=== PATIENT | female | born 1975 | race Caucasian/White ===

== ENCOUNTER 2017-10-22 17:21 | Emergency (ER) | payer OTHER, SELFPAY ==
--- OUTSIDE RECORDS SUMMARY | 2017-10-22 17:23 | XMS REPORT | Clinical Summary ---
:1975 Author Organization [facility] Address [address] [place] [address] Care Team Providers Name Role Phone Cliff Womack Primary Care Provider Allergies Not on File Current Medications Prescription Sig. Disp. Refills Start Date End Date Status medroxyPROGESTERone 08/24/2017 Active (DEPO-PROVERA) 150 mg/mL injection mercaptopurine (PURINETHOL) 09/14/2017 Active 50 mg chemo tablet PENTASA 500 mg CR capsule 08/21/2017 Active metFORMIN (GLUCOPHAGE) 500 08/23/2017 Active mg tablet pantoprazole (PROTONIX) 40 07/12/2017 Active MG EC tablet adalimumab (HUMIRA) 40 Inject 40 mg Active mg/0.8 mL injection under the skin once. ergocalciferol (VITAMIN D2) Take 50,000 Active 50,000 unit capsule Units by mouth once a week. cyanocobalamin 1,000 mcg/mL Inject 1,000 mcg Active injection into the shoulder, thigh, or buttocks once. fexofenadine (CHAPARRO) 60 MG Take 60 mg by Active tablet mouth daily. cinnamon bark 500 mg capsule Take 500 mg by Active mouth daily. coenzyme Q10 (CO Q-10) 200 Take 200 mg by Active mg capsule mouth daily. melatonin 3 mg tablet Take by mouth. Active lidocaine (LIDODERM) 5 % Place 1 patch on Active the skin daily. Remove & Discard patch within 12 hours or as directed by albuterol (PROAIR Inhale 2 puffs Active HFA,PROVENTIL HFA,VENTOLIN every 6 (six) HFA) 90 mcg/actuation hours as needed inhaler for wheezing. promethazine (PHENERGAN) 25 Take 25 mg by Active MG tablet mouth every 6 (six) hours as needed for nausea or vomiting. ondansetron (ZOFRAN) 4 MG Take 4 mg by Active tablet mouth every 8 (eight) hours as needed for nausea or vomiting. Active Problems Problem Noted Date LBBB (left bundle branch block) 09/28/2017 Encounters Date Type Specialty Care Team Description 09/28/2017 Office Visit Cardiology Romaine Chavez MD LBBB (left bundle branch block) (Primary Dx) after 10/21/2016 Social History Tobacco Use Types Packs/Day Years Used Date Current Every Day Smoker Cigarettes 0.25 Smokeless Tobacco: Never Used Alcohol Use Drinks/Week oz/Week Comments No Sex Assigned at Date Recorded Not on file Last Filed Vital Signs Not on file Plan of Treatment Date Type Specialty Care Team Description 09/13/2018 Office Visit Cardiology Romaine Chavez MD [address] [address] Health Maintenance Due Date Last Done Comments PAP SMEAR 1994 INFLUENZA VACCINE 02/02/2018 Results Not on fileafter 10/21/2016 Insurance Payer Benefit Plan / Group Subscriber ID Type Phone Address MEDICARE MEDICARE PART A AND B xxxxxxxxxx Medicare [place], [place] Home: Michael TUCKER [phone] [place] [phone]
[2017-10-22] MEDS ORDERED: NA CHLORIDE 0.9% 1,000 ML ONE ×2 (18:29→20:05)
[2017-10-22] MEDS ORDERED: PROMETHAZINE 25 MG/ML VIAL ONE (18:29)
[2017-10-22 18:53] LABS: Absolute Lymphocytes (CBC) 0.7 K/uL (0.7-4.9); Absolute Neutrophil 13.3 K/uL (1.8-8.0); Basophils % 0.4 % (0-1.3); Hematocrit 42.4 % (36.0-45.0); Lymphocytes % 4.4 % (15.3-44.8); MCH 35.9 pg (27.0-35.0); MCV 103.1 fL (80-100); MPV 8.4 fL (7.6-11.3); Monocytes % 6.4 % (3.3-12.3); RBC Red Blood Cell Count 4.12 M/uL (3.86-4.86)
[2017-10-22 19:04] LABS: Bicarbonate 19 mEq/L (21-31); Glucose Level 156 mg/dL (65-120); Lipase 17 U/L (22-51); Potassium 3.8 mEq/L (3.6-5.0); Sodium Level 135 mEq/L (135-145)
[2017-10-22 19:10] LABS: ALT/SGPT 49 IU/L (10-60); AST/SGOT 34 IU/L (10-42); Albumin 3.2 g/dL (3.2-5.5); Alkaline Phosphatase 71 IU/L (42-121); BUN Blood Urea Nitrogen 12 mg/dL (6-20); Bilirubin Direct 0.3 mg/dL (0-0.2); Protein, Total 7.5 g/dL (6.0-8.3)
[2017-10-22] MEDS ORDERED: ACETAMINOPHEN 500 MG TAB ONE (19:17)
[2017-10-22 19:24] LABS: Platelet Estimate INCR; Urine White Blood Cell Casts OK
[2017-10-22 19:25] LABS: Blood Morphology Comment NOT SEEN (NOT SEEN)
[2017-10-22 20:39] LABS: Urine Blood 2+ (NEG); Urine Glucose NEGATIVE (NEG); Urine Protein 3+ (NEG); Urine Specific Gravity >1.030 (1.005-1.030)
--- NOTE | 2017-10-22 20:42 | ER ---
Nurse's Notes [facility] Name: Kathe Del Rio Age: 42 yrs Sex: Female : 1975 Arrival Date: 10/22/2017 Time: 17:26 Bed 2 Private MD: Diagnosis: Infectious mononucleosis;Nausea and vomiting Presentation: 10/22 18:02 Presenting complaint: Patient states: N/V/D and fever x 4 days. TMAX 103.4. Transition hb of care: patient was not received from another setting of care. Onset of symptoms was October 19, 2017. Care prior to arrival: Medication(s) given: Motrin at 1330 today. 18:02 Method Of Arrival: Ambulatory hb 18:02 Acuity: KARISSA 2 hb 18:35 Initial Sepsis Screen: Does the patient meet any 2 criteria? HR > 90 bpm. No. Patient's tw2 initial sepsis screen is negative. Does the patient have a suspected source of infection? No. Patient's initial sepsis screen is negative. 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 - Social history:: Smoking status: Patient uses tobacco products, smokes one-half pack cigarettes per day. Screenin:38 Abuse screen: Denies threats or abuse. Nutritional screening: No deficits noted. tw2 Tuberculosis screening: No symptoms or risk factors identified. Fall Risk None identified. Assessment: 18:35 General: Appears in no apparent distress. Behavior is calm, cooperative, appropriate tw2 for age. Pain: Denies pain. Neuro: Level of Consciousness is awake, alert, obeys commands, Oriented to person, place, time, situation. Cardiovascular: Denies chest pain, shortness of breath, Heart tones S1 S2 Capillary refill < 3 seconds Patient's skin is warm and dry. Respiratory: Airway is patent Respiratory effort is even, unlabored, Respiratory pattern is regular, symmetrical, Breath sounds are clear bilaterally. GI: Abdomen is round obese, Bowel sounds present X 4 quads. Reports diarrhea, nausea, vomiting, X4days. : No signs and/or symptoms were reported regarding the genitourinary system. EENT: No signs and/or symptoms were reported regarding the EENT system. Derm: Skin is intact, is healthy with good turgor, Skin is dry, Skin temperature is warm. Musculoskeletal: Range of motion: intact in all extremities. 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 General: tl2 Appears in no apparent distress. uncomfortable, Behavior is calm, cooperative, appropriate for age. Pain: Denies pain. Neuro: Level of Consciousness is awake, alert, obeys commands, Oriented to person, place, time, situation. Cardiovascular: Denies chest pain. Respiratory: Airway is patent Respiratory effort is even, unlabored, Respiratory pattern is regular, symmetrical. GI: Abdomen is round Reports diarrhea, nausea, vomiting. : No signs and/or symptoms were reported regarding the genitourinary system. Derm: Skin temperature is warm. 21:05 Reassessment: Patient and/or family updated on plan of care and expected duration. Pain tl1 level reassessed. Patient is alert, oriented x 3, equal unlabored respirations, skin warm/dry/pink. Patient denies pain at this time. Patient states feeling better. Patient states symptoms have improved. Vital Signs: 18:04 BP 134 / 80; Pulse 146; Resp 20; Temp 97(TE); Pulse Ox 100% on R/A; Weight 83.01 kg; hb Height 5 ft. 7 in. (170.18 cm); Pain 3/10; 18:30 BP 153 / 71; Pulse 134; Resp 18; Pulse Ox 95% on R/A; tw2 19:12 BP 134 / 63; Pulse 118; Resp 30; Temp 100.3(O); Pulse Ox 93% on R/A; tl2 20:22 BP 130 / 62; Pulse 104; Resp 24; Pulse Ox 92% on R/A; tl2 21:05 BP 125 / 66; Pulse 102; Resp 17; Temp 99.5(O); Pulse Ox 95% on R/A; Pain 0/10; tl1 18:04 Body Mass Index 28.66 (83.01 kg, 170.18 cm) hb ED Course: 17:26 Patient arrived in ED. sb2 18:04 Triage completed. hb 18:06 Arm band placed on left wrist. hb 18:08 Justice Jimenez NP is PHCP. pm1 18:08 Anjum Narvaez MD is Attending Physician. pm1 18:15 Bed in low position. Pulse ox on. NIBP on. tw2 18:26 Chantel Griffin RN is Primary Nurse. tw2 18:30 domestic violence advocate on. tw2 18:35 Missed attempt(s): 20 gauge in right antecubital area. per joseph Nguyen. tw2 18:38 No provider procedures requiring assistance completed. tw2 18:45 Initial lab(s) drawn, by me, sent to lab. Flu and/or RSV swab sent to lab. Inserted jb1 saline lock: 22 gauge in left antecubital area, using aseptic technique. Blood collected. 19:00 Report given to RICH Arreola. tw2 21:07 IV discontinued, intact, bleeding controlled, No redness/swelling at site. Pressure tl1 dressing applied. Administered Medications: 18:40 Drug: Phenergan 12.5 mg Route: IVP; Site: left antecubital; tw2 21:10 Follow up: Response: No adverse reaction; Nausea is decreased tl1 18:44 Drug: NS 0.9% 1000 ml Route: IV; Rate: 1000 ml; Site: left antecubital; tw2 21:10 Follow up: IV Status: Completed infusion tl1 19:19 Drug: Tylenol 1000 mg Route: PO; tl1 21:08 Follow up: Response: No adverse reaction; Temperature is decreased tl1 20:09 Drug: NS 0.9% 1000 ml Route: IV; Rate: 1000 ml; Site: left forearm; tl2 21:08 Follow up: IV Status: Completed infusion tl1 Outcome: 20:42 Discharge ordered by . pm1 21:09 Discharged to home ambulatory. tl1 21:09 Condition: good 21:09 Discharge instructions given to patient, Instructed on discharge instructions, follow up and referral plans. medication usage, Demonstrated understanding of instructions, follow-up care, medications, Prescriptions given X 1. 21:20 Patient left the ED. tl1 Signatures: Herbert Duke jb1 Carol Bingham, RN RN tl1 Justice Jimenez, WALLPAPER SCRAPER WALLPAPER SCRAPER pm1 Kathe Monge RN RN Chantel Griffin RN RN tw2 Elba Werner RN RN tl2 Maritza Trinidad sb2 Corrections: (The following items were deleted from the chart) 19:16 19:12 BP 134 / 63; Pulse 118bpm; Resp 30bpm; Pulse Ox 93% RA; tl2 tl2
--- NOTE | 2017-10-22 20:42 | EDPHYS ---
Physician Documentation [facility] Name: Kathe Del Rio Age: 42 yrs Sex: Female : 1975 Arrival Date: 10/22/2017 Time: 17:26 Bed 2 Private MD: ED Physician Anjum Narvaez HPI: 10/22 19:00 This 42 yrs old Female presents to ER via Ambulatory with complaints of pm1 Fever, Vomiting. 19:00 The patient reports fever, that was measured at 101 degrees Fahrenheit. Onset: The pm1 symptoms/episode began/occurred 3 day(s) ago. Modifying factors: there are no obvious modifying factors. Associated signs and symptoms: Pertinent positives: cough, nausea, vomiting, Pertinent negatives: abdominal pain, chest pain, diarrhea, earache, headache, skin rash, shortness of breath, sore throat. Severity of symptoms: in the emergency department the symptoms are unchanged. The patient has not experienced similar symptoms in the past. The patient has been recently seen at an urgent care, patient seen at urgent care two days ago for the same symptoms and told that she has a cold. No labs or X-rays performed. patient discharged home without mediations . 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 - Social history:: Smoking status: Patient uses tobacco products, smokes one-half pack cigarettes per day. ROS: 19:00 Eyes: Negative for injury, pain, redness, and discharge, ENT: Negative for injury, pm1 pain, and discharge, Neck: Negative for injury, pain, and swelling, Cardiovascular: Negative for chest pain, palpitations, and edema, Respiratory: Negative for shortness of breath, cough, wheezing, and pleuritic chest pain. 19:00 Back: Negative for injury and pain, : Negative for injury, bleeding, discharge, and swelling, MS/Extremity: Negative for injury and deformity, Skin: Negative for injury, rash, and discoloration, Neuro: Negative for headache, weakness, numbness, tingling, and seizure. 19:00 Constitutional: Positive for body aches, chills, fever, Negative for poor PO intake. 19:00 Abdomen/GI: Positive for nausea and vomiting, Negative for abdominal pain, diarrhea. Exam: 19:00 Constitutional: This is a well developed, well nourished patient who is awake, alert, pm1 and in no acute distress. Head/Face: Normocephalic, atraumatic. Eyes: Pupils equal round and reactive to light, extra-ocular motions intact. Lids and lashes normal. Conjunctiva and sclera are non-icteric and not injected. Cornea within normal limits. Periorbital areas with no swelling, redness, or edema. ENT: Nares patent. No nasal discharge, no septal abnormalities noted. Tympanic membranes are normal and external auditory canals are clear. Oropharynx with no redness, swelling, or masses, exudates, or evidence of obstruction, uvula midline. Mucous membranes moist. Neck: Trachea midline, no thyromegaly or masses palpated, and no cervical lymphadenopathy. Supple, full range of motion without nuchal rigidity, or vertebral point tenderness. No Meningismus. Chest/axilla: Normal chest wall appearance and motion. Nontender with no deformity. No lesions are appreciated. Cardiovascular: Regular rate and rhythm with a normal S1 and S2. No gallops, murmurs, or rubs. Normal PMI, no JVD. No pulse deficits. Respiratory: Lungs have equal breath sounds bilaterally, clear to auscultation and percussion. No rales, rhonchi or wheezes noted. No increased work of breathing, no retractions or nasal flaring. 19:00 Back: No spinal tenderness. No costovertebral tenderness. Full range of motion. Skin: Warm, dry with normal turgor. Normal color with no rashes, no lesions, and no evidence of cellulitis. MS/ Extremity: Pulses equal, no cyanosis. Neurovascular intact. Full, normal range of motion. Neuro: Awake and alert, GCS 15, oriented to person, place, time, and situation. Cranial nerves II-XII grossly intact. Motor strength 5/5 in all extremities. Sensory grossly intact. Cerebellar exam normal. Normal gait. 19:00 Abdomen/GI: Inspection: abdomen appears normal, Bowel sounds: normal, Palpation: abdomen is soft and non-tender. Vital Signs: 18:04 BP 134 / 80; Pulse 146; Resp 20; Temp 97(TE); Pulse Ox 100% on R/A; Weight 83.01 kg; hb Height 5 ft. 7 in. (170.18 cm); Pain 3/10; 18:30 BP 153 / 71; Pulse 134; Resp 18; Pulse Ox 95% on R/A; tw2 19:12 BP 134 / 63; Pulse 118; Resp 30; Temp 100.3(O); Pulse Ox 93% on R/A; tl2 20:22 BP 130 / 62; Pulse 104; Resp 24; Pulse Ox 92% on R/A; tl2 21:05 BP 125 / 66; Pulse 102; Resp 17; Temp 99.5(O); Pulse Ox 95% on R/A; Pain 0/10; tl1 18:04 Body Mass Index 28.66 (83.01 kg, 170.18 cm) hb MDM: 18:17 Patient medically screened. pm1 20:41 Data reviewed: vital signs. Counseling: I had a detailed discussion with the patient pm1 and/or guardian regarding: the historical points, exam findings, and any diagnostic results supporting the discharge/admit diagnosis, lab results, the need for outpatient follow up, to return to the emergency department if symptoms worsen or persist or if there are any questions or concerns that arise at home. 10/22 18:20 Order name: Lipase; Complete Time: 19: pm1 10/22 18:20 Order name: Hepatic Function; Complete Time: : pm1 10/22 18:20 Order name: Basic Metabolic Panel; Complete Time: 19:22 pm1 10/22 18:20 Order name: CBC with Diff; Complete Time: 19:44 pm1 10/22 18:20 Order name: Flu; Complete Time: 19: pm1 10/22 18:20 Order name: [place] Screen Profile; Complete Time: 19:22 pm1 10/22 18:20 Order name: Urine Test (obtain specimen); Complete Time: 19:32 pm1 10/22 18:58 Order name: CBC Smear Scan; Complete Time: 19:44 EDMS 10/22 19:34 Order name: Urine Dipstick--Ancillary (enter results); Complete Time: 20:40 em1 10/22 19:34 Order name: Urine --Ancillary (enter results); Complete Time: 20:40 em1 10/22 18:20 Order name: IV Saline Lock; Complete Time: 18:45 pm1 10/22 18:20 Order name: Labs collected and sent; Complete Time: 18:45 pm1 10/22 18:20 Order name: Urine Dipstick-Ancillary (obtain specimen); Complete Time: 19:32 pm1 Administered Medications: 18:40 Drug: Phenergan 12.5 mg Route: IVP; Site: left antecubital; tw2 21:10 Follow up: Response: No adverse reaction; Nausea is decreased tl1 18:44 Drug: NS 0.9% 1000 ml Route: IV; Rate: 1000 ml; Site: left antecubital; tw2 21:10 Follow up: IV Status: Completed infusion tl1 19:19 Drug: Tylenol 1000 mg Route: PO; tl1 21:08 Follow up: Response: No adverse reaction; Temperature is decreased tl1 20:09 Drug: NS 0.9% 1000 ml Route: IV; Rate: 1000 ml; Site: left forearm; tl2 21:08 Follow up: IV Status: Completed infusion tl1 Disposition: 10/22/17 20:42 Discharged to Home. Impression: Infectious mononucleosis, Nausea and vomiting. - Condition is Stable. - Discharge Instructions: Infectious Mononucleosis, Nausea and Vomiting. - Prescriptions for promethazine 25 mg Oral Tablet - take 1 tablet by ORAL route every 6 hours As needed; 20 tablet. - Medication Reconciliation Form, Thank You Letter form. - Follow up: Emergency Department; When: As needed; Reason: Worsening of condition. Follow up: Private Physician; When: 2 - 3 days; Reason: Recheck today's complaints, Continuance of care, Re-evaluation by your physician. - Problem is new. - Symptoms have improved. Addendum: 11/06/2017 19:56 Co-signature as Attending Physician, Anjum Narvaez MD I agree with the assessment and k dr plan of care. Signatures: Dispatcher [employer] EDMS Anjum Narvaez MD MD [facility] Carol Bingham, RN RN tl1 Justice Jimenez, TENNIS DIRECTOR TENNIS DIRECTOR pm1 Kathe Monge, RN RN Chantel Griffin, RN RN tw2 Elba Werner RN RN tl2 Corrections: (The following items were deleted from the chart) 10/22 20:43 20:42 10/22/2017 20:42 Discharged to Home. Impression: Infectious mononucleosis. pm1 Condition is Stable. Forms are Medication Reconciliation Form, Thank You Letter, Antibiotic Education, Prescription Opioid Use. Follow up: Emergency Department; When: As needed; Reason: Worsening of condition. Follow up: Private Physician; When: 2 - 3 days; Reason: Recheck today's complaints, Continuance of care, Re-evaluation by your physician. Problem is new. Symptoms have improved. pm1 21:20 20:43 10/22/2017 20:42 Discharged to Home. Impression: Infectious mononucleosis; Nausea tl1 and vomiting. Condition is Stable. Discharge Instructions: Infectious Mononucleosis, Nausea and Vomiting. Prescriptions for promethazine 25 mg Oral Tablet - take 1 tablet by ORAL route every 6 hours As needed; 20 tablet. and Forms are Medication Reconciliation Form, Thank You Letter. Follow up: Emergency Department; When: As needed; Reason: Worsening of condition. Follow up: Private Physician; When: 2 - 3 days; Reason: Recheck today's complaints, Continuance of care, Re-evaluation by your physician. Problem is new. Symptoms have improved. pm1
[2017-10-22 21:29] VITALS: BP 125/66; TEMP 99.5; O2SAT 95
== END 2017-10-22 21:20 | disposition home or self-care (01) ==
LOC: ER 17:21
DX: B27.90 Infectious mononucleosis, unspecified without complication (principal); R11.2 Nausea with vomiting, unspecified; F17.210 Nicotine dependence, cigarettes, uncomplicated; Z88.6 Allergy status to analgesic agent; Z88.8 Allergy status to other drugs, medicaments and biological substances; Z88.2 Allergy status to sulfonamides; Z88.3 Allergy status to other anti-infective agents
CPT/HCPCS: 36415; 80048; 80076; 81003; 81025; 83690; 85025; 86308; 87804; 96361; 96374; 99284; J2550; J7030

== ENCOUNTER 2017-10-25 18:17 | Inpatient (IN) | payer OTHER, SELFPAY ==
--- OUTSIDE RECORDS SUMMARY | 2017-10-25 18:19 | XMS REPORT | Clinical Summary ---
:1975 Author Organization [facility] Address [address] [place] [address] Care Team Providers Name Role Phone Cliff [...] (left bundle branch block) (Primary Dx) after 10/24/2016 Social History Tobacco Use Types Packs/Day Years Used Date Current Every Day Smoker Cigarettes 0.25 Smokeless Tobacco: Never Used Alcohol Use Drinks/Week oz/Week Comments No Sex Assigned at Date Recorded Not on file Last Filed Vital Signs Not on file Plan of Treatment Date Type Specialty Care Team Description 09/13/2018 Office Visit Cardiology Romaine Chavez MD [address] [address] Health Maintenance Due Date Last Done Comments PAP SMEAR 1994 INFLUENZA VACCINE 02/02/2018 Results Not on fileafter 10/24/2016 Insurance Payer Benefit Plan / Group Subscriber ID Type Phone Address MEDICARE MEDICARE PART A AND B xxxxxxxxxx Medicare [place], [place] Home: Michael [place] [phone] [place] [phone]
[2017-10-25] MEDS ORDERED: NA CHLORIDE 0.9% 1,000 ML ONE ×2 (19:16→19:54)
[2017-10-25 19:19] LABS: Protime INR 1.31
[2017-10-25 19:33] LABS: Absolute Lymphocytes (CBC) 0.6 K/uL (0.7-4.9); Absolute Monocytes 0.4 K/uL (0.1-1.3); Absolute Neutrophil 11.8 K/uL (1.8-8.0); Basophils % 0.3 % (0-1.3); Eosinophils % 0.2 % (0-4.4); Hematocrit 43.2 % (36.0-45.0); Lymphocytes % 4.9 % (15.3-44.8); MCH 35.1 pg (27.0-35.0); MCV 103.4 fL (80-100); MPV 9.2 fL (7.6-11.3); Monocytes % 3.1 % (3.3-12.3); RBC Red Blood Cell Count 4.18 M/uL (3.86-4.86)
[2017-10-25 19:40] LABS: Arterial Blood Carboxyhemoglob 0.9 % (0-1.5); Blood Gas Oxyhemoglobin 95.1 % (94-97); Blood O2 Saturation 96.4 % (92-98.5)
[2017-10-25 19:41] LABS: ALT/SGPT 92 IU/L (10-60); AST/SGOT 158 IU/L (10-42); Albumin 2.7 g/dL (3.2-5.5); Alkaline Phosphatase 98 IU/L (42-121); BUN Blood Urea Nitrogen 11 mg/dL (6-20); Bicarbonate 23 mEq/L (21-31); Bilirubin Direct 0.5 mg/dL (0-0.2); Bilirubin Total 1.6 mg/dL (0.3-1.2); Glucose Level 202 mg/dL (65-120); Lipase 50 U/L (22-51); Potassium 3.2 mEq/L (3.6-5.0); Protein, Total 6.8 g/dL (6.0-8.3); Sodium Level 131 mEq/L (135-145)
[2017-10-25] MEDS ORDERED: ALBUTEROL 2.5 MG/3 ML NEB SOL ONE (19:53)
[2017-10-25] MEDS ORDERED: IPRATROPIUM BROM 0.5MG/2.5ML ONE (19:53)
[2017-10-25] MEDS ORDERED: Levofloxacin 750mg IV 750 MG/150 ML BAG IV ONE (19:54)
[2017-10-25] MEDS ORDERED: CEFTRIAXONE/SWI 1gm 1 GM/10 ML SYR ONE (19:54)
[2017-10-25] MEDS ORDERED: ONDANSETRON 4 MG/2 ML VIAL ONE (20:03)
--- NOTE | 2017-10-25 20:11 | ER ---
Nurse's Notes [facility] Name: Kathe Del Rio Age: 42 yrs Sex: Female : 1975 Arrival Date: 10/25/2017 Time: 18:19 Bed 6 Private MD: Cliff Womack H Diagnosis: Severe sepsis without septic shock Presentation: 10/25 18:33 Presenting complaint: Patient states: Pt. c/o SOB and low pulse ox \T\ home... Heart rate rk2 in triage elevated. Pt. dx with mono on Wednesday here in ED. Transition of care: patient was not received from another setting of care. Onset of symptoms was October 25, 2017. Initial Sepsis Screen: Does the patient meet any 2 criteria? Yes Does the patient have a suspected source of infection? Yes:. Care prior to arrival: None. 18:33 Method Of Arrival: Wheelchair rk2 18:33 Acuity: KARISSA 2 rk2 Triage Assessment: 18:54 General: Appears distressed. Respiratory: Onset: The symptoms/episode began/occurred tw2 today, the patient has moderate shortness of breath. 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 - bb Historical: - Allergies: 18:36 Allopurinol; rk2 18:36 Codeine; rk2 18:36 Demerol; rk2 18:36 Cymbalta; rk2 18:36 Effexor; rk2 18:36 Lyrica; rk2 18:36 milnacipran; rk2 18:36 Macrolide Antibiotics; rk2 18:36 Oxycodone; rk2 18:36 Morphine; rk2 18:36 Zithromax; rk2 18:36 Sulfa (Sulfonamide Antibiotics); rk2 - Home Meds: 19:02 propranolol 40 mg Oral tab 1 tab 2 times per day [Active]; Pentasa 500 mg Oral cpER 2 tw2 caps 4 times per day [Active]; mercaptopurine 50 mg oral tab once daily [Active]; Stool Softener oral oral [Active]; Zofran (as hydrochloride) 4 mg oral tab [Active]; iflora-nasal sinus support supplement [Active]; metformin 500 mg Oral tr24 1 tab once daily [Active]; - PMHx: 19:02 automimmune thyroiditis; Crohn's; LBB; Heart Murmur; psoriasis; tw2 - PSHx: 19:02 Appendectomy; Cholecystectomy; rectal mass removed; left ankle surgery; breast tw2 reduction; Lumpectomy; - Immunization history:: Flu vaccine is up to date. - Social history:: Smoking status: Patient uses tobacco products, smokes one-half pack cigarettes per day. Screenin:54 Abuse screen: Denies threats or abuse. Nutritional screening: No deficits noted. tw2 Tuberculosis screening: No symptoms or risk factors identified. Fall Risk None identified. Assessment: 18:44 General: Appears uncomfortable, Behavior is anxious. Pain: Denies pain. Neuro: Level of tw2 Consciousness is awake, alert, obeys commands, Oriented to person, place, time, situation. Cardiovascular: Heart tones S1 S2 Capillary refill < 3 seconds Patient's skin is warm and dry. Rhythm is sinus tachycardia. Respiratory: Reports shortness of breath Airway is patent Respiratory effort is even, unlabored, Respiratory pattern is tachypnea Breath sounds are clear bilaterally. GI: No signs and/or symptoms were reported involving the gastrointestinal system. Abdomen is flat, Bowel sounds present X 4 quads. : No signs and/or symptoms were reported regarding the genitourinary system. EENT: No signs and/or symptoms were reported regarding the EENT system. Derm: Skin is intact, is healthy with good turgor, Skin is diaphoretic. Musculoskeletal: Range of motion: intact in all extremities. 19:15 General: Appears in no apparent distress. uncomfortable, Behavior is calm, cooperative. bb Neuro: Level of Consciousness is awake, alert, obeys commands, Oriented to person, place, time, situation. Cardiovascular: Heart tones S1 S2 present Capillary refill < 3 seconds Patient's skin is warm and dry. Pulses are all present. Edema is absent. Rhythm is sinus tachycardia. Respiratory: Respiratory effort is unlabored, Respiratory pattern is tachypnea Breath sounds with rhonchi in left posterior lower lobe. GI: No signs and/or symptoms were reported involving the gastrointestinal system. Derm: Skin is pink, warm \T\ dry. Musculoskeletal: Circulation, motion, and sensation intact. 20:15 Reassessment: No changes from previously documented assessment. Patient is alert, bb oriented x 3, equal unlabored respirations, skin warm/dry/pink. Bipap in place, IV site intact, patent, with fluids infusing, mother at bedside. 21:00 Reassessment: Dr Choi notified pt temp of 102.6 new orders received pt medicated see bb SEP. 21:50 Reassessment: pt to CT scan via stretcher on non-rebreather, monitored, pt accompanied bb by this RN and body shop technician. 22:10 Reassessment: pt returned from CT scan, placed on Bipap, IV site intact, pt states she bb is hungry now which she has not been for the last several days. Family at bedside awaiting transfer to ICU bed 7. Vital Signs: 18:36 BP 119 / 66; Pulse 141; Resp 24; Temp 96.8; Pulse Ox 87% on R/A; rk2 18:39 Weight 83.01 kg (R); tw2 18:47 Pulse Ox 93% on 4 lpm NC; tw2 18:55 Pulse Ox 95% on 50% BiPAP; tw2 19:43 BP 149 / 108; Pulse 142; Resp 25 S; Pulse Ox 99% on BiPAP; bb 20:30 BP 121 / 104; Pulse 128; Resp 32 S; Pulse Ox 100% on BiPAP; bb 21:51 BP 139 / 84; Pulse 121; Resp 26; Pulse Ox 98% on BiPAP; mt 22:27 BP 134 / 70; Pulse 123; Resp 28 S; Temp 99.6(O); Pulse Ox 91% on R/A; bb 18:47 will continue to monitor, provider notified, requested Carolin to page respiratory for tw2 BIpap 18:55 12/6, Rate 14, FIO2 60% tw2 22:27 pt placed on Bipap O2 sats 100% bb ED Course: 18:19 Patient arrived in ED. mr 18:19 Cliff Womack DO is Private Physician. mr 18:35 Triage completed. rk2 18:39 Chantel Griffin, RICH is Primary Nurse. tw2 18:40 Clyde Choi MD is Attending Physician. gs 18:46 Arm band placed on. tw2 18:46 Bed in low position. Call light in reach. Adult w/ patient. cafeteria cashier on. Pulse tw2 ox on. NIBP on. 19:01 Initial lab(s) drawn, by me, sent to lab. EKG done, by ED staff, reviewed by Clyde Choi MD. Inserted saline lock: 22 gauge in left antecubital area, using aseptic technique. Blood collected. 19:10 Report given to RICH William with NS 1L needed to be given. tw2 19:16 X-ray completed. Portable x-ray completed in exam room. Patient tolerated procedure ml well. 19:17 Chest Single View XRAY In Process Unspecified. EDMS 20:10 Nabeel Burton MD is Hospitalizing Provider. 21:55 Repeat lab(s) drawn. by me, sent to lab. Inserted saline lock: 20 gauge in right bb antecubital area, using aseptic technique. Blood collected. 22:28 No provider procedures requiring assistance completed. Patient admitted, IV remains in bb place. Administered Medications: 19:15 Drug: NS 0.9% 1000 ml Route: IV; Rate: 1 bolus; Site: left antecubital; bb 20:30 Follow up: IV Status: Completed infusion; IV Intake: 1000ml 19:51 CANCELLED (Other Intervention Used): Rocephin - (cefTRIAXone) 1 grams IVPB once over 30 bb mins; (mix in 50 mL NS) 19:51 Drug: NS 0.9% 1000 ml Route: IV; Rate: 1 bolus; Site: left antecubital; bb 22:00 Follow up: IV Status: Completed infusion; IV Intake: 1000ml bb 19:55 Drug: Rocephin 1 grams Route: IV; Rate: calculated rate; Site: left antecubital; bb 20:00 Follow up: IV Status: Completed infusion; IV Intake: 10ml 19:55 Drug: Albuterol 2.5 mg Route: Inhalation; bb 22:31 Follow up: Response: No adverse reaction bb 19:55 Drug: AtroVENT Aerosol 0.5 mg Route: Inhalation; bb 22:31 Follow up: Response: No adverse reaction bb 20:00 Drug: LevaQUIN 750 mg Volume: 150 ml; Route: IVPB; Infused Over: 90 mins; Site: left bb antecubital; 22:33 Follow up: IV Status: Completed infusion; IV Intake: 150ml bb 20:00 Drug: Zofran 4 mg Route: IVP; Site: left antecubital; bb 22:30 Follow up: Response: No adverse reaction 20:40 Drug: NS 0.9% 500 ml Route: IV; Rate: bolus; Site: left antecubital; bb 22:00 Follow up: IV Status: Completed infusion; IV Intake: 500ml bb 21:12 Drug: Tylenol 1000 mg Route: PO; bb 22:30 Follow up: Response: Temperature is decreased bb Intake: 20:00 IV: 10ml; Total: 10ml. bb 20:30 IV: 1000ml; Total: 1010ml. bb 22:00 IV: 500ml; Total: 1510ml. bb 22:00 IV: 1000ml; Total: 2510ml. bb 22:33 IV: 150ml; Total: 2660ml. bb Outcome: 20:11 Decision to Hospitalize by Provider. 22:28 Admitted to ICU accompanied by nurse, family with patient, via stretcher, room ICU 7, bb with oxygen, on monitor, with chart, Other bedside report given to receiving RN 22:28 Condition: unchanged 23:12 Patient left the ED. bb Signatures: Dispatcher [employer] EDMS Herbert Duke jbGladys Bess Brenda, RN RN bb Leona Sexton Tara, RN RN tw2 Mai Garay mt, Gregory, MD MD gs Kidder, Rhonda, RICH RN rk2 Corrections: (The following items were deleted from the chart) 19:03 18:55 Pulse Ox 02 50% BiPAP; 06/09, Rate 14, FIO2 60%; tw2 tw2
--- NOTE | 2017-10-25 20:12 | EDPHYS ---
Physician Documentation [facility] Name: Kathe Del Rio Age: 42 yrs Sex: Female : 1975 Arrival Date: 10/25/2017 Time: 18:19 Bed 6 Private MD: Cliff Womack H ED Physician Clyde Choi HPI: 10/25 21:23 This 42 yrs old Female presents to ER via Wheelchair with complaints of gs Breathing Difficulty. 21:23 The patient has shortness of breath at rest. Onset: The symptoms/episode began/occurred gs 2 day(s) ago, and became worse and became persistent. Duration: The symptoms are continuous. The patient's shortness of breath has no apparent modifying factors. Associated signs and symptoms: Pertinent positives: productive cough, fever, vomiting. Severity of symptoms: At their worst the symptoms were incapacitating in the emergency department the symptoms are unchanged. The patient has not experienced similar symptoms in the past. The patient has not recently seen a physician. 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 - bb Historical: - Allergies: 18:36 Allopurinol; rk2 18:36 Codeine; rk2 18:36 Demerol; rk2 18:36 Cymbalta; rk2 18:36 Effexor; rk2 18:36 Lyrica; rk2 18:36 milnacipran; rk2 18:36 Macrolide Antibiotics; rk2 18:36 Oxycodone; rk2 18:36 Morphine; rk2 18:36 Zithromax; rk2 18:36 Sulfa (Sulfonamide Antibiotics); rk2 - Home Meds: 19:02 propranolol 40 mg Oral tab 1 tab 2 times per day [Active]; Pentasa 500 mg Oral cpER 2 tw2 caps 4 times per day [Active]; mercaptopurine 50 mg oral tab once daily [Active]; Stool Softener oral oral [Active]; Zofran (as hydrochloride) 4 mg oral tab [Active]; iflora-nasal sinus support supplement [Active]; metformin 500 mg Oral tr24 1 tab once daily [Active]; - PMHx: 19:02 automimmune thyroiditis; Crohn's; LBB; Heart Murmur; psoriasis; tw2 - PSHx: 19:02 Appendectomy; Cholecystectomy; rectal mass removed; left ankle surgery; breast tw2 reduction; Lumpectomy; - Immunization history:: Flu vaccine is up to date. - Social history:: Smoking status: Patient uses tobacco products, smokes one-half pack cigarettes per day. ROS: 21:23 All other systems are negative. gs Exam: 21:23 Head/Face: Normocephalic, atraumatic. Eyes: Pupils equal round and reactive to light, gs extra-ocular motions intact. Lids and lashes normal. Conjunctiva and sclera are non-icteric and not injected. Cornea within normal limits. Periorbital areas with no swelling, redness, or edema. ENT: Nares patent. No nasal discharge, no septal abnormalities noted. Tympanic membranes are normal and external auditory canals are clear. Oropharynx with no redness, swelling, or masses, exudates, or evidence of obstruction, uvula midline. Mucous membranes moist. Neck: Trachea midline, no thyromegaly or masses palpated, and no cervical lymphadenopathy. Supple, full range of motion without nuchal rigidity, or vertebral point tenderness. No Meningismus. Chest/axilla: Normal chest wall appearance and motion. Nontender with no deformity. No lesions are appreciated. Abdomen/GI: Soft, non-tender, with normal bowel sounds. No distension or tympany. No guarding or rebound. No evidence of tenderness throughout. Back: No spinal tenderness. No costovertebral tenderness. Full range of motion. Skin: Warm, dry with normal turgor. Normal color with no rashes, no lesions, and no evidence of cellulitis. MS/ Extremity: Pulses equal, no cyanosis. Neurovascular intact. Full, normal range of motion. Neuro: Awake and alert, GCS 15, oriented to person, place, time, and situation. Cranial nerves II-XII grossly intact. Motor strength 5/5 in all extremities. Sensory grossly intact. Cerebellar exam normal. Normal gait. 21:23 Constitutional: The patient appears alert, awake, in obvious distress, severely distressed. 21:23 Cardiovascular: Rate: tachycardic, Rhythm: regular, Pulses: no pulse deficits are appreciated, Edema: is not appreciated. 21:23 ECG was reviewed by the Attending Physician. 21:23 Respiratory: severe repiratory distress is noted, Respirations: labored breathing, tachypnea, Breath sounds: decreased breath sounds, that are moderate, are heard in the left posterior lower lobe. Vital Signs: 18:36 BP 119 / 66; Pulse 141; Resp 24; Temp 96.8; Pulse Ox 87% on R/A; rk2 18:39 Weight 83.01 kg (R); tw2 18:47 Pulse Ox 93% on 4 lpm NC; tw2 18:55 Pulse Ox 95% on 50% BiPAP; tw2 19:43 BP 149 / 108; Pulse 142; Resp 25 S; Pulse Ox 99% on BiPAP; bb 20:30 BP 121 / 104; Pulse 128; Resp 32 S; Pulse Ox 100% on BiPAP; bb 21:51 BP 139 / 84; Pulse 121; Resp 26; Pulse Ox 98% on BiPAP; mt 22:27 BP 134 / 70; Pulse 123; Resp 28 S; Temp 99.6(O); Pulse Ox 91% on R/A; bb 18:47 will continue to monitor, provider notified, requested Carolin to page respiratory for tw2 BIpap 18:55 12/6, Rate 14, FIO2 60% tw2 22:27 pt placed on Bipap O2 sats 100% bb MDM: 18:49 Patient medically screened. gs 21:23 Differential diagnosis: CHF exacerbation, Chronic Obstructive Pulmonary Disease gs pneumonia, Sepsis. Data reviewed: vital signs, nurses notes, and as a result, I will admit patient. 10/26 10:09 Response to treatment: the patient's symptoms have markedly improved after treatment, gs and as a result, I will admit patient. 10/25 18:51 Order name: Basic Metabolic Panel; Complete Time: 19:47 10/25 18:51 Order name: Blood Culture Adult (2) 10/25 18:51 Order name: CBC with Diff; Complete Time: 21:02 10/25 18:51 Order name: Lactate; Complete Time: 20:10 10/25 18:51 Order name: LFT's; Complete Time: 19:47 10/25 18:51 Order name: Lipase; Complete Time: 19:47 10/25 18:51 Order name: Procalcitonin; Complete Time: 20:10 10/25 18:51 Order name: Protime (+inr); Complete Time: 19:32 10/25 18:51 Order name: Troponin (emerg Dept Use Only); Complete Time: 19:47 10/25 18:51 Order name: ABG; Complete Time: 19:47 10/25 20:43 Order name: CBC Smear Scan; Complete Time: 21:02 EDFL 10/25 21:50 Order name: Urine Dipstick--Ancillary (enter results) 2 10/25 21:50 Order name: Urine --Ancillary (enter results) [facility] 10/25 22:13 Order name: Urine --Ancillary; Complete Time: 10:11 EDFL 10/25 18:48 Order name: BIPAP 10/25 18:51 Order name: Chest Single View XRAY; Complete Time: 21:02 10/25 18:51 Order name: Accucheck; Complete Time: 19:12 10/25 22:13 Order name: Urine Dipstick-Ancillary; Complete Time: 10:11 EDMS 10/25 22:17 Order name: Lactate Sepsis 2 HR Follow-up; Complete Time: 10:11 EDFL 10/25 22:42 Order name: Troponin (emerg Dept Use Only) hi 10/25 18:51 Order name: Cardiac monitoring; Complete Time: 19:02 10/25 18:51 Order name: EKG - Nurse/Tech; Complete Time: 19:02 10/25 18:51 Order name: IV Saline Lock - Large Bore; Complete Time: 19:02 10/25 18:51 Order name: Labs collected and sent; Complete Time: 19:02 10/25 18:51 Order name: O2 Per Protocol; Complete Time: 19:02 10/25 18:51 Order name: O2 Sat Monitoring; Complete Time: 19:02 gs EC/23 21:23 Rate is 135 beats/min. Rhythm is regular with Left bundle branch block. [place] interval is gs normal. QRS interval is prolonged. No Q waves. T waves are Normal. No ST changes noted. Clinical impression: Abnormal EKG without significant change and Sinus tachycardia. Interpreted by me. Administered Medications: 19:15 Drug: NS 0.9% 1000 ml Route: IV; Rate: 1 bolus; Site: left antecubital; bb 20:30 Follow up: IV Status: Completed infusion; IV Intake: 1000ml bb 19:51 CANCELLED (Other Intervention Used): Rocephin - (cefTRIAXone) 1 grams IVPB once over 30 bb mins; (mix in 50 mL NS) 19:51 Drug: NS 0.9% 1000 ml Route: IV; Rate: 1 bolus; Site: left antecubital; bb 22:00 Follow up: IV Status: Completed infusion; IV Intake: 1000ml bb 19:55 Drug: Rocephin 1 grams Route: IV; Rate: calculated rate; Site: left antecubital; bb 20:00 Follow up: IV Status: Completed infusion; IV Intake: 10ml bb 19:55 Drug: Albuterol 2.5 mg Route: Inhalation; bb 22:31 Follow up: Response: No adverse reaction bb 19:55 Drug: AtroVENT Aerosol 0.5 mg Route: Inhalation; bb 22:31 Follow up: Response: No adverse reaction bb 20:00 Drug: LevaQUIN 750 mg Volume: 150 ml; Route: IVPB; Infused Over: 90 mins; Site: left bb antecubital; 22:33 Follow up: IV Status: Completed infusion; IV Intake: 150ml bb 20:00 Drug: Zofran 4 mg Route: IVP; Site: left antecubital; bb 22:30 Follow up: Response: No adverse reaction bb 20:40 Drug: NS 0.9% 500 ml Route: IV; Rate: bolus; Site: left antecubital; bb 22:00 Follow up: IV Status: Completed infusion; IV Intake: 500ml bb 21:12 Drug: Tylenol 1000 mg Route: PO; bb 22:30 Follow up: Response: Temperature is decreased bb Disposition: 10/25/17 20:11 Hospitalization ordered by Nabeel Burton for Inpatient Admission. Preliminary diagnosis is Severe sepsis without septic shock. - Bed requested for Intensive Care Unit. - Status is Inpatient Admission. bb - Condition is Stable. - Problem is new. - Symptoms have improved. UTI on Admission? No Critical care time excluding procedures: 21:23 Critical care time: Bedside Care: 10 minutes, Consultation: 10 minutes, Family gs Intervention: 10 minutes. Total time: 30 minutes Signatures: Dispatcher [employer] Marilee Yi RN RN kl Ballard, Brenda, RN RN bb Wise, Tara, RN RN tw2 Clyde Choi MD MD gs Kidder, Rhonda, RN RN rk2 Corrections: (The following items were deleted from the chart) 19:51 19:34 Rocephin - (cefTRIAXone) 1 grams IVPB once over 30 mins; (mix in 50 mL NS) bb ordered. 10/26 10:10 10/25 21:23 Critical Care: [facility]
--- NOTE | 2017-10-25 20:19 | RAD REPORT ---
EXAM DESCRIPTION: RAD - Chest Single View - 10/25/2017 7:19 pm CLINICAL HISTORY: Shortness of breath, hypotension COMPARISON: None. TECHNIQUE: AP portable chest image was obtained 1908 hours . FINDINGS: Moderately large area of consolidation is seen in the lateral lower left lung field. Left heart border and costophrenic angle are obscured. No cardiomegaly or vascular engorgement. No large p leural effusion. No measurable pleural effusion and no pneumothorax. No gross bony abnormality seen. No acute aortic findings suspected. IMPRESSION: Moderately large left lung base pneumonia.
[2017-10-25 20:43] LABS: Blood Morphology Comment NOT SEEN (NOT SEEN); Platelet Estimate ADEQ; Urine White Blood Cell Casts OK
[2017-10-25] MEDS ORDERED: ACETAMINOPHEN 500 MG TAB ONE (21:07)
[2017-10-25] MEDS ORDERED: NA CHLORIDE 0.9% 500 ML ONE (21:09)
[2017-10-25] MEDS ORDERED: ACETAMINOPHEN 500 MG TAB PO PRN (21:30)
[2017-10-25] MEDS ORDERED: ONDANSETRON 4 MG/2 ML VIAL IV PRN (21:30)
[2017-10-25] MEDS ORDERED: HYDROCORTISONE SUC 100 MG INJ IV ONE (21:33)
[2017-10-25] MEDS: NA CHLORIDE 0.9% 1,000 ML IV SCH (22:00)
[2017-10-25 22:12] LABS: Urine Blood 3+ (NEG); Urine Glucose NEGATIVE (NEG); Urine Protein 2+ (NEG); Urine Specific Gravity 1.015 (1.005-1.030)
[2017-10-25 23:39] VITALS: BMI 28.7
[2017-10-26] MEDS: NA CHLORIDE 0.9% 1,000 ML IV SCH (00:38)
[2017-10-26] MEDS: ALBUTEROL 2.5 MG/3 ML NEB SOL NEB SCH ×2 (01:34→07:50)
[2017-10-26] MEDS: IPRATROPIUM BROM 0.5MG/2.5ML NEB SCH ×4 (01:34→19:37)
[2017-10-26 05:01] LABS: Absolute Lymphocytes (CBC) 0.3 K/uL (0.7-4.9); Absolute Monocytes 0.3 K/uL (0.1-1.3); Absolute Neutrophil 8.9 K/uL (1.8-8.0); Basophils % 0.1 % (0-1.3); Eosinophils % 0.1 % (0-4.4); Hematocrit 35.1 % (36.0-45.0); Lymphocytes % 3.7 % (15.3-44.8); MCH 34.9 pg (27.0-35.0); MCV 104.1 fL (80-100); MPV 8.7 fL (7.6-11.3); Monocytes % 2.8 % (3.3-12.3); RBC Red Blood Cell Count 3.37 M/uL (3.86-4.86)
--- NOTE | 2017-10-26 05:17 | P.HP ---
Certification for Inpatient Patient admitted to: Inpatient With expected LOS: >2 Midnights Patient will require the following post-hospital care: None Practitioner: I am a practitioner with admitting privileges, knowledge of patient current condition, hospital course, and medical plan of care. Services: Services provided to patient in accordance with Admission requirements found in Title 42 Section 412.3 of the Code of Federal Regulations Patient History Date of Service: 10/25/17 Reason for admission: Multi focal pneumonia History of Present Illness: Patient is a 42-year-old female who is well known to me as I have known her from being a part of the community for a long time. Her mother was a long-time nurse at [employer] [facility]. The patient is actually had multiple autoimmune diseases. These include psoriasis, psoriatic arthritis, autoimmune thyroiditis, and Crohn's disease. Patient has been taking immunosuppressants for quite a while. She came into the hospital a few days prior and was initially diagnosed at urgent care with an upper respiratory infection. A few days later she was told she had infectious mononucleosis. Yesterday she had been doing very poorly any used her CPAP to help per respiratory status. This was not improving so patient's mother brought her into the hospital for further evaluation. In the emergency room patient's workup revealed of multi focal pneumonia. Patient has been tachypneic and in respiratory distress since arrival to the ER. Patient was placed on a BiPAP for ventilatory support. Patient has been given nebs, steroids, and antibiotics. Will monitor patient closely throughout her hospital stay. Allergies acetaminophen [From Percocet] Allergy (Intermediate, Verified 09/19/11 10:15) Itching/Hives/Rash azithromycin [From Zithromax] Allergy (Intermediate, Verified 09/19/11 10:15) Hives codeine [Codeine] Allergy (Intermediate, Verified 09/19/11 10:15) Hives/Rash Macrolide Antibiotics Allergy (Intermediate, Verified 09/19/11 10:15) Hives/Rash meperidine HCl [From Demerol] Allergy (Intermediate, Verified 09/19/11 10:15) Hives/Rash morphine Allergy (Intermediate, Verified 09/19/11 10:14) Hives/Rash oxycodone HCl [From Percocet] Allergy (Intermediate, Verified 09/19/11 10:15) Itching/Hives/Rash pregabalin [From Lyrica] Allergy (Intermediate, Verified 09/19/11 10:15) Hives/Rash Sulfa (Sulfonamide Antibiotics) [Sulfa(Sulfonamide Antibiotics)] Allergy ( Intermediate, Verified 09/19/11 10:15) Nausea/Vomiting allopurinol Allergy (Unverified 11/19/14 21:02) Unknown duloxetine [From Cymbalta] Allergy (Unverified 08/21/16 12:14) Unknown duloxetine HCl [From Cymbalta] Allergy (Unverified 11/19/14 21:02) Unknown meperidine [From Demerol] Allergy (Unverified 08/21/16 12:14) Unknown milnacipran HCl [From Savella] Allergy (Unverified 11/19/14 21:04) Unknown oxycodone Allergy (Unverified 08/21/16 12:14) Unknown venlafaxine HCl [From Effexor] Allergy (Unverified 11/19/14 21:02) Unknown TYLENOL 3 Allergy (Intermediate, Uncoded 09/19/11 10:15) Shortness of breath morphine Allergy (Mild, Uncoded 11/19/14 21:02) Unknown codeine Allergy (Uncoded 11/19/14 21:02) Unknown macrolids Allergy (Uncoded 11/19/14 21:02) Unknown Home Medications: Ergocalciferol (Vitamin D2) [Vitamin D2] 1 cap PO EVERY 7TH DAY 10/25/17 Mercaptopurine 2 tab PO BEDTIME 10/25/17 Mesalamine [Pentasa*] 1 cap PO BEDTIME 10/25/17 Metformin HCl [Glucophage*] 0.5 tab PO BID 10/25/17 Metformin HCl [Glucophage*] 1 tab PO DAILY AT SUPPER 10/25/17 Pantoprazole [Protonix Tab*] 1 tab PO BEDTIME 10/25/17 Promethazine HCl 1 tab PO Q6HP PRN 10/25/17 - Past Medical/Surgical History Has patient received pneumonia vaccine in the past: No Diabetic: Yes -: NIDDM -: crohns -: autoimmune thyroiditist -: (L) BB -: psoriasis -: psoriatic arthritis -: heart murmur -: fibromyalgia -: cholecystectomy -: appendectomy -: breast reduction - Family History Mother Medical History: Hypertension Father Medical History: Heart disease, Hypertension, Stroke - Social History Smoking Status: Current every day smoker Alcohol use: No CD- Drugs: No Caffeine use: No Place of Residence: Home Review of Systems 10-point ROS is otherwise unremarkable Physical Examination - Vital Signs Temperature: 99.6 F Blood Pressure: 130/69 Pulse: 89 Respirations: 19 Pulse Ox (%): 95 - Physical Exam General: Alert, In no apparent distress, Oriented x3 HEENT: Atraumatic, PERRLA, Mucous membr. moist/pink, EOMI, Sclerae nonicteric Neck: Supple, 2+ carotid pulse no bruit, No LAD, Without JVD or thyroid abnormality Respiratory: Diminished, Rhonchi/gurgles Cardiovascular: Regular rate/rhythm, Normal S1 S2, No murmurs Gastrointestinal: Normal bowel sounds, Soft and benign, Non-distended, No tenderness Musculoskeletal: No clubbing, No swelling, No tenderness Integumentary: No rashes Neurological: Normal speech, Normal strength at 5/5 x4 extr, Normal tone, Sensation intact, Cranial nerves 3-12 intact, Normal affect Lymphatics: No axilla or inguinal lymphadenopathy - Studies Laboratory Data (last 24 hrs) 10/25/17 19:00: PT 15.5 H, INR 1.31 10/25/17 19:00: WBC 12.9 H, Hgb 14.6, Hct 43.2, Plt Count 547 H 10/25/17 19:00: Sodium 131 L, Potassium 3.2 L, BUN 11, Creatinine 0.55, Glucose 202 H, Total Bilirubin 1.6 H, AST 158 H D, ALT 92 H, Alkaline Phosphatase 98, Lipase 50 Assessment & Plan - Problems (Diagnosis) (1) Multifocal pneumonia Current Visit: Yes Status: Acute (2) Autoimmune thyroiditis Current Visit: Yes Status: Acute (3) Crohn disease Current Visit: Yes Status: Acute (4) Psoriasis Current Visit: Yes Status: Acute (5) Psoriatic arthritis Current Visit: Yes Status: Acute (6) Infectious mononucleosis Current Visit: Yes Status: Acute - Plan Plan: 1. Continue with IV antibiotics 2. Awaiting sputum and blood culture 3. Repeat chest x-ray 4. Will proceed with CT scan of the chest 5. Pulmonary consultation 6. Continue with nebs as needed 7. O2 per protocol 8. Continue with gentle hydration 9. Repeat labs including CBC and renal function in a.m. 10. GI and DVT prophylaxis Discharge Plan: Home Plan to discharge in: 48 Hours - Advance Directives Does patient have a Living Will: No Does patient have a Durable POA for Healthcare: No - Code Status/Comfort Care Code Status Assessed: Yes Code Status: Full Code Critical Care: Yes Time Spent Managing PTS Care (In Minutes): 50
[2017-10-26 06:10] LABS: ALT/SGPT 76 IU/L (10-60); AST/SGOT 131 IU/L (10-42); Albumin 2.3 g/dL (3.2-5.5); Alkaline Phosphatase 78 IU/L (42-121); BUN Blood Urea Nitrogen 8 mg/dL (6-20); Bicarbonate 24 mEq/L (21-31); Bilirubin Total 1.1 mg/dL (0.3-1.2); Glucose Level 208 mg/dL (65-120); HDL Cholesterol 10 mg/dL (29-89); LDL Cholesterol, Calculated 42 (<130); Magnesium 1.6 mg/dL (1.8-2.5); Phosphorus 2.9 mg/dL (2.5-4.3); Potassium 3.4 mEq/L (3.6-5.0); Protein, Total 5.3 g/dL (6.0-8.3); Sodium Level 136 mEq/L (135-145)
[2017-10-26] MEDS ORDERED: MAGNESIUM SULFATE 1 gm IVPB 1 GM/100 ML BAG IV ONE (06:23)
--- NOTE | 2017-10-26 06:43 | RAD REPORT ---
EXAM DESCRIPTION: CT - Chest Angio - 10/26/2017 4:35 am CLINICAL HISTORY: Respiratory distress, shortness of breath. A preliminary written report was provided at the time of the study, and the report was reviewed prio r to final dictation. COMPARISON: Chest films same date TECHNIQUE: Dynamically enhanced axial 3 mm thick images of the chest were obtained during administra tion of 150 mL Isovue 370 IV contrast. Coronal and oblique reconstruction images were generated and r eviewed. Exam utilizes a protocol for optimal evaluation of pulmonary arterial tree. All CT scans are performed using dose optimization technique as appropriate and may include automated exposure control or mA/KV adjustment according to patient size. FINDINGS: Pulmonary arteries are normal. No emboli or other suspicious finding. No pericardial thick ening or effusion. Left ventricle is mildly prominent without myocardial hypertrophy. Large area of consolidation is present involving majority of the left upper lobe. There is a mixed at electasis and infiltrate pattern of the left lower lobe. Left upper lobe air bronchograms are identif iable. In the right upper lobe (image 36/79) there is a 16 millimeter more irregular opacification. T his is most likely the same etiology but can be monitored. A minimal 7 mm nodular focus is present in the lateral gutter on the right (image 59/79). Trace amount of atelectasis seen in the posterior rig ht gutter. No pleural thickening or pleural effusion. No pneumothorax. A few small reactive type lymph nodes are present at the hilum. Hilum assessment on the left is diffi cult as the consolidation extends to the hilum. No endobronchial lesion. No chest wall mass or abnorm al axillary lymphadenopathy. Dense right breast calcifications are present not regarded as significant. IMPRESSION: Large area of consolidation involving most of the left upper lobe with a predominantly a telectasis pattern in the left lower lobe. Large left upper lobe pneumonia is the most likely etiology. No cavitation or other complicating fact or. Small irregular nodular opacities in the right lung field are probably part of the same pneumonia pro cess and can be monitored on follow-up imaging. Concurrent neoplastic lesion would be uncommon but po ssible. No abnormal pleural fluid collection or suspicious lymphadenopathy.
[2017-10-26] MEDS ORDERED: KCL 20 MEQ/100 mL IVPB 20 MEQ/100 ML BAG IV SCH (07:00)
[2017-10-26] MEDS: HYDROCORTISONE SUC 100 MG INJ IV SCH ×2 (08:15→20:14)
[2017-10-26] MEDS: ENOXAPARIN 40 MG/0.4 ML SQ SCH (08:16)
[2017-10-26] MEDS: Levofloxacin 750mg IV 750 MG/150 ML BAG IV SCH (08:16)
[2017-10-26] MEDS ORDERED: ALBUTEROL 2.5 MG/3 ML NEB SOL NEB PRN (08:24)
--- NOTE | 2017-10-26 08:25 | P.CNS ---
Date of Consult: 10/26/17 Chief Complaint: Pneumonia History of Present Illness: Patient is 42 years of age her problems started last Wednesday when after lenses developed the fever became very fatigued went to urgent care was diagnosed with a cold and was sent home continued to get worse increasing cough ended up in the ER was diagnosed with Mon I was sent home again she became worse started having more fever more hypoxic ended up here in the hospital with a diagnosis of left lower lobe pneumonia and active smoker multiple other medical problems he is doing better not on any vasopressors Allergies acetaminophen [From Percocet] Allergy (Intermediate, Verified 09/19/11 10:15) Itching/Hives/Rash azithromycin [From Zithromax] Allergy (Intermediate, Verified 09/19/11 10:15) Hives codeine [Codeine] Allergy (Intermediate, Verified 09/19/11 10:15) Hives/Rash Macrolide Antibiotics Allergy (Intermediate, Verified 09/19/11 10:15) Hives/Rash meperidine HCl [From Demerol] Allergy (Intermediate, Verified 09/19/11 10:15) Hives/Rash morphine Allergy (Intermediate, Verified 09/19/11 10:14) Hives/Rash oxycodone HCl [From Percocet] Allergy (Intermediate, Verified 09/19/11 10:15) Itching/Hives/Rash pregabalin [From Lyrica] Allergy (Intermediate, Verified 09/19/11 10:15) Hives/Rash Sulfa (Sulfonamide Antibiotics) [Sulfa(Sulfonamide Antibiotics)] Allergy ( Intermediate, Verified 09/19/11 10:15) Nausea/Vomiting allopurinol Allergy (Unverified 11/19/14 21:02) Unknown duloxetine [From Cymbalta] Allergy (Unverified 08/21/16 12:14) Unknown duloxetine HCl [From Cymbalta] Allergy (Unverified 11/19/14 21:02) Unknown meperidine [From Demerol] Allergy (Unverified 08/21/16 12:14) Unknown milnacipran HCl [From Savella] Allergy (Unverified 11/19/14 21:04) Unknown oxycodone Allergy (Unverified 08/21/16 12:14) Unknown venlafaxine HCl [From Effexor] Allergy (Unverified 11/19/14 21:02) Unknown TYLENOL 3 Allergy (Intermediate, Uncoded 09/19/11 10:15) Shortness of breath morphine Allergy (Mild, Uncoded 11/19/14 21:02) Unknown codeine Allergy (Uncoded 11/19/14 21:02) Unknown macrolids Allergy (Uncoded 11/19/14 21:02) Unknown Home Medications: Ergocalciferol (Vitamin D2) [Vitamin D2] 1 cap PO EVERY 7TH DAY 10/25/17 Mercaptopurine 2 tab PO BEDTIME 10/25/17 Mesalamine [Pentasa*] 1 cap PO BEDTIME 10/25/17 Metformin HCl [Glucophage*] 0.5 tab PO BID 10/25/17 Metformin HCl [Glucophage*] 1 tab PO DAILY AT SUPPER 10/25/17 Pantoprazole [Protonix Tab*] 1 tab PO BEDTIME 10/25/17 Promethazine HCl 1 tab PO Q6HP PRN 10/25/17 - Past Medical/Surgical History Diabetic: Yes -: NIDDM -: crohns -: autoimmune thyroiditist -: (L) BB -: psoriasis -: psoriatic arthritis -: heart murmur -: fibromyalgia -: cholecystectomy -: appendectomy -: breast reduction - Family History Mother Medical History: Hypertension Father Medical History: Heart disease, Hypertension, Stroke - Social History Smoking Status: Current every day smoker Alcohol use: No CD- Drugs: No Caffeine use: No Place of Residence: Home Review of Systems 10-point ROS is otherwise unremarkable General: Fever, Weakness Respiratory: Cough, Shortness of Breath Physical Examination Temp Pulse Resp BP Pulse Ox 99.6 F 85 21 H 130/73 97 10/26/17 05:56 10/26/17 06:00 10/26/17 06:00 10/26/17 06:00 10/26/17 06:00 General: Alert, Oriented x3, Moderate distress HEENT: Atraumatic Neck: Supple Respiratory: Crackles/rales (Crackles of the left base diminished air entry) Cardiovascular: No edema, Regular rate/rhythm, Normal S1 S2 Gastrointestinal: Normal bowel sounds, Soft and benign Laboratory Data (last 24 hrs) 10/25/17 19:00: PT 15.5 H, INR 1.31 10/25/17 19:00: WBC 12.9 H, Hgb 14.6, Hct 43.2, Plt Count 547 H 10/25/17 19:00: Sodium 131 L, Potassium 3.2 L, BUN 11, Creatinine 0.55, Glucose 202 H, Total Bilirubin 1.6 H, AST 158 H D, ALT 92 H, Alkaline Phosphatase 98, Lipase 50 - Problems (1) Pneumonia Current Visit: Yes Status: Acute Plan: Patient is 42 years of age admitted with fever cough shortness of breath diagnosis of left lower lobe pneumonia is very impressive consolidation patient' s vital signs are stable she is not on any vasopressors oxygenation satisfactory labs reviewed white count was mildly elevated pro calcitonin level elevated CT scan chest x-ray reviewed patient can be transferred to the floor continue with IV levofloxacin for 1 more day and discharge home tomorrow on levofloxacin Dc IV fluids Qualifiers: Pneumonia type: due to unspecified organism
[2017-10-26] MEDS ORDERED: POTASSIUM CL SA 10 MEQ TAB PO ONE ×2 (09:42→19:00)
[2017-10-26] MEDS: guaiFENesin 100 MG/5 ML UCUP PO PRN ×3 (10:15→23:53)
[2017-10-26] MEDS ORDERED: D50W 25 GM/50 ML SYRINGE IV PRN (10:25)
[2017-10-26] MEDS ORDERED: GLUCAGON 1 MG/VIAL IM PRN (10:25)
--- NOTE | 2017-10-26 11:26 | EKG ---
Test Date: 2017-10-25 Test Time: 18:45:04 [employer] Photographer: TURNER MEASUREMENT RESULTS: Intervals: Rate: 138 WY: 144 QRSD: 134 QT: 320 QTc: 484 Douglass: P: -6 WY: 144 QRS: -5 T: 123 INTERPRETIVE STATEMENTS: Sinus tachycardia Left bundle branch block Abnormal ECG Compared to ECG 08/21/2016 08:40:02 Sinus rhythm no longer present Electronically Signed On 10-26-17 11:24:01 CDT by Bulmaro Cohen
[2017-10-26] MEDS: INSULIN -REGULAR HUMAN 50 UNIT/0.5 ML ML SQ SCH ×3 (11:30→20:15)
--- NOTE | 2017-10-26 17:48 | P.PN ---
Subjective Date of Service: 10/26/17 Chief Complaint: Pneumonia the patient feels better today, no SOB, still febrile. Physical Examination - Vital Signs Temperature: 100.3 F Blood Pressure: 128/64 Pulse: 98 Respirations: 28 Pulse Ox (%): 92 - Physical Exam General: Alert, In no apparent distress Neck: Supple, JVD not distended Respiratory: Clear to auscultation bilaterally, Crackles/rales (right base crackles) Cardiovascular: Regular rate/rhythm, Normal S1 S2 Gastrointestinal: Normal bowel sounds, No tenderness Musculoskeletal: No tenderness Integumentary: No rashes Neurological: Normal speech, Normal tone, Normal affect - Studies Laboratory Data (last 24 hrs) 10/25/17 19:00: PT 15.5 H, INR 1.31 10/25/17 19:00: WBC 12.9 H, Hgb 14.6, Hct 43.2, Plt Count 547 H 10/25/17 19:00: Sodium 131 L, Potassium 3.2 L, BUN 11, Creatinine 0.55, Glucose 202 H, Total Bilirubin 1.6 H, AST 158 H D, ALT 92 H, Alkaline Phosphatase 98, Lipase 50 Assessment And Plan - Current Problems (Diagnosis) (1) Crohn disease Onset Date: 10/26/17 Current Visit: Yes Status: Acute Qualifiers: Gastrointestinal tract location: unspecified location Digestive disease complication type: unspecified complication Qualified Code(s): K50.919 - Crohn 's disease, unspecified, with unspecified complications (2) Infectious mononucleosis Onset Date: 10/26/17 Current Visit: Yes Status: Acute Qualifiers: Infectious mononucleosis etiology: unspecified organism Infectious mononucleosis complication: without complication Qualified Code(s): B27.90 - Infectious mononucleosis, unspecified without complication (3) Multifocal pneumonia Onset Date: 10/26/17 Current Visit: Yes Status: Acute (4) Acute respiratory failure Current Visit: Yes Status: Acute Qualifiers: Respiratory failure complication: hypoxia Qualified Code(s): J96.01 - Acute respiratory failure with hypoxia - Plan #1 acute respiratory failure: due to multifocal pneumonia, she require BiPAP initially, currently she is doing well with NC at 4 L. #2 multifocal pneumonia: blood cultures and sputum cultures in process. Continue empiric treatment with IV Levaquin. #3 DM II: will check HgbA1c, continue SSI.
[2017-10-26] MEDS: PANTOPRAZOLE 40MG TABLET PO SCH (20:14)
[2017-10-27] MEDS: IPRATROPIUM BROM 0.5MG/2.5ML NEB SCH ×4 (02:17→20:01)
[2017-10-27 06:12] LABS: Absolute Monocytes 0.4 K/uL (0.1-1.3); Absolute Neutrophil 6.2 K/uL (1.8-8.0); Basophils % 0.2 % (0-1.3); Eosinophils % 0.1 % (0-4.4); Hematocrit 33.5 % (36.0-45.0); Lymphocytes % 13.5 % (15.3-44.8); MCH 35.3 pg (27.0-35.0); MCV 104.3 fL (80-100); MPV 8.9 fL (7.6-11.3); Monocytes % 5.5 % (3.3-12.3); RBC Red Blood Cell Count 3.21 M/uL (3.86-4.86)
[2017-10-27] MEDS: INSULIN -REGULAR HUMAN 50 UNIT/0.5 ML ML SQ SCH ×4 (07:30→21:00)
[2017-10-27 07:56] LABS: BUN Blood Urea Nitrogen 14 mg/dL (6-20); Bicarbonate 26 mEq/L (21-31); Glucose Level 192 mg/dL (65-120); Magnesium 1.9 mg/dL (1.8-2.5); Potassium 4.2 mEq/L (3.6-5.0); Sodium Level 138 mEq/L (135-145)
[2017-10-27] MEDS: HYDROCORTISONE SUC 100 MG INJ IV SCH ×2 (08:39→21:41)
[2017-10-27] MEDS: ENOXAPARIN 40 MG/0.4 ML SQ SCH (08:39)
[2017-10-27] MEDS: Levofloxacin 750mg IV 750 MG/150 ML BAG IV SCH (08:39)
[2017-10-27] MEDS: guaiFENesin 100 MG/5 ML UCUP PO PRN ×3 (08:40→21:42)
[2017-10-27 14:06] LABS: A1c Component 0.63 mg/dL; Hemoglobin A1c 7.3 % (4-6.0)
--- NOTE | 2017-10-27 17:48 | P.PN ---
Subjective Date of Service: 10/27/17 Chief Complaint: Pneumonia Subjective: Improving Still significant cough, no fever today. Physical Examination - Vital Signs Temperature: 97 F Blood Pressure: 122/64 Pulse: 90 Respirations: 18 Pulse Ox (%): 91 - Physical Exam General: Alert, In no apparent distress Respiratory: Diminished, Crackles/rales (bibasilar crackles), Expiratory wheezes Cardiovascular: Regular rate/rhythm, Normal S1 S2 Gastrointestinal: Normal bowel sounds, No tenderness Musculoskeletal: No tenderness Integumentary: No rashes Neurological: Normal speech, Normal tone, Normal affect Assessment And Plan - Current Problems (Diagnosis) (1) Crohn disease Onset Date: 10/26/17 Current Visit: Yes Status: Acute Qualifiers: Gastrointestinal tract location: unspecified location Digestive disease complication type: unspecified complication Qualified Code(s): K50.919 - Crohn 's disease, unspecified, with unspecified complications (2) Infectious mononucleosis Onset Date: 10/26/17 Current Visit: Yes Status: Acute Qualifiers: Infectious mononucleosis etiology: unspecified organism Infectious mononucleosis complication: without complication Qualified Code(s): B27.90 - Infectious mononucleosis, unspecified without complication (3) Multifocal pneumonia Onset Date: 10/26/17 Current Visit: Yes Status: Acute (4) Acute respiratory failure Current Visit: Yes Status: Acute Qualifiers: Respiratory failure complication: hypoxia Qualified Code(s): J96.01 - Acute respiratory failure with hypoxia - Plan #1 acute respiratory failure: due to multifocal pneumonia, she require BiPAP initially, continue O2 support, currently NC at 4-5 L. F/U Dr San #2 multifocal pneumonia: blood cultures and sputum cultures in process. Continue treatment with IV Levaquin. #3 DM II: HgbA1c 7.3%, continue SSI.
[2017-10-27] MEDS: PANTOPRAZOLE 40MG TABLET PO SCH (21:40)
[2017-10-28] MEDS: IPRATROPIUM BROM 0.5MG/2.5ML NEB SCH ×4 (01:28→20:02)
[2017-10-28 06:24] LABS: Absolute Lymphocytes (CBC) 0.9 K/uL (0.7-4.9); Absolute Monocytes 0.4 K/uL (0.1-1.3); Absolute Neutrophil 5.2 K/uL (1.8-8.0); Basophils % 0.1 % (0-1.3); Eosinophils % 0.1 % (0-4.4); Hematocrit 34.1 % (36.0-45.0); Lymphocytes % 14.2 % (15.3-44.8); MCH 34.9 pg (27.0-35.0); MCV 103.3 fL (80-100); Monocytes % 5.7 % (3.3-12.3)
[2017-10-28] MEDS: INSULIN -REGULAR HUMAN 50 UNIT/0.5 ML ML SQ SCH ×4 (07:30→21:18)
[2017-10-28 08:06] LABS: BUN Blood Urea Nitrogen 11 mg/dL (6-20); Bicarbonate 25 mEq/L (21-31); Glucose Level 226 mg/dL (65-120); Potassium 3.9 mEq/L (3.6-5.0); Sodium Level 138 mEq/L (135-145)
[2017-10-28] MEDS: guaiFENesin 100 MG/5 ML UCUP PO PRN ×3 (08:25→21:18)
[2017-10-28] MEDS: HYDROCORTISONE SUC 100 MG INJ IV SCH (08:26)
[2017-10-28] MEDS: ENOXAPARIN 40 MG/0.4 ML SQ SCH (08:26)
[2017-10-28] MEDS: Levofloxacin 750mg IV 750 MG/150 ML BAG IV SCH (08:26)
[2017-10-28] MEDS ORDERED: POTASSIUM CL SA 10 MEQ TAB PO ONE (10:11)
--- NOTE | 2017-10-28 13:15 | P.PN ---
Subjective Date of Service: 10/28/17 Chief Complaint: Pneumonia the patient feels better today, cough is improving, no fever today. Physical Examination - Vital Signs Temperature: 97.3 F Blood Pressure: 124/67 Pulse: 98 Respirations: 18 Pulse Ox (%): 90 - Physical Exam General: Alert, In no apparent distress HEENT: Atraumatic, PERRLA, EOMI Neck: Supple, JVD not distended Respiratory: Clear to auscultation bilaterally, Diminished Cardiovascular: Regular rate/rhythm, Normal S1 S2 Gastrointestinal: Normal bowel sounds, No tenderness Musculoskeletal: No tenderness Integumentary: No rashes Neurological: Normal speech, Normal tone, Normal affect Assessment And Plan - Current Problems (Diagnosis) (1) Crohn disease Onset Date: 10/26/17 Current Visit: Yes Status: Acute Qualifiers: Gastrointestinal tract location: unspecified location Digestive disease complication type: unspecified complication Qualified Code(s): K50.919 - Crohn 's disease, unspecified, with unspecified complications (2) Infectious mononucleosis Onset Date: 10/26/17 Current Visit: Yes Status: Acute Qualifiers: Infectious mononucleosis etiology: unspecified organism Infectious mononucleosis complication: without complication Qualified Code(s): B27.90 - Infectious mononucleosis, unspecified without complication (3) Multifocal pneumonia Onset Date: 10/26/17 Current Visit: Yes Status: Acute (4) Acute respiratory failure Current Visit: Yes Status: Acute Qualifiers: Respiratory failure complication: hypoxia Qualified Code(s): J96.01 - Acute respiratory failure with hypoxia - Plan #1 acute respiratory failure: due to multifocal pneumonia, she require BiPAP initially. Improving, her oxygenation is getting better, currently on 2 L NC. F/ U Dr San #2 multifocal pneumonia: blood cultures and sputum cultures negative but still in process. Continue treatment with IV Levaquin. Will change steroids to PO, start Prednisone 40 mg daily. #3 DM II: HgbA1c 7.3%, continue SSI.
[2017-10-28] MEDS ORDERED: GLUCERNA SHAKE 237 ML CAN PO PRN (14:34)
--- NOTE | 2017-10-28 14:58 | RAD REPORT ---
EXAM DESCRIPTION: Ju Leos And Kina (2 Views)10/28/2017 2:51 pm CLINICAL HISTORY: Cough COMPARISON: October 24 FINDINGS: Mild to moderate improvement in the left lung consolidation has occurred. No other change is noted IMPRESSION: Mild to moderate left pneumonia. This should be followed until it is clear to help excl ude a post obstructive process
[2017-10-28 15:31] LABS: BUN Blood Urea Nitrogen 11 mg/dL (6-20); Bicarbonate 25 mEq/L (21-31); Glucose Level 229 mg/dL (65-120); Potassium 4.1 mEq/L (3.6-5.0); Sodium Level 137 mEq/L (135-145)
[2017-10-28] MEDS: PANTOPRAZOLE 40MG TABLET PO SCH (21:18)
[2017-10-29] MEDS: IPRATROPIUM BROM 0.5MG/2.5ML NEB SCH ×3 (01:17→14:40)
[2017-10-29 06:17] LABS: Absolute Lymphocytes (CBC) 1.8 K/uL (0.7-4.9); Absolute Monocytes 0.6 K/uL (0.1-1.3); Absolute Neutrophil 4.6 K/uL (1.8-8.0); Basophils % 0.1 % (0-1.3); Eosinophils % 0.4 % (0-4.4); Hematocrit 33.5 % (36.0-45.0); Lymphocytes % 25.7 % (15.3-44.8); MCH 35.9 pg (27.0-35.0); MCV 102.3 fL (80-100); MPV 8.6 fL (7.6-11.3); Monocytes % 8.2 % (3.3-12.3); RBC Red Blood Cell Count 3.28 M/uL (3.86-4.86)
[2017-10-29] MEDS: INSULIN -REGULAR HUMAN 50 UNIT/0.5 ML ML SQ SCH ×3 (07:30→16:45)
[2017-10-29] MEDS ORDERED: METFORMIN HCL 500 MG TAB PO SCH ×3 (08:00→17:00)
[2017-10-29] MEDS: guaiFENesin 100 MG/5 ML UCUP PO PRN ×2 (08:37→15:39)
[2017-10-29] MEDS: ENOXAPARIN 40 MG/0.4 ML SQ SCH (08:40)
[2017-10-29] MEDS ORDERED: levoFLOXacin 500 MG TAB PO SCH (09:00)
[2017-10-29] MEDS ORDERED: DRISDOL (VITAMIN D=ERGOCALCIFEROL) 50000 UNIT CAP PO SCH ×2 (09:00→21:00)
[2017-10-29] MEDS ORDERED: DULERA 100/5 (MOMETASONE/FORMOTEROL) INHALER IH SCH (09:00)
[2017-10-29] MEDS ORDERED: predniSONE 20 MG TAB PO SCH (09:00)
--- NOTE | 2017-10-29 09:13 | RAD REPORT ---
EXAM DESCRIPTION: Ju Single View10/29/2017 8:09 am CLINICAL HISTORY: Chest pain COMPARISON: October 28, 2017 FINDINGS: The left lung consolidation has mildly worsened. No other change is noted. The heart is no rmal size IMPRESSION: Mild worsening in a left lung pneumonia
--- NOTE | 2017-10-29 10:31 | P.PN ---
Subjective Date of Service: 10/29/17 Chief Complaint: Pneumonia Subjective: Improving (Patient started complaining of left-sided chest discomfort otherwise feeling better) Review of Systems General: Weakness Respiratory: Cough, Shortness of Breath Cardiovascular: Chest Pain Physical Examination - Vital Signs Temperature: 98.0 F Blood Pressure: 123/75 Pulse: 111 Respirations: 18 Pulse Ox (%): 89 - Physical Exam General: Alert, Oriented x2 HEENT: Atraumatic Neck: Supple Respiratory: Crackles/rales (Crackles on the left side) Cardiovascular: No edema, Regular rate/rhythm Assessment & Plan - Problems (Diagnosis) (1) Pneumonia Onset Date: 10/26/17 Current Visit: Yes Status: Acute Plan: Patient is 42 years of age admitted with a pneumonia she still has a left-sided infiltrate possible pleural effusion of ordered bilateral decubitus chest x-ray she is also hypoxic qualifies for home O2 white car normal cultures negative a she is clinically improving she can be discharged home on levofloxacin for 10 days and take [id number] non steroidal 's for her pain patient is an active smoker poly need a long-acting bronchodilator at home either Symbicort or Advair in to follow up with me in 2 weeks Qualifiers: Pneumonia type: due to unspecified organism Laterality: right
[2017-10-29 10:48] VITALS: O2SAT 90
--- NOTE | 2017-10-29 13:49 | P.DS ---
Admission Date: 10/25/17 Discharge Date: 10/29/17 Primary Care Provider: Dr. Womack Disposition: ROUTINE DISCHARGE Discharge Condition: FAIR Reason for Admission: Pneumonia Consultations: Pulmonology-Dr. San Procedures: CT scan: IMPRESSION: Large area of consolidation involving most of the left upper lobe with a predominantly atelectasis pattern in the left lower lobe. Large left upper lobe pneumonia is the most likely etiology. No cavitation or other complicating factor. Small irregular nodular opacities in the right lung field are probably part of the same pneumonia process and can be monitored on follow-up imaging. Concurrent neoplastic lesion would be uncommon but possible. 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: without detention use Diabetes mellitus complication status: with other specified complication Qualified Code(s): E11.69 - Type 2 diabetes mellitus with other specified complication (3) Crohn disease Onset Date: 10/26/17 Current Visit: Yes Status: Chronic Qualifiers: Gastrointestinal tract location: unspecified location Digestive disease complication type: unspecified complication Qualified Code(s): K50.919 - Crohn 's disease, unspecified, with unspecified complications (4) Hypoxemia Onset Date: 10/26/17 Current Visit: Yes Status: Acute (5) Pneumonia Onset Date: 10/26/17 Current Visit: Yes Status: Acute Qualifiers: Pneumonia type: due to unspecified organism Laterality: left (6) NEAL (obstructive sleep apnea) Current Visit: Yes Status: Chronic (7) Acute respiratory failure Current Visit: Yes Status: Acute Qualifiers: Respiratory failure complication: hypoxia Qualified Code(s): J96.01 - Acute respiratory failure with hypoxia (8) Autoimmune thyroiditis Onset Date: 10/26/17 Current Visit: Yes Status: Chronic (9) Infectious mononucleosis Onset Date: 10/26/17 Current Visit: Yes Status: Chronic Qualifiers: Infectious mononucleosis etiology: unspecified organism Infectious mononucleosis complication: without complication Qualified Code(s): B27.90 - Infectious mononucleosis, unspecified without complication (10) Psoriasis Onset Date: 10/26/17 Current Visit: Yes Status: Chronic (11) Psoriatic arthritis Onset Date: 10/26/17 Current Visit: Yes Status: Chronic (12) History of tobacco use Current Visit: Yes Status: Chronic Brief History of Present Illness: 42-year-old female presented emergency room with increasing shortness of breath. Patient was recently seen at urgent care and found to have mononucleosis. Patient also had a cough. The patient was sent home. Her condition did not improve. Patient required BiPAP in the emergency room. The patient was admitted and found to have left-sided pneumonia. Patient had been taking immunosuppressive medication for autoimmune diseases. Hospital Course: Patient presented with shortness of breath and hypoxia. Patient required BiPAP in the emergency room. Patient found to have left-sided pneumonia with underlying COPD. Patient was given IV antibiotic therapy, steroids and breathing treatments. Patient was evaluated by pulmonology. Her condition improved but she still required oxygen at discharge. Patient did work with physical therapy using her oxygen. Social work helped to get oxygen at discharge. Patient did not need any home health therapy as her mother is a nurse. At discharge she will continue with home oxygen to maintain sats above 90%. She is requiring 2 liters/minute at this time. Patient will continue with Levaquin 500 mg 1 pill daily for 10 days. Patient will also be started on COPD medication including Dulera 2 puffs twice daily and Albuterol 2 puffs 3 times a day as needed for shortness of breath. Recommendation is to recheck chest x-ray in 2-4 weeks to monitor resolution. Recommendation is for the patient to follow up with pulmonology in 1-2 weeks to follow up this hospitalization and continue her care. Education on COPD, pneumonia will be provided. Patient will require pulmonary function tests in the near future to further assess. Patient with history of tobacco abuse. Recommendation for tobacco cessation. Patient has GERD. Patient continue with Protonix 40 mg 1 pill once daily. Patient with history of Crohn's colitis. She will continue with her medication. Recommendation is for the patient to follow up with GI as an outpatient to further monitor. Patient has diabetes mellitus. A1c 7.3. At discharge patient will continue with metformin. Recommendation is to maintain blood sugars less 140 fasting and less than 2 after meals. Further adjustment can be done by her PCP. Patient has obstructive sleep apnea. Patient will continue with CPAP at night. Vital Signs/Physical Exam: Temp Pulse Resp BP Pulse Ox 97.6 F 105 H 18 133/63 90 L 10/29/17 12:00 10/29/17 12:00 10/29/17 12:00 10/29/17 12:00 10/29/17 12:00 General: Alert, In no apparent distress, Oriented x3, Cooperative HEENT: Atraumatic Neck: Supple Respiratory: Crackles/rales (Minimal crackles to the left base), Expiratory wheezes (Less wheezing noted to the left side. Good aeration bilateral) Cardiovascular: Normal pulses, Regular rate/rhythm Gastrointestinal: Normal bowel sounds, Soft and benign, Non-distended, No tenderness, No masses, No rebound, No guarding Musculoskeletal: No erythema, No tenderness, No warmth Integumentary: No tenderness/swelling, No erythema, No warmth, No cyanosis Neurological: Normal speech, Normal strength at 5/5 x4 extr, Normal tone, Normal affect Laboratory Data at Discharge: WBC 7.0 K/uL (4.3-10.9) 10/29/17 05:18 Hgb 11.8 g/dL (12.0-15.0) L 10/29/17 05:18 Hct 33.5 % (36.0-45.0) L 10/29/17 05:18 Plt Count 446 K/uL (152-406) H 10/29/17 05:18 PT 15.5 SECONDS (9.5-12.5) H 10/25/17 19:00 INR 1.31 10/25/17 19:00 Sodium 137 mEq/L (135-145) 10/28/17 14:35 Potassium 4.1 mEq/L (3.6-5.0) 10/28/17 14:35 BUN 11 mg/dL (6-20) 10/28/17 14:35 Creatinine 0.43 mg/dL (0.44-1.00) L 10/28/17 14:35 Glucose 229 mg/dL (65-120) H 10/28/17 14:35 Phosphorus 2.9 mg/dL (2.5-4.3) 10/26/17 04:40 Magnesium 1.9 mg/dL (1.8-2.5) 10/27/17 05:46 Total Bilirubin 1.1 mg/dL (0.3-1.2) 10/26/17 04:40 AST 131 IU/L (10-42) H 10/26/17 04:40 ALT 76 IU/L (10-60) H 10/26/17 04:40 Alkaline Phosphatase 78 IU/L (42-121) 10/26/17 04:40 B-Natriuretic Peptide 70 pg/ml (<=100) 10/26/17 04:40 Triglycerides 80 mg/dL (35-160) 10/26/17 04:40 Cholesterol 68 mg/dL (<200) 10/26/17 04:40 HDL Cholesterol 10 mg/dL (29-89) L 10/26/17 04:40 Cholesterol/HDL Ratio 6.80 10/26/17 04:40 Lipase 50 U/L (22-51) 10/25/17 19:00 Home Medications: Ergocalciferol (Vitamin D2) [Vitamin D2] 1 cap PO EVERY 7TH DAY 10/25/17 Mercaptopurine 2 tab PO BEDTIME 10/25/17 Mesalamine [Pentasa*] 1 cap PO BEDTIME 10/25/17 Metformin HCl [Glucophage*] 0.5 tab PO BID 10/25/17 Metformin HCl [Glucophage*] 1 tab PO DAILY AT SUPPER 10/25/17 Pantoprazole [Protonix Tab*] 1 tab PO BEDTIME 10/25/17 Promethazine HCl 1 tab PO Q6HP PRN 10/25/17 Albuterol Sulfate [Proair Hfa] 8.5 gm IH TID PRN #1 hfa.aer.ad 10/29/17 Guaifenesin [Robitussin 100MG/5ML*] 5 ml PO SEECOM PRN #1 bottle 10/29/17 Levofloxacin [Levaquin*] 500 mg PO DAILY #10 tab 10/29/17 Mometasone/Formoterol [Dulera 100 Mcg/5 Mcg Inhaler] 2 puff IH BID #1 inhaler Prednisone [Prednisone*] 40 mg PO SEECOM #15 tab 10/29/17 New Medications: Albuterol Sulfate [Proair Hfa] 8.5 gm IH TID PRN #1 hfa.aer.ad PRN Reason: Shortness Of Breath Guaifenesin [Robitussin 100MG/5ML*] 5 ml PO SEECOM PRN #1 bottle PRN Reason: Cough Levofloxacin [Levaquin*] 500 mg PO DAILY #10 tab Mometasone/Formoterol [Dulera 100 Mcg/5 Mcg Inhaler] 2 puff IH BID #1 inhaler Prednisone [Prednisone*] 40 mg PO SEECOM #15 tab Patient Discharge Instructions: 1. She will need a follow up with her PCP within 1 week to follow up this hospitalization. 2. Patient presented with shortness of breath and hypoxia. Patient found to have left-sided pneumonia with underlying COPD. At discharge she will continue with home oxygen to maintain sats above 90%. She is requiring 2 liters/minute at this time. Patient will continue with Levaquin 500 mg 1 pill daily for 10 days. Patient will also be started on COPD medication including Dulera 2 puffs twice daily and Albuterol 2 puffs 3 times a day as needed for shortness of breath. Recommendation is to recheck chest x-ray in 2-4 weeks to monitor resolution. Recommendation is for the patient to follow up with pulmonology in 1-2 weeks to follow up this hospitalization and continue her care. Education on COPD, pneumonia will be provided. Patient will require pulmonary function tests in the near future to further assess. 3. Patient with history of tobacco abuse. Recommendation for tobacco cessation. 4. Patient has GERD. Patient continue with Protonix 40 mg 1 pill once daily. 5. Patient with history of Crohn's colitis. She will continue with her medication. Recommendation is for the patient to follow up with GI as an outpatient to further monitor. 6. Patient has diabetes mellitus. She will continue with metformin. Hemoglobin A1c 7.3. Recommendation is to maintain blood sugars less 140 fasting and less than 200 after meals. Further adjustment can be done by her PCP. 7. Patient has obstructive sleep apnea. Patient will continue with CPAP at night. 8. Patient with autoimmune diseases including psoriasis, psoriatic arthritis and Crohn's disease. Patient will continue with her medication and follow up with Rheumatology further address and monitor. Diet: AHA Activity: Ad kieran Followup: Gaurav San MD [ACTIVE - CAN ADMIT] - (call to schedule appointment) Time spent managing pt's care (in minutes): 55
--- NOTE | 2017-10-29 15:20 | RAD REPORT ---
EXAM DESCRIPTION: RAD - Chest Lateral Decubitus - 10/29/2017 2:38 pm CLINICAL HISTORY: Possible pleural effusion COMPARISON: Portable chest October 29, CT chest October 25 TECHNIQUE: Right and left lateral decubitus films were obtained. FINDINGS: Large area of consolidation and a large area of atelectasis are present in the left lung f ield as detailed on the CT study. There are no layering pleural effusions identifiable. IMPRESSION: No layering pleural effusions. Atelectasis and consolidation in the left lung field with no overall pleural fluid component suspecte d.
[2017-10-29 17:03] VITALS: BP 125/72; TEMP 97.5
[2017-10-29] MEDS ORDERED: MESALAMINE 500 MG CAPSULE.ER PO SCH (21:00)
== END 2017-10-29 18:07 | disposition home or self-care (01) | DRG 193 ==
LOC: ER 18:17 → ERHOLD 20:44 → 3RD-ICU 21:42 → 4TH 10-26 10:26
PROVIDERS: ADMIT Hospitalist; ATTEND Family Medicine
PROC: 5A09457 Assistance with Respiratory Ventilation, 24-96 Consecutive Hours, Continuous Positive Airway Pressure (ICD-10-PCS; principal; 2017-10-26)
DX: J18.9 Pneumonia, unspecified organism (principal); J96.01 Acute respiratory failure with hypoxia; J44.1 Chronic obstructive pulmonary disease with (acute) exacerbation; J90 Pleural effusion, not elsewhere classified; K50.90 Crohn's disease, unspecified, without complications; E11.9 Type 2 diabetes mellitus without complications; L40.50 Arthropathic psoriasis, unspecified; L40.9 Psoriasis, unspecified; E06.3 Autoimmune thyroiditis; B27.90 Infectious mononucleosis, unspecified without complication; G47.33 Obstructive sleep apnea (adult) (pediatric); K21.9 Gastro-esophageal reflux disease without esophagitis; F17.210 Nicotine dependence, cigarettes, uncomplicated
CPT/HCPCS: 36415; 71035; 71045; 71046; 71275; 80048; 80053; 80061; 80076; 81003; 81025; 82805; 82962; 83036; 83605; 83690; 83735; 83880; 84100; 84132; 84145; 84484; 85025; 85610; 86308; 87040; 87804; 93005; 94640; 94660; 96361; 96365; 96366; 96374; 96375; 97163; 99284; 99285; J0696; J1650; J1720; J2405; J2550; J3475; J7030; J7512; J7606; Q9967

== ENCOUNTER 2018-07-19 19:22 | Inpatient (IN) | payer OTHER ==
--- OUTSIDE RECORDS SUMMARY | 2018-07-19 19:24 | XMS REPORT ---
:1975 Author Organization [facility] Address [address] [place] [address] Dr. Astudillo [address] [place] [id number] Care Team Providers Name Role Phone Unavailable Unavailable Unavailable Problems This patient has no known problems. Allergies, Adverse Reactions, Alerts This patient has no known allergies or adverse reactions. Medications This patient has no known medications.
--- OUTSIDE RECORDS SUMMARY | 2018-07-19 19:24 | XMS REPORT | Clinical Summary ---
:1975 Author Organization [facility] Address [address] [place] [address] Care Team Providers Name Role Phone Cliff Womack Primary Care Provider Allergies Active Allergy Reactions Severity Noted Date Comments Acetaminophen 03/16/2018 Vomiting/fever Allopurinol 03/16/2018 Fever/vomiting Amitriptyline 03/16/2018 Drowsiness Certolizumab Pegol 03/16/2018 Staph infection Codeine 03/16/2018 Vomiting/shortness of breath Duloxetine 03/16/2018 Vomiting and fever Meperidine 03/16/2018 Seizures Venlafaxine 03/16/2018 Headaches Pregabalin 03/16/2018 Drowsiness Macrolide Antibiotics 03/16/2018 Morphine 03/16/2018 Oxycodone-Acetaminophen 03/16/2018 Vomiting/fever Milnacipran 03/16/2018 sweating Sulfur GI Intolerance 03/16/2018 Vomiting Azithromycin 03/16/2018 Medications Medication Sig Dispensed Refills Start Date End Date Status medroxyPROGESTERone 0 08/24/2017 Active (DEPO-PROVERA) 150 mg/mL injection mercaptopurine 0 09/14/2017 Active (PURINETHOL) 50 mg chemo tablet PENTASA 500 mg CR capsule 0 08/21/2017 Active metFORMIN (GLUCOPHAGE) 500 0 08/23/2017 Active mg tablet pantoprazole (PROTONIX) 40 0 07/12/2017 Active MG EC tablet adalimumab (HUMIRA) 40 Inject 40 mg 0 Active mg/0.8 mL injection under the skin once. ergocalciferol (VITAMIN Take 50,000 0 Active D2) 50,000 unit capsule Units by mouth once a week. cyanocobalamin 1,000 Inject 1,000 0 Active mcg/mL injection mcg into the shoulder, thigh, or buttocks once. fexofenadine (CHAPARRO) 60 Take 60 mg by 0 Active MG tablet mouth daily. cinnamon bark 500 mg Take 500 mg by 0 Active capsule mouth daily. coenzyme Q10 (CO Q-10) 200 Take 200 mg by 0 Active mg capsule mouth daily. melatonin 3 mg tablet Take by mouth. 0 Active lidocaine (LIDODERM) 5 % Place 1 patch 0 Active on the skin daily. Remove & Discard patch within 12 hours or as directed by albuterol (PROAIR Inhale 2 puffs 0 Active HFA,PROVENTIL HFA,VENTOLIN every 6 (six) HFA) 90 mcg/actuation hours as inhaler needed for wheezing. promethazine (PHENERGAN) Take 25 mg by 0 Active 25 MG tablet mouth every 6 (six) hours as needed for nausea or vomiting. ondansetron (ZOFRAN) 4 MG Take 4 mg by 0 Active tablet mouth every 8 (eight) hours as needed for nausea or vomiting. Active Problems Problem Noted Date Disc degeneration, lumbar 03/16/2018 Other secondary kyphosis, cervical region 03/16/2018 Adolescent idiopathic scoliosis of lumbar region 03/16/2018 Degenerative cervical disc 03/16/2018 LBBB (left bundle branch block) 09/28/2017 Encounters Date Type Specialty Care Team Description 03/16/2018 Office Visit Orthopedic Surgery Mikael Akers, Disc degeneration, lumbar (Primary Dx); Other secondary kyphosis, cervical region; Adolescent idiopathic scoliosis of lumbar region; Degenerative cervical disc 09/28/2017 Office Visit Cardiology Romaine Chavez MD LBBB (left bundle branch block) (Primary Dx) after 07/18/2017 Family History Relation Name Status Comments Father Alive Mother Alive Social History Tobacco Use Types Packs/Day Years Used Date Current Every Day Smoker Cigarettes 0.25 Smokeless Tobacco: Never Used Alcohol Use Drinks/Week oz/Week Comments No Sex Assigned at Date Recorded Not on file Job Start Date Occupation Industry Not on file Not on file Not on file Travel History Travel Start Travel End No recent travel history available. Last Filed Vital Signs Vital Sign Reading Time Taken Blood Pressure - - Pulse - - Temperature - - Respiratory Rate - - Oxygen Saturation - - Inhaled Oxygen Concentration - - Weight 79.4 kg (175 lb) 03/16/2018 11:38 AM CDT Height 170.2 cm (5' 7") 03/16/2018 11:38 AM CDT Body Mass Index 27.41 03/16/2018 11:38 AM CDT Plan of Treatment Date Type Specialty Care Team Description 09/13/2018 Office Visit Cardiology Romaine Chavez MD [address] [address] Health Maintenance Due Date Last Done Comments CERVICAL CANCER SCREENING 1994 INFLUENZA VACCINE 02/02/2018 Procedures Procedure Name Priority Date/Time Associated Diagnosis Comments XR CERVICAL SPINE Routine 03/16/2018 10:36 AM Neck pain Results for this COMPLETE W FLEX EXT CDT procedure are in the results section. XR LUMBAR SPINE Routine 03/16/2018 10:36 AM Chronic bilateral Results for this COMPLETE W BENDING CDT low back pain, with procedure are in sciatica presence the results unspecified section. after 07/18/2017 Results XR Cervical Spine Complete w flex/ext (03/16/2018 10:36 AM CDT) Narrative Performed At 7 views of the cervical spine are reviewed.These demonstrate slight [facility] asymmetry on the coronal view with the head being slightly to the patient's right.Mild facet osteoarthritis present.Lateral view demonstrates a loss of normal cervical lordosis with cervical kyphosis from C3-C6.Odontoid view is unremarkable.Flexion-extension views do not demonstrate evidence of instability.Oblique views demonstrate satisfactory neuroforaminal volume with minimal if any uncovertebral osteophyte.There is no evidence of acute fracture or subluxation Performing Organization Address City/[facility] Phone Number [facility] [address] [place] [address] XR Lumbar Spine Complete W Flex and Ext (03/16/2018 10:36 AM CDT) Narrative Performed At 7 views of the lumbar spine are reviewed.These demonstrate the patient [facility] RADIANT stands with a level pelvis.She has mild lateral curvature of the lumbar spine with some rotation.Coronal balance is satisfactory.Lateral view demonstrates satisfactory sagittal balance.There is mild disc space degeneration at L2-3 and L3-4 most notably.Both levels have small anterior osteophytes.There is no instability on flexion-extension views. Oblique views demonstrate mild facet joint osteoarthritis bilaterally. There is no evidence of fracture or subluxation. Performing Organization Address City[facility] Phone Number [facility] [address] [place] [address] after 07/18/2017 Insurance Payer Benefit Plan / Group Subscriber ID Type Phone Address MEDICARE MEDICARE PART A AND B xxxxxxxxxx Medicare [place], [place] Advance Directives Patient has advance care planning documents on file. For more information, please contact:[id number] [place] [address]
--- OUTSIDE RECORDS SUMMARY | 2018-07-19 19:24 | XMS REPORT ---
:1975 Author Organization [employer] Care Team Providers Name Role Phone Rubén Woody Provider Role Unavailable Allergies, Adverse Reactions, Alerts Substance Reaction Event Type Cimzia staph infection in nose Drug Allergy Zithromax C diff in bowels Drug Allergy Tylenol vomit,fever Drug Allergy Percocet vomit,fever Drug Allergy Lyrica sleepy Drug Allergy Effexor PETERSON with shooting eye pain ful Drug Allergy Demerol seizure Drug Allergy amitriptyline sleepy ,groggy Drug Allergy Cymbalta vomit ,fever Drug Allergy Savella swelling Drug Allergy Allopurinol vomit,constipation,weight loss Drug Allergy MACROLIDE not sure Non Drug Allergy MORPHINE not sure bec of seizure Drug Allergy Problems Problem Type Condition Code Onset Dates Condition Status Problem Cold J00 Active Problem 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 [address]-66 Active not defined Melatonin [facility] 10142-25522 Active not defined Vitamin B12 [facility] 18314-41248 Active not defined Ashtyn ND 0 Active not defined Pentasa [facility] [address]-62 Active not defined Mercaptopurine [facility] [address]-79 Active not defined Pantoprazole Sodium [facility] [address]-24 Active not defined Promethazine HCl [facility] [address]-65 Active not defined ProAir HFA [facility] [address]-56 Active not defined Flonase [facility] [id number] Active not defined Vitamin D2 [facility] [id number] Active not defined CoQ10 [facility] [address]92-51526 Active not defined Cinnamon [facility] 06[address]-26511 Active not defined Metformin HCl [facility] [address]-71 Active not defined MedroxyPROGESTERone NDC [address]-68 Active not Acetate defined Ondansetron [facility] 0 Active not defined Hydrocodone-Acetaminop [facility] [address]-31 Active not hen defined Results No Known Results Summary Purpose [employer] Submission
[2018-07-19] MEDS ORDERED: Levofloxacin500mg IV 500 MG/100 ML BAG IV ONE (20:21)
[2018-07-19] MEDS ORDERED: IBUPROFEN 400 MG TAB ONE (20:21)
[2018-07-19] MEDS ORDERED: CEFTRIAXONE/SWI 1gm 1 GM/10 ML SYR ONE (20:21)
[2018-07-19] MEDS ORDERED: NA CHLORIDE 0.9% 1,000 ML ONE (20:22)
[2018-07-19] MEDS ORDERED: IBUPROFEN 200 MG TAB PO ONE (20:22)
[2018-07-19 20:58] LABS: Absolute Lymphocytes (CBC) 0.5 K/uL (0.7-4.9); Absolute Monocytes 0.6 K/uL (0.1-1.3); Absolute Neutrophil 8.2 K/uL (1.8-8.0); Basophils % 0.3 % (0-1.3); Eosinophils % 0.2 % (0-4.4); Hematocrit 39.9 % (36.0-45.0); MPV 8.4 fL (7.6-11.3); Monocytes % 6.8 % (3.3-12.3); RBC Red Blood Cell Count 3.88 M/uL (3.86-4.86)
[2018-07-19 21:11] LABS: ALT/SGPT 34 U/L (12-78); AST/SGOT 22 U/L (15-37); Albumin 3.1 g/dL (3.4-5.0); Alkaline Phosphatase 86 U/L (45-117); BUN Blood Urea Nitrogen 8 mg/dL (7-18); Bicarbonate 22 mmol/L (21-32); Bilirubin Direct 0.4 mg/dL (0-0.2); Bilirubin Total 1.5 mg/dL (0.2-1.0); Creatine Phosphokinase 268 U/L (26-192); Glucose Level 119 mg/dL (74-106); Lipase 82 U/L (73-393); Potassium 3.5 mmol/L (3.5-5.1); Protein, Total 6.9 g/dL (6.4-8.2); Sodium Level 140 mmol/L (136-145); Troponin (Emerg Dept Use Only) 0.02 ng/mL (0.0-0.045)
--- NOTE | 2018-07-19 21:16 | EDPHYS ---
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: 07/19 19:34 LMP N/A - Depo-provera aj Historical: - Allergies: 19:34 Allopurinol; aj 19:34 Codeine; aj 19:34 Cymbalta; aj 19:34 Demerol; aj 19:34 Effexor; aj 19:34 Lyrica; aj 19:34 Macrolide Antibiotics; aj 19:34 milnacipran; aj 19:34 Morphine; aj 19:34 Oxycodone; aj 19:34 Sulfa (Sulfonamide Antibiotics); aj 19:34 Zithromax; aj 19:34 Percocet; aj 19:34 Savella; aj 19:34 Amitriptyline; aj 19:34 Cimzia; aj - Home Meds: 19:34 metformin 500 mg Oral tr24 1 tab once daily [Active]; metformin 500 mg Oral tr24 1 tab aj once daily [Active]; mercaptopurine 50 mg Oral tab once daily [Active]; Pentasa 500 mg Oral cpER 2 caps 4 times per day [Active]; Zofran (as hydrochloride) 4 mg Oral tab [Active]; ezetimibe oral oral [Active]; Promethazine Oral [Active]; hydrocodone-acetaminophen 7.5-325 mg Oral tab 1 tab every 4 hours [Active]; iflora-nasal sinus support supplement [Active]; Stool Softener Oral [Active]; - PMHx: 19:34 automimmune thyroiditis; Crohn's; Heart Murmur; LBB; psoriasis; aj - PSHx: 19:34 Appendectomy; Cholecystectomy; rectal mass removed; left ankle surgery; breast aj reduction; Lumpectomy; - Immunization history:: Adult Immunizations up to date, Pneumococcal vaccine is up to date. - Social history:: Smoking status: Patient uses tobacco products, smokes one-half pack cigarettes per day. - Ebola Screening: : Patient negative for fever greater than or equal to 101.5 degrees Fahrenheit, and additional compatible Ebola Virus Disease symptoms Patient denies exposure to infectious person Patient denies travel to an Ebola-affected area in the 21 days before illness onset No symptoms or risks identified at this time. Exam: 21:56 ECG was reviewed by the Attending Physician. Vital Signs: 19:34 BP 148 / 67; Pulse 105; Resp 22; Temp 102.1(O); Pulse Ox 93% on R/A; Weight 83.91 kg; aj Height 5 ft. 7 in. (170.18 cm); 20:18 BP 147 / 81; Pulse 116; Resp 20; Pulse Ox 93% on R/A; aa1 20:58 BP 147 / 81; Pulse 110; Resp 20; Pulse Ox 92% on 2 lpm NC; mw2 21:23 BP 137 / 76; Pulse 103; Resp 18; Temp 101.0(O); Pulse Ox 96% on 2 lpm NC; Pain 0/10; aa1 22:26 BP 135 / 82; Pulse 104; Resp 18; Pulse Ox 95% ; ea 23:34 BP 119 / 62; Pulse 96; Resp 20; Temp 98.9(O); Pulse Ox 94% on 2 lpm NC; Pain 0/10; aa1 19:34 Body Mass Index 28.97 (83.91 kg, 170.18 cm) aj MDM: 20:22 Patient medically screened. 07/19 19:55 Order name: Basic Metabolic Panel 07/19 19:55 Order name: Blood Culture Adult (2) 07/19 19:55 Order name: CBC with Diff 07/19 19:55 Order name: CPK 07/19 19:55 Order name: Lactate 07/19 19:55 Order name: LFT's 07/19 19:55 Order name: Lipase 07/19 19:55 Order name: Procalcitonin 07/19 19:55 Order name: Protime (+inr) 07/19 19:55 Order name: Ptt, Activated 07/19 19:55 Order name: Troponin (emerg Dept Use Only) 07/19 19:55 Order name: Urine Microscopic Only 07/19 20:23 Order name: Flu 07/19 21:11 Order name: Basic Metabolic Panel [facility] 07/19 21:11 Order name: Liver (Hepatic) Function [facility] 07/19 21:12 Order name: Creatine Phosphokinase [facility] 07/19 21:12 Order name: Troponin (Emerg Dept Use Only) [facility] 07/19 21:12 Order name: Lipase [facility] 07/19 21:16 Order name: Lactate [facility] 07/19 21:17 Order name: CBC with Automated Diff [facility] 07/19 21:22 Order name: Procalcitonin [facility] 07/19 21:30 Order name: Protime (+INR) [facility] 07/19 21:30 Order name: PTT, Activated Partial Thromb [facility] 07/19 22:02 Order name: Influenza Screen (A [facility] 07/19 22:11 Order name: Urine Dipstick--Ancillary (enter results) 07/19 22:11 Order name: Urine --Ancillary (enter results) 07/19 22:18 Order name: Urine --Ancillary [facility] 07/19 22:18 Order name: Urine Dipstick-Ancillary [facility] 07/19 22:26 Order name: Urine Microscopic Only [facility] 07/19 22:35 Order name: Manual Differential [facility] 07/19 19:55 Order name: Urine Test (obtain specimen); Complete Time: 22:38 07/19 19:55 Order name: Accucheck; Complete Time: 21:25 07/19 19:55 Order name: Cardiac monitoring; Complete Time: 20:03 07/19 19:55 Order name: EKG - Nurse/Tech; Complete Time: 20:03 07/19 19:55 Order name: IV Saline Lock - Large Bore; Complete Time: 21:25 07/19 19:55 Order name: Labs collected and sent; Complete Time: 21:25 07/19 19:55 Order name: O2 Per Protocol; Complete Time: 20:03 07/19 19:55 Order name: O2 Sat Monitoring; Complete Time: 20:03 07/19 19:55 Order name: Urine Dipstick-Ancillary (obtain specimen); Complete Time: 22:45 gs EC:56 Rate is 112 beats/min. Rhythm is regular. AR interval is normal. QRS interval is gs prolonged. T waves are Normal. No ST changes noted. Administered Medications: 20:22 Drug: Ibuprofen 600 mg Route: PO; ea 22:26 Follow up: Response: No adverse reaction; Marked relief of symptoms ea 20:35 Drug: NS 0.9% 1000 ml Route: IV; Rate: 1 bolus; Site: left antecubital; aa1 22:30 Follow up: Response: No adverse reaction; IV Status: Completed infusion; IV Intake: ea 1000ml 20:35 Drug: Rocephin - (cefTRIAXone) 1 grams Route: IVPB; Infused Over: 30 mins; Site: left aa1 antecubital; 21:00 Follow up: Response: No adverse reaction; IV Status: Completed infusion ea 20:35 Drug: LevaQUIN 500 mg Volume: 100 ml; Route: IVPB; Infused Over: 60 mins; Site: left aa1 antecubital; 22:30 Follow up: Response: No adverse reaction; IV Status: Completed infusion ea Disposition: 07/19/18 21:15 Hospitalization ordered by Nabeel Burton for Inpatient Admission. Preliminary diagnosis are Gram-negative sepsis, unspecified, Lobar pneumonia, unspecified organism. - Bed requested for Telemetry/MedSurg (Inpatient). - Status is Inpatient Admission. ea - Condition is Stable. - Problem is new. - Symptoms have improved. UTI on Admission? No Addendum: 07/31/2018 02:13 Addendum: cc-fever cough pneumonia hpi- pneumonia found on xray with fever sob weakness g s onset 3 days ago worse no relieving factors, similar episode in past ros-all reviewed and negative nn,vs pmh reviewed and agree sochx-lives at home [id number] severe distress head-normal no mass ent-no obstruction,throat normal neck-supple no masses cv-stach + murmur p-hypoxemia tachypnea basilar crackles gi-soft nontender ms-normal circulation no deformity neuro - cn,motor,sensory normal skin-warm no rash MDM-pna,sepsis,cad,bronchitis reviewed all studies and discussed admission EKG-stachy, ns st changes , nl intervals CC 30 minutes. Signatures: Dispatcher [employer] EDSadaf June RN RN aa1 Katie Hdez RN RN aj Garcia, Cindy, RN RN cg Maria Guadalupe Alonso RN RN ea Starr, Gregory, MD MD gs Corrections: (The following items were deleted from the chart) 07/19 23:33 21:15 Hospitalization Ordered by Nabeel Burton MD for Inpatient Admission. Preliminary cg diagnosis is Gram-negative sepsis, unspecified; Lobar pneumonia, unspecified organism. Bed requested for Telemetry/MedSurg (Inpatient). Status is Inpatient Admission. Condition is Stable. Problem is new. Symptoms have improved. UTI on Admission? No. gs 23:35 23:33 07/19/2018 21:15 Hospitalization Ordered by Nabeel Burton MD for Inpatient cg Admission. Preliminary diagnosis is Gram-negative sepsis, unspecified; Lobar pneumonia, unspecified organism. Bed requested for Telemetry/MedSurg (Inpatient). Status is Inpatient Admission. Condition is Stable. Problem is new. Symptoms have improved. UTI on Admission? No. cg 07/20 00:22 07/19 23:35 07/19/2018 21:15 Hospitalization Ordered by Nabeel Burton MD for Inpatient ea Admission. Preliminary diagnosis is Gram-negative sepsis, unspecified; Lobar pneumonia, unspecified organism. Bed requested for Telemetry/MedSurg (Inpatient). Status is Inpatient Admission. Condition is Stable. Problem is new. Symptoms have improved. UTI on Admission? No. cg
--- NOTE | 2018-07-19 21:16 | ER ---
Nurse's Notes [facility] Name: Kathe Del Rio Age: 43 yrs Sex: Female : 1975 Arrival Date: 07/19/2018 Time: 19:24 Bed 8 Private MD: Cliff Womack H Diagnosis: Gram-negative sepsis, unspecified;Lobar pneumonia, unspecified organism Presentation: 07/19 19:28 Presenting complaint: Patient states: Reports seeing chest xray report on the patient aj portal and seeing that she had pneumonia. Patient reports fever at home. No antipyretics taken since this AM. Transition of care: patient was not received from another setting of care. Onset of symptoms was July 16, 2018. Risk Assessment: Do you want to hurt yourself or someone else? Patient reports no desire to harm self or others. Initial Sepsis Screen: Does the patient meet any 2 criteria? Temp <36.0*C (96.8*F)) or > 38.3*C (100.9*F). HR > 90 bpm. Does the patient have a suspected source of infection? No. Patient's initial sepsis screen is negative. Care prior to arrival: None. 19:28 Method Of Arrival: Ambulatory aj 19:28 Acuity: KARISSA 3 aj Triage Assessment: 19:34 General: Appears in no apparent distress. comfortable, Behavior is calm, cooperative, aj appropriate for age. Pain: Denies pain. Neuro: Level of Consciousness is awake, alert, obeys commands, Oriented to person, place, time, situation, Appropriate for age. Respiratory: Reports shortness of breath cough that is Airway is patent Respiratory effort is even, unlabored, Respiratory pattern is symmetrical, tachypnea the patient has mild shortness of breath. Derm: Skin is intact, is healthy with good turgor, Skin is normal, Skin temperature is hot. 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 LMP N/A - Depo-provera aj Historical: - Allergies: 19:34 Allopurinol; aj 19:34 Codeine; aj 19:34 Cymbalta; aj 19:34 Demerol; aj 19:34 Effexor; aj 19:34 Lyrica; aj 19:34 Macrolide Antibiotics; aj 19:34 milnacipran; aj 19:34 Morphine; aj 19:34 Oxycodone; aj 19:34 Sulfa (Sulfonamide Antibiotics); aj 19:34 Zithromax; aj 19:34 Percocet; aj 19:34 Savella; aj 19:34 Amitriptyline; aj 19:34 Cimzia; aj - Home Meds: 19:34 metformin 500 mg Oral tr24 1 tab once daily [Active]; metformin 500 mg Oral tr24 1 tab aj once daily [Active]; mercaptopurine 50 mg Oral tab once daily [Active]; Pentasa 500 mg Oral cpER 2 caps 4 times per day [Active]; Zofran (as hydrochloride) 4 mg Oral tab [Active]; ezetimibe oral oral [Active]; Promethazine Oral [Active]; hydrocodone-acetaminophen 7.5-325 mg Oral tab 1 tab every 4 hours [Active]; iflora-nasal sinus support supplement [Active]; Stool Softener Oral [Active]; - PMHx: 19:34 automimmune thyroiditis; Crohn's; Heart Murmur; LBB; psoriasis; aj - PSHx: 19:34 Appendectomy; Cholecystectomy; rectal mass removed; left ankle surgery; breast aj reduction; Lumpectomy; - Immunization history:: Adult Immunizations up to date, Pneumococcal vaccine is up to date. - Social history:: Smoking status: Patient uses tobacco products, smokes one-half pack cigarettes per day. - Ebola Screening: : Patient negative for fever greater than or equal to 101.5 degrees Fahrenheit, and additional compatible Ebola Virus Disease symptoms Patient denies exposure to infectious person Patient denies travel to an Ebola-affected area in the 21 days before illness onset No symptoms or risks identified at this time. Screenin:25 Abuse screen: Denies threats or abuse. Nutritional screening: No deficits noted. ea Tuberculosis screening: No symptoms or risk factors identified. Fall Risk None identified. Assessment: 20:23 General: Appears uncomfortable, Behavior is appropriate for age. Pain: Denies pain. ea Neuro: Level of Consciousness is awake, alert, obeys commands, Oriented to person, place, time, situation. Cardiovascular: Heart tones S1 S2 present Patient's skin is warm and dry. Respiratory: Airway is patent Respiratory effort is even, unlabored, Respiratory pattern is regular, Breath sounds are coarse bilaterally. Respiratory: Parent/caregiver reports the patient having cough that is productive. Derm: Skin is pink, warm \T\ dry. Musculoskeletal: Circulation, motion, and sensation intact. 20:24 Reassessment: Patient and/or family updated on plan of care and expected duration. Pain ea level reassessed. Pt sats at 93%, placed on O2 at 2 L per NC. 21:23 Reassessment: Patient appears in no apparent distress at this time. Patient and/or aa1 family updated on plan of care and expected duration. Pain level reassessed. Patient is alert, oriented x 3, equal unlabored respirations, skin warm/dry/pink. Awaiting completion of test results. 22:24 Reassessment: Patient and/or family updated on plan of care and expected duration. Pain ea level reassessed. Patient is alert, oriented x 3, equal unlabored respirations, skin warm/dry/pink. 23:17 Reassessment: Patient and/or family updated on plan of care and expected duration. Pain ea level reassessed. Patient is alert, oriented x 3, equal unlabored respirations, skin warm/dry/pink. Awaiting on room assignment. 23:49 Reassessment: Patient appears in no apparent distress at this time. Patient and/or aa1 family updated on plan of care and expected duration. Pain level reassessed. Patient is alert, oriented x 3, equal unlabored respirations, skin warm/dry/pink. Report given to Xuan Nowak LVN. 07/20 00:00 Reassessment: Patient and/or family updated on plan of care and expected duration. Pain ea level reassessed. Patient is alert, oriented x 3, equal unlabored respirations, skin warm/dry/pink. Pt admitted to fourth floor, transferred via wheelchair per Nurse Xuan, pt tolerating well. Vital Signs: 07/19 19:34 BP 148 / 67; Pulse 105; Resp 22; Temp 102.1(O); Pulse Ox 93% on R/A; Weight 83.91 kg; aj Height 5 ft. 7 in. (170.18 cm); 20:18 BP 147 / 81; Pulse 116; Resp 20; Pulse Ox 93% on R/A; aa1 20:58 BP 147 / 81; Pulse 110; Resp 20; Pulse Ox 92% on 2 lpm NC; mw2 21:23 BP 137 / 76; Pulse 103; Resp 18; Temp 101.0(O); Pulse Ox 96% on 2 lpm NC; Pain 0/10; aa1 22:26 BP 135 / 82; Pulse 104; Resp 18; Pulse Ox 95% ; ea 23:34 BP 119 / 62; Pulse 96; Resp 20; Temp 98.9(O); Pulse Ox 94% on 2 lpm NC; Pain 0/10; aa1 19:34 Body Mass Index 28.97 (83.91 kg, 170.18 cm) ED Course: 19:24 Patient arrived in ED. am2 19:24 Cliff Womack DO is Private Physician. am2 19:30 Triage completed. aj 19:34 Arm band placed on left wrist. Patient placed in an exam room. aj 19:40 Clyde Choi MD is Attending Physician. gs 20:06 Maria Guadalupe Alonso RN is Primary Nurse. ea 20:20 Initial lab(s) drawn, by me, sent to lab. First set of blood cultures drawn by me. aa1 Inserted saline lock: 20 gauge in left antecubital area, using aseptic technique. Blood collected. 20:25 Patient has correct armband on for positive identification. Bed in low position. Call ea light in reach. Side rails up X2. 20:25 EKG done, by ED staff, reviewed by Clyde Choi MD. aa1 20:34 Flu and/or RSV swab sent to lab. aa1 20:35 Second set of blood cultures drawn by me. aa1 21:13 Nabeel Burton MD is Hospitalizing Provider. gs 22:25 No provider procedures requiring assistance completed. Patient admitted, IV remains in ea place. Administered Medications: 20:22 Drug: Ibuprofen 600 mg Route: PO; ea 22:26 Follow up: Response: No adverse reaction; Marked relief of symptoms ea 20:35 Drug: NS 0.9% 1000 ml Route: IV; Rate: 1 bolus; Site: left antecubital; aa1 22:30 Follow up: Response: No adverse reaction; IV Status: Completed infusion; IV Intake: ea 1000ml 20:35 Drug: Rocephin - (cefTRIAXone) 1 grams Route: IVPB; Infused Over: 30 mins; Site: left aa1 antecubital; 21:00 Follow up: Response: No adverse reaction; IV Status: Completed infusion ea 20:35 Drug: LevaQUIN 500 mg Volume: 100 ml; Route: IVPB; Infused Over: 60 mins; Site: left aa1 antecubital; 22:30 Follow up: Response: No adverse reaction; IV Status: Completed infusion ea Intake: 22:30 IV: 1000ml; Total: 1000ml. ea Outcome: 21:15 Decision to Hospitalize by Provider. 22:25 Instructed on the need for admit, Demonstrated understanding of instructions. ea 07/20 00:00 Admitted to Med/surg accompanied by nurse, via wheelchair, with chart, Report called to ea Nurse Xuan Condition: stable 00:22 Patient left the ED. ea Signatures: Sadaf Greco RN RN aa1 Katie Hdez RN RN aj Moreno, Amanda am2 Antunez, Elena, RN RN ea Starr, Gregory, MD MD Wendy Worley mw2
[2018-07-19 21:26] LABS: Protime INR 1.28
[2018-07-19] MEDS ORDERED: IPRATROPIUM BROM 0.5MG/2.5ML NEB PRN (22:02)
[2018-07-19] MEDS ORDERED: ONDANSETRON 4 MG/2 ML VIAL IV PRN (22:02)
[2018-07-19] MEDS ORDERED: ACETAMINOPHEN 500 MG TAB PO PRN (22:02)
[2018-07-19] MEDS ORDERED: ALBUTEROL 2.5 MG/3 ML NEB SOL NEB PRN (22:02)
[2018-07-19] MEDS ORDERED: MAGNESIUM HYDROXIDE 8% 30 ML PO PRN (22:02)
[2018-07-19] MEDS ORDERED: ALBUTEROL INHALER 60 PUFF/8 GM IH PRN (22:04)
[2018-07-19] MEDS ORDERED: PROMETHAZINE 25 MG TABLET PO PRN (22:04)
[2018-07-19 22:17] LABS: Urine Blood 2+ (NEG); Urine Glucose NEGATIVE (NEG); Urine Protein 3+ (NEG); Urine Specific Gravity 1.025 (1.005-1.030); Urine pH 5.5 (5.0-7.0)
[2018-07-19 22:25] LABS: Urine Bacteria <20 /HPF (<20); Urine Culture Reflex Order NOT NEEDED; Urine RBC <5 /HPF (NONE SEEN)
[2018-07-19 22:34] LABS: Blood Morphology Comment NOT SEEN (NOT SEEN); Platelet Estimate ADEQ
[2018-07-19] MEDS: Levofloxacin500mg IV 500 MG/100 ML BAG IV SCH (23:00)
[2018-07-20 00:39] VITALS: BMI 28.6
[2018-07-20] MEDS: METHYLPREDNISOLONE 125 MG INJ IV SCH ×2 (01:14→05:40)
[2018-07-20] MEDS: NA CHLORIDE 0.9% 1,000 ML IV SCH ×3 (01:14→22:41)
--- NOTE | 2018-07-20 05:37 | P.HP ---
Certification for Inpatient Patient admitted to: Inpatient With expected LOS: >2 Midnights Patient will require the following post-hospital care: None Practitioner: I am a practitioner with admitting privileges, knowledge of patient current condition, hospital course, and medical plan of care. Services: Services provided to patient in accordance with Admission requirements found in Title 42 Section 412.3 of the Code of Federal Regulations Patient History Date of Service: 07/19/18 Reason for admission: Left lower lobe pneumonia History of Present Illness: Patient is a 43-year-old female with a history of Crohn's disease and she is on multiple immunosuppressants. She also has a history of diabetes. She states her diabetes is welcomed shakes her medicate was admitted I am going to she was feeling better but she started feeling ill a few days ago and had a chest x-ray performed at her primary care provider's office. The chest x-ray revealed a left lower lobe pneumonia. Symptom when I get worse like before. She stated that on her last admission she was septic. When she was admitted to the hospital on October, she had a CT scan which revealed that she complete consolidation of the chest. If this pneumonia is persisting, she may benefit from a pulmonary consultation and a bronchoscopy. At this time, because of her multiple risk factors and her history of immunosuppression she will benefit from inpatient admission to the hospital with IV antibiotic therapy. Allergies acetaminophen [From Percocet] Allergy (Intermediate, Verified 10/26/17 16:18) Itching/Hives/Rash azithromycin [From Zithromax] Allergy (Intermediate, Verified 10/26/17 16:18) Hives codeine [Codeine] Allergy (Intermediate, Verified 10/26/17 16:18) Hives/Rash Macrolide Antibiotics Allergy (Intermediate, Verified 10/26/17 16:18) Hives/Rash meperidine HCl [From Demerol] Allergy (Intermediate, Verified 10/26/17 16:18) Hives/Rash morphine Allergy (Intermediate, Verified 10/26/17 16:18) Hives/Rash oxycodone HCl [From Percocet] Allergy (Intermediate, Verified 10/26/17 16:18) Itching/Hives/Rash pregabalin [From Lyrica] Allergy (Intermediate, Verified 10/26/17 16:18) Hives/Rash Sulfa (Sulfonamide Antibiotics) [Sulfa(Sulfonamide Antibiotics)] Allergy ( Intermediate, Verified 10/26/17 16:18) Nausea/Vomiting certolizumab pegol [From Cimzia] Allergy (Mild, Verified 07/19/18 23:38) infections allopurinol Allergy (Verified 10/26/17 16:18) Unknown duloxetine [From Cymbalta] Allergy (Verified 10/26/17 16:18) Unknown duloxetine HCl [From Cymbalta] Allergy (Verified 10/26/17 16:18) Unknown milnacipran HCl [From Savella] Allergy (Verified 10/26/17 16:18) Unknown venlafaxine HCl [From Effexor] Allergy (Verified 10/26/17 16:18) Unknown amitriptyline Adverse Reaction (Mild, Verified 07/19/18 23:37) Sleepy TYLENOL 3 Allergy (Intermediate, Uncoded 09/19/11 10:15) Shortness of breath Home Medications: Ergocalciferol (Vitamin D2) [Vitamin D2] 1 cap PO EVERY 7TH DAY 10/25/17 Mercaptopurine 2 tab PO BEDTIME 10/25/17 Mesalamine [Pentasa*] 1 cap PO BEDTIME 10/25/17 Metformin HCl [Glucophage*] 1 tab PO DAILY 10/25/17 Pantoprazole [Protonix Tab*] 1 tab PO BEDTIME 10/25/17 Promethazine HCl 1 tab PO Q6HP PRN 10/25/17 Albuterol Sulfate [Proair Hfa] 8.5 gm IH TID PRN #1 hfa.aer.ad 10/29/17 Mometasone/Formoterol [Dulera 100 Mcg/5 Mcg Inhaler] 2 puff IH BID #1 inhaler Ezetimibe 10 mg PO BEDTIME 07/19/18 Fexofenadine HCl [Ashtyn Allergy] 180 mg PO BEDTIME 07/19/18 Sitagliptin Phosphate [Januvia] 100 mg PO DAILY 07/19/18 Cinnamon Bark [Cinnamon] 500 mg PO BEDTIME 07/20/18 Cyanocobalamin [Vitamin B-12*] 1 ml IM EVERY 7TH DAY 07/20/18 Fluticasone Propionate 1 melina DIONISIO DAILY 07/20/18 Hydrocodone Bit/Acetaminophen [Hydrocodon-Acetaminoph 7.5-500] 1 tab PO Q6HP PRN 07/20/18 Lidocaine 5% Patch [Lidoderm 5% Patch*] 1 patch TOP DIRECTED PRN 07/20/18 Medroxyprogesterone Acetate [Depo-Provera] 1 dose IM DIRECTED 07/20/18 Ondansetron [Zofran] 4 mg PO Q6H PRN 07/20/18 Sinu Pro 6 - Probiotic 1 tab PO BEDTIME 07/20/18 - Past Medical/Surgical History Has patient received pneumonia vaccine in the past: Yes Diabetic: Yes -: NIDDM -: crohns -: autoimmune thyroiditist -: (L) BB -: psoriasis -: psoriatic arthritis -: heart murmur -: fibromyalgia -: TMJ -: Sleep Apnea -: cholecystectomy -: appendectomy -: breast reduction -: left ankle -: endometriosis - Family History Mother Medical History: Hypertension Father Medical History: Heart disease, Hypertension, Stroke - Social History Smoking Status: Current every day smoker Alcohol use: No CD- Drugs: No Caffeine use: Yes Place of Residence: Home Review of Systems 10-point ROS is otherwise unremarkable Physical Examination - Vital Signs Temperature: 97.5 F Blood Pressure: 125/58 Pulse: 96 Respirations: 18 Pulse Ox (%): 91 - Physical Exam General: Alert, In no apparent distress, Oriented x3 HEENT: Atraumatic, PERRLA, Mucous membr. moist/pink, EOMI, Sclerae nonicteric Neck: Supple, 2+ carotid pulse no bruit, No LAD, Without JVD or thyroid abnormality Respiratory: Diminished, Expiratory wheezes, Rhonchi/gurgles Cardiovascular: Regular rate/rhythm, Normal S1 S2, No murmurs Gastrointestinal: Normal bowel sounds, Soft and benign, Non-distended, No tenderness Musculoskeletal: No clubbing, No swelling, No tenderness Integumentary: No rashes Neurological: Normal gait, Normal speech, Normal strength at 5/5 x4 extr, Normal tone, Sensation intact, Cranial nerves 3-12 intact, Normal affect Lymphatics: No axilla or inguinal lymphadenopathy - Studies Laboratory Data (last 24 hrs) 07/19/18 20:20: PT 15.2 H, INR 1.28, APTT 48.7 H 07/19/18 20:20: WBC 9.3, Hgb 13.5, Hct 39.9, Plt Count 423 H 07/19/18 20:20: Sodium 140, Potassium 3.5, BUN 8, Creatinine 0.48 L, Glucose 119 H, Total Bilirubin 1.5 H, AST 22, ALT 34, Alkaline Phosphatase 86, Lipase 82 Microbiology Data (last 24 hrs): 07/19/18 20:34 Nasopharnyx Influenza Type A Antigen Screen - Final 07/19/18 20:34 Nasopharnyx Influenza Type B Antigen Screen - Final Assessment & Plan - Problems (Diagnosis) (1) Left lower lobe pneumonia Current Visit: Yes Status: Acute (2) Autoimmune thyroiditis Onset Date: 10/26/17 Current Visit: No Status: Chronic (3) Crohn disease Onset Date: 10/26/17 Current Visit: No Status: Chronic Qualifiers: Gastrointestinal tract location: unspecified location Digestive disease complication type: unspecified complication Qualified Code(s): K50.919 - Crohn 's disease, unspecified, with unspecified complications (4) Diabetes mellitus Current Visit: No Status: Chronic Qualifiers: Diabetes mellitus type: type 2 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 Continue with IV antibiotics 2. Awaiting sputum and blood culture 3. Repeat chest x-ray 4. Will proceed with CT scan of the chest 5. Pulmonary consultation if CT scan shows any worrisome findings 6. Continue with nebs as needed 7. O2 per protocol 8. Continue with gentle hydration 9. Repeat labs including CBC and renal function in a.m. 10. GI and DVT prophylaxis - Advance Directives Does patient have a Living Will: No Does patient have a Durable POA for Healthcare: No - Code Status/Comfort Care Code Status Assessed: Yes Code Status: Full Code Critical Care: No Time Spent Managing PTS Care (In Minutes): 50
[2018-07-20] MEDS: PANTOPRAZOLE 40MG TABLET PO SCH ×2 (05:40→09:00)
[2018-07-20 06:14] LABS: Absolute Lymphocytes (CBC) 0.2 K/uL (0.7-4.9); Absolute Monocytes 0.2 K/uL (0.1-1.3); Absolute Neutrophil 6.6 K/uL (1.8-8.0); Basophils % 0.1 % (0-1.3); Hematocrit 37.2 % (36.0-45.0); Lymphocytes % 3.2 % (15.3-44.8); MPV 8.2 fL (7.6-11.3); Monocytes % 2.7 % (3.3-12.3); RBC Red Blood Cell Count 3.61 M/uL (3.86-4.86)
[2018-07-20 07:01] LABS: ALT/SGPT 31 U/L (12-78); AST/SGOT 22 U/L (15-37); Albumin 2.8 g/dL (3.4-5.0); Alkaline Phosphatase 75 U/L (45-117); BUN Blood Urea Nitrogen 8 mg/dL (7-18); Bicarbonate 21 mmol/L (21-32); Bilirubin Total 0.9 mg/dL (0.2-1.0); Folic Acid, (Folate) 14.6 ng/mL (3.1-17.5); Glucose Level 218 mg/dL (74-106); HDL Cholesterol 42 mg/dL (40-60); LDL Cholesterol, Calculated 59 (<130); Magnesium 2.1 mg/dL (1.8-2.4); Phosphorus 3.7 mg/dL (2.5-4.9); Potassium 4.1 mmol/L (3.5-5.1); Protein, Total 6.3 g/dL (6.4-8.2); Sodium Level 141 mmol/L (136-145)
[2018-07-20] MEDS: ENOXAPARIN 40 MG/0.4 ML SQ SCH (09:32)
[2018-07-20] MEDS ORDERED: GLUCAGON 1 MG/VIAL IM PRN (09:46)
[2018-07-20] MEDS ORDERED: D50W 25 GM/50 ML SYRINGE IV PRN (09:46)
--- NOTE | 2018-07-20 10:23 | EKG ---
Test Date: 2018-07-19 Test Time: 20:29:32 Quality Assurance Manager: BLAKE MEASUREMENT RESULTS: Intervals: Rate: 112 UT: 136 QRSD: 140 QT: 400 QTc: 546 Clarissa: P: 48 UT: 136 QRS: -4 T: 83 INTERPRETIVE STATEMENTS: Sinus tachycardia Left bundle branch block Abnormal ECG Compared to ECG 10/25/2017 18:45:04 No significant changes Electronically Signed On 07-20-18 10:21:55 [employer] by Edmund Reina
--- NOTE | 2018-07-20 10:34 | RAD REPORT ---
EXAM DESCRIPTION: CT - Thorax W/ Con - 07/20/2018 8:32 am CLINICAL HISTORY: Chest pain COMPARISON: October 2017 TECHNIQUE: Computed axial tomography of the chest was obtained. 100 cc Isovue 300 was administered i ntravenously. All CT scans are performed using dose optimization technique as appropriate and may include automated exposure control or mA/KV adjustment according to patient size. FINDINGS: A 22 millimeter left infrahilar opacity is suspected. 8.8 centimeter left lower lobe conso lidation is present. Mild right upper lobe opacity is seen. Mild mediastinal and left hilar lymphadenopathy is present. A pleural effusion is not present. A pericardial effusion is not seen. IMPRESSION: 22 millimeter left infrahilar opacity suspicious for a mass. There likely is postobstruc tive pneumonia. Proctoscopy is recommended Mild mediastinal and left hilar lymphadenopathy
[2018-07-20] MEDS: INSULIN -REGULAR HUMAN 50 UNIT/0.5 ML ML SQ SCH ×3 (12:57→20:45)
[2018-07-20] MEDS: MESALAMINE 500 MG CAPSULE.ER PO SCH (20:45)
[2018-07-20] MEDS ORDERED: BENZONATATE 100 MG CAP PO PRN (20:57)
[2018-07-20] MEDS: Levofloxacin500mg IV 500 MG/100 ML BAG IV SCH (22:35)
--- NOTE | 2018-07-21 07:07 | RAD REPORT ---
EXAM DESCRIPTION: RAD - Chest Single View - 07/21/2018 6:33 am CLINICAL HISTORY: Pneumonia COMPARISON: CT chest July 20, chest film July 18 TECHNIQUE: AP portable chest image was obtained 0631 hours . FINDINGS: Lung volumes are low accentuating lung markings. A minimal component of interstitial edema from minimal volume overload not excluded. Left base opacification has not improved since the CT yariel dy. No evidence for progression. Heart size is normal. No pneumothorax or enlarging pleural fluid col lection. Patient probably has a small left pleural effusion. No acute bony abnormality seen. No acute aortic findings suspected. IMPRESSION: Left lung base pneumonia findings are not substantially different from CT imaging. Shallow inspiration accentuates lung markings and could mask a minimal interstitial edema.
[2018-07-21] MEDS: INSULIN -REGULAR HUMAN 50 UNIT/0.5 ML ML SQ SCH ×4 (07:30→20:58)
[2018-07-21] MEDS: ENOXAPARIN 40 MG/0.4 ML SQ SCH (08:51)
[2018-07-21] MEDS: PANTOPRAZOLE 40MG TABLET PO SCH (08:51)
--- NOTE | 2018-07-21 11:27 | P.PN ---
Subjective Date of Service: 07/20/18 Chief Complaint: Left lower lobe pneumonia Subjective: No C/O voiced, Improving Patient seen and examined at bedside. No family at bedside. Chart reviewed and case discussed with nursing staff. Review of Systems 10-point ROS is otherwise unremarkable Physical Examination - Vital Signs Temperature: 97.1 F Blood Pressure: 121/71 Pulse: 104 Respirations: 18 Pulse Ox (%): 94 - Physical Exam General: Alert, In no apparent distress, Oriented x3 HEENT: Atraumatic, PERRLA, EOMI Neck: Supple, JVD not distended Respiratory: Clear to auscultation bilaterally, Normal air movement Cardiovascular: Regular rate/rhythm, Normal S1 S2 Gastrointestinal: Normal bowel sounds, No tenderness Musculoskeletal: No tenderness Integumentary: No rashes Neurological: Normal speech, Normal tone, Normal affect Lymphatics: No axilla or inguinal lymphadenopathy Assessment And Plan - Current Problems (Diagnosis) (1) Left lower lobe pneumonia Onset Date: 07/20/18 Current Visit: Yes Status: Acute Qualifiers: Pneumonia type: due to unspecified organism Qualified Code(s): J18.1 - Lobar pneumonia, unspecified organism (2) Mass of left lung Current Visit: Yes Status: Acute (3) Current tobacco use Current Visit: Yes Status: Chronic (4) Autoimmune thyroiditis Onset Date: 10/26/17 Current Visit: No Status: Chronic (5) Crohn disease Onset Date: 10/26/17 Current Visit: No Status: Chronic Qualifiers: Gastrointestinal tract location: small intestine Digestive disease complication type: unspecified complication Qualified Code(s): K50.019 - Crohn 's disease of small intestine with unspecified complications (6) NEAL (obstructive sleep apnea) Current Visit: No Status: Chronic (7) Psoriatic arthritis Onset Date: 10/26/17 Current Visit: No Status: Chronic (8) Left bundle branch block Current Visit: Yes Status: Chronic - Plan This is a 43-year-old female with: Left lower lobe pneumonia (Acute 07/20/18) J18.1 Continue IV Levaquin, day #1. Oxygen as needed Left lung mass Noted on chest CT Concerning for mass versus infectious etiology Risk factors include a 1/2 [id number] smoker for the past 30 years Patient also has a lot of autoimmune disorder Pulmonology consulted. Current tobacco use (Chronic) Z72.0 Half pack per day smoker for the past 30 years. Counseled extensively on smoking cessation COPD (chronic obstructive pulmonary disease) (Chronic) J44.9 Continue oxygen as needed. Breathing treatments p.r.n. Diabetes mellitus (Chronic 07/20/18) E11.9 Accu-Cheks and sliding scale insulin next I will continue to monitor and adjust NEAL (obstructive sleep apnea) (Chronic) G47.33 Uses CPAP at home. Patient has CPAP machine here in the hospital, will continue to use at bedtime Autoimmune thyroiditis (Chronic 10/26/17) E06.3 Continue home medications Crohn disease (Chronic 10/26/17) K50.90 Continue home Mesalamine Psoriatic arthritis (Chronic 10/26/17) L40.50 Continue home medications DVT prophylaxis: Lovenox GI prophylaxis: Protonix, home medication Diet: Heart healthy/diabetic Disposition: Pending symptomatic improvement and pulmonology consultation.
--- NOTE | 2018-07-21 11:49 | P.PN ---
Subjective Date of Service: 07/21/18 Chief Complaint: Left lower lobe pneumonia Subjective: No C/O voiced, Improving Patient seen and examined at bedside. No family at bedside. Chart reviewed and case discussed with nursing staff. Review of Systems 10-point ROS is otherwise unremarkable Physical Examination - Vital Signs Temperature: 97.1 F Blood Pressure: 121/71 Pulse: 104 Respirations: 18 Pulse Ox (%): 94 - Physical Exam General: Alert, In no apparent distress, Oriented x3 HEENT: Atraumatic, PERRLA, EOMI Neck: Supple, JVD not distended Respiratory: Clear to auscultation bilaterally, Normal air movement Cardiovascular: Regular rate/rhythm, Normal S1 S2 Gastrointestinal: Normal bowel sounds, No tenderness Musculoskeletal: No tenderness Integumentary: No rashes Neurological: Normal speech, Normal tone, Normal affect Assessment And Plan - Current Problems (Diagnosis) (1) Left lower lobe pneumonia Onset Date: 07/20/18 Current Visit: Yes Status: Acute Qualifiers: Pneumonia type: due to unspecified organism Qualified Code(s): J18.1 - Lobar pneumonia, unspecified organism (2) Mass of left lung Current Visit: Yes Status: Acute (3) Current tobacco use Current Visit: Yes Status: Chronic (4) Autoimmune thyroiditis Onset Date: 10/26/17 Current Visit: No Status: Chronic (5) Crohn disease Onset Date: 10/26/17 Current Visit: No Status: Chronic Qualifiers: Gastrointestinal tract location: small intestine Digestive disease complication type: unspecified complication Qualified Code(s): K50.019 - Crohn 's disease of small intestine with unspecified complications (6) NEAL (obstructive sleep apnea) Current Visit: No Status: Chronic (7) Psoriatic arthritis Onset Date: 10/26/17 Current Visit: No Status: Chronic (8) Left bundle branch block Current Visit: Yes Status: Chronic - Plan This is a 43-year-old female with: Left lower lobe pneumonia (Acute 07/20/18) J18.1 Continue IV Levaquin, day #2. Oxygen as needed Left lung mass Noted on chest CT Concerning for mass versus infectious etiology Risk factors include a 1/2 [id number] smoker for the past 30 years Patient also has a lot of autoimmune disorder Pulmonology consulted. Current tobacco use (Chronic) Z72.0 Half pack per day smoker for the past 30 years. Counseled extensively on smoking cessation COPD (chronic obstructive pulmonary disease) (Chronic) J44.9 Continue oxygen as needed. Breathing treatments p.r.n. Diabetes mellitus (Chronic 07/20/18) E11.9 Accu-Cheks and sliding scale insulin next I will continue to monitor and adjust NEAL (obstructive sleep apnea) (Chronic) G47.33 Uses CPAP at home. Patient has CPAP machine here in the hospital, will continue to use at bedtime Autoimmune thyroiditis (Chronic 10/26/17) E06.3 Continue home medications Crohn disease (Chronic 10/26/17) K50.90 Continue home Mesalamine Psoriatic arthritis (Chronic 10/26/17) L40.50 Continue home medications DVT prophylaxis: Lovenox GI prophylaxis: Protonix, home medication Diet: Heart healthy/diabetic Disposition: Pending symptomatic improvement and pulmonology consultation. Time Spent Managing PTS Care (In Minutes): 35
--- NOTE | 2018-07-21 14:24 | P.CNS ---
Date of Consult: 07/21/18 Chief Complaint: Left lower lobe pneumonia History of Present Illness: Patient is 43 years of age evaluated my me for a possible pneumonia according the patient she was doing well she noticed a slight cough that improve with antacids the started on July 01 and any she started having more coughing spells after her bur day on July 15 coughing up some yellow sputum she has wheezing short of breath patient is a heavy smoker admitted to the hospital she has progressive changes in the left lower lobe that were present last year than the repeat chest x-ray showed a complete clearing patient usually does not use any bronchodilators at home and is feeling better chest x-ray possible infiltrate/atelectasis Allergies acetaminophen [From Percocet] Allergy (Intermediate, Verified 10/26/17 16:18) Itching/Hives/Rash azithromycin [From Zithromax] Allergy (Intermediate, Verified 10/26/17 16:18) Hives codeine [Codeine] Allergy (Intermediate, Verified 10/26/17 16:18) Hives/Rash Macrolide Antibiotics Allergy (Intermediate, Verified 10/26/17 16:18) Hives/Rash meperidine HCl [From Demerol] Allergy (Intermediate, Verified 10/26/17 16:18) Hives/Rash morphine Allergy (Intermediate, Verified 10/26/17 16:18) Hives/Rash oxycodone HCl [From Percocet] Allergy (Intermediate, Verified 10/26/17 16:18) Itching/Hives/Rash pregabalin [From Lyrica] Allergy (Intermediate, Verified 10/26/17 16:18) Hives/Rash Sulfa (Sulfonamide Antibiotics) [Sulfa(Sulfonamide Antibiotics)] Allergy ( Intermediate, Verified 10/26/17 16:18) Nausea/Vomiting certolizumab pegol [From Cimzia] Allergy (Mild, Verified 07/19/18 23:38) infections allopurinol Allergy (Verified 10/26/17 16:18) Unknown duloxetine [From Cymbalta] Allergy (Verified 10/26/17 16:18) Unknown duloxetine HCl [From Cymbalta] Allergy (Verified 10/26/17 16:18) Unknown milnacipran HCl [From Savella] Allergy (Verified 10/26/17 16:18) Unknown venlafaxine HCl [From Effexor] Allergy (Verified 10/26/17 16:18) Unknown amitriptyline Adverse Reaction (Mild, Verified 07/19/18 23:37) Sleepy TYLENOL 3 Allergy (Intermediate, Uncoded 09/19/11 10:15) Shortness of breath Home Medications: Ergocalciferol (Vitamin D2) [Vitamin D2] 1 cap PO EVERY 7TH DAY 10/25/17 Mercaptopurine 2 tab PO BEDTIME 10/25/17 Mesalamine [Pentasa*] 1 cap PO BEDTIME 10/25/17 Metformin HCl [Glucophage*] 1 tab PO DAILY 10/25/17 Pantoprazole [Protonix Tab*] 1 tab PO BEDTIME 10/25/17 Promethazine HCl 1 tab PO Q6HP PRN 10/25/17 Albuterol Sulfate [Proair Hfa] 8.5 gm IH TID PRN #1 hfa.aer.ad 10/29/17 Mometasone/Formoterol [Dulera 100 Mcg/5 Mcg Inhaler] 2 puff IH BID #1 inhaler Ezetimibe 10 mg PO BEDTIME 07/19/18 Fexofenadine HCl [Ashtyn Allergy] 180 mg PO BEDTIME 07/19/18 Sitagliptin Phosphate [Januvia] 100 mg PO DAILY 07/19/18 Cinnamon Bark [Cinnamon] 500 mg PO BEDTIME 07/20/18 Cyanocobalamin [Vitamin B-12*] 1 ml IM EVERY 7TH DAY 07/20/18 Fluticasone Propionate 1 melina DIONISIO DAILY 07/20/18 Hydrocodone Bit/Acetaminophen [Hydrocodon-Acetaminoph 7.5-500] 1 tab PO Q6HP PRN 07/20/18 Lidocaine 5% Patch [Lidoderm 5% Patch*] 1 patch TOP DIRECTED PRN 07/20/18 Medroxyprogesterone Acetate [Depo-Provera] 1 dose IM DIRECTED 07/20/18 Ondansetron [Zofran] 4 mg PO Q6H PRN 07/20/18 Sinu Pro 6 - Probiotic 1 tab PO BEDTIME 07/20/18 - Past Medical/Surgical History Diabetic: Yes -: NIDDM -: crohns -: autoimmune thyroiditist -: (L) BB -: psoriasis -: psoriatic arthritis -: heart murmur -: fibromyalgia -: TMJ -: Sleep Apnea -: cholecystectomy -: appendectomy -: breast reduction -: left ankle -: endometriosis - Family History Mother Medical History: Hypertension Father Medical History: Heart disease, Hypertension, Stroke - Social History Smoking Status: Current every day smoker Alcohol use: No CD- Drugs: No Caffeine use: Yes Place of Residence: Home Review of Systems General: Weakness Respiratory: Cough, Shortness of Breath Physical Examination Temp Pulse Resp BP Pulse Ox 97.1 F 104 H 18 121/71 94 07/21/18 11:49 07/21/18 11:49 07/21/18 11:49 07/21/18 11:49 07/21/18 11:49 General: Alert, In no apparent distress, Oriented x3 HEENT: Atraumatic Neck: Supple Respiratory: Expiratory wheezes Cardiovascular: No edema, Regular rate/rhythm, Normal S1 S2 - Problems (1) COPD exacerbation Current Visit: Yes Status: Acute Plan: Patient is 43 years of age admitted with a progressive cough heavy smoker abnormal chest x-ray chest x-rays worse than since admission for the likely she has has some atelectasis in the left lower lobe white count is normal pro calcitonin level is also low negative could have an underlying infection All labs reviewed patient has similar infiltrate a year ago that had cleared on subsequent x-ray Patient can be discharged home on prednisone levofloxacin continue to use the dual air and Ventolin follow up with me in 2 weeks with preclinical chest x-ray if the infiltrate or atelectasis persists she will require a bronchoscopy console not to smoke slight macrocytosis
[2018-07-21] MEDS: METHYLPREDNISOLONE 40 MG INJ IV SCH ×2 (14:42→17:00)
[2018-07-21] MEDS: MESALAMINE 500 MG CAPSULE.ER PO SCH (20:58)
[2018-07-21] MEDS ORDERED: CINNAMON BARK 500 MG PO SCH (21:00)
[2018-07-21] MEDS ORDERED: FEXOFENADINE 180 MG TAB PO SCH (21:00)
[2018-07-21] MEDS ORDERED: EZETIMIBE 10 MG TAB PO SCH (21:00)
[2018-07-21] MEDS ORDERED: MERCAPTOPURINE PO SCH (21:00)
[2018-07-22] MEDS: METHYLPREDNISOLONE 40 MG INJ IV SCH ×2 (00:24→09:07)
[2018-07-22] MEDS ORDERED: ACETAMINOPHEN 325 MG TABLET PO PRN (03:11)
[2018-07-22] MEDS ORDERED: DRISDOL (VITAMIN D=ERGOCALCIFEROL) 50000 UNIT CAP PO SCH (09:00)
[2018-07-22] MEDS ORDERED: CYANOCOBALAMIN 1000MCG/ML INJ IM SCH (09:00)
[2018-07-22] MEDS ORDERED: FLUTICASONE PROPIONATE NAS SCH (09:00)
[2018-07-22] MEDS: INSULIN -REGULAR HUMAN 50 UNIT/0.5 ML ML SQ SCH (09:04)
[2018-07-22] MEDS: ENOXAPARIN 40 MG/0.4 ML SQ SCH (09:06)
[2018-07-22] MEDS: PANTOPRAZOLE 40MG TABLET PO SCH (09:07)
[2018-07-22 10:09] VITALS: BP 122/58; TEMP 99
[2018-07-22 13:07] VITALS: O2SAT 93
--- NOTE | 2018-07-24 17:00 | P.DS ---
Admission Date: 07/20/18 Discharge Date: 07/22/18 Disposition: ROUTINE DISCHARGE Discharge Condition: GOOD Reason for Admission: Left lower lobe pneumonia Consultations: Pulmonology, Dr. San - Problems (1) Left lower lobe pneumonia Onset Date: 07/20/18 Status: Acute Qualifiers: Pneumonia type: due to unspecified organism Qualified Code(s): J18.1 - Lobar pneumonia, unspecified organism (2) Mass of left lung Status: Acute (3) Current tobacco use Status: Chronic (4) Autoimmune thyroiditis Onset Date: 10/26/17 Status: Chronic (5) Crohn disease Onset Date: 10/26/17 Status: Chronic Qualifiers: Gastrointestinal tract location: small intestine Digestive disease complication type: unspecified complication Qualified Code(s): K50.019 - Crohn 's disease of small intestine with unspecified complications (6) NEAL (obstructive sleep apnea) Status: Chronic (7) Psoriatic arthritis Onset Date: 10/26/17 Status: Chronic (8) Left bundle branch block Status: Chronic Brief History of Present Illness: Patient is a 43-year-old female with a history of Crohn's disease and she is on multiple immunosuppressants. She also has a history of diabetes. She states her diabetes is welcomed shakes her medicate was admitted I am going to she was feeling better but she started feeling ill a few days ago and had a chest x-ray performed at her primary care provider's office. The chest x-ray revealed a left lower lobe pneumonia. Symptom when I get worse like before. She stated that on her last admission she was septic. When she was admitted to the hospital on October, she had a CT scan which revealed that she complete consolidation of the chest. If this pneumonia is persisting, she may benefit from a pulmonary consultation and a bronchoscopy. At this time, because of her multiple risk factors and her history of immunosuppression she will benefit from inpatient admission to the hospital with IV antibiotic therapy. Hospital Course: Left lower lobe pneumonia (Acute 07/20/18) J18.1 Recieved IV Levaquin, day #2. Converted to PO on discharge Oxygen as needed Left lung mass Noted on chest CT Concerning for mass versus infectious etiology. Per law secretary, does not think it is a mass but maybe a mucus plug. Risk factors include a 1/2 wocx-wfr-fyb smoker for the past 30 years Patient also has a lot of autoimmune disorder Pulmonology consulted. She will continue to have follow up as nan outpatient. Current tobacco use (Chronic) Z72.0 Half pack per day smoker for the past 30 years. Counseled extensively on smoking cessation COPD (chronic obstructive pulmonary disease) (Chronic) J44.9 Continue oxygen as needed. Breathing treatments p.r.n. Remained stable Diabetes mellitus (Chronic 07/20/18) E11.9 Accu-Cheks and sliding scale insulin next I will continue to monitor and adjust Remained stable, no medication changes. NEAL (obstructive sleep apnea) (Chronic) G47.33 Uses CPAP at home. Patient has CPAP machine here in the hospital, will continue to use at bedtime Stable, no changes made. Autoimmune thyroiditis (Chronic 10/26/17) E06.3 Continue home medications, stable,. no medication changes. Crohn disease (Chronic 10/26/17) K50.90 Continue home Mesalamine , stable Psoriatic arthritis (Chronic 10/26/17) L40.50 Continue home medications Stable. At the time of discharge, pt HDS, AAOx3, symptoms resolved. Vital Signs/Physical Exam: Temp Pulse Resp BP Pulse Ox 99.0 F 81 16 122/58 L 93 07/22/18 08:00 07/22/18 08:00 07/22/18 08:00 07/22/18 08:00 07/22/18 08:00 General: Alert, In no apparent distress HEENT: Atraumatic, PERRLA, EOMI Neck: Supple, JVD not distended Respiratory: Clear to auscultation bilaterally, Normal air movement Cardiovascular: Regular rate/rhythm, Normal S1 S2 Gastrointestinal: Normal bowel sounds, No tenderness Musculoskeletal: No tenderness Integumentary: No rashes Neurological: Normal speech, Normal tone, Normal affect Lymphatics: No axilla or inguinal lymphadenopathy Laboratory Data at Discharge: WBC 7.0 K/uL (4.3-10.9) D 07/20/18 05:53 Hgb 12.9 g/dL (12.0-15.0) 07/20/18 05:53 Hct 37.2 % (36.0-45.0) 07/20/18 05:53 Plt Count 354 K/uL (152-406) 07/20/18 05:53 PT 15.2 SECONDS (9.5-12.5) H 07/19/18 20:20 INR 1.28 07/19/18 20:20 APTT 48.7 SECONDS (24.3-36.9) H 07/19/18 20:20 Sodium 141 mmol/L (136-145) 07/20/18 05:53 Potassium 4.1 mmol/L (3.5-5.1) 07/20/18 05:53 BUN 8 mg/dL (7-18) 07/20/18 05:53 Creatinine 0.42 mg/dL (0.55-1.3) L 07/20/18 05:53 Glucose 218 mg/dL (74-106) H 07/20/18 05:53 Phosphorus 3.7 mg/dL (2.5-4.9) 07/20/18 05:53 Magnesium 2.1 mg/dL (1.8-2.4) 07/20/18 05:53 Total Bilirubin 0.9 mg/dL (0.2-1.0) 07/20/18 05:53 AST 22 U/L (15-37) 07/20/18 05:53 ALT 31 U/L (12-78) 07/20/18 05:53 Alkaline Phosphatase 75 U/L (45-117) 07/20/18 05:53 Triglycerides 113 mg/dL (<150) 07/20/18 05:53 Cholesterol 124 mg/dL (<200) 07/20/18 05:53 HDL Cholesterol 42 mg/dL (40-60) 07/20/18 05:53 Cholesterol/HDL Ratio 2.95 07/20/18 05:53 Lipase 82 U/L (73-393) 07/19/18 20:20 Home Medications: Ergocalciferol (Vitamin D2) [Vitamin D2] 1 cap PO EVERY 7TH DAY 10/25/17 Mercaptopurine 2 tab PO BEDTIME 10/25/17 Mesalamine [Pentasa*] 1 cap PO BEDTIME 10/25/17 Metformin HCl [Glucophage*] 1 tab PO DAILY 10/25/17 Pantoprazole [Protonix Tab*] 1 tab PO BEDTIME 10/25/17 Promethazine HCl 1 tab PO Q6HP PRN 10/25/17 Ezetimibe 10 mg PO BEDTIME 07/19/18 Fexofenadine HCl [Ashtyn Allergy] 180 mg PO BEDTIME 07/19/18 Sitagliptin Phosphate [Januvia*] 100 mg PO DAILY 07/19/18 Cinnamon Bark [Cinnamon] 500 mg PO BEDTIME 07/20/18 Cyanocobalamin [Vitamin B-12*] 1 ml IM EVERY 7TH DAY 07/20/18 Fluticasone Propionate 1 melina DIONISIO DAILY 07/20/18 Hydrocodone Bit/Acetaminophen [Hydrocodon-Acetaminoph 7.5-500] 1 tab PO Q6HP PRN 07/20/18 Lidocaine 5% Patch [Lidoderm 5% Patch*] 1 patch TOP DIRECTED PRN 07/20/18 Medroxyprogesterone Acetate [Depo-Provera] 1 dose IM DIRECTED 07/20/18 Ondansetron [Zofran (Odt)*] 4 mg PO Q6H PRN 07/20/18 Sinu Pro 6 - Probiotic 1 tab PO BEDTIME 07/20/18 Albuterol Sulfate [Proair Hfa] 8.5 gm IH TID #1 hfa.aer.ad 07/22/18 Levofloxacin [Levaquin] 500 mg PO DAILY #7 tablet 07/22/18 Mometasone/Formoterol [Dulera 100 Mcg/5 Mcg Inhaler] 2 puff IH BID #1 inhaler predniSONE [Prednisone] 20 mg PO BID #14 tablet 07/22/18 New Medications: Albuterol Sulfate [Proair Hfa] 8.5 gm IH TID #1 hfa.aer.ad Levofloxacin [Levaquin] 500 mg PO DAILY #7 tablet Mometasone/Formoterol [Dulera 100 Mcg/5 Mcg Inhaler] 2 puff IH BID #1 inhaler predniSONE [Prednisone] 20 mg PO BID #14 tablet Patient Discharge Instructions: Please follow up with the primary care physician in 1 week. Prescription has been provided to you for a repeat chest x -ray in 2-3 weeks, prior to appointment with Dr. San. Please have chest x- ray results sent to Dr. San's office. New medications: Levaquin, prednisone. Please return to the ER for worsening symptoms Diet: ADA Activity: Ad kieran Followup: Gaurav San MD [ACTIVE - CAN ADMIT] - 08/22/18 (Please call the clinic to make an appointment in 3-4 weeks) Shanta VACA,Cliff Saavedra DO [Primary Care Provider] - Time spent managing pt's care (in minutes): 55
== END 2018-07-22 12:18 | disposition home or self-care (01) | DRG 190 ==
LOC: ER 19:22 → ERHOLD 23:17 → 2ND 23:51 → OBSVTOIN 07-20 19:03
PROVIDERS: ADMIT Hospitalist; ATTEND Hospitalist
DX: J44.0 Chronic obstructive pulmonary disease with (acute) lower respiratory infection (principal); J18.9 Pneumonia, unspecified organism; K50.90 Crohn's disease, unspecified, without complications; J44.1 Chronic obstructive pulmonary disease with (acute) exacerbation; R91.8 Other nonspecific abnormal finding of lung field; F17.210 Nicotine dependence, cigarettes, uncomplicated; E11.9 Type 2 diabetes mellitus without complications; G47.33 Obstructive sleep apnea (adult) (pediatric); E06.3 Autoimmune thyroiditis; L40.50 Arthropathic psoriasis, unspecified; I44.7 Left bundle-branch block, unspecified; Z88.2 Allergy status to sulfonamides
CPT/HCPCS: 36415; 71045; 71046; 71260; 80048; 80053; 80061; 80076; 81003; 81015; 81025; 82550; 82607; 82746; 82962; 83605; 83690; 83735; 84100; 84145; 84484; 85025; 85610; 85730; 87040; 87804; 93005; 94640; 94760; 96365; 96366; 96368; 99285; G0378; J0696; J1650; J2920; J2930; J3420; J7030; Q9967

== ENCOUNTER 2018-10-21 19:52 | Emergency (ER) | payer OTHER ==
--- OUTSIDE RECORDS SUMMARY | 2018-10-21 19:54 | XMS REPORT | Clinical Summary ---
:1975 Author Organization [facility] Address [address] [place] [address] Care Team Providers Name Role Phone Cliff [...] scoliosis of lumbar region; Degenerative cervical disc after 10/20/2017 Family History Relation Name Status Comments Father [...] 03/16/2018 11:38 AM CDT Plan of Treatment Health Maintenance Due Date Last Done Comments CERVICAL CANCER SCREENING 1994 INFLUENZA VACCINE 02/02/2019 05/14/2018 Procedures Procedure Name Priority Date/Time Associated Diagnosis Comments XR CERVICAL SPINE Routine 03/16/2018 10:36 AM Neck pain Results for this COMPLETE W FLEX EXT CDT procedure are in the results section. XR LUMBAR SPINE Routine 03/16/2018 10:36 AM Chronic bilateral Results for this COMPLETE W BENDING CDT low back pain, with procedure are in sciatica presence the results unspecified section. after 10/20/2017 Results XR Cervical Spine Complete w flex/ext [...] acute fracture or subluxation Performing Organization Address [facility] [place] JOEY [address] [place] [address] XR Lumbar Spine Complete W Flex and [...] of fracture or subluxation. Performing Organization Address [facility] Phone Number ALYSON COOK [address] [place] [address] after 10/20/2017 Insurance Payer Benefit Plan / Group Subscriber ID Type Phone Address MEDICARE MEDICARE PART A AND B xxxxxxxxxx Medicare [place], [place] Advance Directives Patient has advance care planning documents on file. For more information, please contact:Joaquín Kaufman[address] [place] [address]
--- OUTSIDE RECORDS SUMMARY | 2018-10-21 19:54 | XMS REPORT ---
[...] Start End Status Dosage System Date Date Metformin HCl [facility] [address]-45 Active not defined Mercaptopurine [facility] [address]-19 Active not defined ProAir HFA [facility] [address]-43 Active not defined Promethazine HCl [facility] [address]-98 Active not defined Cinnamon [facility] 44[address]602 Active not defined Vitamin D2 [facility] 36343848599 Active not defined MedroxyPROGESTERone [facility] [address]-83 Active not Acetate defined Ashtyn ND 0 Active not defined Ondansetron ND 0 Active not defined Januvia [facility] 67490760336 25 MG Orally Active as directed Humira [facility] [address]-54 40 MG/0.8ML Active 0.8 ml Subcutaneous Vitamin B12 [facility] 78[address]-76647 Active not defined Lidoderm [facility] [address]-00 Active not defined Pantoprazole Sodium [facility] [address]-27 Active not defined Pentasa [facility] [address]-85 Active not defined CoQ10 [facility] 95106-34377 Active not defined Zetia [facility] 44193270440 10 MG Orally Active 1 tablet Once a day Flonase [facility] 62075171878 Active not defined Hydrocodone-Acetamino [facility] [address]-78 Active not phen defined Melatonin [facility] 6[address]17-57[address] Active not defined Results No Known Results Summary Purpose eClinicalWorks Submission
--- OUTSIDE RECORDS SUMMARY | 2018-10-21 19:54 | XMS REPORT ---
[...] End Status Dosage System Date Date Lidoderm [facility] [address]-16 Active not defined Melatonin [facility] [address]756 Active not defined Vitamin B12 [facility] 6[address]74-[address]647 Active not defined Ashtyn ND 0 Active not defined Pentasa [facility] [address]-83 Active not defined Mercaptopurine [facility] [address]-59 Active not defined Pantoprazole Sodium [facility] [address]-18 Active not defined Promethazine HCl [facility] [address]-46 Active not defined ProAir HFA [facility] [address]-78 Active not defined Flonase [facility] [id number] Active not defined Vitamin D2 [facility] 17774024852 Active not defined CoQ10 [facility] 62283-13312 Active not defined Cinnamon [facility] 09[address]-47590 Active not defined Metformin HCl [facility] [address]-44 Active not defined MedroxyPROGESTERone NDC [address]-73 Active not Acetate defined Ondansetron [facility] 0 Active not defined Hydrocodone-Acetaminop [facility] [address]-46 Active not hen defined Results No Known Results Summary Purpose eClinicalWorks Submission
--- OUTSIDE RECORDS SUMMARY | 2018-10-21 19:54 | XMS REPORT ---
:1975 [facility] Address [address] [place] [address] Dr. Astudillo [address] [place] [id number] Care Team Providers Name Role Phone Unavailable Unavailable Unavailable Problems This patient has no known problems. Allergies, Adverse Reactions, Alerts This patient has no known allergies or adverse reactions. Medications This patient has no known medications.
[2018-10-21] MEDS ORDERED: LEVALBUTEROL 1.25 MG/3 ML NEB ONE (20:34)
--- NOTE | 2018-10-21 21:00 | RAD REPORT ---
EXAM DESCRIPTION: RAD - Chest Pa And Lat (2 Views) - 10/21/2018 8:51 pm CLINICAL HISTORY: Cough, fever COMPARISON: August 08, 2018 TECHNIQUE: PA and lateral views of the chest were obtained. FINDINGS: The lungs are clear of a focal consolidation or mass. No vascular engorgement. Interstiti al markings are prominent but not substantially different when adjusting for the more shallow inspira tory effort. Heart size is normal and central vasculature is within normal limits. No pleural effusi on or pneumothorax seen. No acute bony finding noted. No aortic abnormality. IMPRESSION: No focal mass or consolidation. Interstitial markings are accentuated by shallow inspiration potentially masking early interstitial e ramon or infiltrate.
[2018-10-21 21:03] LABS: Absolute Lymphocytes (CBC) 1.2 K/uL (0.7-4.9); Absolute Monocytes 0.6 K/uL (0.1-1.3); Absolute Neutrophil 6.9 K/uL (1.8-8.0); Basophils % 0.3 % (0-1.3); Eosinophils % 0.7 % (0-4.4); Hematocrit 41.2 % (36.0-45.0); Lymphocytes % 13.9 % (15.3-44.8); MPV 8.3 fL (7.6-11.3); Monocytes % 6.5 % (3.3-12.3); RBC Red Blood Cell Count 4.02 M/uL (3.86-4.86)
[2018-10-21] MEDS ORDERED: NA CHLORIDE 0.9% 0 ML ONE (21:11)
[2018-10-21 21:24] LABS: ALT/SGPT 53 U/L (12-78); AST/SGOT 33 U/L (15-37); Albumin 3.4 g/dL (3.4-5.0); Alkaline Phosphatase 97 U/L (45-117); BUN Blood Urea Nitrogen 8 mg/dL (7-18); Bicarbonate 21 mmol/L (21-32); Bilirubin Total 0.7 mg/dL (0.2-1.0); Glucose Level 181 mg/dL (74-106); Potassium 3.8 mmol/L (3.5-5.1); Sodium Level 144 mmol/L (136-145)
[2018-10-21] MEDS ORDERED: NA CHLORIDE 0.9% 2,000 ML ONE (22:03)
[2018-10-21] MEDS ORDERED: CEFTRIAXONE/SWI 1gm 1 GM/10 ML SYR ONE (22:12)
[2018-10-21] MEDS ORDERED: predniSONE 20 MG TAB ONE (22:25)
[2018-10-21] MEDS ORDERED: BENZONATATE 100 MG CAP PO ONE (23:36)
[2018-10-22] MEDS ORDERED: LEVALBUTEROL 1.25 MG/3 ML NEB ONE (00:15)
--- NOTE | 2018-10-22 00:44 | EDPHYS ---
Physician Documentation [facility] Name: Kathe Del Rio Age: 43 yrs Sex: Female : 1975 Arrival Date: 10/21/2018 Time: 19:55 Bed 25 Private MD: Cliff Womack H ED Physician Darrell Hickman HPI: 10/21 20:13 This 43 yrs old Female presents to ER via Ambulatory with complaints of jmm Congestion. 20:13 The patient or guardian reports cough. Onset: The symptoms/episode began/occurred jmm gradually, 3 day(s) ago. Modifying factors: The symptoms are alleviated by nothing, the symptoms are aggravated by nothing. This is a 43 year old female with a history of DM that presents to the ED with complaints of sinus congestion beginning 1 week ago after mowing her lawn. Patient developed a cough 3 days ago and noticed her oxygen level at home was in the low 90's earlier today. patient has a history of two episodes of pneumonia in the past year. . 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 N/A - Irregular menses jd3 Historical: - Allergies: 10/21 20:13 Amitriptyline; jd3 20:13 Cimzia; jd3 20:13 Codeine; jd3 20:13 Cymbalta; jd3 20:13 Demerol; jd3 20:13 Effexor; jd3 20:13 Allopurinol; jd3 20:13 Lyrica; jd3 20:13 Macrolide Antibiotics; jd3 20:13 milnacipran; jd3 20:13 Morphine; jd3 20:13 Oxycodone; jd3 20:13 Percocet; jd3 20:13 Savella; jd3 20:13 Sulfa (Sulfonamide Antibiotics); jd3 20:13 Zithromax; jd3 - Home Meds: 20:13 ezetimibe Oral [Active]; hydrocodone-acetaminophen 7.5-325 mg Oral tab 1 tab every 4 jd3 hours [Active]; iflora-nasal sinus support supplement [Active]; mercaptopurine 50 mg Oral tab once daily [Active]; metformin 500 mg Oral tab 1 tab once daily [Active]; metformin 500 mg Oral tab 1 tab once daily [Active]; Pentasa 500 mg Oral cpER 2 caps 4 times per day [Active]; Promethazine Oral [Active]; Stool Softener Oral [Active]; Zofran (as hydrochloride) 4 mg Oral tab [Active]; Januvia oral oral [Active]; - PMHx: 20:13 psoriasis; automimmune thyroiditis; LBB; Heart Murmur; Crohn's; jd3 - PSHx: 20:13 rectal mass removed; Appendectomy; Cholecystectomy; Lumpectomy; breast reduction; left jd3 ankle surgery; - Immunization history:: Adult Immunizations up to date. - Social history:: Smoking status: Patient uses tobacco products, smokes one pack cigarettes per day. - Ebola Screening: : Patient negative for fever greater than or equal to 101.5 degrees Fahrenheit, and additional compatible Ebola Virus Disease symptoms Patient denies exposure to infectious person Patient denies travel to an Ebola-affected area in the 21 days before illness onset Patient negative for fever greater than or equal to 101.5 degrees Fahrenheit, and additional compatible Ebola Virus Disease symptoms. ROS: 20:13 Constitutional: Positive for fever. jmm 20:13 ENT: Positive for sinus pain. 20:13 Respiratory: Positive for cough. 20:13 All other systems are negative. Exam: 20:13 Constitutional: This is a well developed, well nourished patient who is awake, alert, jmm and in no acute distress. Head/Face: atraumatic. Eyes: EOMI, no conjunctival erythema appreciated ENT: Moist Mucus Membranes Neck: Trachea midline, Supple Chest/axilla: Normal chest wall appearance and motion. Cardiovascular: Regular rate and rhythm. No edema appreciated 20:13 Abdomen/GI: Non distended, soft Back: Normal ROM Skin: General appearance color normal MS/ Extremity: Moves all extremities, no obvious deformities appreciated, no edema noted to the lower extremities Neuro: Awake and alert, normal gait Psych: Behavior is normal, Mood is normal, Patient is cooperative and pleasant 20:13 Respiratory: the patient does not display signs of respiratory distress, Respirations: normal, Breath sounds: decreased breath sounds, that are mild, are heard in the left posterior lower lobe. 10/22 00:40 Respiratory: the patient does not display signs of respiratory distress, Respirations: pm1 normal, Breath sounds: are clear throughout, no bronchial sounds, no decreased breath sounds, no rales, rhonchi, no stridor, no wheezing. Vital Signs: 10/21 20:14 BP 158 / 98; Pulse 116; Resp 19 S; Temp 99.5(O); Pulse Ox 94% on R/A; Weight 88.45 kg jd3 (R); Height 5 ft. 7 in. (170.18 cm) (R); Pain 0/10; 21:32 BP 150 / 87; Pulse 96; Resp 19; Temp 98.7(O); Pulse Ox 98% on 3 lpm NC; mg2 23:15 BP 129 / 80; Pulse 99; Resp 19 S; Pulse Ox 94% on R/A; jd3 10/22 00:26 BP 138 / 80; Pulse 100; Resp 18 S; Pulse Ox 96% on R/A; jd3 10/21 20:14 Body Mass Index 30.54 (88.45 kg, 170.18 cm) jd3 MDM: 10/21 20:13 Patient medically screened. [facility] 20:56 Data reviewed: vital signs, nurses notes. Transition of care: After a detail discussion cata of the patient's case, care is transferred to Justice Jimenez NP. 10/22 00:42 Counseling: I had a detailed discussion with the patient and/or guardian regarding: the pm1 historical points, exam findings, and any diagnostic results supporting the discharge/admit diagnosis, lab results, radiology results, the need for outpatient follow up, to return to the emergency department if symptoms worsen or persist or if there are any questions or concerns that arise at home. 00:42 ED course: No focal consolidations present in x-ray. Patient's symptoms started after pm1 mowing the lawn yesterday. Likely asthma. However, patient with history of autoimmune disorders, therefore I will discharge the patient with antibiotics, steroids, and albuterol. 10/21 20:17 Order name: CBC with Diff; Complete Time: 21:30 [facility] 10/21 20:17 Order name: CMP; Complete Time: 21:30 [facility] 10/21 20: Order name: Lactate; Complete Time: 21:30 [facility] 10/21 20:17 Order name: Blood Culture Adult (2) [facility] 10/21 20:17 Order name: Flu; Complete Time: 21:30 [facility] 10/21 20:19 Order name: Chest Pa And Lat (2 Views) XRAY; Complete Time: 21:10 jmm 10/22 00:13 Order name: Lactate Sepsis 2 HR Follow-up; Complete Time: 00:20 EDMS 10/21 20:17 Order name: Saline Lock; Complete Time: 20:49 jmm Administered Medications: 10/21 20:28 Drug: Xopenex (3) 1.25 mg Route: Inhalation; rv 21:10 Follow up: Response: Marked relief of symptoms rv 21:00 Drug: NS 0.9% 1000 ml Route: IV; Rate: 1 bolus; Site: left antecubital; rv 10/22 00:07 Follow up: Response: No adverse reaction; IV Status: Completed infusion; IV Intake: jd3 1000ml 10/21 22:00 Drug: NS 0.9% 1000 ml Route: IV; Rate: 1 bolus; Site: left antecubital; jd3 10/22 00:58 Follow up: Response: No adverse reaction; IV Status: Completed infusion; IV Intake: jd3 1000ml 10/21 22:09 Drug: Rocephin 1 grams Route: IV; Rate: calculated rate; Site: left antecubital; jd3 22:16 Follow up: Response: No adverse reaction; IV Status: Completed infusion; IV Intake: [id number] 22:15 Drug: predniSONE 60 mg Route: PO; jd3 10/22 00:07 Follow up: Response: No adverse reaction jd3 10/21 23:27 Drug: Tessalon Perle 200 mg Route: PO; jd3 10/22 00:08 Follow up: Response: No adverse reaction jd3 00:06 Drug: Xopenex 1.25 mg Route: Inhalation; jd3 00:59 Follow up: Response: No adverse reaction jd3 00:58 Drug: LevaQUIN 500 mg Route: PO; jd3 00:58 Follow up: Response: Medication administered at discharge. jd3 Disposition: 15:09 Co-signature as Attending Physician, Darrell Hickman MD Available for consultation at ps1 all times . Disposition: 10/22/18 00:43 Discharged to Home. Impression: Bronchitis, not specified as acute or chronic. - Condition is Stable. - Discharge Instructions: Acute Bronchitis, Adult, How to Use an Inhaler. - Prescriptions for Levaquin 500 mg Oral Tablet - take 1 tablet by ORAL route once daily for 7 days; 7 tablet. Tessalon Perles 100 mg Oral Capsule - take 1 capsule by ORAL route every 8 hours As needed; 15 capsule. Medrol (Gopal) 4 mg Oral Tablets, Dose Pack - take 1 tablet by ORAL route as directed - follow package instructions; 1 packet. Albuterol Sulfate 90 mcg/actuation - inhale 1-2 puff by INHALATION route every 4-6 hours; 1 Inhaler. - Medication Reconciliation Form, Thank You Letter, Antibiotic Education, Prescription Opioid Use form. - Follow up: Emergency Department; When: As needed; Reason: Worsening of condition. Follow up: Cliff Womack DO; When: 2 - 3 days; Reason: Recheck today's complaints, Continuance of care, Re-evaluation by your physician. - Problem is new. - Symptoms have improved. Signatures: Dispatcher [employer] [facility] Sean Stone PA PA jmm Justice Jimenez, YANI FILAMENT TESTER pm1 Maikel May RN RN jd3 Darrell Hickman MD MD ps1 Iker Powell RN RN rv Corrections: (The following items were deleted from the chart) 10/21 23:53 23:37 LACTATE+C.LAB.BRZ ordered. [facility] 10/22 01:00 00:43 10/22/2018 00:43 Discharged to Home. Impression: Bronchitis, not specified as jd3 acute or chronic. Condition is Stable. Forms are Medication Reconciliation Form, Thank You Letter, Antibiotic Education, Prescription Opioid Use. Follow up: Emergency Department; When: As needed; Reason: Worsening of condition. Follow up: Cliff Womack; When: 2 - 3 days; Reason: Recheck today's complaints, Continuance of care, Re-evaluation by your physician. Problem is new. Symptoms have improved. pm1
--- NOTE | 2018-10-22 00:44 | ER ---
Nurse's Notes [facility] Name: Kathe Del Rio Age: 43 yrs Sex: Female : 1975 Arrival Date: 10/21/2018 Time: 19:55 Bed 25 Private MD: Cliff Womack H Diagnosis: Bronchitis, not specified as acute or chronic Presentation: 10/21 20:05 Presenting complaint: Patient states: "I recently got over having pneumonia and today I jd3 am having worsening cough and a low grade fever. It might be allergies, but with the low grade fever and the shortness of breath I needed to get it checked out.". Transition of care: patient was not received from another setting of care. Onset of symptoms was October 21, 2018. Risk Assessment: Do you want to hurt yourself or someone else? Patient reports no desire to harm self or others. Initial Sepsis Screen: Does the patient meet any 2 criteria? HR > 90 bpm. No. Patient's initial sepsis screen is negative. Does the patient have a suspected source of infection? No. Patient's initial sepsis screen is negative. Care prior to arrival: None. 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 N/A - Irregular menses jd3 Historical: - Allergies: 10/21 20:13 Amitriptyline; jd3 20:13 Cimzia; jd3 20:13 Codeine; jd3 20:13 Cymbalta; jd3 20:13 Demerol; jd3 20:13 Effexor; jd3 20:13 Allopurinol; jd3 20:13 Lyrica; jd3 20:13 Macrolide Antibiotics; jd3 20:13 milnacipran; jd3 20:13 Morphine; jd3 20:13 Oxycodone; jd3 20:13 Percocet; jd3 20:13 Savella; jd3 20:13 Sulfa (Sulfonamide Antibiotics); jd3 20:13 Zithromax; jd3 - Home Meds: 20:13 ezetimibe Oral [Active]; hydrocodone-acetaminophen 7.5-325 mg Oral tab 1 tab every 4 jd3 hours [Active]; iflora-nasal sinus support supplement [Active]; mercaptopurine 50 mg Oral tab once daily [Active]; metformin 500 mg Oral tab 1 tab once daily [Active]; metformin 500 mg Oral tab 1 tab once daily [Active]; Pentasa 500 mg Oral cpER 2 caps 4 times per day [Active]; Promethazine Oral [Active]; Stool Softener Oral [Active]; Zofran (as hydrochloride) 4 mg Oral tab [Active]; Januvia oral oral [Active]; - PMHx: 20:13 psoriasis; automimmune thyroiditis; LBB; Heart Murmur; Crohn's; jd3 - PSHx: 20:13 rectal mass removed; Appendectomy; Cholecystectomy; Lumpectomy; breast reduction; left jd3 ankle surgery; - Immunization history:: Adult Immunizations up to date. - Social history:: Smoking status: Patient uses tobacco products, smokes one pack cigarettes per day. - Ebola Screening: : Patient negative for fever greater than or equal to 101.5 degrees Fahrenheit, and additional compatible Ebola Virus Disease symptoms Patient denies exposure to infectious person Patient denies travel to an Ebola-affected area in the 21 days before illness onset Patient negative for fever greater than or equal to 101.5 degrees Fahrenheit, and additional compatible Ebola Virus Disease symptoms. Screenin:08 Abuse screen: Denies threats or abuse. Denies injuries from another. Nutritional rv screening: No deficits noted. Tuberculosis screening: No symptoms or risk factors identified. Fall Risk None identified. Assessment: 20:07 General: Appears in no apparent distress. comfortable, Behavior is calm, cooperative. rv Pain: Denies pain. Neuro: No deficits noted. Level of Consciousness is awake, alert, obeys commands, Oriented to person, place, time, situation. Cardiovascular: Capillary refill < 3 seconds. Respiratory: Reports cough that is persistent Airway is patent Breath sounds are clear bilaterally. GI: No signs and/or symptoms were reported involving the gastrointestinal system. : No signs and/or symptoms were reported regarding the genitourinary system. EENT: No signs and/or symptoms were reported regarding the EENT system. Derm: Skin is intact. Musculoskeletal: No signs and/or symptoms reported regarding the musculoskeletal system. 21:15 Reassessment: Patient appears in no apparent distress at this time. Patient and/or jd3 family updated on plan of care and expected duration. Pain level reassessed. Patient is alert, oriented x 3, equal unlabored respirations, skin warm/dry/pink. 22:17 Reassessment: Patient appears in no apparent distress at this time. Patient and/or jd3 family updated on plan of care and expected duration. Pain level reassessed. Patient is alert, oriented x 3, equal unlabored respirations, skin warm/dry/pink. 23:17 Reassessment: Patient appears in no apparent distress at this time. Patient and/or jd3 family updated on plan of care and expected duration. Pain level reassessed. Patient is alert, oriented x 3, equal unlabored respirations, skin warm/dry/pink. 10/22 00:25 Reassessment: Patient appears in no apparent distress at this time. Patient and/or jd3 family updated on plan of care and expected duration. Pain level reassessed. Patient is alert, oriented x 3, equal unlabored respirations, skin warm/dry/pink. Patient states feeling better. 01:00 Reassessment: Patient appears in no apparent distress at this time. Patient and/or jd3 family updated on plan of care and expected duration. Pain level reassessed. Patient is alert, oriented x 3, equal unlabored respirations, skin warm/dry/pink. Patient states feeling better. Vital Signs: 10/21 20:14 BP 158 / 98; Pulse 116; Resp 19 S; Temp 99.5(O); Pulse Ox 94% on R/A; Weight 88.45 kg [facility] (R); Height 5 ft. 7 in. (170.18 cm) (R); Pain 0/10; 21:32 BP 150 / 87; Pulse 96; Resp 19; Temp 98.7(O); Pulse Ox 98% on 3 lpm NC; mg2 23:15 BP 129 / 80; Pulse 99; Resp 19 S; Pulse Ox 94% on R/A; jd3 10/22 00:26 BP 138 / 80; Pulse 100; Resp 18 S; Pulse Ox 96% on R/A; jd3 10/21 20:14 Body Mass Index 30.54 (88.45 kg, 170.18 cm) [facility] ED Course: 10/21 19:55 Patient arrived in ED. es 19:55 Cliff Womack DO is Private Physician. es 20:04 Sean Stone PA is PHCP. m 20:04 Darrell Hickman MD is Attending Physician. m 20:07 Iker Powell, RICH is Primary Nurse. rv 20:07 Triage completed. jd3 20:09 Arm band placed on right wrist. rv 20:09 Patient has correct armband on for positive identification. Bed in low position. Call rv light in reach. Side rails up X 1. Pulse ox on. NIBP on. 20:43 Initial lab(s) drawn, by me, sent to lab. First set of blood cultures drawn Flu and/or lt1 RSV swab sent to lab. 20:51 Chest Pa And Lat (2 Views) XRAY In Process Unspecified. EDMS 20:51 Flu Sent. lt1 20:51 Inserted saline lock: 22 gauge in left antecubital area, using aseptic technique. lt1 20:57 PHCP role handed off by Sean Stone PA pm1 20:57 Justice Jimenez NP is PHCP. pm1 23:09 Notified Nurse Practitioner and/or Physician Sales Recruitment Specialist of a critical lab result(s), bb lactate of 2.4. Justice Jimenez LEASING SPECIALIST notified. 10/22 00:42 Cliff Womack DO is Referral Physician. pm1 00:53 No provider procedures requiring assistance completed. IV discontinued, intact, jd3 bleeding controlled, No redness/swelling at site. Pressure dressing applied. Administered Medications: 10/21 20:28 Drug: Xopenex (3) 1.25 mg Route: Inhalation; rv 21:10 Follow up: Response: Marked relief of symptoms rv 21:00 Drug: NS 0.9% 1000 ml Route: IV; Rate: 1 bolus; Site: left antecubital; rv 10/22 00:07 Follow up: Response: No adverse reaction; IV Status: Completed infusion; IV Intake: jd3 1000ml 10/21 22:00 Drug: NS 0.9% 1000 ml Route: IV; Rate: 1 bolus; Site: left antecubital; jd3 10/22 00:58 Follow up: Response: No adverse reaction; IV Status: Completed infusion; IV Intake: jd3 1000ml 10/21 22:09 Drug: Rocephin 1 grams Route: IV; Rate: calculated rate; Site: left antecubital; jd3 22:16 Follow up: Response: No adverse reaction; IV Status: Completed infusion; IV Intake: [id number] 22:15 Drug: predniSONE 60 mg Route: PO; jd3 10/22 00:07 Follow up: Response: No adverse reaction jd3 10/21 23:27 Drug: Tessalon Perle 200 mg Route: PO; jd3 10/22 00:08 Follow up: Response: No adverse reaction jd3 00:06 Drug: Xopenex 1.25 mg Route: Inhalation; jd3 00:59 Follow up: Response: No adverse reaction jd3 00:58 Drug: LevaQUIN 500 mg Route: PO; jd3 00:58 Follow up: Response: Medication administered at discharge. jd3 Intake: 10/21 22:16 IV: 10ml; Total: 10ml. jd3 10/22 00:07 IV: 1000ml; Total: 1010ml. jd3 00:58 IV: 1000ml; Total: 2010ml. jd3 Outcome: 00:43 Discharge ordered by MD. pm1 00:59 Discharged to home ambulatory, with family. jd3 00:59 Condition: stable 00:59 Discharge instructions given to patient, family, Instructed on discharge instructions, follow up and referral plans. medication usage, Demonstrated understanding of instructions, follow-up care, medications, Prescriptions given X 4. 01:00 Patient left the ED. jd3 Signatures: Dispatcher [employer] EDMS Sean Stone PA PA jmm Salyer, Edna es Ballard, Brenda, RN RN bb Justice Jimenez NP LEASING SPECIALIST pm1 Maikel May RN RN jRonal Estrada RN RN mg2 Vicente, Ronaldo, RN RN Oma Carson [facility]
[2018-10-22] MEDS ORDERED: levoFLOXacin 500 MG TAB ONE (01:08)
[2018-10-22 01:16] VITALS: TEMP 98.7
[2018-10-22 01:19] VITALS: BP 138/80; O2SAT 96
== END 2018-10-22 01:00 | disposition home or self-care (01) ==
LOC: ER 19:52
DX: J40 Bronchitis, not specified as acute or chronic (principal); E11.9 Type 2 diabetes mellitus without complications; K50.90 Crohn's disease, unspecified, without complications; E06.3 Autoimmune thyroiditis; Z79.84 Long term (current) use of oral hypoglycemic drugs; Z88.6 Allergy status to analgesic agent; Z88.5 Allergy status to narcotic agent; Z88.2 Allergy status to sulfonamides; Z88.8 Allergy status to other drugs, medicaments and biological substances; F17.210 Nicotine dependence, cigarettes, uncomplicated
CPT/HCPCS: 96361; 87040 ×2; 85025; 36415; 83605 ×2; 80053; 87804 ×2; 71046; 96374; 99284; J0696; J7030; J7512

== ENCOUNTER 2019-02-02 08:40 | Day surgery (SDC) | payer OTHER, SELFPAY ==
--- OUTSIDE RECORDS SUMMARY | 2019-02-02 08:44 | XMS REPORT | Clinical Summary ---
:1975 Author Organization [facility] Address [address] [place] [address] Care Team Providers Name Role Phone Cliff [...] of lumbar region; Degenerative cervical disc after 02/01/2018 Family History Relation Name Status Comments Father [...] Treatment Date Type Specialty Care Team Description 02/28/2019 Office Visit Cardiology Romaine Chavez MD [address] [facility] [address] [place] [id number] Health Maintenance Due Date Last Done Comments INFLUENZA VACCINE 02/02/2019 05/14/2018 Procedures Procedure Name [...] sciatica presence the results unspecified section. after 02/01/2018 Results XR Cervical Spine Complete w flex/ext (03/16/2018 10:36 AM CDT) Specimen Narrative Performed At 7 views of the [...] acute fracture or subluxation Performing Organization Address [facility] Phone Number [facility] [address] [place] [address] XR Lumbar Spine Complete W Flex and Ext (03/16/2018 10:36 AM CDT) Specimen Narrative Performed At 7 views of the [...] of fracture or subluxation. Performing Organization Address [facility] Phone Number [facility] [address] [place] [address] after 02/01/2018 Insurance Payer Benefit Plan / Subscriber ID Effective Dates Phone Address Type Group MEDICARE MEDICARE PART A xxxxxxxxxxx 2008-Present [place], [place] Medicare AND B Advance Directives Patient has advance care planning documents on file. For more information, please contact:Joaquín Kaufman[address] [place] [address]
--- OUTSIDE RECORDS SUMMARY | 2019-02-02 08:45 | XMS REPORT ---
[...] Status Dosage System Date Date Metformin HCl [facility] [address]-50 Active not defined Mercaptopurine [facility] [address]-41 Active not defined ProAir HFA [facility] [address]-03 Active not defined Promethazine HCl [facility] [address]-03 Active not defined Cinnamon [facility] 17330-46746 Active not defined Vitamin D2 [facility] 86363281776 Active not defined MedroxyPROGESTERone [facility] [address]-38 Active not Acetate defined Ashtyn ND 0 Active not defined Ondansetron ND 0 Active not defined Januvia [facility] 01358754040 25 MG Orally Active as directed Humira [facility] [address]-60 40 MG/0.8ML Active 0.8 ml Subcutaneous Vitamin B12 [facility] 02815-90697 Active not defined Lidoderm [facility] [address]-37 Active not defined Pantoprazole Sodium [facility] [address]-31 Active not defined Pentasa [facility] [address]-56 Active not defined CoQ10 [facility] 74025-99064 Active not defined Zetia [facility] 12133616804 10 MG Orally Active 1 tablet Once a day Flonase [facility] 96870129895 Active not defined Hydrocodone-Acetamino [facility] [address]-46 Active not phen defined Melatonin [facility] 47508-57456 Active not defined Results No Known Results Summary Purpose eClinicalWorks Submission
--- OUTSIDE RECORDS SUMMARY | 2019-02-02 08:45 | XMS REPORT ---
[...] End Status Dosage System Date Date Lidoderm [facility] [address]-00 Active not defined Melatonin [facility] 12065-65914 Active not defined Vitamin B12 [facility] 55915-42936 Active not defined Ashtyn ND 0 Active not defined Pentasa [facility] [address]-52 Active not defined Mercaptopurine [facility] [address]-79 Active not defined Pantoprazole Sodium [facility] [address]-17 Active not defined Promethazine HCl [facility] [address]-52 Active not defined ProAir HFA [facility] [address]-71 Active not defined Flonase [facility] 34674727582 Active not defined Vitamin D2 [facility] 39287149118 Active not defined CoQ10 [facility] 79513-53799 Active not defined Cinnamon [facility] 98182-04882 Active not defined Metformin HCl [facility] [address]-43 Active not defined MedroxyPROGESTERone NDC [address]-93 Active not Acetate defined Ondansetron [facility] 0 Active not defined Hydrocodone-Acetaminop [facility] [address]-94 Active not hen defined Results No Known Results Summary Purpose eClinicalWorks Submission
--- OUTSIDE RECORDS SUMMARY | 2019-02-02 08:45 | XMS REPORT ---
:1975 [facility] Address [address] [place] [address] Dr. Astudillo [address] [place] [address] Care Team Providers Name Role Phone Unavailable Unavailable Unavailable Problems This patient has no known problems. Allergies, Adverse Reactions, Alerts This patient has no known allergies or adverse reactions. Medications This patient has no known medications.
[2019-02-02] MEDS ORDERED: NA CHLORIDE 0.9% 1,000 ML ONE ×2 (08:56→10:18)
[2019-02-02] MEDS ORDERED: SCOPOLAMINE HYDROBROMIDE PATCH TD ONE (09:40)
[2019-02-02] MEDS ORDERED: PROPOFOL 200 MG/20 ML VIAL IV ONE ×2 (10:05→10:57)
[2019-02-02] MEDS ORDERED: MIDAZOLAM HCL 2 MG/2 ML INJ ONE (10:05)
[2019-02-02] MEDS ORDERED: FENTANYL CITR 100 MCG/2 ML ONE (10:07)
[2019-02-02] MEDS ORDERED: LIDOCAINE 2% MPF 5 ML VIAL ONE (10:08)
[2019-02-02] MEDS ORDERED: ONDANSETRON 4 MG/2 ML VIAL ONE (10:10)
[2019-02-02] MEDS: LIDOCAINE 1% W/EPI 1:100,000 MDV 20 ML VIAL ONE ×2 (10:33→10:46)
[2019-02-02] MEDS ORDERED: PROMETHAZINE 25 MG/ML VIAL ONE (10:40)
[2019-02-02] MEDS ORDERED: METOCLOPRAMIDE 10 MG/2mL INJ ONE (10:40)
[2019-02-02] MEDS ORDERED: KETOROLAC 30 MG/ML INJ ONE (10:53)
[2019-02-02] MEDS ORDERED: dexAMETHasone 4 MG/ML VIAL ONE (11:20)
[2019-02-02 11:59] VITALS: BP 141/77; TEMP 97.4; O2SAT 95
--- NOTE | 2019-02-02 20:42 | OP ---
Date of Procedure: 02/02/2019 Surgeon: Christina Manzano MD Preoperative Diagnoses: Cervical stenosis, history of severe dysmenorrhea, endometriosis, and compli cations from longstanding Depo. Postoperative Diagnoses: Cervical stenosis, history of severe dysmenorrhea, endometriosis, complicat ions from longstanding Depo, narrow uterine cavity, possible intrauterine adhesions. Procedures Performed: Exam under anesthesia, diagnostic hysteroscopy, Mirena IUD placement and remov al due to improper deployment of the IUD. Anesthesia: MAC plus paracervical block. Specimens: None. Complications: None. Drains: None. Patient's Condition: Stable. Indications: Patient is a 43-year-old with longstanding history of severe dysmenorrhea, diagnosed wi . Patient was on Norplant for years. Then, she had question of ovarian cyst. Norpl ant was removed and she was started on Depo. She has been on Depo for at least the last 10 years. S he has been my patient for about 7 years and she has been on the Depo. Due to her other autoimmune p roblems, she has high risk for other osteoporosis-related complications and now at age 43 with this l ongstanding Depo, other concerns are her bone health. So, we tried to see if her pelvic pain control and her bleeding control could be obtained with the help of an IUD. Office attempt was made, but th e patient was unable to tolerate a pelvic exam and ordered for me to place a speculum and visualize t he cervix. She also is a 0. Cervix was narrow. So, it was deemed that she would be more co mfortable in the hospital. Under hysteroscopic guidance, I would place an IUD. She was consented for this and brought to the OR. Description Of Procedure: After informed consent was reverified, she was taken back to OR, placed in the supine fashion on the operating table. MAC was given and she was placed in a dorsal lithotomy p osition. Pelvic exam performed. Uterus small, anteflexed, no adnexal masses. Introitus and hymenal opening small. Speculum was placed to expose the cervix. The medium speculum would not open up, so a Nikos was u sed. The cervix was injected at the 12 o'clock position on the cervix and the 4 and 8 o'clock positi ons of the cervicovaginal junction with 1.5% lidocaine mixed with 1:100,000 epinephrine, 7 cc each wa s given on each side. Prep x3 with Betadine was done. Anterior lip was grasped with a single-tooth tenaculum. Then, direc t hysteroscopy was performed through the cervical canal into the uterine cavity. The cavity appeared to be severely atrophic, the lining unremarkable. Tubal ostia were not visualized. There were flim sy intrauterine adhesions on both sides and going towards the cornual end. So, attempt was made to t dillon these down with the tip of the scope and then the scope was removed after sounding the uterus to 5.5 cm, maybe 6 because of the air and trying to get to the level of the external os with my measurin g instrument and pulling it out and visualizing. So once this was removed, the Mirena was loaded up, inserted into the cavity, pushed to 6 cm, and the IUD was deployed. The scope was reintroduced. I was able to visualize the IUD in the cavity; however, the wings did not open up and they did not appe ar to help the IUD stay positioned well in the cavity. On attempting to allow the wings to lay out, the fundus of the uterus was gently scraped with the tip of the scope, but I could see how the myomet rium was visible and I was worried about a uterine perforation. Her tissue was very thin and so with out the wings deployed properly and my inability to help them open up by taking down these adhesions and the potential of a uterine perforation, I did not deem that this would be an appropriate candidat e for an IUD, potentially worry about pain and expulsion. So, the scope was removed. IUD was removed. The cavity was reassessed. No evidence of any gross pe rforation. The cavity was well visualized. All the instruments were removed. Instrument, needle, a nd sponge counts were done and were correct at the end of the case. Patient tolerated the procedure well. The IUD was discarded in the trash and the ID card for the IUD and the lot number were noted i n the OR chart, and then they will be taking back to the office chart as well. She will be a good ca ndidate for either observation without any suppression or Nexplanon etonogestrel implant in the arm f or suppression of her ovulation and hopefully this will help with her pain and her potential for blee ding. All this was informed and discussed with her mother and her sister carefully by showing the pictures and explaining the situation with them and they understand, and this will be explained to the patient as well. No antibiotics to be taken. She was given 30 mg of Toradol in the OR. She can restart al l her home medications and use ibuprofen as needed. UBALDO Voice ID: [id number] Report ID: [id number]
== END 2019-02-02 12:40 | disposition home or self-care (01) ==
LOC: OR 08:40
PROVIDERS: ATTEND Obstetrics & Gynecology
PROC: 0UH97HZ Insertion of Contraceptive Device into Uterus, Via Natural or Artificial Opening (ICD-10-PCS; 2019-02-02)
PROC: 0UJD8ZZ Inspection of Uterus and Cervix, Via Natural or Artificial Opening Endoscopic (ICD-10-PCS; principal; 2019-02-02 10:30)
DX: N94.6 Dysmenorrhea, unspecified (principal); N88.2 Stricture and stenosis of cervix uteri; N80.9 Endometriosis, unspecified; E03.9 Hypothyroidism, unspecified; E11.9 Type 2 diabetes mellitus without complications; I49.9 Cardiac arrhythmia, unspecified; G47.30 Sleep apnea, unspecified; M79.7 Fibromyalgia; K50.90 Crohn's disease, unspecified, without complications; M06.9 Rheumatoid arthritis, unspecified; M41.9 Scoliosis, unspecified; Z85.828 Personal history of other malignant neoplasm of skin; Z79.818 Long term (current) use of other agents affecting estrogen receptors and estrogen levels; Z88.6 Allergy status to analgesic agent; Z88.3 Allergy status to other anti-infective agents
CPT/HCPCS: 58555; 58300; 81025; 82962 ×2; J2704 ×2; J2765; J2550; J2250; J3010; J7030 ×2; J2405

== ENCOUNTER 2019-07-02 20:16 | Emergency (ER) | payer OTHER, SELFPAY ==
--- OUTSIDE RECORDS SUMMARY | 2019-07-02 20:18 | XMS REPORT ---
[...] End Status Dosage System Date Date Lidoderm [facility] [address]-79 Active not defined Melatonin [facility] 46278-73947 Active not defined Vitamin B12 [facility] 20296-[address]216 Active not defined Ashtyn ND 0 Active not defined Pentasa [facility] [address]-24 Active not defined Mercaptopurine [facility] [address]-41 Active not defined Pantoprazole Sodium [facility] [address]-90 Active not defined Promethazine HCl [facility] [address]-91 Active not defined ProAir HFA [facility] [address]-35 Active not defined Flonase [facility] 65910756508 Active not defined Vitamin D2 [facility] 68884493738 Active not defined CoQ10 [facility] 59110-47011 Active not defined Cinnamon [facility] 44612-30469 Active not defined Metformin HCl [facility] [address]-62 Active not defined MedroxyPROGESTERone NDC [address]-97 Active not Acetate defined Ondansetron [facility] 0 Active not defined Hydrocodone-Acetaminop [facility] [address]-32 Active not hen defined Results No Known Results Summary Purpose eClinicalWorks Submission
--- OUTSIDE RECORDS SUMMARY | 2019-07-02 20:18 | XMS REPORT ---
:1975 [facility] Address [address] [place] [address] Dr. Astudillo [address] [place] [address] Care Team Providers Name Role Phone Unavailable Unavailable Unavailable Problems This patient has no known problems. Allergies, Adverse Reactions, Alerts This patient has no known allergies or adverse reactions. Medications This patient has no known medications.
--- OUTSIDE RECORDS SUMMARY | 2019-07-02 20:18 | XMS REPORT ---
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 Assessment Pain in joint of left wrist M25.532 Active Assessment Tenosynovitis, de Quervain M65.4 Active Medications Medication Code Code Instructions Start End Status Dosage System Date Date Humira [facility] [address]-71 40 MG/0.8ML Active 0.8 ml Subcutaneous Vitamin B12 [facility] 15256-51396 Active not defined Zantac [facility] [address]-77 Active not defined Singulair [facility] [address]-35 Active not defined Pantoprazole Sodium [facility] [address]-68 Active not defined Albuterol Sulfate [facility] [address]-08 Active not defined Melatonin [facility] 82976-21775 Active not defined Flonase [facility] 83233613828 Active not defined Cinnamon [facility] 26540-[address]286 Active not defined Zetia [facility] 78049641629 10 MG Orally Active 1 tablet Once a day CoQ10 [facility] 13146-41768 Active not defined MedroxyPROGESTERone [facility] [address]-04 Active not Acetate defined ProAir HFA [facility] [address]-09 Active not defined Lidoderm [facility] [address]-17 Active not defined Hydrocodone-Acetamino [facility] [address]-00 Active not phen defined Promethazine HCl [facility] [address]-12 Active not defined ZyrTEC NDC 0 Active not defined Januvia [facility] 78449902165 25 MG Orally Active as directed Metformin HCl [facility] [address]-36 Active not defined Vitamin D2 [facility] 66829887570 Active not defined Mercaptopurine [facility] [address]-61 Active not defined Ashtyn ND 0 Active not defined Pentasa [facility] [address]-87 Active not defined Ondansetron ND 0 Active not defined Results No Known Results Summary Purpose eClinicalWorks Submission
--- OUTSIDE RECORDS SUMMARY | 2019-07-02 20:18 | XMS REPORT ---
[...] Status Dosage System Date Date Metformin HCl [facility] [address]-15 Active not defined Mercaptopurine [facility] [address]-57 Active not defined ProAir HFA [facility] [address]-76 Active not defined Promethazine HCl [facility] [address]-32 Active not defined Cinnamon [facility] [address]66[address]-33708 Active not defined Vitamin D2 [facility] 52472036163 Active not defined MedroxyPROGESTERone [facility] [address]-91 Active not Acetate defined Ashtyn ND 0 Active not defined Ondansetron ND 0 Active not defined Januvia [facility] 57016062084 25 MG Orally Active as directed Humira [facility] [address]-13 40 MG/0.8ML Active 0.8 ml Subcutaneous Vitamin B12 [facility] 81677-55025 Active not defined Lidoderm [facility] [address]-91 Active not defined Pantoprazole Sodium [facility] [address]-49 Active not defined Pentasa [facility] [address]-25 Active not defined CoQ10 [facility] 39376-59111 Active not defined Zetia [facility] 68726395359 10 MG Orally Active 1 tablet Once a day Flonase [facility] 80728822122 Active not defined Hydrocodone-Acetamino [facility] [address]-99 Active not phen defined Melatonin [facility] [address]855 Active not defined Results No Known Results Summary Purpose eClinicalWorks Submission
[2019-07-02 22:03] LABS: Absolute Lymphocytes (CBC) 1.5 K/uL (0.7-4.9); Basophils % 0.5 % (0-1.3); Hematocrit 35.6 % (36.0-45.0); Lymphocytes % 17.3 % (15.3-44.8); MPV 8.7 fL (7.6-11.3); RBC Red Blood Cell Count 3.56 M/uL (3.86-4.86)
[2019-07-02 22:07] LABS: Protime INR 1.19
[2019-07-02 22:24] LABS: BUN Blood Urea Nitrogen 8 mg/dL (7-18); Bicarbonate 25 mmol/L (21-32); Glucose Level 135 mg/dL (74-106); Magnesium 2.1 mg/dL (1.8-2.4); NT PRO-BNP 1198 pg/mL (<125); Potassium 3.8 mmol/L (3.5-5.1); Sodium Level 145 mmol/L (136-145); Troponin (Emerg Dept Use Only) 0.03 ng/mL (0.0-0.045)
--- NOTE | 2019-07-02 22:55 | ER ---
Nurse's Notes [facility] Name: Kathe Del Rio Age: 43 yrs Sex: Female : 1975 Arrival Date: 07/02/2019 Time: 20:17 Bed 28 [facility] MD: Diagnosis: Acute bronchitis Presentation: 07/02 20:33 Presenting complaint: Patient states: she has been having SOB x 2 days has hx of viral bb cardiomyopathy and had pneumonia in July. Transition of care: patient was not received from another setting of care. Onset of symptoms was June 30, 2019. Risk Assessment: Do you want to hurt yourself or someone else? Patient reports no desire to harm self or others. Initial Sepsis Screen: Does the patient meet any 2 criteria? No. Patient's initial sepsis screen is negative. Does the patient have a suspected source of infection? No. Patient's initial sepsis screen is negative. Care prior to arrival: None. 20:33 Method Of Arrival: Ambulatory bb 20:33 Acuity: KARISSA 3 bb ECOLOGICAL ECONOMIST: 20:41 LMP N/A - Post-menopause bb Historical: - Allergies: 20:41 pravastatin; bb - Home Meds: 20:41 aspirin 81 mg Oral chew 1 tab once daily [Active]; ezetimibe Oral [Active]; bb mercaptopurine 50 mg Oral tab once daily [Active]; Pentasa 500 mg Oral cpER 2 caps 4 times per day [Active]; Sinu pro 6 daily [Active]; Zyrtec 10 mg Oral tab 1 tab once daily [Active]; Singulair 10 mg Oral tab 1 tab once daily [Active]; metformin 500 mg Oral tab 1 tab once daily [Active]; glipizide 10 mg Oral tab 1 tab once daily [Active]; vitamin D [Active]; Vitamin B-12 Oral [Active]; Famotidine Oral [Active]; - PMHx: 20:41 automimmune thyroiditis; Crohn's; Heart Murmur; LBB; psoriasis; Viral cardiomyopathy; bb - PSHx: 20:41 basal cell; rectal mass removed; Appendectomy; Cholecystectomy; Lumpectomy; breast bb reduction; left ankle surgery; - Immunization history:: Adult Immunizations up to date. - Social history:: Smoking status: Patient uses tobacco products, smokes one-half pack cigarettes per day. - Ebola Screening: : No symptoms or risks identified at this time. Screenin:06 Abuse screen: Denies threats or abuse. Nutritional screening: No deficits noted. sr5 Tuberculosis screening: No symptoms or risk factors identified. Fall Risk No fall in past 12 months (0 pts). Secondary diagnosis (15 points) IV access (20 points). Ambulatory Aid- None/Bed Rest/Nurse Assist (0 pts). Gait- Weak (10 pts.). Mental Status- Oriented to own ability (0 pts). Total Roberts Fall Scale indicates High Risk Score (45 or more points). Fall prevention measures have been instituted. Side Rails Up X 2 Family Present and informed to notify staff if the need to leave the bedside As available patient and family educated on Fall Prevention Program and Strategies. Assessment: 21:06 General: Appears in no apparent distress. comfortable, Behavior is calm, cooperative. sr5 Pain: Denies pain. Neuro: Level of Consciousness is awake, alert, obeys commands, Oriented to person, place, time, situation, Speech is normal. Cardiovascular: Heart tones S1 S2 Capillary refill < 3 seconds is brisk in bilateral toes Patient's skin is warm and dry. Pulses are palpable in right radial artery and left radial artery. Respiratory: Airway is patent Respiratory effort is even, unlabored. GI: No signs and/or symptoms were reported involving the gastrointestinal system. : No signs and/or symptoms were reported regarding the genitourinary system. EENT: No signs and/or symptoms were reported regarding the EENT system. Derm: No signs and/or symptoms reported regarding the dermatologic system. Musculoskeletal: No signs and/or symptoms reported regarding the musculoskeletal system. 23:24 Reassessment: Pt continues to be fully AA\T\Ox4, equal unlabored resp, nonproductive sr5 cough noted, skin warm/dry/nc, SR on monitor, EKG unchanged from previous visit EKG, IV site asypmt/SL. Nebs started, and awaiting discharge. 07/03 00:15 Reassessment: No changes from previously documented assessment. Patient and/or family sr5 updated on plan of care and expected duration. Pain level reassessed. Patient is alert, oriented x 3, equal unlabored respirations, skin warm/dry/pink. Patient states feeling better. Patient states symptoms have improved. Vital Signs: 07/02 20:41 BP 134 / 88; Pulse 117; Resp 16 S; Temp 99(O); Pulse Ox 95% on R/A; Weight 86.18 kg bb (R); Height 5 ft. 7 in. (170.18 cm) (R); Pain 0/10; 22:11 BP 131 / 83; Pulse 98; Resp 20; Pulse Ox 95% on R/A; sr5 23:24 BP 128 / 84; Pulse 94; Resp 18; Pulse Ox 99% ; sr5 07/03 00:11 BP 127 / 84; Pulse 96; Resp 20; Temp 99; Pulse Ox 97% on R/A; sr5 07/02 20:41 Body Mass Index 29.76 (86.18 kg, 170.18 cm) bb 07/02 23:24 neb in progress sr5 Vitals: 23:24 Cardiac Rhythm Assessment Sinus rhythm. sr5 ED Course: 20:17 Patient arrived in ED. ds1 20:34 Triage completed. bb 20:41 Arm band placed on Patient placed in an exam room, on a stretcher, on pulse oximetry. bb 20:54 Gatito Ivey, RN is Primary Nurse. sr5 21:04 Kristyn Fitzgerald FNP-C is PHCP. kb 21:04 Darshan Maldonado MD is Attending Physician. kb 21:06 Patient has correct armband on for positive identification. Allergy band placed. Fall sr5 risk band placed. Placed in gown. Bed in low position. Call light in reach. Side rails up X 1. alarm security or surveillance monitor on. Pulse ox on. NIBP on. Lights dimmed. Warm blanket given. Pillow given. 21:33 Chest Pa And Lat (2 Views) XRAY In Process Unspecified. EDMS 22:12 Initial lab(s) drawn, by me, Flu and/or RSV swab sent to lab. Inserted saline lock: 20 sr5 gauge in left antecubital area, using aseptic technique. Blood collected. 23:24 No provider procedures requiring assistance completed. sr5 07/03 00:15 IV discontinued, intact, bleeding controlled, No redness/swelling at site. Pressure sr5 dressing applied. Administered Medications: 07/02 23:23 Drug: SOLU-Medrol 125 mg Route: IVP; Site: left antecubital; sr5 23:24 Drug: AtroVENT Aerosol 0.5 mg Route: Inhalation; sr5 23:24 Drug: Albuterol 2.5 mg Route: Inhalation; sr5 Outcome: 22:54 Discharge ordered by MD. muñoz 07/03 00:15 Discharged to home ambulatory, via wheelchair, with family. sr5 Condition: good Discharge instructions given to patient, Instructed on discharge instructions, follow up and referral plans. medication usage, Demonstrated understanding of instructions, follow-up care, medications, Prescriptions given X 2. 00:16 Patient left the ED. sr5 Signatures: Dispatcher [employer] EDFL Kristyn Fitzgerald, FIRER MARINE-C FIRER MARINE-Kierra Russell ds1 Kimberlyn Ferreira, RN RN Gatito Nash RN RN sr5
--- NOTE | 2019-07-02 22:56 | EDPHYS ---
Physician Documentation [facility] Name: Kathe Del Rio Age: 43 yrs Sex: Female : 1975 Arrival Date: 07/02/2019 Time: 20:17 Bed 28 Private MD: VAIBHAV Physician Darshan Maldonado HPI: 07/02 21:15 This 43 yrs old Female presents to ER via Ambulatory with complaints of kb Shortness Of Breath. 21:15 The patient has shortness of breath at rest, with light activity. Onset: The kb symptoms/episode began/occurred 3 day(s) ago. Duration: The symptoms are continuous. The patient's shortness of breath is aggravated by exertion. Associated signs and symptoms: Pertinent positives: non-productive cough. Severity of symptoms: At their worst the symptoms were moderate in the emergency department the symptoms are unchanged. The patient has experienced similar episodes in the past, a few times, today's symptoms are similar, to previous pneumonia. The patient has not recently seen a physician. 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 LMP N/A - Post-menopause bb Historical: - Allergies: 20:41 pravastatin; bb - Home Meds: 20:41 aspirin 81 mg Oral chew 1 tab once daily [Active]; ezetimibe Oral [Active]; bb mercaptopurine 50 mg Oral tab once daily [Active]; Pentasa 500 mg Oral cpER 2 caps 4 times per day [Active]; Sinu pro 6 daily [Active]; Zyrtec 10 mg Oral tab 1 tab once daily [Active]; Singulair 10 mg Oral tab 1 tab once daily [Active]; metformin 500 mg Oral tab 1 tab once daily [Active]; glipizide 10 mg Oral tab 1 tab once daily [Active]; vitamin D [Active]; Vitamin B-12 Oral [Active]; Famotidine Oral [Active]; - PMHx: 20:41 automimmune thyroiditis; Crohn's; Heart Murmur; LBB; psoriasis; Viral cardiomyopathy; bb - PSHx: 20:41 basal cell; rectal mass removed; Appendectomy; Cholecystectomy; Lumpectomy; breast bb reduction; left ankle surgery; - Immunization history:: Adult Immunizations up to date. - Social history:: Smoking status: Patient uses tobacco products, smokes one-half pack cigarettes per day. - Ebola Screening: : No symptoms or risks identified at this time. ROS: 21:13 Constitutional: Negative for fever, chills, and weight loss, ENT: Negative for injury, kb pain, and discharge, Neck: Negative for injury, pain, and swelling, Cardiovascular: Negative for chest pain, palpitations, and edema, Abdomen/GI: Negative for abdominal pain, nausea, vomiting, diarrhea, and constipation, Back: Negative for injury and pain, MS/Extremity: Negative for injury and deformity, Skin: Negative for injury, rash, and discoloration, Neuro: Negative for headache, weakness, numbness, tingling, and seizure. 21:13 Respiratory: Positive for cough, with no reported sputum, dyspnea on exertion, shortness of breath. Exam: 21:12 Constitutional: This is a well developed, well nourished patient who is awake, alert, kb and in no acute distress. Head/Face: Normocephalic, atraumatic. ENT: Nares patent. No nasal discharge, no septal abnormalities noted. Tympanic membranes are normal and external auditory canals are clear. Oropharynx with no redness, swelling, or masses, exudates, or evidence of obstruction, uvula midline. Mucous membranes moist. Neck: Trachea midline, no thyromegaly or masses palpated, and no cervical lymphadenopathy. Supple, full range of motion without nuchal rigidity, or vertebral point tenderness. No Meningismus. Chest/axilla: Normal chest wall appearance and motion. Nontender with no deformity. No lesions are appreciated. Cardiovascular: Regular rate and rhythm with a normal S1 and S2. No gallops, murmurs, or rubs. Normal PMI, no JVD. No pulse deficits. Respiratory: Lungs have equal breath sounds bilaterally, clear to auscultation and percussion. No rales, rhonchi or wheezes noted. No increased work of breathing, no retractions or nasal flaring. Abdomen/GI: Soft, non-tender, with normal bowel sounds. No distension or tympany. No guarding or rebound. No evidence of tenderness throughout. Back: No spinal tenderness. No costovertebral tenderness. Full range of motion. Skin: Warm, dry with normal turgor. Normal color with no rashes, no lesions, and no evidence of cellulitis. MS/ Extremity: Pulses equal, no cyanosis. Neurovascular intact. Full, normal range of motion. Neuro: Awake and alert, GCS 15, oriented to person, place, time, and situation. Cranial nerves II-XII grossly intact. Motor strength 5/5 in all extremities. Sensory grossly intact. Cerebellar exam normal. Normal gait. Vital Signs: 20:41 BP 134 / 88; Pulse 117; Resp 16 S; Temp 99(O); Pulse Ox 95% on R/A; Weight 86.18 kg bb (R); Height 5 ft. 7 in. (170.18 cm) (R); Pain 0/10; 22:11 BP 131 / 83; Pulse 98; Resp 20; Pulse Ox 95% on R/A; sr5 23:24 BP 128 / 84; Pulse 94; Resp 18; Pulse Ox 99% ; sr5 07/03 00:11 BP 127 / 84; Pulse 96; Resp 20; Temp 99; Pulse Ox 97% on R/A; sr5 07/02 20:41 Body Mass Index 29.76 (86.18 kg, 170.18 cm) 07/02 23:24 neb in progress sr5 MDM: 21:04 Patient medically screened. kb 21:11 Data reviewed: vital signs, nurses notes. Data interpreted: Pulse oximetry: on room air kb is 95 %. Interpretation: normal. 22:53 Counseling: I had a detailed discussion with the patient and/or guardian regarding: the kb historical points, exam findings, and any diagnostic results supporting the discharge/admit diagnosis, lab results, radiology results, the need for outpatient follow up, a family practitioner, to return to the emergency department if symptoms worsen or persist or if there are any questions or concerns that arise at home. ED course: Pt has appt with Dr Mercado at 10:20 in the morning. . 07/02 21:08 Order name: Flu; Complete Time: 22:23 kb 07/02 21:13 Order name: Basic Metabolic Panel; Complete Time: 22:25 kb 07/02 21:13 Order name: CBC with Diff; Complete Time: 22:08 kb 07/02 21:13 Order name: Magnesium; Complete Time: 22:25 kb 07/02 21:13 Order name: NT PRO-BNP; Complete Time: 22:25 kb 07/02 21:13 Order name: PT-INR; Complete Time: 22:13 kb 07/02 21:08 Order name: Chest Pa And Lat (2 Views) XRAY; Complete Time: 16:22 kb 07/02 21:08 Order name: EKG; Complete Time: 21:09 kb 07/02 21:08 Order name: EKG - Nurse/Tech; Complete Time: 21:27 kb 07/02 21:13 Order name: Troponin (emerg Dept Use Only); Complete Time: 22:25 kb 07/02 21:13 Order name: Cardiac monitoring; Complete Time: 21:59 kb 07/02 21:13 Order name: IV Saline Lock; Complete Time: 21:59 kb 07/02 21:13 Order name: Labs collected and sent; Complete Time: 21:59 kb 07/02 21:13 Order name: O2 Per Protocol; Complete Time: 21:59 kb 07/02 21:13 Order name: O2 Sat Monitoring; Complete Time: 21:59 kb Administered Medications: 23:23 Drug: SOLU-Medrol 125 mg Route: IVP; Site: left antecubital; sr5 23:24 Drug: AtroVENT Aerosol 0.5 mg Route: Inhalation; sr5 23:24 Drug: Albuterol 2.5 mg Route: Inhalation; sr5 Disposition: 07/02/19 22:54 Discharged to Home. Impression: Acute bronchitis. - Condition is Stable. - Discharge Instructions: Acute Bronchitis, [id number]. - Prescriptions for Prednisone 20 mg Oral Tablet - take 1 tablet by ORAL route once daily for 5 days; 5 tablet. Albuterol Sulfate 90 mcg/actuation - inhale 1-2 puff by INHALATION route every 4-6 hours; 1 Inhaler. - Medication Reconciliation Form, Thank You Letter, Antibiotic Education, Prescription Opioid Use form. - Follow up: Emergency Department; When: As needed; Reason: Worsening of condition. Follow up: Private Physician; When: 2 - 3 days; Reason: Recheck today's complaints, Continuance of care, Re-evaluation by your physician. Addendum: 07/10/2019 07:21 Co-signature as Attending Physician, Darshan Maldonado MD I agree with the assessment and c sullivan plan of care. Signatures: Dispatcher [employer] Kristyn Freeman, ANTONY-C ANTONY-Darshan Villanueva MD MD cha Ballard, Brenda, RN RN Gatito Nash, RN RN sr5 Corrections: (The following items were deleted from the chart) 07/03 00:16 07/02 22:54 07/02/2019 22:54 Discharged to Home. Impression: Acute bronchitis. sr5 Condition is Stable. Forms are Medication Reconciliation Form, Thank You Letter, Antibiotic Education, Prescription Opioid Use. Follow up: Emergency Department; When: As needed; Reason: Worsening of condition. Follow up: Private Physician; When: 2 - 3 days; Reason: Recheck today's complaints, Continuance of care, Re-evaluation by your physician. kb
[2019-07-02] MEDS ORDERED: IPRATROPIUM BROM 0.5MG/2.5ML ONE (23:17)
[2019-07-02] MEDS ORDERED: METHYLPREDNISOLONE 125 MG INJ ONE (23:17)
[2019-07-02] MEDS ORDERED: ALBUTEROL 2.5 MG/3 ML NEB SOL ONE (23:17)
[2019-07-03 00:50] VITALS: TEMP 99
[2019-07-03 00:53] VITALS: BP 127/84; O2SAT 97
--- NOTE | 2019-07-03 09:01 | RAD REPORT ---
EXAM DESCRIPTION: RAD - Chest Pa And Lat (2 Views) - 07/02/2019 9:33 pm CLINICAL HISTORY: Cough;Dyspnea COMPARISON: October 21 TECHNIQUE: PA and lateral views of the chest were obtained. FINDINGS: The lungs are clear of a peripheral mass or consolidation. Calcification overlying the low er right chest has not changed. This is in the breast soft tissues. Interstitial pattern is prominent but not clearly different. Acute failure or volume overload not suspected. Heart size is upper nor mal and stable. No acute vascular engorgement. No pleural effusion or pneumothorax seen. No acute miladis [place] finding noted. No aortic abnormality. IMPRESSION: No acute cardiopulmonary process. No suspicious interval change.
--- NOTE | 2019-07-03 10:17 | EKG ---
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
== END 2019-07-03 00:16 | disposition home or self-care (01) ==
LOC: ER 20:16
DX: J20.9 Acute bronchitis, unspecified (principal); F17.210 Nicotine dependence, cigarettes, uncomplicated; R01.1 Cardiac murmur, unspecified; E06.3 Autoimmune thyroiditis
CPT/HCPCS: 93005; 85025; 80048; 36415; 83735; 85610; 84484; 83880; 87804 ×2; 71046; 96374; 99285; J2930

== ENCOUNTER 2022-07-12 10:06 | Emergency (ER) | payer OTHER ==
--- OUTSIDE RECORDS SUMMARY | 2022-07-12 10:13 | XMS REPORT | Continuity of Care Document ---
:1975 Author Organization [facility] t Address [address] [place] [address] Care Team Providers Name Role Phone Cliff Womack Primary Care Physician Yosvany Mercado Attending Clinician Unavailable Cliff Womack Attending Clinician Unavailable Luis CHING, Natalie Ahuja Attending Clinician Mark Schuster MD Attending Clinician [phone] Katie Cheung Attending Clinician [phone] Son Gonzalez MD Attending Clinician [phone] Chhaya Gomez MD Attending Clinician Ramona Wilcox LVN Attending Clinician Unavailable Stanislav Alexander CPhT Attending Clinician Unavailable Placido VILLANUEVA, Berna Attending Clinician Unavailable Sis Roldan Attending Clinician Marta Franz LVN Attending Clinician Unavailable RACHEL MAN Attending Clinician Unavailable Magdalene CHING, Chalino Xiong Attending Clinician [phone] Brandin CHING PhD, Arik Mcneill Attending Clinician Sonu LIANG, Doris Attending Clinician Unavailable Lora Burnett MA Attending Clinician Unavailable Brianna Hernandez MA Attending Clinician Unavailable Barrington Stanton RECRUITMENT SPECIALIST, Severo Shipman Attending Clinician [phone] Rashid CHING, Tyree Bynum Attending Clinician [phone] Belkis LOMELI, Rachel Attending Clinician Jessy VILLANUEVA, Hoa Attending Clinician Unavailable Dara Attending Clinician Unavailable Raheel Chavez DO Attending Clinician CARLIN CHAVEZ Attending Clinician Unavailable Claire Matute MD Attending Clinician MD CHALINO VELEZ V. Attending Clinician Unavailable Codi Sanders MD Attending Clinician ROGERIO CHAVEZ Attending Clinician Unavailable SHARLA BONILLA Attending Clinician Unavailable CLAIRE MATUTE Attending Clinician Unavailable MARK SCHUSTER Admitting Clinician Unavailable Dara Admitting Clinician Unavailable CHALINO VELEZ Admitting Clinician Unavailable MD CHALINO VELEZ V. Admitting Clinician Unavailable ROGERIO CHAVEZ Admitting Clinician Unavailable Payers Payer Name Policy Type Policy Number Effective Date Expiration Date [employer] MEDICARE-PART B 5 [id number] 2022 00:00:00 [place]: [id number] 2008 [facility]ITAS 00:00:00 SOLUTIONS MEDICARE NOVITAS MB [id number] 2008 [facility] 00:00:00 - [facility] MEDICARE NOVITAS MB [id number] 2008 [facility] 00:00:00 - [facility] MEDICARE NOVITAS MB [id number] 2008 [facility] 00:00:00 [facility] Problems Condition Condition Condition Status Onset Resolution Last Treating Co mments Source Name Details Category Date Date Treatment Clinician Date Leukocytos Leukocytos Disease Active 2021-07 M ethodi is is 00:00: Hospita 00 l Thrombocyt Thrombocyt Disease Active 2021-07 M ethodi osis osis 0-04 st 00:00: Hospita 00 l SVT SVT Disease Active Methodi (supravent (supravent 4-06 st ricular ricular 00:00: Hospita tachycardi tachycardi 00 l a) a) Sinus Sinus Disease Active Methodi tachycardi tachycardi 4-06 st a a 00:00: Hospita 00 l Insomnia Insomnia Disease Active Metho di 4-20 st 00:00: Hospita 00 l Cardiac Cardiac Disease Active Methodi resynchron resynchron 9-21 st ization ization 00:00: Hospita therapy therapy 00 l defibrilla defibrilla tor tor (DEBRANDER-D) in (DEBRANDER-D) in place place Chronic Chronic Disease Active 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 Added automatic ally from request for surgery [id number] Pre-proced Pre-proced Disease Active Overview : Methodi ure lab ure lab [address] exam exam 00:00: g of this Hospita 00 note l might be different from the original. Added automatic ally from request for surgery [id number] Non-compac Non-compac Disease Active M ethodi tion tion 3-27 st cardiomyop cardiomyop 00:00: Ho spita athy athy 00 l Coronary Coronary Disease Active Metho di artery artery 9-24 st disease disease 00:00: [facility] involving [facility] coronary coronary artery of artery of [facility] heart heart without without angina angina pectoris pectoris Abnormal Abnormal Disease Active Metho di stress stress 9-24 st test test 00:00: Hospita 00 l SOB SOB Disease Active Methodi (shortness (shortness 9-24 st of breath) of breath) 00:00: Ho spita 00 l Pre-operat Pre-operat Disease Active M ethodi juan juan 8-27 st clearance clearance 00:00: Hosp kellen 00 l Elevated Elevated Disease Active Metho di liver liver 4-15 st enzymes enzymes 00:00: Hospita 00 l Type 2 Type 2 Disease Active Methodi diabetes diabetes 4-15 st mellitus mellitus 00:00: Hospit a with with 00 l cardiac cardiac complicati complicati on on Blood Blood Disease Active 2017-07 [facility]i pressure pressure 2-11 st elevated elevated 00:00: Hospit a without without 00 l history of history of HTN HTN Disc Disc Disease Active Methodi degenerati degenerati 9-12 st on, lumbar on, lumbar 00:00: Ho spita 00 l Other Other Disease Active Methodi secondary secondary 9-12 st kyphosis, kyphosis, 00:00: Hosp kellen cervical cervical 00 l region region Adolescent Adolescent Disease Active M ethodi idiopathic idiopathic 9-12 st scoliosis scoliosis 00:00: Hosp kellen of lumbar of lumbar 00 l region region Degenerati Degenerati Disease Active M ethodi ve ve 9-12 st cervical cervical 00:00: Hospit a disc disc 00 l Family Family Disease Active Methodi history of history of 9-11 st coronary coronary 00:00: Hospit a artery artery 00 l bypass bypass graft graft Myocardial Myocardial Disease Active M ethodi infarct, infarct, 9-11 st old old 00:00: Hospita 00 l Pure Pure Disease Active Methodi hyperchole hyperchole 9-[address] sterolemia sterolemia 00:00: Ho spita 00 l LBBB (left LBBB (left Disease Active M ethodi bundle bundle 3-27 st branch branch 00:00: Hospita block) block) 00 l Diabetes Diabetes Disease Active 2016-07 Metho di 0-13 st 00:00: Hospita 00 l Sleep Sleep Disease Active Methodi apnea apnea 07 st 00:00: Hospita 00 l Esophagiti Esophagiti Disease Active M ethodi s s 01-02 st 00:00: Hospita 00 l Crohn Crohn Disease Active Methodi disease disease 01-02 st 00:00: Hospita 00 l Psoriatic Psoriatic Disease Active Met hodi arthritis arthritis 12-03 st 00:00: Hospita 00 l TMJ TMJ Disease Active Methodi (dislocati (dislocati 12-03 st on of on of 00:00: Hospita temporoman temporoman 00 l dibular dibular joint) joint) Alopecia Alopecia Disease Active Metho di 03-05 st 00:00: Hospita 00 l Psoriasis Psoriasis Disease Active Met hodi (a type of (a type of 03-05 skin skin 00:00: Hospita inflammati inflammati 00 l on) on) 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 01-02 athy athy 00:00: Hospita 00 l Fatigue Fatigue Disease Active 2002-07 Methodi 08-05 st 00:00: Hospita 00 l Thyroid Thyroid Disease Active 2000-07 Methodi disease disease 08-05 00:00: Hospita 00 l [id number] Pain in Problem Active Commo n joint of [facility] left wrist [facility] [id number] Tenosynovi Problem Active Com mon tis, de [facility] Quervain [facility] [id number] Cold Problem Active Common [facility] [id number] Chondromal Problem Active C ommon [id number] acia of [facility] right [facility]I patella [facility] [id number] Primary Problem Active Comm on osteoarthr [facility] itis of - [facility] right knee [facility] Allergies, Adverse Reactions, Alerts Allergy Allergy Status Severity Reaction(s) Onset Inactive Treating Comm ents Source Name Type Date Date Clinician Adhes. Propensi Active Rash 2021-07 Methodi Band-Tap ty to 1-18 st e-Benzal adverse 00:00: Hospita konium reaction 00 l s to drug Other Propensi Active Itching 2021-07 Band-aid Metho di ty to 0-[address] adverse 00:00: itching Hospita reaction 00 and l s burning, tears the skin Oxycodon Propensi Active GI Vomiting, Met hodi e ty to Intolerance 4-[address] adverse 00:00: Hospita reaction 00 l s to drug Sulfa Propensi Active GI Methodi (Sulfona ty to Intolerance 8-19 st mide adverse 00:00: Hospita Antibiot reaction 00 l ics) s to drug Pravasta Propensi Active Other (See 2018-07 Muscle Me thodi tin ty to Comments) 0-[address] adverse 00:00: Hospita reaction 00 l s to drug PRAVASTA DRUG Active Other-Cmnt Univ ers TIN INGREDI 08-04 ity of 00:00: [place] 00 [facility] INFLIXIM DRUG Active Other-Cmnt Univ ers AB INGREDI 08-04 ity of 00:00: 00 Medical Branch Pravasta Propensi Active Other - See "leg U nivers tin ty to comments 08-04 cramps ity of adverse 00:00: and loss [place] reaction 00 of Medical s appetite" Branch Inflixim Propensi Active Other - See "body U nivers ab ty to comments 08-04 pain" ity of adverse 00:00: [place] reaction 00 Medical s Branch Allopuri Propensi Active GI Vomiting, Met hodi nol ty to Intolerance 03-[address] adverse 00:00: Hospita reaction 00 l s to drug Amitript Propensi Active Other (See Drowsines Methodi yline ty to Comments) 03-[address] adverse 00:00: Hospita reaction 00 l s to drug Certoliz Propensi Active Other (See Staph Me thodi umab ty to Comments) 03-[address] Pegol adverse 00:00: Hospita reaction 00 l s to drug Codeine Propensi Active Shortness Of Shortnes s Methodi ty to Breath 03-[address] adverse 00:00: breath, Hospita reaction 00 vomiting, l s to fever drug Duloxeti Propensi Active GI Vomiting, Met hodi ne ty to Intolerance 03-[address] adverse 00:00: Hospita reaction 00 l s to drug Meperidi Propensi Active Seizure Seizure Meth jere ne ty to 03-16 st adverse 00:00: Hospita reaction 00 l s to drug Venlafax Propensi Active Headache Headache Me thodi ine ty to 03-16 st adverse 00:00: Hospita reaction 00 l s to drug Pregabal Propensi Active Other (See Drowsines Methodi in ty to Comments) 03-[address] adverse 00:00: Hospita reaction 00 l s to drug Macrolid Propensi Active Unknown Other Metho di e ty to Reaction 03-16 reaction( st Antibiot adverse 00:00: s): not Hospit a ics reaction 00 sure l s to drug Morphine Propensi Active Seizure Seizure Meth jere ty to 03-16 adverse 00:00: Hospita reaction 00 l s to drug Milnacip Propensi Active Other (See sweating Methodi ran ty to Comments) 03-16 adverse 00:00: Hospita reaction 00 l s to drug Sulfur Propensi Active GI Vomiting Method i ty to Intolerance 03-16 adverse 00:00: Hospita reaction 00 l s to drug Azithrom Propensi Active Other (See C. diff M ethodi ycin ty to Comments) 03-16 adverse 00:00: Hospita reaction 00 l s to drug MORPHINE DRUG Active Other-Cmnt Univ ers INGREDI 03-15 ity of 00:00: 00 Medical Branch OXYCODON DRUG Active N/V Univers E-ACETAM 03-15 ity of INOPHEN 00:00: [place] 00 [facility] MILNACIP DRUG Active Other-Cmnt Univ ers RAN INGREDI 03-15 ity of 00:00: [place] 00 [facility] SULFUR DRUG Active N/V Univers INGREDI 03-15 ity of 00:00: [place] 00 [facility] AZITHROM DRUG Active Diarrhea Univer s YCIN INGREDI 03-15 ity of 00:00: [place] 00 [facility] AMITRIPT DRUG Active Other-Cmnt Univ ers YLINE INGREDI 03-15 ity of 00:00: [place] 00 [facility] Amitript Propensi Active Other - See sleepy U nivers yline ty to comments 03-15 ity of adverse 00:00: [place] reaction 00 Medical s Branch Certoliz Propensi Active Other - See Staff U nivers umab ty to comments 03-15 infection ity o f Pegol adverse 00:00: s in nose [place] reaction 00 Medical s Branch Codeine Propensi Active Shortness of U nivers ty to Breath 03-15 ity of adverse 00:00: [place] reaction Medical s Branch Duloxeti Propensi Active Nausea Univer s ne ty to and/or 9-11 ity of adverse Vomiting 00:00: [place] reaction 00 Medical s Branch CERTOLIZ DRUG Active Other-Cmnt Univ ers UMAB INGREDI 03-15 ity of PEGOL 00:00: [place] 00 [facility] Meperidi Propensi [place] Other - [place] [address] seizure Univers ne Hcl ty to comments 03-15 ity of adverse 00:00: [place] reaction 00 Medical s Branch Venlafax Propensi Active Other - See [address] headache Univers ine Hcl ty to comments 03-15 ity of adverse 00:00: [place] reaction 00 Medical s Branch Pregabal Propensi Active Other - See 2018 fatigue Univers in ty to comments 03-15 ity of adverse 00:00: [place] reaction 00 Medical s Branch Macrolid Propensi Active Unknown - Uni vers e ty to See comments 03-15 ity of Antibiot adverse 00:00: [place] ics reaction 00 Medical s Branch Morphine Propensi Active Other - See 2018 seizures Univers ty to comments 03-15 ity of adverse 00:00: [place] reaction 00 Medical s Branch Oxycodon Propensi Active Nausea 20180 Univer s e-Acetam ty to and/or 03-15 ity of inophen adverse Vomiting 00:00: [place] reaction 00 Medical s Branch Milnacip Propensi Active Other - See [address] swelling Univers ran ty to comments 03-15 ity of adverse 00:00: [place] reaction 00 Medical s Branch Sulfur Propensi Active Nausea 0 Univers ty to and/or 03-15 ity of adverse Vomiting 00:00: [place] reaction 00 Medical s Branch CODEINE DRUG Active SOB Univers INGREDI 03-15 ity of 00:00: [place] 00 [facility]ithrom [facility] 03-15 ity of nce 00:00: [place] 00 [facility] DULOXETI DRUG Active N/V Univers NE INGREDI 03-15 ity of 00:00: [place] 00 [facility] MEPERIDI DRUG Active Other-Cmnt Univ ers NE HCL INGREDI 03-15 ity of 00:00: [place] 00 [facility] VENLAFAX DRUG Active Other-Cmnt Univ ers INE HCL INGREDI 03-15 ity of 00:00: [place] 00 [facility] PREGABAL DRUG Active Other-Cmnt Univ ers IN INGREDI 03-15 ity of 00:00: [place] 00 [facility] MACROLID Drug Active Unknown-Cmnt Un winter E Class 03-15 ity of ANTIBIOT 00:00: [place] [facility] 00 Medical Branch Macrolid Macrolid Active not sure Comm on e e [facility] 0 Drug Active vomit Common allergy [facility] 2375 Drug Active PETERSON with Common allergy shooting eye Spi rit pain [facility] milnacip milnacip Active swelling Comm on ran ran [facility] codeine codeine Active SOB,vomit Commo n [facility] morphine morphine Active not sure bec Common of seizure [facility] azithrom azithrom Active C diff in Com mon ycin ycin bowels [facility] acetamin acetamin Active vomit,fever C ommon ophen / ophen / Spirit oxycodon oxycodon - [facility] e e [facility] certoliz certoliz Active staph Common umab umab infection in Spir it pegol pegol nose [facility] meperidi meperidi Active seizure Commo n ne ne [facility] pregabal pregabal Active sleepy Common in in [facility] duloxeti duloxeti Active vomit ,fever Common ne ne [facility] pravasta pravasta Active Unknown Commo n tin tin [facility] acetamin acetamin Active vomit,fever C ommon ophen ophen [facility] allopuri allopuri Active vomit,consti Common nol nol pation,weigh Spir it t loss [facility] Family History Family Member Diagnosis Comments Start Date Stop Date Source Natural brother No Known Problems [facility] Natural father [employer] [facility] Maternal grandfather No Known Problems [facility] Maternal grandmother No Known Problems [facility] Natural mother No Known Problems [facility] Paternal grandfather No Known Problems [facility] Paternal grandmother No Known Problems [facility] Natural sister GERD [facility] Social History Social Habit Start Date Stop Date Quantity Comments Source History of Tobacco Current Smoker Co [facility] - Use [facility] Sex Assigned At [facility] - [facility] Alcohol intake 2022-06-15 2022-06-15 Current Druze 00:00:00 00:00:00 non-drinker of Hospital alcohol (finding) Cigarettes smoked 2022-04-07 2022-04-07 Methodi current (pack per 00:00:00 00:00:00 Hospita l day) - Reported Tobacco use and 2022-04-07 2022-04-07 Smokeless Druze exposure 00:00:00 00:00:00 tobacco non-user Hospital Tobacco Comment 2018-09-16 2018-09-16 smoked since 16 Univ ersity of 00:00:00 00:00:00 years of age [facility] Branch Smoking Status Start Date Stop Date Source Smokes tobacco daily 2022-04-07 00:00:00 [facility] Medications Ordered Filled Start Stop Current Ordering Indication Dosage Frequency Signature Comments Components Source Medication Medication Date Date Medication? Clinician (SIG) Name Name ustekinumab 2022- Yes INJECT ONE Methodi (STELARA) 07-08 03-[address] 90 mg/mL 00:00: 05:59 EVERY 8 Hospi ta injection 00 :00 WEEKS l ergocalcife 2021-07- No Metho di rol 2-12 12-12 st (VITAMIN 10:23: 00:00 Hospita D2) 50,000 02 :00 l unit capsule pantoprazol 2021-07- No 40mg QD Take 40 mg Methodi e 2-12 12-[address] (PROTONIX) 10:14: 00:00 daily. Hosp kellen 40 MG EC 01 :00 l tablet pantoprazol 2021-07 Yes [id number] 40mg Q.5D Take 1 Methodi e 2-12 tablet (40 st (PROTONIX) 00:00: mg total) Ho spita 40 MG EC 00 by mouth 2 l tablet (two) times a day before meals. ergocalcife 2021-07 Yes [id number] Q30D Take Meth jere rol 2-05 50,000 [address] (VITAMIN 10:03: Units by Hospi ta D2) 50,000 00 mouth l unit every 30 capsule (thirty) days. Fridays promethazin 2021-07 Yes 25mg Q6H Take 25 mg Methodi e 2-[address] (PHENERGAN) 10:03: every 6 Hos radha 25 MG 00 (six) l tablet hours as needed for nausea or vomiting. ondansetron 2021-07 Yes 4mg Q8H Take 4 mg M ethodi (ZOFRAN) 4 2-[address] MG tablet 10:03: every 8 Hospi ta 00 (eight) l hours as needed for nausea or vomiting. cetirizine 2021-07 Yes 10mg QD Take 10 mg M ethodi (ZyrTEC) 10 2-[address] MG tablet 10:03: nightly. Hosp kellen 00 l montelukast 2021-07 Yes 10mg QD Take 10 mg Methodi (SINGULAIR) 2-[address] 10 mg 10:03: nightly. Hospita tablet 00 l albuterol 2021-07 Yes 2.5mg Q6H Take 2.5 Met hodi (ACCUNEB) 2-[address] 2.5 mg /3 10:03: nebulizati Ho spita mL (0.083 00 on every 6 l %) (six) nebulizer hours as solution needed for wheezing. fluticasone 2021-07 Yes 50ug QD 1 spray by Methodi propionate 2-[address] (FLONASE) 10:03: route Hospita 50 00 daily. l mcg/actuati on nasal spray calcium 2021-07 Yes 1{tbl} QD Take 1 Method i carbonate-v 2-[address] itamin D3 10:03: mouth Hospita 250-125 00 daily. l mg-unit tablet atorvastati 2021-07 Yes 20mg QD Take 20 mg Methodi n (LIPITOR) 2-[address] 20 mg 10:03: daily. Hospita tablet 00 Default OP l ins BIOTIN ORAL 2021-07 Yes 5000ug QD Take 5,000 Methodi 2-[address] 10:03: mouth Hospita 00 daily. l UNABLE TO 2021-07 Yes Smarty Method i FIND 2-[address] 10:03: gummies Hospita 00 bid l NON 2021-07 Yes 280mg QD Take 280 Methodi FORMULARY 2-[address] 10:03: mouth Hospita 00 daily. l SinuPRO coenzyme 2021-07 Yes Methodi Q10 200 mg 1-27 st capsule 00:00: Hospita 00 l ustekinumab 2021-07- No INJECT ONE Methodi (STELARA) 018 01-[address] 90 mg/mL 00:00: 00:00 EVERY 8 Hospi ta injection 00 :00 WEEKS l fluconazole 2021- No ONE BY Met kim (DIFLUCAN) 02-25 08-[address] 150 MG 00:00: 04:59 AND REPEAT Hosp kellen tablet 00 :00 DOSE IN 72 l HOURS IF NEEDED. UNABLE TO No sinu pro1 Me thodi FIND 01-23- tablet at st 08:52: 00:00 bedtime Hospita 48 :00 l Depo-Medrol Depo-Medrol No 40mg Common (Methylpred (Methylpred 6-02 S pirit nisolone) nisolone) 00:00: - C HI 40mg 40mg 00 [facility] Bupivicaine Bupivicaine No 2.5mg Common Quitman Quitman 6-02 Spirit 00:00: - [facility] 00 [facility] Depo-Medrol Depo-Medrol No 40mg Common (Methylpred (Methylpred 6-02 S pirit nisolone) nisolone) 00:00: - C HI 40mg 40mg 00 [facility] Bupivicaine Bupivicaine No 2.5mg Common Quitman Quitman 6-02 Spirit 00:00: - [facility] 00 [facility] sacubitriL- 2022- No 1{tbl} Q.5D Take 1 M ethodi valsartan 10-28 04- tablet by st (ENTRESTO) 00:00: 04:59 mouth 2 Hos radha 24-26 mg 00 :00 (two) l tablet per times a tablet day. cyanocobala 2021- No 1000ug Inject M ethodi min 1,000 10-24-22 1,[address] mcg/mL 10:43: 00:00 into the Hospit a injection 08 :00 shoulder, l thigh, or buttocks as needed. fridays sacubitriL- 2021- No 1{tbl} Q.5D Take 1 M ethodi valsartan 09-30- tablet by st (ENTRESTO) 00:00: 00:00 mouth 2 Hos radha 24-26 mg 00 :00 (two) l tablet per times a tablet day. ustekinumab 2021- No INJECT ONE Methodi (STELARA) 09-23 10-[address] 90 mg/mL 00:00: 00:00 EVERY 8 Hospi ta injection 00 :00 WEEKS l metoprolol 2022- No [id number] 50mg QD Take 1 Methodi succinate 09-12 tablet (50 st XL 00:00: 05:59 mg total) Hospita (TOPROL-XL) 00 :00 by mouth l 50 mg 24 hr daily. tablet metoprolol No 25mg QD Take 1 Meth jere succinate 09-12 tablet (25 st XL 00:00: 05:59 mg total) Hospita (TOPROL-XL) 00 :00 by mouth l 25 mg 24 hr daily. tablet With 50 mg to equal 75 mg daily furosemide 2021- No 20mg QD Take 1 Meth jere (LASIX) 20 09-12 tablet (20 st mg tablet 00:00: 00:00 mg total) Ho spita 00 :00 by mouth l daily. sacubitriL- 2021- No [id number] 1{tbl} Q.5D Take 1 Methodi valsartan 09-[address] (Entresto) 00:00: 00:00 mouth 2 Hos radha 49-51 mg 00 :00 (two) l tablet per times a tablet day. biotin 2021- No Methodi 5,000 mcg 08-08 st tablet,disi 00:00: 00:00 Hospi ta ntegrating 00 :00 l sodium,pota 2021- No Take po as Methodi ssium,mag 08-07-[address] sulfates 00:00: 00:[address] Yves murillo (Suprep 00 :00 Office. l Bowel Prep Dispense Kit) one suprep 17.5-3.13-1 bowel prep .6 gram kit recon soln ustekinumab 2021- No INJECT ONE Methodi (Stelara) 07-[address] 90 mg/mL 00:00: 00:00 EVERY 8 Hospi ta injection 00 :00 WEEKS l sod 2021- No 2{bottl Take 2 Methodi picosulf-ma 07-23 e} Bottles by s t nara ox-citric 00:00: 00:00 mouth take Hospita ac 00 :00 as l (Clenpiq) directed 10 mg-3.5 (by dr. payan -12 office). gram/160 mL solution Hyalgan 20 Hyalgan 20 No 20mg C ommon mg mg - Spirit 00:00: - [facility] Hyalgan 20 Hyalgan 20 0 No 20mg C ommon mg mg 07-17 Spirit 00:00: - [facility] Hyalgan 20 Hyalgan 20 0 No 20mg C ommon mg mg 1-06 [facility] 00:00: - [facility] Hyalgan 20 Hyalgan 20 0 No 20mg C ommon mg mg 1-06 [facility] 00:00: - [facility] metoprolol 2021- No [id number] TAKE 1 AND Methodi succinate 07-07 1/2 st XL 00:00: 00:00 TABLETS BY Hospit a (TOPROL-XL) 00 :00 MOUTH l 50 mg 24 hr DAILY tablet sacubitriL- 2021- No 1{tbl} Q.5D Take 1 M ethodi valsartan 07-07 tablet by (ENTRESTO) 00:00: 00:00 mouth 2 Hos radha 24-26 mg 00 :00 (two) l tablet per times a tablet day. Hyalgan 20 Hyalgan 20 2020-07 No 20mg C ommon mg mg 2-20 Spirit 00:00: - [facility] Kenalog Kenalog 2020-07 No 40mg Common (Triamcinol (Triamcinol 2-20 S pirit one) one) 00:00: - [facility] Bupivicaine Bupivicaine 2020-07 No 2.5mg Common Quitman Quitman 2-20 Spirit 00:00: - [facility] Hyalgan 20 Hyalgan 20 2020-07 No 20mg C ommon mg mg 2-20 Spirit 00:00: - [facility] Kenalog Kenalog 2020-07 No 40mg Common (Triamcinol (Triamcinol 2-20 S pirit one) one) 00:00: - [facility] Bupivicaine Bupivicaine 2020-07 No 2.5mg Common Quitman Quitman 2-20 Spirit 00:00: - [facility] ustekinumab 2020-07- No INJECT ONE Methodi (Stelara) 07-[address] 90 mg/mL 00:00: 00:00 EVERY 8 Hospi ta injection 00 :00 WEEKS l Lidocaine Lidocaine No 10mg Com 02-20 Spirit 00:00: - [facility] Depo-Medrol Depo-Medrol No 40mg Common (Methylpred (Methylpred 8-19 S pirit nisolone) nisolone) 00:00: - C HI 40mg 40mg 00 [facility] Lidocaine Lidocaine No 10mg Com 02-20 Spirit 00:00: - [facility] Depo-Medrol Depo-Medrol No 40mg Common (Methylpred (Methylpred 8-19 S pirit nisolone) nisolone) 00:00: - C [facility] 40mg 40mg [facility] [facility] atorvastati 2021- No Metho di n (LIPITOR) 7-15 12-12 st 20 mg 00:00: 00:00 Hospita tablet 00 :00 l Hyalgan 20 Hyalgan 20 0 No 20mg C ommon mg mg 6-17 Spirit 00:00: - [facility] Hyalgan 20 Hyalgan 20 0 No 20mg C ommon mg mg 6-17 Spirit 00:00: - [facility] Hyalgan 20 Hyalgan 20 0 No 20mg C ommon mg mg 6-10 Spirit 00:00: - [facility] Hyalgan 20 Hyalgan 20 0 No 20mg C ommon mg mg 6 Spirit 00:00: - [facility] Hyalgan 20 Hyalgan 20 0 No 20mg C ommon mg mg 6 Spirit 00:00: - [facility] Bupivicaine Bupivicaine 0 No 2.5mg Common Quitman Quitman 6 Spirit 00:00: - [facility] Kenalog Kenalog 0 No 40mg Common (Triamcinol (Triamcinol 6-03 S pirit one) one) 00:00: - [facility] Hyalgan 20 Hyalgan 20 0 No 20mg C ommon mg mg 12-05 Spirit 00:00: - [facility] Bupivicaine Bupivicaine 0 No 2.5mg Common Quitman Quitman 12-05 Spirit 00:00: - [facility] Kenalog Kenalog No 40mg Common (Triamcinol (Triamcinol 6-03 S pirit one) one) 00:00: - [facility] ALBUTEROL 0 Yes [id number] USE 1 VIAL Univers 2.5 mg /3 5-24 IN ity of mL (0.083 00:00: NEBULIZER Tanner as %) 00 EVERY 4 Medical nebulizer HOURS Branch solution NEEDED FOR WHEEZING OR SHORTNESS OF BREATH ramelteon 0 2- No 8mg QD Take 1 Metho di (ROZEREM) 8 4-16 04-17 tablet (8 st mg tablet 00:00: 04:59 mg total) Ho spita 00 :00 by mouth l nightly. Dexcom G6 2019-07 Yes USE UTD Metho di Sensor 0-30 st device 00:00: Hospita 00 l Lidocaine Lidocaine 2019-07 No 10mg Com mon 0 Spirit 00:00: - [facility] Depo-Medrol Depo-Medrol 2019-07 No 40mg Common (Methylpred (Methylpred 0-26 S pirit nisolone) nisolone) 00:00: - C HI 40mg 40mg 00 [facility] Lidocaine Lidocaine 2019-07 No 10mg Com mon 0-26 Spirit 00:00: - [facility] Depo-Medrol Depo-Medrol 2020-1 No 40mg Common (Methylpred (Methylpred 0-26 S pirit nisolone) nisolone) 00:00: - C HI 40mg 40mg 00 [facility] Dexcom G6 2019-0 Yes USE UTD Metho di Transmitter 03-06 st device 00:00: Hospita 00 l Depo-Medrol Depo-Medrol 2019-0 No 40mg Common (Methylpred (Methylpred 3-10 S pirit nisolone) nisolone) 00:00: - C HI 40mg 40mg 00 [facility] Bupivicaine Bupivicaine 2020-0 No 1mL Common Quitman Quitman 3-10 Spirit 00:00: - [facility] Depo-Medrol Depo-Medrol 2019-0 No 40mg Common (Methylpred (Methylpred 3-10 S pirit nisolone) nisolone) 00:00: - C HI 40mg 40mg 00 [facility] Bupivicaine Bupivicaine 2019-0 No 1mL Common Quitman Quitman 3-10 Spirit 00:00: - [facility] semaglutide 2019-0 Yes .25mg Q30D Inject Met hodi (OZEMPIC) 1-[address] 0.25 mg or 00:00: directed Hos radha 0.5 mg(2 00 every 30 l mg/1.5 mL) (thirty) subcutaneou days. s pen glipiZIDE 2018- Yes [id number] 10mg Take 1 Un winter XL 10 mg 24 9-17 tablet by ity of hr tablet 00:00: mouth [place] 00 daily with Medical breakfast. Branch aspirin Yes 81mg QD Take 81 mg Meth jere (ECOTRIN) 9-[address] 81 MG 00:00: daily. Hospita enteric 00 l coated tablet LIDOCAINE LIDOCAINE 2018- No 1mL Com mon HCL 10MG/ML HCL 10MG/ML 8-05 S pirit 00:00: - [facility] Depo Medrol Depo Medrol No 1mL Common (40mg) (40mg) 805 Spirit 00:00: - [facility] LIDOCAINE LIDOCAINE 2019-0 No 1mL Com mon HCL 10MG/ML HCL 10MG/ML 805 S pirit 00:00: - [facility] Depo Medrol Depo Medrol 2019- No 1mL Common (40mg) (40mg) 02-06 Spirit 00:00: - [facility] ezetimibe 2019-0 Yes [id number] 10mg Take 1 U nivers 10 mg 6-04 tablet by ity of tablet 00:00: mouth [place] 00 daily. Medical Branch metFORMIN 2019-0 Yes 500mg Take 500 Uni vers 500 mg 5-23 mg by ity of tablet 10:14: mouth [place] 59 daily. Medical Branch Nebulizer & 2019-0 Yes [id number] Use as Univers Compressor 4-25 directed ity o f For Neb 00:00: [place] Krissy 00 Medical Branch MERCAPTOPUR 2019-0 Yes Univer s INE, BULK, 4-15 ity of MISC 09:07: [place] [id number] Medical Branch pantoprazol 2019-0 Yes Take by Uni vers e sodium 4-15 mouth. ity of (PROTONIX 09:07: [place] ORAL) Medical Branch mesalamine Yes 500mg Take 500 Un winter (PENTASA) 4-15 mg by ity of 500 mg CR 09:07: mouth 4 [place] capsule (four) Medical times Branch daily. fexofenadin 2018- Yes Take by Uni vers e HCl 4-15 mouth. ity of (CHAPARRO 09:07: [place] ORAL) Medical Branch ONDANSETRON 2018- Yes Take by Uni vers ORAL 4-15 mouth. ity of 09:07: [place] [address] Medical Branch hydrocodone 2018-0 Yes Take by Uni vers /acetaminop 4-15 mouth. ity of hen (NORCO 09:07: [place] ORAL) Medical Branch albuterol 2018-0 Yes Inhale. Unive rs sulfate 4-15 ity of (PROAIR HFA 09:07: [place] INHALE) Medical Branch flash 2018-0 Yes [id number] 1{each} 1 Each Uni vers glucose 4-15 daily. ity of scanning 00:00: [place] reader 00 Medical (FREESTYLE Branch LUIS 14 DAY READER) Misc flash 2019-0 Yes [id number] 1{each} 1 Each Uni vers glucose 4-15 every 14 ity of sensor 00:00: (fourteen) [place] (FREESTYLE 00 days. Medical LUIS 14 Branch DAY SENSOR) Kit albuterol Yes 1{puff} Take 90 Me thodi (PROAIR 1-[address] A) 90 00:00: mouth as Hospit a mcg/actuati 00 needed. l on inhaler sitaGLIPtin 2017-07 Yes [id number] 100mg Take 1 Univers (JANUVIA) 2-11 tablet by ity o f 100 mg 00:00: mouth [place] tablet 00 daily. Medical Branch medroxyPROG Yes Univer s ESTERone 2-20 ity of 150 mg/mL 00:00: [place] injection 00 [facility] Branch Vitamin B12 Vitamin B12 Yes Rubén not Common Woody defined [facility] Pentasa Pentasa Yes Rubén not Common Woody defined [facility] Mercaptopur Mercaptopur Yes Rubén not Common ine ine Woody defined [facility] Pantoprazol Pantoprazol Yes Rubén not Common e Sodium e Sodium Woody defined [facility] Promethazin Promethazin Yes Rubén not Common e HCl e HCl Woody defined [facility] ProAir HFA ProAir HFA Yes Rubén not Common Woody defined [facility] Flonase Flonase Yes Rubén not Common Woody defined [facility] Vitamin D2 Vitamin D2 Yes Rubén not Common Woody defined [facility] CoQ10 CoQ10 Yes Rubén not Common Woody defined [facility] Cinnamon Cinnamon Yes Rubén not Comm on Woody defined [facility] Metformin Metformin Yes Rubén not Co mmon HCl HCl Woody defined [facility] Ondansetron Ondansetron Yes Rubén not Common Woody defined [facility] Hydrocodone Hydrocodone Yes Rubén not Common -Acetaminop -Acetaminop Woody defined [facility] Januvia Januvia Yes Rubén as Common Woody directed [facility] Zetia Zetia Yes Rubén 1 tablet Common Woody [facility] Albuterol Albuterol Yes Rubén not Co mmon Sulfate Sulfate Woody defined [facility] Dexcom G6 Dexcom G6 Yes Rubén USE UTD Common Sensor Sensor Woody [facility] Folic Acid Folic Acid Yes Rubén 1 tablet Common Woody [facility] Losartan Losartan Yes Rubén 1 tablet [facility] Singulair Singulair Yes Rubén not Co mmon Woody defined [facility] Metoprolol Metoprolol Yes Rubén 1 capsule Common [facility]cc[facility] Jardiance Jardiance Yes Rubén 1 tablet Common Woody [facility] ZyrTEC ZyrTEC Yes Rubén not Common Woody defined [facility] Ozempic Ozempic Yes Rubén not Common Woody defined [facility] Dexcom G6 Dexcom G6 Yes Rubén USE UTD Common Transmitter Transmitter Woody S 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 [facility] Vitamin D Vitamin D No Vitamin D Flonase Flonase No Flonase Pantoprazol Pantoprazol No Pantoprazo e Sodium e Sodium le Sodium Ondansetron Ondansetron No Ondansetro n Montelukast Montelukast No Montelukas Sodium Sodium t Sodium CoQ10 CoQ10 No CoQ10 Citracal Citracal No Citracal Plus Plus Plus Metoprolol Metoprolol No 1{capsu QD Metoprolol Succinate Succinate le} Succinate 25 MG 25 MG 25 MG Cinnamon Cinnamon No Cinnamon Promethazin Promethazin No Promethazi e HCl e HCl ne HCl Vitamin D2 Vitamin D2 No Vitamin D2 Dexcom G6 Dexcom G6 No Dexcom G6 Sensor - Sensor - Sensor - Dexcom G6 Dexcom G6 No Dexcom G6 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 - 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 - 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 - Entresto Entresto No Entresto 24/26mg 24/26mg 24/26mg Folic Acid Folic Acid No 1{table QD Folic Acid 1 MG 1 MG t} 1 MG metFORMIN metFORMIN No metFORMIN HCl HCl HCl Januvia 25 Januvia 25 No Januvia 25 MG MG MG HYDROcodone HYDROcodone No HYDROcodon -Acetaminop -Acetaminop e-Acetamin hen hen ophen Jardiance Jardiance No 1{table QD Jardiance 25 MG 25 MG t} 25 MG Vitamin B12 Vitamin B12 No Vitamin B12 ProAir HFA ProAir HFA No ProAir HFA Aspirin Aspirin No Aspirin Mercaptopur Mercaptopur No Mercaptopu ine ine rine atorvastati atorvastati No atorvastat n n in Stelara Stelara No Stelara Promethegan Promethegan No Promethega n Ozempic Ozempic No Ozempic Zetia 10 MG Zetia 10 MG No 1{table QD Zetia 10 t} MG Pentasa Pentasa No Pentasa ZyrTEC ZyrTEC No ZyrTEC Zantac Zantac No Zantac Singulair Singulair No Singulair Losartan Losartan No 1{table QD Losartan Potassium Potassium t} Potassium 25 MG 25 MG 25 MG Dexcom G6 Dexcom G6 No Dexcom G6 Transmitter Transmitter Transmitte - - r - Albuterol Albuterol No Albuterol Sulfate Sulfate Sulfate ZyrTEC ZyrTEC No ZyrTEC Dexcom G6 Dexcom G6 No Dexcom G6 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 - 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 - 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 - Stelara Stelara No Stelara Zetia 10 MG Zetia 10 MG No 1{table QD Zetia 10 t} MG Dexcom G6 Dexcom G6 No Dexcom G6 Sensor - Sensor - Sensor - Entresto Entresto No Entresto 24/26mg 24/26mg 24/26mg Montelukast Montelukast No Montelukas Sodium Sodium t Sodium Aspirin Aspirin No Aspirin Ozempic Ozempic No Ozempic ProAir HFA ProAir HFA No ProAir HFA Flonase Flonase No Flonase Dexcom G6 Dexcom G6 No Dexcom G6 Transmitter Transmitter Transmitte - - r - atorvastati atorvastati No atorvastat n n in HYDROcodone HYDROcodone No HYDROcodon -Acetaminop -Acetaminop e-Acetamin hen hen ophen Ondansetron Ondansetron No Ondansetro n Vitamin D Vitamin D No Vitamin D Metoprolol Metoprolol No Metoprolol Succinate Succinate Succinate ER ER ER Citracal Citracal No Citracal Plus Plus Plus Albuterol Albuterol No Albuterol Sulfate Sulfate Sulfate Singulair Singulair No Singulair Promethazin Promethazin No Promethazi e HCl e HCl ne HCl Vitamin D2 Vitamin D2 No Vitamin D2 Pantoprazol Pantoprazol No Pantoprazo e Sodium e Sodium le Sodium ZyrTEC ZyrTEC No ZyrTEC Dexcom G6 Dexcom G6 No Dexcom G6 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 - 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 - 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 - Stelara Stelara No Stelara Zetia 10 MG Zetia 10 MG No 1{table QD Zetia 10 t} MG Dexcom G6 Dexcom G6 No Dexcom G6 Sensor - Sensor - Sensor - Entresto Entresto No Entresto 24/26mg 24/26mg 24/26mg Montelukast Montelukast No Montelukas Sodium Sodium t Sodium Aspirin Aspirin No Aspirin Ozempic Ozempic No Ozempic ProAir HFA ProAir HFA No ProAir HFA Flonase Flonase No Flonase Dexcom G6 Dexcom G6 No Dexcom G6 Transmitter Transmitter Transmitte - - r - atorvastati atorvastati No atorvastat n n in HYDROcodone HYDROcodone No HYDROcodon -Acetaminop -Acetaminop e-Acetamin hen hen ophen Ondansetron Ondansetron No Ondansetro n Vitamin D Vitamin D No Vitamin D Metoprolol Metoprolol No Metoprolol Succinate Succinate Succinate ER ER ER Citracal Citracal No Citracal Plus Plus Plus Albuterol Albuterol No Albuterol Sulfate Sulfate Sulfate Singulair Singulair No Singulair Promethazin Promethazin No Promethazi e HCl e HCl ne HCl Vitamin D2 Vitamin D2 No Vitamin D2 Pantoprazol Pantoprazol No Pantoprazo e Sodium e Sodium le Sodium Promethazin Promethazin No Promethazi e HCl e HCl ne HCl Ozempic Ozempic No Ozempic Dexcom G6 Dexcom G6 No Dexcom G6 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 - 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 - 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 - HYDROcodone HYDROcodone No HYDROcodon -Acetaminop -Acetaminop e-Acetamin hen hen ophen Entresto Entresto No Entresto 24/26mg 24/26mg 24/26mg Flonase Flonase No Flonase Pantoprazol Pantoprazol No Pantoprazo e Sodium e Sodium le Sodium Vitamin D2 Vitamin D2 No Vitamin D2 Metoprolol Metoprolol No Metoprolol Succinate Succinate Succinate ER ER ER Dexcom G6 Dexcom G6 No Dexcom G6 Sensor - Sensor - Sensor - Citracal Citracal No Citracal Plus Plus Plus Stelara Stelara No Stelara Singulair Singulair No Singulair Zetia 10 MG Zetia 10 MG No 1{table QD Zetia 10 t} MG Vitamin D Vitamin D No Vitamin D Montelukast Montelukast No Montelukas Sodium Sodium t Sodium ZyrTEC ZyrTEC No ZyrTEC Albuterol Albuterol No Albuterol Sulfate Sulfate Sulfate ProAir HFA ProAir HFA No ProAir HFA atorvastati atorvastati No atorvastat n n in Dexcom G6 Dexcom G6 No Dexcom G6 Transmitter Transmitter Transmitte - - r - Aspirin Aspirin No Aspirin Ondansetron Ondansetron No Ondansetro n Ondansetron Ondansetron No Ondansetro n Dexcom G6 Dexcom G6 No Dexcom G6 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 - 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 - 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 - Flonase Flonase No Flonase atorvastati atorvastati No atorvastat n n in ZyrTEC ZyrTEC No ZyrTEC Dexcom G6 Dexcom G6 No Dexcom G6 Sensor - Sensor - Sensor - Vitamin D Vitamin D No Vitamin D Pantoprazol Pantoprazol No Pantoprazo e Sodium e Sodium le Sodium Vitamin D2 Vitamin D2 No Vitamin D2 Albuterol Albuterol No Albuterol Sulfate Sulfate Sulfate Montelukast Montelukast No Montelukas Sodium Sodium t Sodium Zetia 10 MG Zetia 10 MG No 1{table QD Zetia 10 t} MG Entresto Entresto No Entresto 24/26mg 24/26mg 24/26mg Metoprolol Metoprolol No Metoprolol Succinate Succinate Succinate ER ER ER Promethazin Promethazin No Promethazi e HCl e HCl ne HCl Citracal Citracal No Citracal Plus Plus Plus Stelara Stelara No Stelara Aspirin Aspirin No Aspirin Dexcom G6 Dexcom G6 No Dexcom G6 Transmitter Transmitter Transmitte - - r - HYDROcodone HYDROcodone No HYDROcodon -Acetaminop -Acetaminop e-Acetamin hen hen ophen ProAir HFA ProAir HFA No ProAir HFA Singulair Singulair No Singulair Ozempic Ozempic No Ozempic Ondansetron Ondansetron No Ondansetro n Dexcom G6 Dexcom G6 No Dexcom G6 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 - 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 - 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 - Flonase Flonase No Flonase atorvastati atorvastati No atorvastat n n in ZyrTEC ZyrTEC No ZyrTEC Dexcom G6 Dexcom G6 No Dexcom G6 Sensor - Sensor - Sensor - Vitamin D Vitamin D No Vitamin D Pantoprazol Pantoprazol No Pantoprazo e Sodium e Sodium le Sodium Vitamin D2 Vitamin D2 No Vitamin D2 Albuterol Albuterol No Albuterol Sulfate Sulfate Sulfate Montelukast Montelukast No Montelukas Sodium Sodium t Sodium Zetia 10 MG Zetia 10 MG No 1{table QD Zetia 10 t} MG Entresto Entresto No Entresto 24/26mg 24/26mg 24/26mg Metoprolol Metoprolol No Metoprolol Succinate Succinate Succinate ER ER ER Promethazin Promethazin No Promethazi e HCl e HCl ne HCl Citracal Citracal No Citracal Plus Plus Plus Stelara Stelara No Stelara Aspirin Aspirin No Aspirin Dexcom G6 Dexcom G6 No Dexcom G6 Transmitter Transmitter Transmitte - - r - HYDROcodone HYDROcodone No HYDROcodon -Acetaminop -Acetaminop e-Acetamin hen hen ophen ProAir HFA ProAir HFA No ProAir HFA Singulair Singulair No Singulair Ozempic Ozempic No Ozempic Calcium Calcium No Calcium ZyrTEC ZyrTEC No ZyrTEC Vitamin D Vitamin D No Vitamin D atorvastati atorvastati No atorvastat n n in Citracal Citracal No Citracal Plus Plus Plus Albuterol Albuterol No Albuterol Sulfate Sulfate Sulfate Metoprolol Metoprolol No Metoprolol Succinate Succinate Succinate ER ER ER Singulair Singulair No Singulair Pantoprazol Pantoprazol No Pantoprazo e Sodium e Sodium le Sodium Zetia 10 MG Zetia 10 MG No 1{table QD Zetia 10 t} MG Stelara Stelara No Stelara Flonase Flonase No Flonase Montelukast Montelukast No Montelukas Sodium Sodium t Sodium Promethazin Promethazin No Promethazi e HCl e HCl ne HCl Aspirin Aspirin No Aspirin Nebulizer Nebulizer No Nebulizer Ondansetron Ondansetron No Ondansetro n ProAir HFA ProAir HFA No ProAir HFA Vitamin D2 Vitamin D2 No Vitamin D2 Stool Stool No Stool Softener Softener Softener Entresto Entresto No Entresto 24/26mg 24/26mg 24/26mg HYDROcodone HYDROcodone No HYDROcodon -Acetaminop -Acetaminop e-Acetamin hen hen ophen Dexcom G6 Dexcom G6 No Dexcom G6 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 - 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 - 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 - Ozempic Ozempic No Ozempic Dexcom G6 Dexcom G6 No Dexcom G6 Sensor - Sensor - Sensor - Dexcom G6 Dexcom G6 No Dexcom G6 Transmitter Transmitter Transmitte - - r - Calcium Calcium No Calcium ZyrTEC ZyrTEC No ZyrTEC Vitamin D Vitamin D No Vitamin D atorvastati atorvastati No atorvastat n n in Citracal Citracal No Citracal Plus Plus Plus Albuterol Albuterol No Albuterol Sulfate Sulfate Sulfate Metoprolol Metoprolol No Metoprolol Succinate Succinate Succinate ER ER ER Singulair Singulair No Singulair Pantoprazol Pantoprazol No Pantoprazo e Sodium e Sodium le Sodium Zetia 10 MG Zetia 10 MG No 1{table QD Zetia 10 t} MG Stelara Stelara No Stelara Flonase Flonase No Flonase Montelukast Montelukast No Montelukas Sodium Sodium t Sodium Promethazin Promethazin No Promethazi e HCl e HCl ne HCl Aspirin Aspirin No Aspirin Nebulizer Nebulizer No Nebulizer Ondansetron Ondansetron No Ondansetro n ProAir HFA ProAir HFA No ProAir HFA Vitamin D2 Vitamin D2 No Vitamin D2 Stool Stool No Stool Softener Softener Softener Entresto Entresto No Entresto 24/26mg 24/26mg 24/26mg HYDROcodone HYDROcodone No HYDROcodon -Acetaminop -Acetaminop e-Acetamin hen hen ophen Dexcom G6 Dexcom G6 No Dexcom G6 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 - 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 - 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 - Ozempic Ozempic No Ozempic Dexcom G6 Dexcom G6 No Dexcom G6 Sensor - Sensor - Sensor - Dexcom G6 Dexcom G6 No Dexcom G6 Transmitter Transmitter Transmitte - - r - Vitamin D Vitamin D No Vitamin D Flonase Flonase No Flonase Pantoprazol Pantoprazol No Pantoprazo e Sodium e Sodium le Sodium Ondansetron Ondansetron No Ondansetro n Montelukast Montelukast No Montelukas Sodium Sodium t Sodium CoQ10 CoQ10 No CoQ10 Citracal Citracal No Citracal Plus Plus Plus Metoprolol Metoprolol No 1{capsu QD Metoprolol Succinate Succinate le} Succinate 25 MG 25 MG 25 MG Cinnamon Cinnamon No Cinnamon Promethazin Promethazin No Promethazi e HCl e HCl ne HCl Vitamin D2 Vitamin D2 No Vitamin D2 Dexcom G6 Dexcom G6 No Dexcom G6 Sensor - Sensor - Sensor - Dexcom G6 Dexcom G6 No Dexcom G6 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 - 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 - 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 - Entresto Entresto No Entresto 24/26mg 24/26mg 24/26mg Folic Acid Folic Acid No 1{table QD Folic Acid 1 MG 1 MG t} 1 MG metFORMIN metFORMIN No metFORMIN HCl HCl HCl Januvia 25 Januvia 25 No Januvia 25 MG MG MG HYDROcodone HYDROcodone No HYDROcodon -Acetaminop -Acetaminop e-Acetamin hen hen ophen Jardiance Jardiance No 1{table QD Jardiance 25 MG 25 MG t} 25 MG Vitamin B12 Vitamin B12 No Vitamin B12 ProAir HFA ProAir HFA No ProAir HFA Aspirin Aspirin No Aspirin Mercaptopur Mercaptopur No Mercaptopu ine ine rine atorvastati atorvastati No atorvastat n n in Stelara Stelara No Stelara Promethegan Promethegan No Promethega n Ozempic Ozempic No Ozempic Zetia 10 MG Zetia 10 MG No 1{table QD Zetia 10 t} MG Pentasa Pentasa No Pentasa ZyrTEC ZyrTEC No ZyrTEC Zantac Zantac No Zantac Singulair Singulair No Singulair Losartan Losartan No 1{table QD Losartan Potassium Potassium t} Potassium 25 MG 25 MG 25 MG Dexcom G6 Dexcom G6 No Dexcom G6 Transmitter Transmitter Transmitte - - r - Albuterol Albuterol No Albuterol Sulfate Sulfate Sulfate Immunizations Ordered Immunization Filled Immunization Date Status Commen ts Source Name Name YUNIOR UMANZOR 2021-04-07 Completed [facility]00 [facility] Lidocaine Lidocaine 2021-02-20 [facility]00 [facility] Depo-Medrol Depo-Medrol 2021-02-20 Completed [facility] - (Methylprednisolone) (Methylprednisolone 09:50:00 [facility] 40mg ) 40mg [facility] Lidocaine Lidocaine 2021-02-20 [facility]pleted [facility] - 09:50:00 [facility] Depo-Medrol Depo-Medrol 2021-02-20 Completed [facility] - (Methylprednisolone) (Methylprednisolone 09:50:00 [facility] 40mg ) 40mg [facility] Lidocaine Lidocaine 2021-02-20 [facility]pleted [facility] - 09:50:00 [facility] Depo-Medrol Depo-Medrol 2021-02-20 Completed [facility] - (Methylprednisolone) (Methylprednisolone 09:50:00 [facility] 40mg ) 40mg [facility] Hyalgan 20 mg Hyalgan 20 mg 2020-12-19 Completed [facility] - 09:14:00 [facility] Hyalgan 20 mg Hyalgan 20 mg 2020-12-19 Completed [facility] - 09:14:00 [facility] Hyalgan 20 mg Hyalgan 20 mg 2020-12-19 Completed [facility] - 09:14:00 [facility] Hyalgan 20 mg Hyalgan 20 mg 2020-12-12 Completed [facility] - 13:23:00 [facility] Hyalgan 20 mg Hyalgan 20 mg 2020-12-12 Completed [facility] - 13:23:00 [facility] Hyalgan 20 mg Hyalgan 20 mg 2020-12-12 Completed [facility] - 13:23:00 [facility] Hyalgan 20 mg Hyalgan 20 mg 2020-12-05 Completed [facility] - 09:39:00 [facility] Hyalgan 20 mg Hyalgan 20 mg 2020-12-05 Completed [facility] - 09:39:00 [facility] Hyalgan 20 mg Hyalgan 20 mg 2020-12-05 Completed [facility] - 09:39:00 [facility] [place] 2020-12-05 Completed [facility] - (Triamcinolone) (Triamcinolone) 09:38:00 [facility] [place] 2020-12-05 Completed [facility] - (Triamcinolone) (Triamcinolone) 09:38:00 [facility] [place] 2020-12-05 Completed [facility] - (Triamcinolone) (Triamcinolone) 09:38:00 [facility] Bupivicaine [place] Bupivicaine [place] 2020-12-05 Completed [facility] - 09:36:00 [facility] Bupivicaine [place] Bupivicaine [place] 2020-12-05 Completed [facility] - 09:36:00 [facility] Bupivicaine [place] Bupivicaine [place] 2020-12-05 [facility] 2020-[facility] Com[facility] MRNA VACCINATION 00:00:00 [facility] MODERNA COVID-19 2020-08-28 Completed [facility] MRNA VACCINATION 00:00:00 [facility] Lidocaine Lidocaine 2020-04-29 Completed [facility] - 09:33:00 [facility] Lidocaine Lidocaine 2020-04-29 Completed [facility] - 09:33:00 [facility] Lidocaine Lidocaine 2020-04-29 Completed [facility] - 09:33:00 [facility] Depo-Medrol Depo-Medrol 2020-04-29 Completed [facility] - (Methylprednisolone) (Methylprednisolone 09:32:00 [facility] 40mg ) 40mg [facility] Depo-Medrol Depo-Medrol 2020-04-29 Completed [facility] - (Methylprednisolone) (Methylprednisolone 09:32:00 [facility] 40mg ) 40mg [facility] Depo-Medrol Depo-Medrol 2020-04-29 Completed [facility] - (Methylprednisolone) (Methylprednisolone 09:32:00 [facility] 40mg ) 40mg [facility] Hep A / Hep B 2020-04-26 Completed [facility] 00:00:00 [facility] Hep A / Hep B 2019-11-25 Completed [facility] 00:00:00 [facility] Hep B, Adult 2019-10-26 Completed [facility] 00:00:00 [facility] Hepatitis A 2019-10-26 Completed [facility] 00:00:00 [facility] Bupivicaine [place] Bupivicaine [place] 2019-09-12 Completed [facility] - 08:47:00 [facility] Bupivicaine [place] Bupivicaine [place] 2019-09-12 Completed [facility] - 08:47:00 [facility] Bupivicaine Quitman Bupivicaine Quitman 2019-09-12 [facility]pleted [facility] 08:47[facility]00 [facility] Depo-Medrol Depo-Medrol 2019-09-12 Completed [facility] - (Methylprednisolone) (Methylprednisolone 08:46:00 [facility] 40mg ) 40mg [facility] Depo-Medrol Depo-Medrol 2019-09-12 Completed [facility] - (Methylprednisolone) (Methylprednisolone 08:46:00 [facility] 40mg ) 40mg [facility] Depo-Medrol Depo-Medrol 2019-09-12 Completed [facility] (Methylprednisolone) (Methylprednisolone 08:46:00 [facility] 40mg ) 40mg [facility] FLUZONE QUAD 2019-04-12 Completed Druze 00:00:00 [facility] LIDOCAINE HCL LIDOCAINE HCL 2019-02-06 Completed [facility] - 10MG/ML 10MG/ML 09:18:00 [facility] LIDOCAINE HCL LIDOCAINE HCL 2019-02-06 Completed [facility] - 10MG/ML 10MG/ML 09:18:00 [facility] LIDOCAINE HCL LIDOCAINE HCL 2019-02-06 Completed [facility] - 10MG/ML 10MG/ML 09:18:00 [facility] Depo Medrol (40mg) Depo Medrol (40mg) 2019-02-06 Completed [facility] 09:17:00 [facility] Depo Medrol (40mg) Depo Medrol (40mg) 2019-02-06 Completed [facility] 09:17:00 [facility] Depo Medrol (40mg) Depo Medrol (40mg) 2019-02-06 Completed [facility] 09:17:00 [facility] Vital Signs Vital Name Observation Time Observation Value Comments Source height 2021-12-04 09:30:00 67 [in_i] [facility] weight 2021-12-04 09:30:00 217 [lb_av] [facility] temperature 2021-12-04 09:30:00 97.3 [degF] [facility] bmi 2021-12-04 09:30:00 33.98 kg/m2 [facility] blood pressure 2021-12-04 09:30:00 124 mm[Hg] [facility] systolic [facility] blood pressure 2021-12-04 09:30:00 72 mm[Hg] [facility] diastolic [facility] height 2021-07-17 09:00:00 67 [in_i] [facility] weight 2021-07-17 09:00:00 216 [lb_av] [facility] temperature 2021-07-17 09:00:00 97.1 [degF] [facility] bmi 2021-07-17 09:00:00 33.83 kg/m2 [facility] blood pressure 2021-07-17 09:00:00 124 mm[Hg] [facility] systolic [facility] blood pressure 2021-07-17 09:00:00 76 mm[Hg] [facility] diastolic [facility] height 2021-07-10 10:45:00 67 [in_i] [facility] weight 2021-07-10 10:45:00 216 [lb_av] [facility] bmi 2021-07-10 10:45:00 33.83 kg/m2 [facility] blood pressure 2021-07-10 10:45:00 126 mm[Hg] [facility] blood pressure 2021-07-10 10:45:00 82 mm[Hg] [facility] diastolic [facility] height 2021-06-23 10:15:00 67 [in_i] [facility] weight 2021-06-23 10:15:00 216 [lb_av] [facility] temperature 2021-06-23 10:15:00 98.0 [degF] [facility] bmi 2021-06-23 10:15:00 33.83 kg/m2 [facility] blood pressure 2021-06-23 10:15:00 122 mm[Hg] [facility] systolic [facility] blood pressure 2021-06-23 10:15:00 78 mm[Hg] [facility] diastolic [facility] height 2021-04-08 09:30:00 67 [in_i] [facility] weight 2021-04-08 09:30:00 211.8 [lb_av] [facility] bmi 2021-04-08 09:30:00 33.17 kg/m2 [facility] blood pressure 2021-04-08 09:30:00 124 mm[Hg] [facility] blood pressure 2021-04-08 09:30:00 82 mm[Hg] [facility] diastolic [facility] height 2021-02-20 09:15:00 67 [in_i] [facility] weight 2021-02-20 09:15:00 209.8 [lb_av] [facility] bmi 2021-02-20 09:15:00 32.86 kg/m2 [facility] blood pressure 2021-02-20 09:15:00 126 mm[Hg] [facility] systolic [facility] blood pressure 2021-02-20 09:15:00 75 mm[Hg] [facility] diastolic [facility] BMI 2022-06-08 16:03:00 33.02 kg/m2 [facility] Oxygen saturation in 2022-06-08 16:03:00 97 /min [facility] Arterial blood by Pulse oximetry Systolic blood 2022-06-08 16:03:00 120 mm[Hg] Method [facility] pressure Diastolic blood 2022-06-08 16:03:00 84 mm[Hg] [facility] pressure Heart rate 2022-06-08 16:03:00 79 /min [facility] Body temperature 2022-06-08 16:03:00 36.67 Sophie [facility] Body weight 2022-06-08 16:03:00 95.618 kg [facility] Body height 2022-05-22 19:50:00 170.2 cm [facility] Respiratory rate 2022-04-23 17:15:00 13 /min [facility] Procedures Procedure Date / Time Performing Source Performed Clinician MAMMO BREAST SCREEN TOMOSYNTHESIS 2022-07-08 Clotilde Smith Druze BILATERAL 00:00:00 [facility] BCM CHROMOSOME ANALYSIS PANEL [facility] CT BONE MARROW BX W ASP SAME SITE [facility] 16:57:11 [facility] SURGICAL PATHOLOGY REQUEST 2022-04-23 Son Gonzalez 16:50:00 [facility] FLOW CYTOMETRY EVALUATION 2022-04-23 [facility] 16:[facility]00 [facility] CBC WITH PLATELET AND DIFFERENTIAL 2022-04-23 [facility] COMPREHENSIVE METABOLIC PANEL 2022-04-21 Mark Schuster thodist 15:16:00 [facility] SEDIMENTATION RATE 2022-04-21 Mark Schuster Druze 15:16:00 [facility] C-REACTIVE PROTEIN 2022-04-21 MarielyMark pak Druze 15:16:00 [facility] VITAMIN D 25 HYDROXY LEVEL 2022-04-21 MarieylMarko dist 15:16:00 [facility] VITAMIN B12 AND FOLATE 2022-04-21 Mark Schuster Druze 15:16:00 [facility] TOTAL IRON BINDING CAPACITY 2022-04-21 MarielyMark pak Meth odist 15:16:00 [facility] FERRITIN LEVEL 2022-04-21 [facility] 15:16:00 [facility] QUANTIFERON-TB GOLD PLUS, 1 TUBE 2022-04-21 MarielyViolet guillermo Druze 15:16:00 [facility] BASIC METABOLIC PANEL 2022-01-[address] [facility] Druze 14:52:00 Hospital HEPATIC FUNCTION PANEL 2022-01-[address] [facility] Druze 14:52:00 Hospital INTERLEUKIN-2 (IL-2) 2022-01-[address] [facility] Druze 14:52:00 Hospital SEDIMENTATION RATE 2022-01-[address] [facility] Druze 14:52:00 Hospital CBC WITH PLATELET AND DIFFERENTIAL 2022-01-17 [facility] Druze 14:52:00 Hospital ADRIANA SCREEN W IFA W REFLEX TO TITER 2022-01-17 [facility] Druze 14:52:00 Hospital SCLERODERMA ANTIBODY 2022-01-[address] [facility] Druze 14:52:00 Hospital C-REACTIVE PROTEIN 2022-01-[address] [facility] Druze 14:52:00 Hospital ANGIOTENSIN CONVERTING ENZYME 2022-01-17 [facility] thodist 14:52:00 Hospital B NATRIURETIC PEPTIDE 2022-01-[address] [facility] Druze 14:52:00 Hospital ECG 12-LEAD 2022-01-16 [facility] Druze 18:51:22 Hospital ANTINUCLEAR ANTIBODIES (ADRIANA) WITH 2022-01-12 Christiano Redman REFLEX TO TITER, PATTERN, & 17:06:00 [facility] ital SYSTEMIC SCLEROSIS PANEL, IMMUNOFLUORESCENCE SCL-70 ANTIBODY 2022-01-12 Katie Redmanist 17:06:00 [facility] ANTINUCLEAR ANTIBODIES TITER AND 2022-01-12 Katie Redman PATTERN 17:06:00 [facility] CENTROMERE B ANTIBODY (NOT 2022-01-12 Katie Redman dist ORDERABLE) 17:06:00 [facility] REFLEX RNA POLYMERASE III 2022-01-12 Katie Redman ist 17:06:00 [facility] CV HOLTER MONITOR GREATER THAN 48 2021-11-12 Mandeep Velez HOUR 00:00:00 [facility] MRI ENTEROGRAPHY W WO 2021-11-03 Mark Schuster Druze 15:57:00 [facility] POC GLUCOSE 2021-11-03 Mark Schuster 14:38:00 [facility] XR CHEST 2 VW 2021-11-03 Mark Schuster 14:15:37 [facility] SURGICAL PATHOLOGY REQUEST 2021-10-15 Mark Schuster Metho dist 21:39:00 [facility] POC GLUCOSE 2021-10-15 Mark Schuster 20:38:00 [facility] COLONOSCOPY 2021-10-15 MarielyMark pak 19:39:00 [facility] ESOPHAGOGASTRODUODENOSCOPY (EGD) 2021-10-15 MarielyMark 19:39:00 [facility] POC GLUCOSE 2021-10-15 MarielyMark 18:48:00 [facility] ECG 12-LEAD 2021-10-08 Arik Ghotra 16:57:05 Hospital CV PACEMAKER DEFIB ILR 2021-10-08 Mandeep Velez INTERROGATION 00:00:00 [facility] ECG 12-LEAD 2021-09-12 Chhaya Gomez 20:33:28 Hospital Plan of Care Planned Activity Planned Date Details Comments Source Future Scheduled 2022-07-08 Pneumococcal Vaccine: [facility] Test 17:42:29 Pediatrics (0 to 5 Years) and At-Risk Patients (6 to 64 Years) (1 - PCV) [code = Pneumococcal Vaccine: Pediatrics (0 to 5 Years) and At-Risk Patients (6 to 64 Years) (1 - PCV)] Future Scheduled 2022-07-08 DIABETES: RETINAL EYE [facility] Test 17:42:29 EXAM [code = DIABETES: RETINAL EYE EXAM] Future Scheduled 2022-07-08 [facility] 17:42:29 [code = DIABETIC FOOT EXAM] Future Scheduled 2022-07-08 [facility]INE [facility] Test 17:42:29 [code = URINE MICROALBUMIN] Future Scheduled 2022-07-08 Hepatitis C screening [facility] Test 17:42:29 (procedure) [code = 392222710] Future Scheduled 2022-07-08 COLONOSCOPY SCREENING [facility] Test 17:42:29 [code = COLONOSCOPY SCREENING] Future Scheduled 2022-07-08 COVID-19 [facility] 17[facility]29 Moderna risk series) [code = COVID-19 VACCINE (3 - Moderna risk series)] Future Scheduled 2022-07-08 BREAST CANCER [facility] Test 17:42:29 SCREENING [code = BREAST CANCER SCREENING] Future Scheduled 2022-07-08 Screening for [facility] Test 17:42:29 malignant neoplasm of cervix (procedure) [code = 568970554] Encounters Start End Encounter Admission Attending Care Care Encounter Source Date/Time Date/Time Type Type Clinicians Facility Department ID 2021-12-04 Outpatient Jess, STLMLC STLC [id number] Common 10:14:00 Yosvany [facility] 2021-07-30 Outpatient Womack, STLMLC STLC [id number] Common 12:44:44 [facility] [address] [facility] 2021-07-30 Outpatient Womack, STLMLC STLC [id number] Common 11:54:00 [facility] [address] Spir it [facility] 2021-07-30 Outpatient Womack, STLMLC STLC [id number] Common 11:07:24 [facility] [address] Spir [facility] 2022-07-08 2022-07-08 Orders Peakes, 1.2.840.1 [id number] Methodi 00:00:00 00:00:00 Only Webber 40396.1.[address] Ahuja 3.430.2.7 Hospit a .3.837554 l .8 2022-07-08 2022-07-08 Refill Mariely, 1.2.840.1 [id number] Methodi 00:00:00 00:00:[address] [place] 3.430.2.7 Hospit a .3.022429 l .8 2022-06-15 2022-06-15 Telemedici Jaquan, 1.2.840.1 [id number] 21 [id number] Methodi 10:00:00 10:05:13 ne Katie 79831.1.[address] Herlinda 3.430.2.7 Hospit a .3.957668 l .8 2022-06-15 2022-06-15 Outpatient JAQUAN [facility] [id number] [place] 00:00:00 00:00:00 KATIE [address] 2022-06-12 2022-06-12 Travel 1.2.840.1 1.2.579.830 8484 [id number] Methodi 00:00:00 00:00:[address] 3.430.2.7 0.2.7.3.698 Ho spita .3.368232 084.8 l .8 2022-06-08 2022-06-08 Office Gabe, 1.2.840.1 [id number] 2100 [id number] Methodi 10:00:00 10:23:52 Visit Son 74830.1.[address] Henrry 3.430.2.7 Hospit a .3.980031 l .8 2022-06-08 2022-06-08 [facility] [id number] [place] 00:00:00 00:00:[address] SON [address] 2022-06-08 2022-06-08 Travel 1.2.840.1 1.2.874.618 2645 [id number] Methodi 00:00:00 00:00:[address] 3.430.2.7 0.2.7.3.698 Ho spita .3.740310 084.8 l .8 2022-05-22 2022-05-22 Office Analia, 1.2.840.1 [id number] 5334 Methodi 13:40:00 14:46:47 Visit Chhaya 53782.1.[address] 3.430.2.7 Hospit a .3.684579 l .8 2022-05-22 2022-05-22 Outpatient [facility] [id number] [place] 00:00:00 00:00:00 [facility] [address] 2022-05-22 2022-05-22 Travel 1.2.840.1 1.2.188.511 6658 [id number] Methodi 00:00:00 00:00:[address] 3.430.2.7 0.2.7.3.698 Ho spita .3.405529 084.8 l .8 2022-04-28 2022-04-28 Orders Jaquan, 1.2.840.1 [id number] Methodi 00:00:00 00:00:00 Only Katie 42966.1.[address] Herlinda 3.430.2.7 Hospit a .3.777854 l .8 2022-04-28 2022-04-28 Orders Deepika, 1.2.840.1 [id number] Methodi 00:00:00 00:00:00 Only Ramona 35141.1.[address] 3.430.2.7 Hospit a .3.852743 l .8 2022-04-23 2022-04-23 [facility], 1.2.840.1 [id number] [id number] Methodi 10:19:04 23:59:00 Encounter Son 14373.1.[address] Henrry 3.430.2.7 Hospit a .3.580175 l .8 2022-04-23 2022-04-23 [facility] [id number] [place] 00:00:00 00:00:[address] SON [address] 2022-04-23 2022-04-23 Travel 1.2.840.1 1.2.357.993 5015 [id number] Methodi 00:00:00 00:00:[address] 3.430.2.7 0.2.7.3.698 Ho spita .3.365967 084.8 l .8 2022-04-21 2022-04-21 Telephone Benjamin, 1.2.840.1 [id number] 2099 [id number] Methodi 00:00:00 00:00:[address] 3.430.2.7 Hospit a .3.362570 l .8 2022-04-21 2022-04-21 Orders Chantellsheryl, 1.2.840.1 [id number] 21 [id number] Methodi 00:00:00 00:00:00 Only Ramona 03697.1.[address] 3.430.2.7 Hospit a .3.419092 l .8 2022-04-20 2022-04-20 Refill Mariely, 1.2.840.1 [id number] 72954 63592 Methodi 00:00:00 00:00:[address] [place] 3.430.2.7 Hospit a .3.991676 l .8 2022-04-16 2022-04-16 Telephone Cummins, 1.2.840.1 [id number] 2099 [id number] Methodi 00:00:00 00:00:[address] 3.430.2.7 Hospit a .3.981003 l .8 2022-04-08 2022-04-08 Orders Nelsonela, 1.2.840.1 [id number] 3921 Methodi 00:00:00 00:00:00 Only Sis 40303.1.[address] 3.430.2.7 Hospit a .3.113877 l .8 2022-04-07 2022-04-07 Office Gabe, 1.2.840.1 [id number] 2099 [id number] Methodi 10:00:00 10:40:46 Visit Son 77924.1.[address] Henrry 3.430.2.7 Hospit a .3.829351 l .8 2022-04-07 2022-04-07 Outpatient GABE [facility] [id number] [place] 00:00:00 00:00:00 SON [address] 2022-04-07 2022-04-07 Travel 1.2.840.1 1.2.437.021 6658 [id number] Methodi 00:00:00 00:00:[address] 3.430.2.7 0.2.7.3.698 Ho spita .3.712179 084.8 l .8 2022-02-25 2022-02-25 Refill Maria M, 1.2.840.1 [id number] 1535 Methodi 00:00:00 00:00:[address] 3.430.2.7 Hospit a .3.711869 l .8 2022-02-18 2022-02-18 Outpatient STEPHANIE MAN [id number] Stephanie 11:00:00 11:00:00 RACHEL shaw 2022-01-17 2022-01-17 Orders Analia, 1.2.840.1 [id number] Methodi 00:00:00 00:00:00 Only [facility] [address]32.1.[address] 3.430.2.7 Hospit a .3.410308 l .8 2022-01-16 2022-01-16 Lab Analia, 1.2.840.1 [id number] 6442 Methodi 15:10:00 15:15:00 [facility] 91960.1.[address] 3.430.2.7 Hospit a .3.988357 l .8 2022-01-16 2022-01-16 Office Analia, 1.2.840.1 [id number] 3733 Methodi 13:40:00 14:38:32 Visit [facility] 35049.1.[address] 3.430.2.7 Hospit a .3.017114 l .8 2022-01-16 2022-01-16 Outpatient [facility] [id number] [place] 00:00:00 00:00:00 [facility] [address] 2022-01-16 2022-01-16 Outpatient [facility] [id number] [place] 00:00:00 00:00:00 [facility] [address] 2022-01-16 2022-01-16 Travel 1.2.840.1 1.2.725.897 2724 [id number] Methodi 00:00:00 00:00:[address] 3.430.2.7 0.2.7.3.698 Ho spita .3.490356 084.8 l .8 2022-01-12 2022-01-12 Orders Jaquan, 1.2.840.1 [id number] Methodi 00:00:00 00:00:00 Only Katie 15069.1.[address] Herlinda 3.430.2.7 Hospit a .3.169751 l .8 2021-12-22 2021-12-22 (TEL) STLMLC STLMLC [id number] Co mmon 00:00:00 00:00:00 [facility] 2021-12-04 2021-12-04 OFFICE STLMLC STLMLC [id number] Co mmon 00:00:00 00:00:00 VISIT [facility] LEVEL 4 [facility] 2021-11-24 2021-11-24 Orders Valderraban 1.2.840.1 [id number] 21 [id number] Methodi 00:00:00 00:00:[address] V[address] 3.430.2.7 Hospit a .3.617632 l .8 2021-11-03 2021-11-03 [facility] 1.2.840.1 [id number] 2 [id number] Methodi 10:28:07 23:59:[address] 80962.1.[address] 3.430.2.7 Hospit a .3.855573 l .8 2021-11-03 2021-11-03 [facility] 1.2.840.1 [id number] 2 [id number] Methodi 10:00:00 10:27:[address]306.1.[address] 3.430.2.7 Hospit a .3.520144 l .8 2021-11-03 2021-11-03 [facility] 1.2.840.1 [id number] 2100 [id number] Methodi 09:06:59 09:59:00 Encounter Bincy 48707.1.[address] [place] 3.430.2.7 Hospit a .3.720306 l .8 2021-11-03 2021-11-03 [facility], 1.2.840.1 [id number] 2100 [id number] Methodi 08:45:00 09:05:00 Encounter Bincy 38271.1.[address] [place] 3.430.2.7 Hospit a .3.447600 l .8 2021-11-03 2021-11-03 Outpatient [facility] [id number] [place] 00:00:00 00:00:00 BINCY [address] i 2021-11-03 2021-11-03 Outpatient [facility] [id number] [place] 00:00:00 00:00:00 BINCY 304 Method i 2021-11-03 2021-11-03 Outpatient [facility] [id number] [place] 00:00:00 00:00:[address] 2021-11-03 2021-11-03 Outpatient [facility] 675 [id number] [place] 00:00:00 00:00:[address] 2021-11-03 2021-11-03 Travel 1.2.840.1 1.2.829.945 3107 [id number] Methodi 00:00:00 00:00:[address] 3.430.2.7 0.2.7.3.698 spita .3.404597 084.8 l .8 2021-10-28 2021-10-28 Refill Sonu, 1.2.840.1 [id number] 2741 Methodi 00:00:00 00:00:[address] 3.430.2.7 Hospit a .3.760116 l .8 2021-10-28 2021-10-28 Transcribe Lex, 1.2.840.1 [id number] 210 [id number] Methodi 00:00:00 00:00:00 Jude Paulino [address]409.1.[address] 3.430.2.7 Hospit a .3.872024 l .8 2021-10-27 2021-10-27 Telephone Alexis 1.2.840.1 [id number] Methodi 00:00:00 00:00:[address] V[address] 3.430.2.7 Hospit a .3.416890 l .8 2021-10-24 2021-10-24 Telemedici Analia, 1.2.840.1 [id number] 324 [id number] Methodi 16:40:00 17:47:58 ne Chhaya 72578.1.[address] 3.430.2.7 Hospit a .3.358398 l .8 2021-10-24 2021-10-24 Outpatient [facility] [id number] [place] 00:00:00 00:00:00 [facility] [address] 2021-10-24 2021-10-24 Telephone Hernandez, 1.2.840.1 [id number] 2099 [id number] Methodi 00:00:00 00:00:[address] 3.430.2.7 Hospit a .3.060910 l .8 2021-10-24 2021-10-24 Travel 1.2.840.1 1.2.244.692 8031 488694 Methodi 00:00:00 00:00:[address] 3.430.2.7 0.2.7.3.698 Ho spita .3.637605 084.8 l .8 2021-10-22 2021-10-22 Orders Jeri, 1.2.840.1 [id number] Methodi 00:00:00 00:00:00 Only Ramona 31494.1.[address] 3.430.2.7 Hospit a .3.892857 l .8 2021-10-16 2021-10-16 Telephone Barrington 1.2.840.1 [id number] 2099 [id number] Methodi 00:00:00 00:00:00 Manjeet, 13068.1.[address] Sever[address] F. 3.430.2.7 Hosp kellen .3.638862 l .8 2021-10-15 2021-10-15 [facility] 1.2.840.1 [id number] 2100 [id number] Methodi 11:18:00 16:28:00 Encounter Bincy 73754.1.[address] [place] 3.430.2.7 Hospit a .3.199532 l .8 2021-10-15 2021-10-15 Anesthesia Tyree Mike 1.2.840 .1 [id number] Methodi 14:38:00 15:42:00 Event Rachel Tamayo 38463.1.[address] 3.430.2.7 Hospit a .3.458858 l .8 2021-10-15 2021-10-15 Surgery [facility], 1.2.840.1 [id number] Methodi 13:00:00 14:00:[address] [place] 3.430.2.7 Hospit a .3.662014 l .8 2021-10-15 2021-10-15 Outpatient [facility] 021 [id number] [place] 00:00:00 00:00:00 BINCY [address] 2021-10-15 2021-10-15 Travel 1.2.840.1 1.2.204.859 2389 202059 Methodi 00:00:00 00:00:[address] 3.430.2.7 0.2.7.3.698 Ho spita .3.200060 084.8 l .8 2021-10-13 2021-10-13 Telephone Jessy, 1.2.840.1 [id number] 2 [id number] Methodi 00:00:00 00:00:[address] 3.430.2.7 Hospit a .3.605604 l .8 2021-10-08 2021-10-08 Office 1.2.840.1 [id number] Methodi 11:00:00 11:15:[address] 3.430.2.7 Hospit a .3.713136 l .8 2021-10-08 2021-10-08 Outpatient [facility] [id number] [place] 00:00:00 00:00:[address] 2021-10-08 2021-10-08 Documentat Delos 1.2.840.1 [id number] Methodi 00:00:00 00:00:00 ion Manjeet, 63480.1.[address] [facility]. 3.430.2.7 Hosp kellen .3.254376 l .8 2021-10-07 2021-10-07 Travel 1.2.840.1 1.2.519.064 1792 [id number] Methodi 00:00:00 00:00:[address] 3.430.2.7 0.2.7.3.698 Ho spita .3.244542 084.8 l .8 2021-09-30 2021-09-30 Telephone [place] 1.2.840.1 [id number] Methodi 00:00:00 00:00:[address] V[address] 3.430.2.7 Hospit a .3.956322 l .8 2021-09-30 2021-09-30 Orders Analia, 1.2.840.1 [id number] 3328 Methodi 00:00:00 00:00:00 Only Chhaya 36988.1.[address] 3.430.2.7 Hospit a .3.242375 l .8 2021-09-23 2021-09-23 Refill Mariely, 1.2.840.1 [id number] 91475 Methodi 00:00:00 00:00:[address] [place] [address] [place] 3.430.2.7 Hospit a .3.599458 l .8 2021-09-12 2021-09-12 Office [facility], 1.2.840.1 [id number] 8229 Methodi 13:40:00 14:32:46 Visit Chhaya 77610.1.[address] 3.430.2.7 Hospit a .3.056605 l .8 2021-09-12 2021-09-12 Outpatient [facility] [id number] [address] [place] 00:00:00 00:00:00 [facility] [address] 2021-09-12 2021-09-12 Travel 1.2.840.1 1.2.766.206 9155 458113 Methodi 00:00:00 00:00:[address] 3.430.2.7 0.2.7.3.698 Ho spita .3.423462 084.8 l .8 2021-08-07 2021-08-07 Orders Jeri, 1.2.840.1 [id number] 21 [id number] Methodi 00:00:00 00:00:00 Only Ramona 63184.1.[address] 3.430.2.7 Hospit a .3.122004 l .8 2021-07-30 2021-07-30 Telephone Alexis 1.2.840.1 [id number] Methodi 00:00:00 00:00:[address] V[address] 3.430.2.7 Hospit a .3.821257 l .8 2021-07-29 2021-07-29 Refill Mariely, 1.2.840.1 [id number] 91353 Methodi 00:00:00 00:00:[address] [place] 3.430.2.7 Hospit a .3.303299 l .8 2021-07-23 2021-07-23 Outpatient Daniel_T [facility]FP VFP [id number] 7-20 [place] 03:12:00 03:12:00 [id number] Family Practic e 2021-07-232021-07-23 Orders Jeri, 1.2.840.1 [id number] 21 [id number] Methodi 00:00:00 00:00:00 Only Ramona 34433.1.[address] 3.430.2.7 Hospit a .3.557924 l .8 2021-07-17 2021-07-17 (IN/ASP) STLMLC STLMLC [id number] C ommon 00:00:00 00:00:00 INJ ASP [facility] 2021-07-10 2021-07-10 (IN/ASP) STLMLC STLMLC [id number] C ommon 00:00:00 00:00:00 INJ ASP [facility] 2021-06-23 2021-06-23 OFFICE STLMLC STLMLC [id number] Co mmon 00:00:00 00:00:00 VISIT [facility] PT - CHI LEVEL 4 [facility] 2021-06-19 2021-06-19 Telephone Scott RUST [id number] [facility] 00:00:00 00:00:00 Raheel ROMEO [id number] i ty [facility] [id number] Courtney KOLB [phone] Nd dical NAL 5 [facility] 2021-05-26 2021-05-26 Outpatient [facility] [id number] [place] 00:00:00 00:00:00 [facility] [address] 2021-05-02 2021-05-02 Outpatient [facility] [id number] [place] 00:00:00 00:00:00 [facility] [address] 2021-04-09 2021-04-09 (TEL) STLMLC STLMLC [id number] Co mmon 00:00:00 00:00:00 [facility] 2021-04-08 2021-04-08 OFFICE STLMLC STLMLC [id number] Co mmon 00:00:00 00:00:00 VISIT [facility] PT - CHI LEVEL 4 [facility] 2021-03-25 2021-03-25 (TEL) STLMLC STLMLC [id number] Co mmon 00:00:00 00:00:00 [facility] 2021-03-24 2021-03-24 Outpatient ANALIA, [facility] [id number] [place] 00:00:00 00:00:00 CHHAYA [address] 2021-03-24 2021-03-24 Outpatient VALDERRABAN [facility] [id number] [place] 00:00:00 00:00:[address] 2021-02-25 2021-02-25 Outpatient MARIELY, [facility] [id number] [place] 00:00:00 00:00:00 BINCY [address] 2021-02-20 2021-02-20 OFFICE STLMLC STLMLC [id number] Co mmon 00:00:00 00:00:00 VISIT EST Spir it PT LEVEL 3 [facility] 2021-01-24 2021-01-24 Outpatient ANALIA, [facility] [id number] [place] 00:00:00 00:00:00 VERONAKAROLINA [address] 2021-01-10 2021-01-10 Outpatient ANALIA, [facility] [id number] [place] 00:00:00 00:00:00 CHHAYA [address] 2021-01-10 2021-01-10 Outpatient PEAKES, [facility] [id number] [place] 00:00:00 00:00:00 NATALIE [address] 2020-12-19 2020-12-19 Outpatient STLMLC STLMLC [id number] Common 00:00:00 00:00:00 [facility] 2020-12-12 2020-12-12 Outpatient STLMLC STLMLC [id number] Common 00:00:00 00:00:00 [facility] 2020-12-05 2020-12-05 Outpatient STLMLC STLMLC [id number] Common 00:00:00 00:00:00 [facility] 2020-11-29 2020-11-29 Outpatient PEAKESTHELA, [facility] [id number] [place] 00:00:00 00:00:00 NATALIE [address] 2020-10-22 2020-10-22 Outpatient STLMLC STLMLC [id number] Common 00:00:00 00:00:00 [facility] 2020-10-18 2020-10-18 Outpatient ANALIA, [facility] [id number] [place] 00:00:00 00:00:00 MAHWASH [address] 2020-08-23 2020-08-23 Outpatient ANALIA, [facility] [id number] [place] 00:00:00 00:00:00 MAHWASH [address] 2020-07-23 2020-07-23 Outpatient CHAVEZ, DIPAN [facility] [id number] [place] 00:00:00 00:00:[address] 2020-07-23 2020-07-23 Outpatient ANALIA, [facility] [id number] [place] 00:00:00 00:00:00 MAHWASH [address] 2020-07-23 2020-07-23 Outpatient CHAVEZ, DIPAN [facility] [id number] [place] 00:00:00 00:00:[address] 2020-07-23 2020-07-23 Outpatient CHAVEZ, DIPAN [facility] [id number] [place] 00:00:00 00:00:00 [address] 2020-05-10 2020-05-10 Outpatient ANALIA, [facility] [id number] [place] 00:00:00 00:00:00 MAHWASH [address] 2020-05-07 2020-05-07 Outpatient PEAKES, [facility] [id number] [place] 00:00:00 00:00:00 NATALIE [address] 2020-04-29 2020-04-29 Outpatient STLMLC STLMLC [id number] Common 00:00:00 00:00:00 [facility] 2020-03-21 2020-03-21 Outpatient DELOS [facility] [id number] [place] 00:00:00 00:00:00 Magalie STANTON Method i SEVERO 2020-03-14 2020-03-14 Patient Akua RUST [id number] 00:00:00 00:00:00 Secure Msg Claire FLANAGANPEC [id number] [facility] [id number] FLUSHING [id number] AND NEUMANN [facility] 2020-03-13 2020-03-13 Outpatient ANALIA, [facility] [id number] [place] 00:00:00 00:00:00 CHHAYA [address] 2020-02-26 2020-02-26 Outpatient MARIELY, [facility] [id number] [place] 00:00:00 00:00:00 MARK [address] 2020-02-23 2020-02-23 Outpatient ANALIA, [facility] [id number] [place] 00:00:00 00:00:00 VERONAKAROLINA [address] 2020-02-23 2020-02-23 Outpatient ANALIA, [facility] [id number] [place] 00:00:00 00:00:00 VERONAKAROLINA [address] 2020-01-12 2020-01-12 Outpatient ANALIA, [facility] [id number] [place] 00:00:00 00:00:00 VERONAKAROLINA [address] 2019-12-29 2019-12-29 Outpatient ANALIA, [facility] [id number] [place] 00:00:00 00:00:00 CHHAYA [address] 2019-12-27 2019-12-28 Outpatient VALDERRABAN [facility] [id number] [place] 00:00:00 00:00:[address] 2019-12-22 2019-12-22 Outpatient VALDERRABAN [facility] [id number] [place] 00:00:00 00:00:00 O[address]ALINO [address] 2019-12-11 2019-12-11 Outpatient MARIELY, [facility] [id number] [place] 00:00:00 00:00:00 BINCY [address] 2019-12-11 2019-12-11 Outpatient MARIELY, [facility] [id number] [place] 00:00:00 00:00:00 BINCY [address] 2019-12-11 2019-12-11 Outpatient MARIELY, [facility] [id number] [place] 00:00:00 00:00:00 BINCY [address] 2019-11-09 2019-11-09 Outpatient [facility] [id number] [place] 00:00:00 00:00:00 035 [address] 2019-10-05 2019-10-05 Outpatient JAQUAN, [facility] [id number] [place] 00:00:00 00:00:00 KATIE 8[address] 2019-09-29 2019-09-29 Outpatient ANALIA, [facility] [id number] [place] 00:00:00 00:00:00 MAHWASH [address] 2019-09-27 2019-09-27 Sandra Sanders RUST [id number] 00:00:00 00:00:00 [facility] [id number] Yoder [id number] Jeff [phone] [facility] 220 [facility] 2019-09-12 2019-09-12 Outpatient [facility] [id number] Common 09:15:00 09:15:00 [facility] 2019-09-12 2019-09-12 Outpatient [facility] [id number] Common 08:00:00 08:00:00 [facility] 2019-08-02 2019-08-02 Outpatient ANALIA, [facility] [id number] [place] 00:00:00 00:00:00 MAHCLARENCE [address] 2019-04-05 2019-04-05 Outpatient SCOTT [facility] [id number] [place] 00:00:00 00:00:00 ROGERIO [address] 2019-02-06 2019-02-06 Out[facility] [id number] Common 08:30:00 08:30:00 t [facility] 2018-10-17 2018-10-17 Outpatient Azalea BONILLA [facility] [id number] Univers 09:00:00 09:29:11 SHARLA parrish [facility] 2018-08-15 2018-08-15 Outpatient [facility] [id number] Common 08:00:00 08:00:00 t [facility] 2018-08-04 2018-08-04 Outpatient Azalea MATUTE [facility] [id number] Univers 12:20:00 12:14:26 CLAIRE robles [facility] 2018-06-13 2018-06-13 Outpatient [facility]io [facility] [id number] Common 10:30:00 10:30:00 t [facility] Results Test Description Test Time Test Comments Results Result Comments Source Surgical pathology request 2022-04-29 18:49:42 Test Item Value Reference Range Interpretation Comme nts Case number (test code = [id number]) [id number] Surgical pathology report (test code = See link below for PDF Lab R eport 2255) Result status (test code = 1863201) This is Final Report for [id number] 0390-3 [facility] cytometry [id number] 18:48:25 Test Item Value Reference Range Interpretation Comments Case number (test code = [id number]) Flow cytometry evaluation See link below for (test code = 4856108) PDF Lab Report [facility] SpringsComprehensive metabolic [id number] 14:52:00 Test Item Value Reference Range Interpretation Comments Glucose (test TNP mg/dL TEST NOT code = 2345-7) PERFORMED No specimen received. RAC (test code = Performing RAC) Organization Information: Site ID: [facility] Name: [facility] Address: [address] [place] [phone] Director: Jose Elias Forman [facility] SpringsFerritin [id number] 14:52:00 Test Item Value Reference Range Interpretation Comments Ferritin level TNP ng/mL TEST NOT (test code = PERFORMED No 2276-4) specimen received. RAC (test code = Performing RAC) Organization Information: Site ID: [facility] Name: [facility] Address: [address] [place] [phone] Director: Jose Elias Forman [facility] SpringsC-reactive [id number] 14:52:00 Test Item Value Reference Range Interpretation Comments CRP (test code TNP mg/L TEST NOT PERF ORMED = 1987-) No specimen received. RAC (test code Performing = RAC) Organization Information: Site ID: RGA Name: [facility] Lab Address: [address] [place] [phone] Director[facility] Hospitalediment[facility] [id number] 14:52:00 Test Item Value Reference Range Interpretation Comments Sedimentation rate TNP mm/h TEST NOT (test code = 4537-7) PERFORM ED No lavender-top tube received. RAC (test code = Performing RAC) Organization Information: Site ID: A Name: [facility] Lab Address: [address] [place] [phone] Director: [facility]Vitamin D 25 hydroxy [id number] 14:52:00 Test Item Value Reference Range Interpretation Comments Vitamin D, TNP ng/mL TEST NOT 25-hydroxy (test PERFORMED N o code = 1988-09) specimen received. RAC (test code = Performing RAC) Organization Information: Site ID: A Name: [facility] Lab Address: [address] [place] [phone] Director: [facility] HospitalTotal iron binding [id number] 14:52:00 Test Item Value Reference Range Interpretation Comments Iron level TNP mcg/dL TEST NOT PERFOR MED (test code = No specimen 2498-4) received. RAC (test code Performing = RAC) Organization Information: Site ID: A Name: [facility] Lab Address: [address] [place] [phone] Director: [facility] HospitalVitamin B12 and [id number] 14:52:00 Test Item Value Reference Range Interpretation Comments Vitamin B12 TNP pg/mL TEST NOT (test code = PERFORMED No 2132-9) specimen received. RAC (test code = Performing RAC) Organization Information: Site ID: A Name: [facility] Address: [address] [place] [phone] Director: [facility] HospitalQuantiFERON-TB Gold Plus, 1 [id number] 14:52:00 Test Item Value Reference Range Interpretation Comments Quantiferon TB gold TNP TEST NOT plus (test code = PERFORMED The 15730-4) specimen exceed s stability for the test requested. RAC (test code = Performing RAC) Organization Information: Site ID: MAHESH Name: [facility] Address: [address] [place] [phone] Director: Jose Elias Forman [facility] metabolic [id number] 00:59:00 Test Item Value Reference Range Interpretation Comments Glucose (test code = 169 mg/dL 65-99 H Fastin g 2345-7) reference interval For someone without known diabetes, a glucosevalue >1 25 mg/dL indicates that they may havediabetes an d this should be confirmed with afollow-up test . BUN (test code = 6 mg/dL 7-25 L 3094-0) Creatinine (test 0.44 mg/dL 0.50-0.99 L code = 2160-0) eGFR (test code = See_Comment The eGFR i s based 8257) on the CKD-EPI 2020 equation. To calculate the n ew eGFR from a previous Creatinine or Cystatin Cresul t, go to https://www.kid ne y.org/professio na ls/kdoqi/gfr%5F ca lculator [Automated message] The system which generated this result transmitted reference range : > OR = 60 mL/min/1.73m2. The reference range was not used to interpr et this result as normal/abnormal . BUN/creatinine ratio See_Comment [Autom ated (test code = 3097-3) message ] The system which generated this result transmitted reference range : 6 - 22 (calc). The reference range was not used to interpr et this result as normal/abnormal . Sodium (test code = 140 mmol/L 201-173 0170-2) Potassium (test code 3.8 mmol/L 3.5-5.3 = 2823-3) Chloride (test code 105 mmol/L 98-110 = 2075-0) CO2 (test code = 26 mmol/L 20-32 2027-9) Calcium (test code = 9.6 mg/dL 8.6-10.2 75011-2) HIPOLITO (test code = FASTING:YES HIPOLITO) FASTING: YES RAC (test code = Performing RAC) Organization Information: Site ID: MAHESH Name: [facility] Address: [address] [place] [phone] Director: Jose Elias Forman Lab Interpretation Abnormal (test code = 30963-9) [facility] SpringsHepatic function [id number] 00:59:00 Test Item Value Reference Range Interpretation Comments Protein (test code = 6.4 g/dL 6.1-8.1 2885-2) Albumin, S (test 4.1 g/dL 3.6-5.1 code = 1751-7) Globulin, total See_Comment [Automated (test code = message] The ) system which generated this result transmitted reference range : 1.9 - 3.7 g/dL (calc). The reference range was not used to interpret this result as normal/abnormal . Albumin/globulin See_Comment [Automated ratio (test code = message] The ) system which generated this result transmitted reference range : 1.0 - 2.5 (calc ). The reference range was not used to interpr et this result as normal/abnormal . Total bilirubin 0.5 mg/dL 0.2-1.2 (test code = 1974-08) Bilirubin direct 0.1 mg/dL See_Comment [Automated (test code = 1968-01) message ] The system which generated this result transmitted reference range : < OR = 0.2. The reference range was not used to interpret this result as normal/abnormal . Bilirubin, indirect See_Comment [Automa saad (test code = 1970-07) message ] The system which generated this result transmitted reference range : 0.2 - 1.2 mg/dL (calc). The reference range was not used to interpret this result as normal/abnormal . Alkaline phosphatase 132 U/L 31-125 H (test code = 6768-6) AST (test code = 17 U/L 10-35 1920-8) ALT (test code = 17 U/L 6-29 1742-6) HIPOLITO (test code = FASTING:YES HIPOLITO) FASTING: YES RAC (test code = Performing RAC) Organization Information: Site ID: A Name: [facility] Address: [address] [place] [address] Director: Jose Elias Forman Lab Interpretation Abnormal (test code = 50923-5) [facility] SpringsB natriuretic [id number] 00:59:00 Test Item Value Reference Range Interpretation Comments BNP (test 12 pg/mL See_Comment BNP levels inc rease code = with age in the 09231-4) generalpopulati on with the highest ute ues seen inindividuals g reater than 75 years o f age.Reference: J. Am. Ryland. Cardiol. 2002; 40:976-982. [Au tomated message] The sy stem which generated this result transmit saad reference range : <=100. The reference r nedra was not used to int erpret this result as normal/abnormal . HIPOLITO (test FASTING:YES code = HIPOLITO) FASTING: YES RAC (test Performing code = RAC) Organization Information: Site ID: RGA Name: [facility] Address: [address] [place] [phone] Director: Jose Elias Forman [facility] SpringsAngiotensin converting [id number] 00:59:00 Test Item Value Reference Range Interpretation Comments Angiotensin converting 49 U/L 9-67 enzyme (test code = 2742-5) HIPOLITO (test code = HIPOLITO) FASTING:YES FASTING: YES RAC (test code = RAC) Performing Organization Information: Site ID: IG Name: [facility] Lab Address: [address] [place] [address] Director: Dr. Jose Elias Forman [facility] Hospitalcleroderma [id number] 00:59:00 Test Item Value Reference Range Interpretation Comments Scleroderma SCL-70 <1.0 NEG See_Comment [Automat ed Ab (test code = message] The 12110-2) system which generated this result transmitted reference range : <1.0 NEG AI. Th e reference range was not used to interpret this result as normal/abnormal . HIPOLITO (test code = FASTING:YES HIPOLITO) FASTING: YES RAC (test code = Performing RAC) Organization Information: Site ID: IG Name: [facility] Address: [address] [place] [phone] Director: Dr. Jose Elias Forman [facility] HospitalSSA[facility]SSB [id number] 00:59:00 Test Item Value Reference Range Interpretation Comments Sjogren's SS-A <1.0 NEG See_Comment [Automated antibody (test message] The code = 61360-0) system which generated this result transmit saad reference range : <1.0 NEG AI. Th e reference range was not used to interpret this result as normal/abnormal . Sjogren's SS-B <1.0 NEG See_Comment [Automated antibody (test message] The code = 11350-3) system which generated this result transmit saad reference range : <1.0 NEG AI. Th e reference range was not used to interpret this result as normal/abnormal . HIPOLITO (test code = FASTING:YES FASTING: HIPOLITO) YES RAC (test code = Performing RAC) Organization Information: Site ID: IG Name: [facility] Address: [address] [place] [phone] Director: Dr. Jose Elias Forman [facility] SpringsANA SCREEN W IFA W REFLEX TO [id number] 00:59:00 Test Item Value Reference Interpretation Comments Range ADRIANA Screen (test POSITIVE NEGATIVE A ADRIANA IFA is a first code = 52599-2) line screen for detecting thepr esence of up to approx imately 150 autoantibod ies invarious autoi mmune diseases. A pos itive ADRIANA IFA resulti s suggestive of autoimmune dise ase and reflexes totite r and pattern. Furthe r laboratory test ing may beconsidered if clinically jenniffer cated. For additional information, pl ease refer tohttp://educat ion.Que stDiagnostics.c om/faq/ XQD085(This halina k is being provided for informational/e ducatio nal purposes on ly.) ADRIANA titer (test 1:80 titer H A low level ADRIANA titer code = 5048-4) may be presen t in pre-clinicalaut oimmune diseases and no rmal individuals. Re ference Range <1:40 Neg ative 1:40-1:80 Low A ntibody Level >1:80 El evated Antibody Level ADRIANA pattern (test Nuclear, A Homogeneou s pattern is code = 24611-5) Homogeneous associated w ith systemic lupuserythemato harjinder (SLE), drug-ind uced lupus and juvenileidiopat hic arthritis. AC-1 : Homogeneous International Consensus on AN A Patterns(https: //doi.o rg/10.1515/cclm -2017-0 052) HIPOLITO (test code = FASTING:YES HIPOLITO) FASTING: YES RAC (test code = Performing RAC) Organization Information: Site ID: IG Name: [facility] Address: [address] [place] [address] Director: Dr. Jose Elias Forman Lab Interpretation Abnormal (test code = 57075-3) [facility] SpringsInterleukin-2 (IL-2)2022-02-05 00:59:00 Test Item Value Reference Interpretation Comments Range Interleukin 2 <38 LESS THAN 38 To convert pg /mL IL-2 to (IL 2) (test pg/mL NIBSC units (U/ mL), multiply code = [place]pg/[place] [address]-0) 0.026. This ass ay was performedusing the [employer] IL-2 NAWAF A kit. This test was perfor med using a kit that has no t beencleared or approved by the FDA. The analytical performancechar acteristics of this test have been determined by [facility]. Thi s testshould not be used for diagnosis without confirm ation byother medically estab lished means. HIPOLITO (test code FASTING:YES = HIPOLITO) FASTING: YES RAC (test code Performing = RAC) Organization Information: Site ID: EZ Name: [facility], Address: [address] [place] [address] Director: Billie Jordan MD,PhD,BLANCA [facility] SpringsANTINUCLEAR ANTIBODIES TITER AND [id number] 22:42:00 Test Item Value Reference Interpretation Comments Range ADRIANA titer (test 1:40 titer H A low level ADRIANA titer may code = 5048-4) be present in pre-clinicalaut oimmune diseases and no rmal individuals. Re ference Ranges for Anti -Nuclear Ab Titer: <1:40 Ne gative 1:40-1:80 Low A ntibody Level >1:80 Mildred vated Antibody Level ADRIANA pattern (test NUCLEAR, Homogeneou s pattern is code = 51487-3) HOMOGENEOUS associated w ith systemic lupuserythemato harjinder (SLE), drug-induced calli pus and juvenileidiopat hic arthritis. AC-1 : HomogeneousInte rnational Consensus on AN A Patternshttps:/ /doi.org/10 .1515/[facility]-2018 -0052 HIPOLITO (test code = FASTING:YES HIPOLITO) FASTING: YES RAC (test code = Performing RAC) Organization Information: Site ID: EZ Name: [facility], Address: [address] [place] [address], [place] [address] Director: Billie Jordan MD,PhD,BLANCA Lab Abnormal Interpretation (test code = 80004-6) Mandeep Renee IFA W REFLEX TO [id number] 22:42:00 Test Item Value Reference Interpretation Comments Range ADRIANA Screen (test POSITIVE NEGATIVE A ADRIANA IFA is a first line code = 14701-6) screen for d etecting the presence ofup t o approximately 1 50 autoantibodies in various autoimmunedisea ses. A positive ADRIANA IF A result is suggestive ofautoimmune di sease and reflexes to tit er and pattern.Further laboratory test ing may be considered if clinicallyindic ated. For additional info rmation, please refer tohttp://educat ion.Feusd/ faq/ZIN891 (This link is b ei provided for information/edu cationalpu rposes only.) Interpretation SEE NOTE Thirty percen t to 60% of (test code = patients with s ystemic 8411251) sclerosishave S cl-70 (anti-topoisome rase antibodies), anti-centromere B antibodies, and /or anti-RNA polyme rase III antibodies.Curr ent [employer] Colleg e of Rheumatology classificationc riteria for systemic sc lerosis includes antibo dies toScl-70, centr omere and RNA polymerase III. Scl-70 antibody positivity is f ound in 20-60% of patie ntswith diffuse cutaneo us scleroderma, an d 31-36% of Scl-70antibo dy patients have l imited scleroderma. Scl-70positivit y is associated with scleroderma pul monary disease. Centro mere B antibody positi vity is found in 64-95% ofpatients with a limited form of cutaneo us systemic sclero sis; patients may pr esent with "CREST" syndrom e, a complex ofsubcu taneous calcinosis, Ray naud's phenomenon, esophagealdysmo tility, sclerodactyly, and telangiectasias . Scl-70 andcentromere B antibodies are almost mutually exclus juan, beingpresent simultaneously in less than 0.5% of pa tients withsystemic sc lerosis. The rare patien t with both antibodies typically has diffuse sub cutaneous sclerosis and f eatures ofCREST. RNA po lymerase III antibodies are >99% specific for systemicscleros is and are associated with diffuse cutaneous disea seand high risk for sclero derma renal crisis, b ut a lowincidence of severe pulmonary fibro sis. While absence of thes e antibodies does not rule out adiagnosis of scleroderma, consideration s hould be given todisease s associated with the other autoantibody markersincluded in the ADRIANA IFA screen. HIPOLITO (test code = FASTING:YES HIPOLITO) FASTING: YES RAC (test code = Performing RAC) Organization Information: Site ID: EZ Name: [facility], Address: [address] [place], [place] [id number] Director: Billie Jordan MD,PhD,BLANCA Lab Interpretation Abnormal (test code = 07679-3) [facility] [id number] 22:42:00 Test Item Value Reference Range Interpretation Comments Scleroderma SCL-70 <1.0 NEG See_Comment [Automat ed Ab (test code = message] The 30750-0) system which generated this result transmitted reference range : <1.0 NEGATIVE A I. The reference range was not used to interpr et this result as normal/abnormal . HIPOLITO (test code = FASTING:YES HIPOLITO) FASTING: YES RAC (test code = Performing RAC) Organization Information: Site ID: EZ Name: [facility], Address: [address] [place] [id number] Director: Billie Jordan MD,PhD,BLANCA [facility]ENTR[facility] B [id number] 22:42:00 Test Item Value Reference Range Interpretation Comments Centromere <1.0 NEG See_Comment [Automated antibody (test message] The code = 95069-6) system which generated this result transmit saad reference range : <1.0 NEGATIVE A I. The reference range was not u sed to interpret th is result as normal/abnormal . HIPOLITO (test code = FASTING:YES HIPOLITO) FASTING: YES RAC (test code = Performing RAC) Organization Information: Site ID: EZ Name: [facility], Address: [address] [place] [address] Director: Billie Jordan MD,PhD,BLANAC [facility] Springs[facility] Polymerase [id number] 22:42:00 Test Item Value Reference Range Interpretation Comments RNA polymerase <20 See_Comment [Automated III (test code = message] Th e 37431-7) system which generated this result transmit saad reference range : <20 Units. The reference range was not used to interpret this result as normal/abnormal . HIPOLITO (test code = FASTING:YES HIPOLITO) FASTING: YES RAC (test code = Performing RAC) Organization Information: Site ID: EZ Name[facility], Address: [address] [place] [address] Director: Billie Jordan MD,PhD,BLANCA [facility] SpringsEC 12 [id number] 05:46:39 Test Item Value Reference Range Interpretation Comments Ventricular rate (test code = 253) Atrial rate (test code = 255) NV interval (test code = 266) QRSD interval (test code = 260) QT interval (test code = 264) QTC interval (test code = 265) P axis 1 (test code = 267) QRS axis 1 (test code = 268) T wave axis (test code = 270) EKG impression (test Electronic ventricular code = 273) pacemaker-Electronical ly Signed By Yosef Gonzales MD ([id number]) on 01/17/2022 12:46:33 AM [facility] [id number] 14:40:00 Test Item Value Reference Range Interpretation Comments POC glucose (test code = 184 mg/dL 65-99 H Ope rator Name: 07343-4) Clovis Barrett ID: [id number] Lab Interpretation (test Abnormal code = 60696-3) [facility] coronavirus 2 RNA [Presence] in Respiratory specimen by TANIKA with probe [id number] 22:09:03 Test Item Value Reference Range Interpretation Comments SARS coronavirus 2 RNA Not detected Not-Detected [Presence] in Respiratory specimen by TANIKA with probe detection (test code = 50287-8) SALONI ANDREWS
[2022-07-12 11:31] LABS: SARS-COV-2 RT PCR NEGATIVE (NEGATIVE)
--- NOTE | 2022-07-12 11:43 | RAD REPORT ---
EXAM DESCRIPTION: RAD - Chest Single View - 07/12/2022 11:28 am CLINICAL HISTORY: COUGH Chest pain. COMPARISON: Chest Pa And Lat (2 Views) dated 03/25/2022; Chest Pa And Lat (2 Views) dated 12/19/2021; Chest Pa And Lat (2 Views) dated 07/02/2019; Chest Pa And Lat (2 Views) dated 10/21/2018 FINDINGS: Portable technique limits examination quality. Mild interstitial pulmonary opacities bilaterally suggesting bronchitis/ viral infection. The heart i s normal in size. Multi lead pacer/defibrillator device.
--- NOTE | 2022-07-12 12:09 | ER ---
Nurse's Notes [facility] Name: Kathe Del Rio Age: 46 yrs Sex: Female : 1975 Arrival Date: 07/12/2022 Time: 10:07 Bed 18 Private MD: Yosvany Mercado V Diagnosis: Cough Presentation: 07/12 10:13 Chief complaint: Sinus congestion and cough x 3 days. Coronavirus screen: At this time, hb the client does not indicate any symptoms associated with coronavirus-19. Ebola Screen: No symptoms or risks identified at this time. Initial Sepsis Screen: Does the patient meet any 2 criteria? No. Patient's initial sepsis screen is negative. Does the patient have a suspected source of infection? No. Patient's initial sepsis screen is negative. Risk Assessment: Do you want to hurt yourself or someone else? Patient reports no desire to harm self or others. Onset of symptoms was July 09, 2022. 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 - Social history:: Smoking status: Patient reports the use of cigarette tobacco products, smokes one-half pack cigarettes per day. Screenin:50 [facility] ED Fall Risk Assessment (Adult) History of falling in the last 3 months, kr3 including since admission No falls in past 3 months (0 pts) Confusion or Disorientation No (0 pts) Intoxicated or Sedated No (0 pts) Impaired Gait No (0 pts) Mobility Assist Device Used No (0 pt) Altered Elimination No (0 pt) Score/Fall Risk Level 0 - 2 = Low Risk Oriented to surroundings, Maintained a safe environment, Assessed \T\ reinforced patient's understanding of fall precautions, Hourly rounding (assess needs \T\ fall precautionary measures) done. Abuse screen: Denies threats or abuse. Nutritional screening: No deficits noted. Tuberculosis screening: No symptoms or risk factors identified. Assessment: 10:15 General: Appears in no apparent distress. comfortable, Behavior is calm, cooperative, kr3 appropriate for age. Pain: Denies pain. Neuro: Level of Consciousness is awake, alert, obeys commands, Oriented to person, place, time, situation. Cardiovascular: Patient's skin is warm and dry. Respiratory: Airway is patent Respiratory effort is even, unlabored, Respiratory pattern is regular, symmetrical. GI: No signs and/or symptoms were reported involving the gastrointestinal system. : No signs and/or symptoms were reported regarding the genitourinary system. EENT: Reports bark like cough. Derm: No signs and/or symptoms reported regarding the dermatologic system. Musculoskeletal: Circulation, motion, and sensation intact. 11:15 Reassessment: Patient appears in no apparent distress at this time. Patient and/or kr3 family updated on plan of care and expected duration. Pain level reassessed. Patient is alert, oriented x 3, equal unlabored respirations, skin warm/dry/pink. 12:20 Reassessment: Patient appears in no apparent distress at this time. Patient is alert, kr3 oriented x 3, equal unlabored respirations, skin warm/dry/pink. Vital Signs: 10:13 BP 135 / 78; Pulse 82; Resp 16; Temp 98.4; Pulse Ox 96% on R/A; Weight 91.17 kg; Height hb 5 ft. 7 in. (170.18 cm); Pain 1/10; 10:53 BP 135 / 78; Pulse 89; Resp 18; Pulse Ox 99% on R/A; kr3 12:20 BP 130 / 67; Pulse 78; Resp 18; Pulse Ox 95% on R/A; kr3 10:13 Body Mass Index 31.48 (91.17 kg, 170.18 cm) ED Course: 10:07 Patient arrived in ED. am2 10:07 Yosvany Mercado MD is Private Physician. am2 10:12 Erica Duran, RICH is Primary Nurse. kr3 10:14 Triage completed. hb 10:14 Arm band placed on. hb 10:20 Sean Stone PA is PHCP. m 10:20 Julio Alan MD is Attending Physician. jmm 10:30 COVID-19/FLU A+B Sent. kr3 10:40 Strep Sent. kr3 11:30 Chest Single View XRAY In Process Unspecified. EDMS 12:08 Yosvany Mercado MD is Referral Physician. [facility] 12:22 No provider procedures requiring assistance completed. Patient did not have IV access kr3 during this emergency room visit. 12:23 Bed in low position. Call light in reach. Side rails up X 1. kr3 Administered Medications: No medications were administered Medication: 12:23 VIS not applicable for this client. kr3 Outcome: 12:09 Discharge ordered by . jaylene 12:22 Discharged to home ambulatory. kr3 12:22 Condition: stable 12:22 Discharge instructions given to patient, Instructed on discharge instructions, follow up and referral plans. medication usage, Demonstrated understanding of instructions, follow-up care, medications, Prescriptions given X 1. 12:24 Patient left the ED. kr3 Signatures: Dispatcher [employer] EDMS Sean Stone PA PA jmm Baxter, Heather, RN RN Katie Cotto am2 Erica Duran RN RN kr3
--- NOTE | 2022-07-12 12:09 | EDPHYS ---
Physician Documentation [facility] Name: Kathe Del Rio Age: 46 yrs Sex: Female : 1975 Arrival Date: 07/12/2022 Time: 10:07 Bed 18 Private MD: Yosvany Mercado V ED Physician Julio Alan HPI: 07/12 10:21 This 46 yrs old Female presents to ER via Ambulatory with complaints of Cough, Nasal jmm Drainage. 10:21 The patient or guardian reports cough. Onset: The symptoms/episode began/occurred jmm gradually, 1 week(s) ago. Modifying factors: The symptoms are alleviated by nothing, the symptoms are aggravated by nothing. Associated signs and symptoms: Pertinent positives: sore throat, Pertinent negatives: fever. This is a 46 year old female with a history of crohns, lbb, psoriasis, that presents to the ED with complaints of cough, congestion, sore throat beginning approx 1 week ago. Denies vomiting. Denies SOB. . 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 - Social history:: Smoking status: Patient reports the use of cigarette tobacco products, smokes one-half pack cigarettes per day. ROS: 10:21 Constitutional: Negative for fever, chills, and weight loss, Cardiovascular: Negative jmm for chest pain, palpitations, and edema. 10:21 Respiratory: Positive for cough, shortness of breath. 10:21 Abdomen/GI: Negative for nausea and vomiting. 10:21 All other systems are negative. Exam: 10:21 Constitutional: This is a well developed, well nourished patient who is awake, alert, jmm and in no acute distress. Head/Face: atraumatic. Eyes: EOMI, no conjunctival erythema appreciated 10:21 Neck: Trachea midline, Supple Chest/axilla: Normal chest wall appearance and motion. Cardiovascular: Regular rate and rhythm. No edema appreciated Abdomen/GI: Non distended Back: Normal ROM Skin: General appearance color normal MS/ Extremity: Moves all extremities, no obvious deformities appreciated, no edema noted to the lower extremities Neuro: Awake and alert Psych: Behavior is normal, Mood is normal, Patient is cooperative and pleasant 10:21 ENT: Posterior pharynx: erythema, that is moderate. 10:21 Respiratory: the patient does not display signs of respiratory distress, Respirations: normal, Breath sounds: bronchial sounds, that are mild, are heard in the left posterior lower lobe and right posterior lower lobe. Vital Signs: 10:13 BP 135 / 78; Pulse 82; Resp 16; Temp 98.4; Pulse Ox 96% on R/A; Weight 91.17 kg; Height hb 5 ft. 7 in. (170.18 cm); Pain 1/10; 10:53 BP 135 / 78; Pulse 89; Resp 18; Pulse Ox 99% on R/A; kr3 12:20 BP 130 / 67; Pulse 78; Resp 18; Pulse Ox 95% on R/A; kr3 10:13 Body Mass Index 31.48 (91.17 kg, 170.18 cm) hb MDM: 10:[address] [facility] 12:08 Data reviewed: vital signs, nurses notes. Counseling: I had a detailed discussion with jaylene the patient and/or guardian regarding: the historical points, exam findings, and any diagnostic results supporting the discharge/admit diagnosis, the need for outpatient follow up, to return to the emergency department if symptoms worsen or persist or if there are any questions or concerns that arise at home. 07/12 10:25 Order name: COVID-19/FLU A+B; Complete Time: 11:35 [facility] 07/12 10:30 Order name: Strep; Complete Time: 11:17 [facility] 07/12 10:30 Order name: Chest Single View XRAY; Complete Time: 11:50 [facility] 07/12 11:16 Order name: Throat Culture EDMS Administered Medications: No medications were administered Disposition: 15:10 Co-signature as Attending Physician, Julio Alan MD. rn Disposition Summary: 07/12/22 12:09 Discharge Ordered Location: Home [facility] Condition: Stable [facility] Diagnosis - Cough [facility] Followup: [facility] - With: Yosvany Mercado MD - When: 2 - 3 days - Reason: Recheck today's complaints, Continuance of care, Re-evaluation by your physician Discharge Instructions: - Discharge Summary Sheet jmm - Cough, Adult [facility] Forms: - Medication Reconciliation Form jmm - Thank You Letter [facility] - Antibiotic Education [facility] - Prescription Opioid Use [facility] Prescriptions: - cefdinir 300 mg Oral capsule - take 1 capsule by ORAL route every 12 hours for 10 days; 20 capsule; Refills: [facility] 0, Product Selection Permitted Signatures: Dispatcher [employer] Sean Weaver PA PA Julio Lui MD MD rn Erica Duran RN RN kr3
[2022-07-12 12:32] VITALS: BP 135/78; TEMP 98.4
[2022-07-12 12:40] VITALS: O2SAT 99
== END 2022-07-12 12:24 | disposition home or self-care (01) ==
LOC: ER 10:06
DX: R05.9 Cough, unspecified (principal); F17.210 Nicotine dependence, cigarettes, uncomplicated; Z20.822 Contact with and (suspected) exposure to COVID-19; Z88.8 Allergy status to other drugs, medicaments and biological substances
CPT/HCPCS: 87070; 87081; 0240U; 71045; 99283

== ENCOUNTER 2023-02-24 07:14 | Day surgery (SDC) | payer OTHER ==
[2023-02-24] MEDS ORDERED: NA CHLORIDE 0.9% 1,000 ML ONE (07:46)
[2023-02-24] MEDS ORDERED: LIDOCAINE 1% MPF 5 ML VIAL ONE (09:32)
[2023-02-24] MEDS ORDERED: propofoL 200 MG/20 ML VIAL IV ONE ×3 (09:32→10:08)
[2023-02-24] MEDS ORDERED: ONDANSETRON 4 MG/2 ML VIAL ONE (10:37)
[2023-02-24 11:27] VITALS: O2SAT 98
[2023-02-24 11:29] VITALS: BP 117/62; TEMP 97.4
== END 2023-02-24 10:51 | disposition home or self-care (01) ==
LOC: OR 07:14
PROVIDERS: ATTEND Internal Medicine Gastroenterology
PROC: 0DBF8ZX Excision of Right Large Intestine, Via Natural or Artificial Opening Endoscopic, Diagnostic (ICD-10-PCS; 2023-02-24)
PROC: 0DBG8ZX Excision of Left Large Intestine, Via Natural or Artificial Opening Endoscopic, Diagnostic (ICD-10-PCS; 2023-02-24)
PROC: 0DB68ZX Excision of Stomach, Via Natural or Artificial Opening Endoscopic, Diagnostic (ICD-10-PCS; 2023-02-24)
PROC: 0DBB8ZX Excision of Ileum, Via Natural or Artificial Opening Endoscopic, Diagnostic (ICD-10-PCS; principal; 2023-02-24 09:00)
PROC: 0DBP8ZX Excision of Rectum, Via Natural or Artificial Opening Endoscopic, Diagnostic (ICD-10-PCS; 2023-02-24 09:00)
DX: R10.32 Left lower quadrant pain (principal); K29.50 Unspecified chronic gastritis without bleeding; R63.4 Abnormal weight loss; K50.90 Crohn's disease, unspecified, without complications; R93.3 Abnormal findings on diagnostic imaging of other parts of digestive tract; K57.92 Diverticulitis of intestine, part unspecified, without perforation or abscess without bleeding; Z86.010 Personal history of colon polyps; K44.9 Diaphragmatic hernia without obstruction or gangrene; K92.2 Gastrointestinal hemorrhage, unspecified; K21.00 Gastro-esophageal reflux disease with esophagitis, without bleeding
CPT/HCPCS: 88312; 82947; 88305; 45380; 43239; J2704 ×3; J2001; J2405; J7030

== ENCOUNTER 2024-01-11 11:24 | Observation (INO) | payer OTHER ==
[2024-01-11 12:26] LABS: Absolute Basophils 0.1 K/uL (0-0.5); Absolute Lymphocytes (CBC) 2.6 K/uL (0.7-4.9); Absolute Monocytes 0.8 K/uL (0.1-1.3); Absolute Neutrophil 10.3 K/uL (1.8-8.0); Basophils % 0.4 % (0-1.3); Eosinophils % 0.3 % (0-4.4); Hematocrit 42.5 % (36.0-45.0); Hemoglobin 14.2 g/dL (12.0-15.0); MCH 32.6 pg (27.0-35.0); MCHC 33.3 g/dL (32.0-36.0); MCV 97.9 fL (80-100); MPV 8.2 fL (7.6-11.3); Monocytes % 5.8 % (3.3-12.3); Neutrophils % 74.5 % (41.7-73.7); Platelets 408 thou/uL (152-406); RBC Red Blood Cell Count 4.34 M/uL (3.86-4.86); Red Cell Distribution Width 13.1 % (12.1-15.2)
[2024-01-11 12:29] LABS: PT Prothrombin Time 11.7 SECONDS (9.4-12.5); Protime INR 1.07
--- NOTE | 2024-01-11 12:36 | RAD REPORT ---
EXAM DESCRIPTION: RAD - Chest Single View - 01/11/2024 12:26 pm CLINICAL HISTORY: defib shock;Chest pain Chest pain. COMPARISON: Chest Single View dated 07/12/2022; Chest Pa And Lat (2 Views) dated 03/25/2022; Chest Pa A nd Lat (2 Views) dated 12/19/2021; Chest Pa And Lat (2 Views) dated 07/02/2019 FINDINGS: Portable technique limits examination quality. The lungs are grossly clear. The heart is normal in size. No displaced fractures.Multi lead pacer/def ibrillator device. IMPRESSION: No acute intrathoracic process suspected.
[2024-01-11 12:48] LABS: Albumin 3.8 g/dL (3.4-5.0); Albumin/Globulin Ratio 1.1 (1.1-1.8); Anion Gap 11.5 mEq/L (5.0-15.0); Bilirubin Direct 0.2 mg/dL (0-0.2); Bilirubin Indirect, Calculated 0.6 mg/dL (0.2-0.8); Bilirubin Total 0.8 mg/dL (0.2-1.0); Globulin 3.4 g/dL (2.3-3.5); Magnesium 1.6 mg/dL (1.6-2.4); Potassium 3.5 mEq/L (3.5-5.1); Protein, Total 7.2 g/dL (6.4-8.2); Troponin High Sensitivity 12.7 pg/mL (<58.9)
--- NOTE | 2024-01-11 13:57 | EDPHYS ---
Physician Documentation [facility] Name: Kathe Del Rio Age: 48 yrs Sex: Female : 1975 Arrival Date: 01/11/2024 Time: 11:24 Bed 2 Private MD: ED Physician Julio Alan HPI: 01/10 12:37 This 48 yrs old Female presents to ER via Ambulatory with complaints of Defib shock. sb4 12:37 patient states that she was sweeping today when she started to feel poorly, sat down, sb4 then all of a sudden felt her defibrillator go off. she states this has never happened before, she has had it for 4 years now, had it checked recently and it was functioning properly. states that she did forget to take her entresto and metoprolol last night. 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, Not bm8 Historical: - Allergies: 11:34 pravastatin; ph - Home Meds: 20:54 aspirin 81 mg Oral chew 1 tab once daily [Active]; Famotidine Oral [Active]; rg5 atorvastatin oral [Active]; metoprolol tartrate 75 mg Oral tablet [Active]; Entresto 24-26 mg oral tablet [Active]; Protonix 40 mg oral tablet, delayed release (enteric coated) [Active]; Singulair 10 mg Oral tab 1 tab once daily [Active]; Vitamin D [Active]; Vitamin B-12 Oral [Active]; - PMHx: 11:34 automimmune thyroiditis; Crohn's; Heart Murmur; LBB; psoriasis; Viral cardiomyopathy; ph - Immunization history:: Adult Immunizations up to date, Client reports receiving the 2nd dose of the Covid vaccine. - Infectious Disease History:: Denies. - Social history:: Smoking status: Patient reports the use of cigarette tobacco products, smokes one pack cigarettes per day. ROS: 12:37 Constitutional: Negative for fever, chills, and weight loss, sb4 12:37 All other systems are negative, Exam: 13:05 Head/Face: Normocephalic, atraumatic. Eyes: Extra-ocular motions intact. Periorbital sb4 areas with no swelling, redness, or edema. ENT: Mucous membranes moist. Respiratory: Lungs have equal breath sounds bilaterally, clear to auscultation and percussion. No rales, rhonchi or wheezes noted. No increased work of breathing, no retractions or nasal flaring. Abdomen/GI: Soft, non-tender, no distension. Skin: Warm, dry with normal turgor. Normal color with no rashes, no lesions, and no evidence of cellulitis. 13:05 Constitutional: The patient appears alert, awake, anxious, tearful 13:05 Cardiovascular: Rate: tachycardic, Rhythm: irregular, Pulses: no pulse deficits are appreciated, Edema: is not appreciated, Vital Signs: 11:42 BP 147 / 96; Pulse 97; Resp 17; Pulse Ox 97% on R/A; Weight 94.35 kg; Height 5 ft. 6 ap3 in. ; Pain 0/10; 12:00 BP 149 / 92; Pulse 93; Resp 18; Pulse Ox 98% on R/A; ph 13:00 BP 135 / 81; Pulse 120; Resp 18; Pulse Ox 98% on R/A; ph 14:22 BP 136 / 66; Pulse 86; Resp 18; Pulse Ox 96% on R/A; ph 15:57 BP 143 / 86; Pulse 83; Resp 18; Pulse Ox 97% on R/A; ph 17:00 BP 114 / 61; Pulse 89; Resp 18; Pulse Ox 96% on R/A; ph 18:00 BP 118 / 82; Pulse 84; Resp 16; Pulse Ox 95% on R/A; ph 19:18 BP 126 / 65; Pulse 105; Resp 17; Temp 98.2; Pulse Ox 95% on R/A; Pain 0/10; rg5 20:15 BP 131 / 77; Pulse 98; Resp 17; Temp 98; Pulse Ox 96% on R/A; Pain 0/10; bm8 21:19 BP 138 / 69; Pulse 85; Resp 17; Pulse Ox 94% on R/A; rg5 11:42 Body Mass Index 33.57 (94.35 kg, 167.64 cm) ap3 11:42 Pain Scale: Adult ap3 19:18 Pain Scale: Adult rg5 20:15 Pain Scale: Adult bm8 Elyria Coma Score: 19:18 Eye Response: spontaneous(4). Motor Response: obeys commands(6). Verbal Response: rg5 oriented(5). Total: 15. MDM: 11:32 Patient medically screened. sb4 13:05 Data reviewed: vital signs, nurses notes, lab test result(s), EKG, radiologic studies, sb4 I have discussed the patient's presentation/case with the attending Emergency Department Physician;. 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 Care significantly affected by the following chronic conditions: Diabetes, Hypertension, Congestive Heart Failure. Counseling: I had a detailed discussion with the patient and/or guardian regarding the historical points, exam findings, and any diagnostic results supporting the discharge/admit diagnosis, the presence of at least one elevated blood pressure reading (>120/80) during this emergency department visit, lab results, radiology results, the need for further work-up and treatment in the hospital. 01/10 11:49 Order name: Basic Metabolic Panel; Complete Time: 12:50 sb4 01/10 11:49 Order name: CBC with Diff; Complete Time: 12:28 sb4 01/10 11:49 Order name: LFT's; Complete Time: 12:50 sb4 01/10 11:49 Order name: Magnesium; Complete Time: 12:50 sb4 01/10 11:49 Order name: NT PRO-BNP; Complete Time: 12:50 sb4 01/10 11:49 Order name: PT-INR; Complete Time: 12:32 sb4 01/10 11:49 Order name: Troponin HS; Complete Time: 12:50 sb4 01/10 13:59 Order name: UAM; Complete Time: 14:46 sb4 01/10 13:59 Order name: UDS; Complete Time: 14:46 sb4 01/10 11:49 Order name: XRAY Chest (1 view); Complete Time: 12:37 sb4 01/10 11:49 Order name: Cardiac monitoring; Complete Time: 11:51 sb4 01/10 11:49 Order name: EKG - Nurse/Tech; Complete Time: 11:50 sb4 01/10 11:49 Order name: IV Saline Lock; Complete Time: 11:51 sb4 01/10 11:49 Order name: Labs collected and sent; Complete Time: 11:52 sb4 01/10 11:49 Order name: O2 Per Protocol; Complete Time: 11:52 sb4 01/10 11:49 Order name: O2 Sat Monitoring; Complete Time: 11:52 sb4 01/10 11:49 Order name: Misc. Order: interrogate pacemaker; Complete Time: 12:54 sb4 EC:20 Rate is 97 beats/min. Rhythm is irregular, Paced. MA interval is normal at 138 msec. sb4 QRS interval is normal at 124 msec. QT interval is normal at [address] changes noted. Clinical impression: No evidence of ischemia. Interpreted by me. Reviewed by me. Administered Medications: No medications were administered Disposition: 01/11 09:04 Co-signature as Attending Physician, Julio Alan MD I reviewed the patient's care rn provided by the Advanced Practice Provider and agree with the diagnosis and treatment plan. Disposition Summary: 01/11/24 13:57 Hospitalization Ordered Notes: Hospitalization Status: Observation sb4 Location: Telemetry/MedSurg (observation) sb4 Condition: Fair sb4 Problem: new sb4 Symptoms: have improved sb4 Bed/Room Type: Standard sb4 Provider: Yosvany Mercado(01/11/24 15:09) sb4 Room Assignment: 401(01/11/24 20:43) cg Diagnosis - Defibrillator shock sb4 - Chronic systolic (congestive) heart failure sb4 Forms: - Medication Reconciliation Form sb4 - SBAR form sb4 - Leadership Thank You Letter sb4 Signatures: Dispatcher [employer] EDJulio Mac MD MD rn Hall, Patricia RN Lenora East ph, RN RN cg Prokisch, Amanda, RN RN ap3 Yuki Coyne PA-C PAImmanuel sb4 Montrell Kelly RN RN rg5 Corrections: (The following items were deleted from the chart) 01/10 11:49 11:49 BASIC METABOLIC PANEL+C.LAB.BRZ ordered. EDMS EDMS 11:49 11:49 CBC+H.LAB.BRZ ordered. EDMS EDMS 11:49 11:49 HEPATIC FUNCTION+C.LAB.BRZ ordered. EDMS EDMS 11:49 11:49 MAGNESIUM+C.LAB.BRZ ordered. EDMS EDMS 11:49 11:49 PROBNP+C.LAB.BRZ ordered. EDMS EDMS 11:49 11:49 PROTIME (+INR)+COAG.LAB.BRZ ordered. EDMS EDMS 11:49 11:49 Troponin High Sensitivity+C.LAB.BRZ ordered. EDMS EDMS 11 11:50 Chest Single View+RAD.RAD.BRZ ordered. EDMS EDMS 15:09 13:57 Silver Elliott sb4 sb4 20:43 13:57 sb4 cg
--- NOTE | 2024-01-11 13:57 | ER ---
Nurse's Notes [facility] Name: Kathe Del Rio Age: 48 yrs Sex: Female : 1975 Arrival Date: 01/11/2024 Time: 11:24 Bed 2 Private MD: Diagnosis: Defibrillator shock;Chronic systolic (congestive) heart failure Presentation: 01/10 11:42 Chief complaint: Patient states: she was sweeping outside when she started feeling like ap3 her heart was racing. patient states she then sat down, and drank some water. when she stood up, she reports being shocked by her defibrillator. patient states this event occurred at approx 1030 this morning. patient reports nausea and bilateral arm tingling. Coronavirus screen: At this time, the client does not indicate any symptoms associated with coronavirus-19. Ebola Screen: No symptoms or risks identified at this time. Initial Sepsis Screen: Does the patient meet any 2 criteria? HR > 90 bpm. Does the patient have a suspected source of infection? No. Patient's initial sepsis screen is negative. Risk Assessment: Do you want to hurt yourself or someone else? Patient reports no desire to harm self or others. Onset of symptoms was January 11, 2024 at 10:30. 11:42 Method Of Arrival: Ambulatory ap3 11:42 Acuity: KARISSA 2 ap3 Triage Assessment: 11:44 General: Appears uncomfortable, Behavior is cooperative, appropriate for age, anxious. ap3 Pain: Denies pain. Neuro: Level of Consciousness is awake, alert, obeys commands, Oriented to person, place, time, situation. Cardiovascular: Reports defibrillator recently went off Patient's skin is warm and dry. Respiratory: Airway is patent Respiratory effort is even, unlabored, Respiratory pattern is regular, symmetrical. GI: Reports nausea. 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, Not bm8 Historical: - Allergies: 11:34 pravastatin; ph - Home Meds: 20:54 aspirin 81 mg Oral chew 1 tab once daily [Active]; Famotidine Oral [Active]; rg5 atorvastatin oral [Active]; metoprolol tartrate 75 mg Oral tablet [Active]; Entresto 24-26 mg oral tablet [Active]; Protonix 40 mg oral tablet, delayed release (enteric coated) [Active]; Singulair 10 mg Oral tab 1 tab once daily [Active]; Vitamin D [Active]; Vitamin B-12 Oral [Active]; - PMHx: 11:34 automimmune thyroiditis; Crohn's; Heart Murmur; LBB; psoriasis; Viral cardiomyopathy; ph - Immunization history:: Adult Immunizations up to date, Client reports receiving the 2nd dose of the Covid vaccine. - Infectious Disease History:: Denies. - Social history:: Smoking status: Patient reports the use of cigarette tobacco products, smokes one pack cigarettes per day. Screenin:45 Abuse screen: Denies threats or abuse. Nutritional screening: No deficits noted. ap3 Tuberculosis screening: No symptoms or risk factors identified. 14:22 [facility] ED Fall Risk Assessment (Adult) History of falling in the last 3 months, ph including since admission No falls in past 3 months (0 pts) Confusion or Disorientation No (0 pts) Intoxicated or Sedated No (0 pts) Impaired Gait No (0 pts) Mobility Assist Device Used No (0 pt) Altered Elimination No (0 pt) Score/Fall Risk Level 0 - 2 = Low Risk Oriented to surroundings, Maintained a safe environment, Hourly rounding (assess needs \T\ fall precautionary measures) done. Assessment: 12:00 General: Appears in no apparent distress. well groomed, Behavior is cooperative, ph anxious, crying. Pain: Denies pain. Neuro: Level of Consciousness is awake, alert, obeys commands, Oriented to person, place, time, situation. 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 Respiratory: Airway is patent Respiratory effort is even, unlabored. GI: No signs and/or symptoms were reported involving the gastrointestinal system. Derm: Skin is flushed. Musculoskeletal: Circulation, motion, and sensation intact. Range of motion: intact in all extremities. 14:22 Reassessment: Patient appears in no apparent distress at this time. Patient and/or ph family updated on plan of care and expected duration. Pain level reassessed. Patient is alert, oriented x 3, equal unlabored respirations, skin warm/dry/pink. Patient states feeling better. 15:56 Reassessment: Patient appears in no apparent distress at this time. Patient and/or ph family updated on plan of care and expected duration. Pain level reassessed. Patient is alert, oriented x 3, equal unlabored respirations, skin warm/dry/pink. 17:00 Reassessment: Patient appears in no apparent distress at this time. Patient and/or ph family updated on plan of care and expected duration. Pain level reassessed. Patient is alert, oriented x 3, equal unlabored respirations, skin warm/dry/pink. 18:00 Reassessment: Patient appears in no apparent distress at this time. Patient and/or ph family updated on plan of care and expected duration. Pain level reassessed. Patient is alert, oriented x 3, equal unlabored respirations, skin warm/dry/pink. 19:18 General: Appears in no apparent distress. comfortable, Behavior is calm, appropriate rg5 for age. Pain: Denies pain. Neuro: Level of Consciousness is obeys commands, Oriented to person, place, time. Cardiovascular: Rhythm is sinus tachycardia Chest pain is denied. Respiratory: Airway is patent Trachea midline. GI: Abdomen is round non-distended. : No signs and/or symptoms were reported regarding the genitourinary system. Musculoskeletal: Range of motion: intact in all extremities. 20:52 Reassessment: Patient and/or family updated on plan of care and expected duration. Pain rg5 level reassessed. Patient is alert, oriented x 3, equal unlabored respirations, skin warm/dry/pink. Patient denies pain at this time. Patient states feeling better. Vital Signs: 11:42 BP 147 / 96; Pulse 97; Resp 17; Pulse Ox 97% on R/A; Weight 94.35 kg; Height 5 ft. 6 ap3 in. ; Pain 0/10; 12:00 BP 149 / 92; Pulse 93; Resp 18; Pulse Ox 98% on R/A; ph 13:00 BP 135 / 81; Pulse 120; Resp 18; Pulse Ox 98% on R/A; ph 14:22 BP 136 / 66; Pulse 86; Resp 18; Pulse Ox 96% on R/A; ph 15:57 BP 143 / 86; Pulse 83; Resp 18; Pulse Ox 97% on R/A; ph 17:00 BP 114 / 61; Pulse 89; Resp 18; Pulse Ox 96% on R/A; ph 18:00 BP 118 / 82; Pulse 84; Resp 16; Pulse Ox 95% on R/A; ph 19:18 BP 126 / 65; Pulse 105; Resp 17; Temp 98.2; Pulse Ox 95% on R/A; Pain 0/10; rg5 20:15 BP 131 / 77; Pulse 98; Resp 17; Temp 98; Pulse Ox 96% on R/A; Pain 0/10; bm8 21:19 BP 138 / 69; Pulse 85; Resp 17; Pulse Ox 94% on R/A; rg5 11:42 Body Mass Index 33.57 (94.35 kg, 167.64 cm) ap3 11:42 Pain Scale: Adult ap3 19:18 Pain Scale: Adult rg5 20:15 Pain Scale: Adult bm8 Vitals: 14:22 Cardiac Rhythm Assessment Paced. ph Kinza Coma Score: 19:18 Eye Response: spontaneous(4). Motor Response: obeys commands(6). Verbal Response: rg5 oriented(5). Total: 15. ED Course: 11:27 Patient arrived in ED. mr 11:32 Yuki Coyne PA-C is PHCP. sb4 11:32 Julio Alan MD is Attending Physician. sb4 11:34 Iwona Solano, RN is Primary Nurse. ph 11:44 Triage completed. ap3 11:45 Patient has correct armband on for positive identification. Bed in low position. Call ap3 light in reach. Side rails up X 1. Provided Education on: fall risk education. 11:46 Arm band placed on right wrist. ap3 11:51 Initial lab(s) drawn, by ED staff, sent to lab. EKG done, by ED staff, reviewed by ph Yuki Coyne PA-C. Inserted saline lock: 20 gauge in left antecubital area, using aseptic technique. Blood collected. 12:28 XRAY Chest (1 view) In Process Unspecified. EDMS 13:55 Silver Elliott is Hospitalizing Provider. sb4 14:14 UDS Sent. ko1 14:14 UAM Sent. ko1 14:23 No provider procedures requiring assistance completed. Patient admitted, IV remains in ph place. 15:09 Yosvany Mercado MD is Hospitalizing Provider. sb4 19:00 Client placed on continuous cardiac and pulse oximetry monitoring. NIBP monitoring ha1 applied. shelter monitor on. 19:18 Door closed. Warm blanket given. rg5 Administered Medications: No medications were administered Medication: 14:23 VIS not applicable for this client. ph Outcome: 13:57 Decision to Hospitalize by Provider. sb4 20:58 Admitted to Tele accompanied by nurse, rg5 20:58 Condition: stable 20:58 Demonstrated understanding of instructions, 21:39 Admitted to Tele accompanied by nurse, via wheelchair, room 401, with chart, ha1 21:39 Condition: stable 21:39 Instructed on the need for admit, Demonstrated understanding of instructions, 21:40 Patient left the ED. ha1 Signatures: Dispatcher [employer] EDPA DungMaryann, Reg Reg mr Iwona Solano, RN RN ph Katie Ashton, RN RN ap3 Garima Land, RN RN ha1 Zabrina Azar, RN RN Yuki Quevedo, PA-C PA-C sb4 Glenn Barrera, RN RN bm8 Montrell Kelly, RN RN rg5
[2024-01-11 14:41] LABS: Sqamous Epithelial <5 /HPF (None Seen); Urine Bacteria <20 /HPF (<20); Urine Culture Reflex Order NOT NEEDED; Urine Mucus Slight /HPF (None Seen); Urine RBC <5 /HPF (None Seen); Urine WBC <5 /HPF (<5)
[2024-01-11 14:43] LABS: Specific Gravity 1.008 (1.005-1.030); Urine Bilirubin NEGATIVE (Negative); Urine Blood Negative (Negative); Urine Clarity Turbid (Clear); Urine Color Light-Yellow (Yellow); Urine Glucose NEGATIVE (Negative); Urine Ketones 1+ (Negative); Urine Micro Reflex YN NO BILL NO MICROSCOPIC; Urine Nitrite NEGATIVE (Negative); Urine Protein NEGATIVE (Negative); Urine Urobilinogen Normal (Normal); Urine pH 5.5 (5.0-7.0)
[2024-01-11 14:45] LABS: Barbiturates NEGATIVE (NEGATIVE); Benzodiazepines NEGATIVE (NEGATIVE); Cocaine NEGATIVE (NEGATIVE); METHAMPHETAM NEGATIVE (NEGATIVE); Methadone NEGATIVE (NEGATIVE); Opiates NEGATIVE (NEGATIVE); Phencyclidine NEGATIVE (NEGATIVE); THC Cannibis NEGATIVE (NEGATIVE)
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
[2024-01-11] MEDS: MAGNESIUM OXIDE 400 MG TAB PO SCH (21:00)
[2024-01-11 22:15] VITALS: BMI 40.5
[2024-01-12 04:23] VITALS: O2SAT 96
[2024-01-12 08:25] VITALS: TEMP 97.6
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
--- NOTE | 2024-01-12 12:12 | EKG ---
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
[2024-01-12 12:14] VITALS: BP 134/73
== END 2024-01-12 12:45 | disposition home or self-care (01) ==
LOC: ER 11:24 → ERHOLD 16:51 → 4TH 21:13
PROVIDERS: ADMIT Internal Medicine; ATTEND Internal Medicine
DX: I49.01 Ventricular fibrillation (principal); I50.22 Chronic systolic (congestive) heart failure; I42.0 Dilated cardiomyopathy; F43.9 Reaction to severe stress, unspecified; Z88.5 Allergy status to narcotic agent; Z88.2 Allergy status to sulfonamides; Z88.6 Allergy status to analgesic agent; Z88.1 Allergy status to other antibiotic agents; Z88.8 Allergy status to other drugs, medicaments and biological substances; Z79.82 Long term (current) use of aspirin; Z91.198 Patient's noncompliance with other medical treatment and regimen for other reason; Z71.89 Other specified counseling
CPT/HCPCS: 36415; 71045; 80048; 80076; 80307; 81001; 82947; 83735; 83880; 84484; 85025; 85610; 93005; 99285; G0378

== ENCOUNTER 2024-07-23 13:19 | Emergency (ER) | payer OTHER ==
[2024-07-23] MEDS ORDERED: dexAMETHasone 10 MG/ML VIAL ONE (13:48)
[2024-07-23] MEDS ORDERED: FENTANYL CITR 100 MCG/2 ML ONE (13:48)
[2024-07-23] MEDS ORDERED: ONDANSETRON 4 MG/2 ML VIAL ONE (13:48)
[2024-07-23] MEDS ORDERED: KETOROLAC 30 MG/ML INJ ONE (13:48)
[2024-07-23] MEDS ORDERED: NA CHLORIDE 0.9% 500 ML ONE (13:49)
[2024-07-23] MEDS ORDERED: DIAZEPAM 5 MG TABLET ONE (13:49)
[2024-07-23 14:12] LABS: Absolute Basophils 0.1 K/uL (0-0.5); Absolute Eosinophils 0.1 K/uL (0-0.5); Absolute Lymphocytes (CBC) 3.8 K/uL (0.7-4.9); Absolute Monocytes 0.8 K/uL (0.1-1.3); Basophils % 0.5 % (0-1.3); Eosinophils % 0.5 % (0-4.4); Hematocrit 42.1 % (36.0-45.0); Hemoglobin 14.7 g/dL (12.0-15.0); Lymphocytes % 29.9 % (15.3-44.8); MCH 33.2 pg (27.0-35.0); MCHC 34.9 g/dL (32.0-36.0); MCV 95.3 fL (80-100); MPV 7.3 fL (7.6-11.3); Neutrophils % 63.1 % (41.7-73.7); Nucleated Red Blood Cells % 0.1 % (0-0); Platelets 457 thou/uL (152-406); RBC Red Blood Cell Count 4.41 M/uL (3.86-4.86); Red Cell Distribution Width 12.3 % (12.1-15.2)
[2024-07-23 14:36] LABS: Albumin 3.5 g/dL (3.4-5.0); Anion Gap 10.6 mEq/L (5.0-15.0); Bilirubin Total 0.4 mg/dL (0.2-1.0); Globulin 3.6 g/dL (2.3-3.5); Potassium 3.6 mEq/L (3.5-5.1); Protein, Total 7.1 g/dL (6.4-8.2)
--- NOTE | 2024-07-23 15:19 | RAD REPORT ---
EXAMINATION: CT LUMBAR SPINE WITHOUT CONTRAST CLINICAL INDICATION: Female, 49 years old. PAIN TECHNIQUE: Axial CT images were obtained through the lumbar spine in soft tissue and bone windows wit hout intravenous contrast. Coronal and Sagittal reformatted images were created from the data set. One or more of the following dose reduction techniques were used: Automated exposure control, adjustm ent of the mA and/ or kV according to patient size, and/or iterative reconstruction. Unless otherwise specified, incidental findings do not require dedicated imaging follow-up. COMPARISON: No prior exam. FINDINGS: For purposes of this dictation, it is assumed that there are 5 non rib-bearing lumbar type vertebrae, and the most caudal fully segmented lumbar vertebra is labeled L5. ALIGNMENT: The lumbar spine demonstrates normal alignment without scoliosis or spondylolisthesis. BONES: Vertebral body heights are preserved. No aggressive osseous lesions. DISCS: Intervertebral disc space heights are maintained. LEVELS: No significant spinal canal. Right more than left subarticular disc bulges at L3-4, contribut ing to mild bilateral neural foraminal narrowing. No visualized abnormality within the spinal canal. SOFT TISSUE: No soft tissue abnormalities. IMPRESSION: No acute lumbar spine abnormalities. Mild degenerative changes with disc bulges most notably at C4 contributing to mild bilateral neural f oraminal narrowing.
--- NOTE | 2024-07-23 16:15 | EDPHYS ---
Physician Documentation [facility] Name: Kathe Del Rio Age: 49 yrs Sex: Female : 1975 Arrival Date: 07/23/2024 Time: 13:19 Bed 11 Private MD: VAIBHAV Physician Darshan Maldonado HPI: 07/23 16:08 This 49 yrs old Female presents to ER via Ambulatory with complaints of Low morgan Back Pain, Hip Pain. 16:08 The patient presents with pain that is acute, and decreased range of motion. The morgan symptoms are located in the low back, lumbar area. The pain radiates to the left low back. The problem was sustained from unknown cause. Onset: The symptoms/episode began/occurred 1 week(s) ago. Modifying factors: The patient symptoms are alleviated by remaining still, the patient symptoms are aggravated by any movement, bending. Associated signs and symptoms: The patient has no apparent associated signs or symptoms. Severity of symptoms: At their worst the symptoms were moderate, in the emergency department the symptoms are unchanged. The patient has experienced similar episodes in the past, multiple times. Historical: - Allergies: 13:36 pravastatin; ph 13:36 meperidine HCl; ph 13:36 Oxycodone HCl; ph 13:36 venlafaxine HCl; ph 13:36 Amitriptyline; ph 13:36 Duloxetine; ph 13:36 certolizumab pegol; ph 13:36 empagliflozin; ph 13:36 pregabalin; ph 13:36 Azithromycin; ph 13:36 Allopurinol; ph 13:36 Codeine; ph 13:36 Morphine; ph 13:36 adhesive tape; ph 13:36 Macrolide Antibiotics; ph 13:36 Sulfa (Sulfonamide Antibiotics); ph 13:36 duloxetine HCl (bulk); ph 13:36 Ozempic; ph - PMHx: 13:36 automimmune thyroiditis; Crohn's; Heart Murmur; LBB; psoriasis; Viral cardiomyopathy; ph - Immunization history:: Adult Immunizations up to date. - Infectious Disease History:: Denies. - Social history:: Smoking status: Patient/guardian denies using tobacco, but has a distant history of tobacco abuse. ROS: 16:10 Constitutional: Negative for fever, chills, and weight loss, Eyes: Negative for injury, morgan pain, redness, and discharge, ENT: Negative for injury, pain, and discharge, Neck: Negative for injury, pain, and swelling, Cardiovascular: Negative for chest pain, palpitations, and edema, Respiratory: Negative for shortness of breath, cough, wheezing, and pleuritic chest pain, Abdomen/GI: Negative for abdominal pain, nausea, vomiting, diarrhea, and constipation, : Negative for injury, bleeding, discharge, and swelling, MS/Extremity: Negative for injury and deformity, Skin: Negative for injury, rash, and discoloration, Neuro: Negative for headache, weakness, numbness, tingling, and seizure, Psych: Negative for depression, anxiety, suicide ideation, homicidal ideation, and hallucinations, Allergy/Immunology: Negative for hives, rash, and allergies, Endocrine: Negative for neck swelling, polydipsia, polyuria, polyphagia, and marked weight changes, Hematologic/Lymphatic: Negative for swollen nodes, abnormal bleeding, and unusual bruising, 16:10 Back: Positive for decreased range of motion, pain at rest, pain with movement, of the lumbar area, Exam: 16:10 Constitutional: This is a well developed, well nourished patient who is awake, alert, morgan and in no acute distress. Head/Face: Normocephalic, atraumatic. Eyes: Pupils equal round and reactive to light, extra-ocular motions intact. Lids and lashes normal. Conjunctiva and sclera are non-icteric and not injected. Cornea within normal limits. Periorbital areas with no swelling, redness, or edema. ENT: Nares patent. No nasal discharge, no septal abnormalities noted. Tympanic membranes are normal and external auditory canals are clear. Oropharynx with no redness, swelling, or masses, exudates, or evidence of obstruction, uvula midline. Mucous membranes moist. Neck: Trachea midline, no thyromegaly or masses palpated, and no cervical lymphadenopathy. Supple, full range of motion without nuchal rigidity, or vertebral point tenderness. No Meningismus. Chest/axilla: Normal chest wall appearance and motion. Nontender with no deformity. No lesions are appreciated. Cardiovascular: Regular rate and rhythm with a normal S1 and S2. No gallops, murmurs, or rubs. Normal PMI, no JVD. No pulse deficits. Respiratory: Lungs have equal breath sounds bilaterally, clear to auscultation and percussion. No rales, rhonchi or wheezes noted. No increased work of breathing, no retractions or nasal flaring. Abdomen/GI: Soft, non-tender, with normal bowel sounds. No distension or tympany. No guarding or rebound. No evidence of tenderness throughout. Skin: Warm, dry with normal turgor. Normal color with no rashes, no lesions, and no evidence of cellulitis. MS/ Extremity: Pulses equal, no cyanosis. Neurovascular intact. Full, normal range of motion., bilateral aka Neuro: Awake and alert, GCS 15, oriented to person, place, time, and situation. Cranial nerves II-XII grossly intact. Motor strength 5/5 in all extremities. Sensory grossly intact. Cerebellar exam normal. Normal gait. 16:10 Back: pain, that is moderate, of the lumbar area and left low back, ROM is painful, with flexion, with extension, normal spinal alignment noted, CVA tenderness, is absent, muscle spasm, is appreciated in the left low back, left mid back, right mid back and right low back, Vital Signs: 13:35 BP 139 / 85; Pulse 91; Resp 18; Temp 97.8; Pulse Ox 96% on R/A; Weight 90.72 kg; Height ph 5 ft. 6 in. ; 16:38 BP 132 / 78; Pulse 86; Resp 18; Pulse Ox 99% ; ko1 13:35 Body Mass Index 32.28 (90.72 kg, 167.64 cm) ph MDM: 13:38 Medical Screening Exam initiated morgan 16:12 Differential diagnosis: arthritis, strain, fracture, sciatica, contusion, Herniated morgan disc UTI. Data reviewed: vital signs, nurses notes, lab test result(s), radiologic studies, CT scan. Consideration of Admission/Observation Escalation of care including admission/observation considered. I considered the following discharge prescriptions or medication management in the emergency department Medications were administered in the Emergency Department. See MAR. Independent interpretation of the following test(s) in the Emergency Department CT Scan: My interpretation is CT LUMBAR. Test considered but Not performed: MRI: NO MRI AVAILABLE. Historians other than the Patient: PT WELL INFORMED. 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 07/23 13:41 Order name: CBC with Diff; Complete Time: 15:30 [facility] 07/23 13:41 Order name: Comprehensive Metabolic Panel; Complete Time: 15:30 morgan 07/23 13:41 Order name: CT Lumbar Spine Wo Con; Complete Time: 15:30 morgan Administered Medications: 14:12 Drug: Ondansetron IVP 4 mg IVP once; over 2 minutes Route: IVP; Site: right hand; ko1 14:27 Follow up: Response: No adverse reaction ko1 14:12 Drug: Decadron - Dexamethasone IVP 10 mg IVP once Route: IVP; Site: right hand; ko1 14:27 Follow up: Response: No adverse reaction ko1 14:12 Not Given (Patient Refused): fentanyl (pf)50 mcg IVP once ko1 14:12 Not Given (Patient Refused): [id number] mg PO once ko1 14:13 Drug: NS 0.9% IV 500 ml 500 ml IV at 1 bolus once; to be given as a bolus over 30 ko1 minutes Volume: 500 ml; Route: IV; Rate: 1 bolus; Site: right hand; 14:44 Follow up: Response: No adverse reaction; IV Status: Infusion continued; IV Intake: ko1 500ml 14:13 Drug: Ketorolac IVP 30 mg IVP once Route: IVP; Site: right hand; ko1 14:27 Follow up: Response: No adverse reaction ko1 Disposition Summary: 07/23/24 16:15 Discharge Ordered Notes: Location: Home morgan Problem: new morgan Symptoms: have improved morgan Condition: Stable morgan Diagnosis - Sciatica morgan - Sciatica, left side morgan - Radiculopathy, lumbar region morgan - Intervertebral disc disorders with radiculopathy, lumbar region morgan Followup: morgan - With: Private Physician - When: 2 - 3 days - Reason: Recheck today's complaints, Continuance of care, Re-evaluation by your physician Followup: morgan - With: Mitchell Reece MD - When: 2 - 3 days - Reason: Recheck today's complaints, Re-evaluation by your physician Discharge Instructions: - Discharge Summary Sheet morgan - Herniated Disk morgan - Lumbosacral Radiculopathy morgan - Sciatica morgan - Sciatica, [id number] morgan - Back Exercises, [id number] morgan - Herniated Disk, Bitf-ec-[id number] morgan - Radicular Pain morgan Forms: - Medication Reconciliation Form morgan - Antibiotic Education morgan - Prescription Opioid Use morgan - Patient Portal Instructions [facility] - Leadership Thank You Letter [facility] Prescriptions: - dexamethasone 4 mg Oral tablet - take 1 tablet ORAL route daily BEGIN 07/24/24; 4 tablet; Refills: 0, Product [facility] Selection Permitted - diclofenac sodium 50 mg Oral tablet, delayed release (enteric coated) - take 1 tablet ORAL route 3 times per day; 30 tablet; Refills: 0, Product [facility] Selection Permitted - methocarbamol 750 mg Oral tablet - take 1 tablet ORAL route every 6 hours; 28 tablet; Refills: 0, Product [facility] Selection Permitted Signatures: Dispatcher [employer] EDMS Darshan Maldonado MD MD cha Hall, Patricia, RN RN ph Zabrina Azar RN RN ko1 Corrections: (The following items were deleted from the chart) 13:41 13:41 Spine Lumbar Wo Con+CT.RAD.BRZ ordered. EDMS EDMS
--- NOTE | 2024-07-23 16:15 | ER ---
Nurse's Notes [facility] Name: Kathe Del Rio Age: 49 yrs Sex: Female : 1975 Arrival Date: 07/23/2024 Time: 13:19 Bed 11 Private MD: Diagnosis: Sciatica;Sciatica, left side;Radiculopathy, lumbar region;Intervertebral disc disorders with radiculopathy, lumbar region Presentation: 07/23 13:35 Chief complaint: Patient states: Low back pain radiating to L buttocks and hip x 1 ph week, denies injury or trauma. Coronavirus screen: Vaccine status: Patient reports receiving the 2nd dose of the covid vaccine. Ebola Screen: No symptoms or risks identified at this time. Initial Sepsis Screen: Does the patient meet any 2 criteria? No. Patient's initial sepsis screen is negative. Does the patient have a suspected source of infection? No. Patient's initial sepsis screen is negative. Risk Assessment: Do you want to hurt yourself or someone else? Patient reports no desire to harm self or others. Onset of symptoms was July 23, 2024. 13:35 Method Of Arrival: Ambulatory ph 13:35 Acuity: KARISSA 4 ph Historical: - Allergies: 13:36 pravastatin; ph 13:36 meperidine HCl; ph 13:36 Oxycodone HCl; ph 13:36 venlafaxine HCl; ph 13:36 Amitriptyline; ph 13:36 Duloxetine; ph 13:36 certolizumab pegol; ph 13:36 empagliflozin; ph 13:36 pregabalin; ph 13:36 Azithromycin; ph 13:36 Allopurinol; ph 13:36 Codeine; ph 13:36 Morphine; ph 13:36 adhesive tape; ph 13:36 Macrolide Antibiotics; ph 13:36 Sulfa (Sulfonamide Antibiotics); ph 13:36 duloxetine HCl (bulk); ph 13:36 Ozempic; ph - PMHx: 13:36 automimmune thyroiditis; Crohn's; Heart Murmur; LBB; psoriasis; Viral cardiomyopathy; ph - Immunization history:: Adult Immunizations up to date. - Infectious Disease History:: Denies. - Social history:: Smoking status: Patient/guardian denies using tobacco, but has a distant history of tobacco abuse. Screenin:00 [facility] ED Fall Risk Assessment (Adult) History of falling in the last 3 months, ko1 including since admission No falls in past 3 months (0 pts) Confusion or Disorientation No (0 pts) Intoxicated or Sedated No (0 pts) Impaired Gait No (0 pts) Mobility Assist Device Used No (0 pt) Altered Elimination No (0 pt) Score/Fall Risk Level 0 - 2 = Low Risk Oriented to surroundings, Maintained a safe environment, Educated pt \T\ family on fall prevention, incl call for assistance when getting out of bed, Assessed \T\ reinforced patient's understanding of fall precautions, Hourly rounding (assess needs \T\ fall precautionary measures) done. Abuse screen: Denies threats or abuse. Denies injuries from another. Nutritional screening: No deficits noted. Tuberculosis screening: No symptoms or risk factors identified. Assessment: 14:00 General: Appears uncomfortable, Behavior is calm, cooperative, appropriate for age. ko1 Pain: Complains of pain in back. Neuro: No deficits noted. Cardiovascular: No deficits noted. Respiratory: No deficits noted. GI: No deficits noted. No signs and/or symptoms were reported involving the gastrointestinal system. : No deficits noted. No signs and/or symptoms were reported regarding the genitourinary system. EENT: No deficits noted. No signs and/or symptoms were reported regarding the EENT system. Derm: No deficits noted. No signs and/or symptoms reported regarding the dermatologic system. Musculoskeletal: Reports pain in back. Vital Signs: 13:35 BP 139 / 85; Pulse 91; Resp 18; Temp 97.8; Pulse Ox 96% on R/A; Weight 90.72 kg; Height ph 5 ft. 6 in. ; 16:38 BP 132 / 78; Pulse 86; Resp 18; Pulse Ox 99% ; ko1 13:35 Body Mass Index 32.28 (90.72 kg, 167.64 cm) ph ED Course: 13:24 Patient arrived in ED. sj2 13:36 Triage completed. ph 13:38 Darshan Maldonado MD is Attending Physician. morgan 13:38 Arm band placed on Patient placed in waiting room. ph 13:39 Zabrina Azar RN is Primary Nurse. ko1 14:00 Patient has correct armband on for positive identification. Allergy band placed. Bed in ko1 low position. Call light in reach. Side rails up X2. Provided Education on: labs. Pulse ox on. NIBP on. Door closed. Noise minimized. Lights dimmed. Warm blanket given. Pillow given. 14:00 No provider procedures requiring assistance completed. Inserted saline lock: 22 gauge ko1 in right hand, using aseptic technique. Blood collected. Flushed with 10 mL NS. 14:13 Comprehensive Metabolic Panel Sent. ko1 14:13 CBC with Diff Sent. ko1 14:40 CT Lumbar Spine Wo Con In Process Unspecified. EDMS 16:14 Mitchell Reece MD is Referral Physician. [facility] 16:38 IV discontinued, intact, bleeding controlled, No redness/swelling at site. Pressure ko1 dressing applied. Administered Medications: 14:12 Drug: Ondansetron IVP 4 mg IVP once; over 2 minutes Route: IVP; Site: right hand; ko1 14:27 Follow up: Response: No adverse reaction ko1 14:12 Drug: Decadron - Dexamethasone IVP 10 mg IVP once Route: IVP; Site: right hand; ko1 14:27 Follow up: Response: No adverse reaction ko1 14:12 Not Given (Patient Refused): fentanyl (pf)50 mcg IVP once ko1 14:12 Not Given (Patient Refused): [id number] mg PO once ko1 14:13 Drug: NS 0.9% IV 500 ml 500 ml IV at 1 bolus once; to be given as a bolus over 30 ko1 minutes Volume: 500 ml; Route: IV; Rate: 1 bolus; Site: right hand; 14:44 Follow up: Response: No adverse reaction; IV Status: Infusion continued; IV Intake: ko1 500ml 14:13 Drug: Ketorolac IVP 30 mg IVP once Route: IVP; Site: right hand; ko1 14:27 Follow up: Response: No adverse reaction ko1 Medication: 14:00 VIS not applicable for this client. ko1 Intake: 14:44 IV: 500ml; Total: 500ml. ko1 Outcome: 16:15 Discharge ordered by . [facility] 16:38 Discharged to home ambulatory, ko1 16:38 Condition: stable 16:38 Discharge instructions given to patient, Instructed on discharge instructions, follow up and referral plans. medication usage, Demonstrated understanding of instructions, follow-up care, medications, Prescriptions given X 3, 16:40 Patient left the ED. ko1 Signatures: Dispatcher [employer] EDDarshan Sun MD MD cha Hall, Patricia, RN RN Zabrina Turpin RN RN ko1 Imtiaz Burris2 Corrections: (The following items were deleted from the chart) 14:12 13:53 Diazepam PO 10 mg PO ko1 ko1
[2024-07-23 17:46] VITALS: TEMP 97.8
[2024-07-23 17:47] VITALS: BP 132/78; O2SAT 99
== END 2024-07-23 16:40 | disposition home or self-care (01) ==
LOC: ER 13:19
DX: M54.32 Sciatica, left side (principal); M51.16 Intervertebral disc disorders with radiculopathy, lumbar region; Z88.1 Allergy status to other antibiotic agents; Z88.2 Allergy status to sulfonamides; Z88.5 Allergy status to narcotic agent; Z88.8 Allergy status to other drugs, medicaments and biological substances; Z91.09 Other allergy status, other than to drugs and biological substances
CPT/HCPCS: 96361; 85025; 36415; 80053; 72131; 96375; 96374; 99284; J3010; J1100; J2405; J7040

== ENCOUNTER 2024-07-29 15:30 | Emergency (ER) | payer OTHER ==
[2024-07-29] MEDS ORDERED: NA CHLORIDE 0.9% 1,000 ML ONE (16:18)
[2024-07-29] MEDS ORDERED: ONDANSETRON 4 MG/2 ML VIAL ONE (16:18)
[2024-07-29 16:39] LABS: Absolute Basophils 0.1 K/uL (0-0.5); Absolute Eosinophils 0.1 K/uL (0-0.5); Absolute Lymphocytes (CBC) 3.7 K/uL (0.7-4.9); Absolute Neutrophil 13.1 K/uL (1.8-8.0); Basophils % 0.5 % (0-1.3); Eosinophils % 0.4 % (0-4.4); Hematocrit 44.5 % (36.0-45.0); Hemoglobin 15.4 g/dL (12.0-15.0); Lymphocytes % 20.8 % (15.3-44.8); MCH 32.8 pg (27.0-35.0); MCHC 34.7 g/dL (32.0-36.0); MCV 94.7 fL (80-100); MPV 7.8 fL (7.6-11.3); Monocytes % 5.3 % (3.3-12.3); Platelets 433 thou/uL (152-406); Red Cell Distribution Width 12.8 % (12.1-15.2)
[2024-07-29 16:56] LABS: Albumin 3.6 g/dL (3.4-5.0); Anion Gap 11.7 mEq/L (5.0-15.0); Bilirubin Total 0.5 mg/dL (0.2-1.0); Globulin 3.5 g/dL (2.3-3.5); Potassium 3.7 mEq/L (3.5-5.1); Protein, Total 7.1 g/dL (6.4-8.2)
--- NOTE | 2024-07-29 17:49 | EDPHYS ---
Physician Documentation [facility] Name: Kathe Del Rio Age: 49 yrs Sex: Female : 1975 Arrival Date: 07/29/2024 Time: 15:30 Bed 18 Private MD: ED Physician Matthew Neville HPI: 07/29 18:30 This 49 yrs old Female presents to ER via Ambulatory with complaints of Dehydrated, rt Diarrhea. 18:30 Patient with history of Crohn's disease, currently taking steroids for back pain rt presents to the ED with diarrhea, abdominal cramping starting today, states that the diarrhea has stopped and that she denies any ongoing abdominal pain but states that she feels weak, dehydrated with dry mouth. Denies other acute complaints at this time, symptoms are moderate in severity, no other aggravating or alleviating factors.. 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 Historical: - Allergies: 15:48 adhesive tape; ko1 15:48 Allopurinol; ko1 15:48 Amitriptyline; ko1 15:48 Azithromycin; ko1 15:48 certolizumab pegol; ko1 15:48 Codeine; ko1 15:48 Duloxetine; ko1 15:48 duloxetine HCl (bulk); ko1 15:48 empagliflozin; ko1 15:48 Macrolide Antibiotics; ko1 15:48 meperidine HCl; ko1 15:48 Morphine; ko1 15:48 Oxycodone HCl; ko1 15:48 ozempic; ko1 15:48 pravastatin; ko1 15:48 pregabalin; ko1 15:48 Sulfa (Sulfonamide Antibiotics); ko1 15:48 venlafaxine HCl; ko1 - PMHx: 15:48 automimmune thyroiditis; Crohn's; Heart Murmur; LBB; psoriasis; Viral cardiomyopathy; ko1 - Immunization history:: Adult Immunizations unknown. - Infectious Disease History:: Denies. - Social history:: Smoking status: Patient reports the use of cigarette tobacco products, smokes one pack cigarettes per day. - Family history:: not pertinent. ROS: 18:30 Constitutional: Negative for fever, chills, and weight loss, Cardiovascular: Negative rt for chest pain, palpitations, and edema, Respiratory: Negative for shortness of breath, cough, wheezing, and pleuritic chest pain, MS/Extremity: Negative for injury and deformity, Skin: Negative for injury, rash, and discoloration, Neuro: Negative for headache, weakness, numbness, tingling, and seizure, 18:30 Abdomen/GI: Positive for nausea, diarrhea, Exam: 18:30 Constitutional: This is a well developed, well nourished patient who is awake, alert, rt and in no acute distress. Head/Face: Normocephalic, atraumatic. Chest/axilla: Normal chest wall appearance and motion. Nontender with no deformity. No lesions are appreciated. Cardiovascular: Regular rate and rhythm with a normal S1 and S2. No gallops, murmurs, or rubs. Normal PMI, no JVD. No pulse deficits. Respiratory: Lungs have equal breath sounds bilaterally, clear to auscultation and percussion. No rales, rhonchi or wheezes noted. No increased work of breathing, no retractions or nasal flaring. Abdomen/GI: Soft, non-tender, with normal bowel sounds. No distension or tympany. No guarding or rebound. No evidence of tenderness throughout. Skin: Warm, dry with normal turgor. Normal color with no rashes, no lesions, and no evidence of cellulitis. MS/ Extremity: Pulses equal, no cyanosis. Neurovascular intact. Full, normal range of motion. Neuro: Awake and alert, GCS 15, oriented to person, place, time, and situation. Cranial nerves II-XII grossly intact. Motor strength 5/5 in all extremities. Sensory grossly intact. Cerebellar exam normal. Normal gait. Vital Signs: 15:44 BP 141 / 90; Pulse 98; Resp 18; Temp 97.4; Pulse Ox 97% ; ko1 17:00 BP 146 / 88; Pulse 78; Resp 20; Pulse Ox 99% on R/A; kj2 17:53 BP 134 / 84; Pulse 70; Resp 18; Pulse Ox 100% on R/A; kj2 17:54 Temp 98(O); kj2 MDM: 15:54 Medical Screening Exam initiated rt 18:31 Differential diagnosis: Diarrhea, Crohn's disease. Data reviewed: vital signs, nurses rt notes, lab test result(s). I considered the following discharge prescriptions or medication management in the emergency department Medications were administered in the Emergency Department. See MAR. Test considered but Not performed: CT: Patient has had multiple CT scans, she has no focal areas of abdominal tenderness and the diarrhea has stopped, discussed with patient, shared decision-making was employed, will forego CT scan at this time and efforts to avoid radiation exposure. Care significantly affected by the following chronic conditions: Crohn's disease. Counseling: I had a detailed discussion with the patient and/or guardian regarding the historical points, exam findings, and any diagnostic results supporting the discharge/admit diagnosis, lab results, the need for outpatient follow up. Response to treatment: the patient's symptoms have markedly improved after treatment. ED course: Patient states that she feels better. Patient is noted to have leukocytosis, she states that she always has a leukocytosis and is currently taking steroids, suspect demargination over infectious process. 07/29 16:06 Order name: CBC with Diff; Complete Time: 16:57 rt 07/29 16:06 Order name: CMP; Complete Time: 16:57 rt Administered Medications: 16:33 Drug: NS 0.9% IV 1000 ml IV at 1 bolus Per protocol; to be given as a bolus over 60 kj2 minutes Route: IV; Rate: 1 bolus; Site: left antecubital; 17:33 Follow up: IV Status: Completed infusion kj2 17:55 Follow up: Response: No adverse reaction kj2 16:33 Drug: Ondansetron IVP 4 mg IVP once; over 2 minutes Route: IVP; Site: left antecubital; kj2 17:55 Follow up: Response: No adverse reaction kj2 Disposition Summary: 07/29/24 17:48 Discharge Ordered Notes: Location: Home rt Problem: an acute exacerbation rt Symptoms: have improved rt Condition: Stable rt Diagnosis - Diarrhea, unspecified rt - Dehydration rt Followup: rt - With: Private Physician - When: 2 - 3 days - Reason: Discharge Instructions: - Discharge Summary Sheet rt - Dehydration, Adult rt - Diarrhea, Adult rt Forms: - Medication Reconciliation Form rt - Antibiotic Education rt - Prescription Opioid Use rt - Patient Portal Instructions rt - Leadership Thank You Letter rt Prescriptions: - ondansetron 4 mg Oral Tablet,disintegrating - take 1 tablet ORAL route every 6 hours as needed for nausea; 10 tablet; rt Refills: 0, Product Selection Permitted Signatures: Dispatcher [employer] Zabrina Paige RN RN ko1 Matthew Neville MD MD rt Perla Onofre, RICH RN kj2
--- NOTE | 2024-07-29 17:49 | ER ---
Nurse's Notes [facility] Name: Kathe Del Rio Age: 49 yrs Sex: Female : 1975 Arrival Date: 07/29/2024 Time: 15:30 Bed 18 Private MD: Diagnosis: Diarrhea, unspecified;Dehydration Presentation: 07/29 15:44 Chief complaint: Patient states: I have Crohns and I've had diarrhea since 0600, now I ko1 am dehydrated. I just need some fluids. Coronavirus screen: At this time, the client does not indicate any symptoms associated with coronavirus-19. Ebola Screen: No symptoms or risks identified at this time. Initial Sepsis Screen: Does the patient meet any 2 criteria? No. Patient's initial sepsis screen is negative. Does the patient have a suspected source of infection? No. Patient's initial sepsis screen is negative. Risk Assessment: Do you want to hurt yourself or someone else? Patient reports no desire to harm self or others. Onset of symptoms was July 29, 2024. 15:44 Method Of Arrival: Ambulatory ko1 15:44 Acuity: KARISSA 3 ko1 Triage Assessment: 15:48 General: Appears in no apparent distress. Behavior is calm, cooperative, appropriate ko1 for age. Pain: Denies pain. GI: Reports diarrhea, nausea. BASEBALL SCOUT: 17:56 Not kj2 Historical: - Allergies: 15:48 adhesive tape; ko1 15:48 Allopurinol; ko1 15:48 Amitriptyline; ko1 15:48 Azithromycin; ko1 15:48 certolizumab pegol; ko1 15:48 Codeine; ko1 15:48 Duloxetine; ko1 15:48 duloxetine HCl (bulk); ko1 15:48 empagliflozin; ko1 15:48 Macrolide Antibiotics; ko1 15:48 meperidine HCl; ko1 15:48 Morphine; ko1 15:48 Oxycodone HCl; ko1 15:48 ozempic; ko1 15:48 pravastatin; ko1 15:48 pregabalin; ko1 15:48 Sulfa (Sulfonamide Antibiotics); ko1 15:48 venlafaxine HCl; ko1 - PMHx: 15:48 automimmune thyroiditis; Crohn's; Heart Murmur; LBB; psoriasis; Viral cardiomyopathy; ko1 - Immunization history:: Adult Immunizations unknown. - Infectious Disease History:: Denies. - Social history:: Smoking status: Patient reports the use of cigarette tobacco products, smokes one pack cigarettes per day. - Family history:: not pertinent. Screenin:00 [facility] ED Fall Risk Assessment (Adult) History of falling in the last 3 months, kj2 including since admission No falls in past 3 months (0 pts) Confusion or Disorientation No (0 pts) Intoxicated or Sedated No (0 pts) Impaired Gait No (0 pts) Mobility Assist Device Used No (0 pt) Altered Elimination No (0 pt) Score/Fall Risk Level 0 - 2 = Low Risk Maintained a safe environment, Hourly rounding (assess needs \T\ fall precautionary measures) done. Abuse screen: Denies threats or abuse. Denies injuries from another. Nutritional screening: No deficits noted. Tuberculosis screening: No symptoms or risk factors identified. Assessment: 16:00 General: Appears in no apparent distress. Behavior is calm, cooperative. Pain: kj2 Complains of pain in abdominal pain Pain currently is 6 out of 10 on a pain scale. Neuro: Level of Consciousness is awake, alert, Oriented to person, place, time, situation. Cardiovascular: Patient's skin is warm and dry. Respiratory: Airway is patent Respiratory effort is even, unlabored. GI: Reports diarrhea. : No signs and/or symptoms were reported regarding the genitourinary system. 17:00 Reassessment: Patient appears in no apparent distress at this time. Patient and/or kj2 family updated on plan of care and expected duration. Pain level reassessed. Patient is alert, oriented x 3, equal unlabored respirations, skin warm/dry/pink. 17:53 Reassessment: Patient appears in no apparent distress at this time. Patient and/or kj2 family updated on plan of care and expected duration. Pain level reassessed. Patient is alert, oriented x 3, equal unlabored respirations, skin warm/dry/pink. Vital Signs: 15:44 BP 141 / 90; Pulse 98; Resp 18; Temp 97.4; Pulse Ox 97% ; ko1 17:00 BP 146 / 88; Pulse 78; Resp 20; Pulse Ox 99% on R/A; kj2 17:53 BP 134 / 84; Pulse 70; Resp 18; Pulse Ox 100% on R/A; kj2 17:54 Temp 98(O); kj2 ED Course: 15:32 Patient arrived in ED. mr 15:36 Matthew Neville MD is Attending Physician. rt 15:48 Triage completed. ko1 15:48 Arm band placed on right wrist. Patient placed in an exam room, on a stretcher, Patient ko1 notified of wait time. 16:00 Patient has correct armband on for positive identification. Call light in reach. kj2 Provided Education on: call light. 16:11 Perla Onofre, RN is Primary Nurse. kj2 16:34 Inserted saline lock: 20 gauge in left antecubital area, using aseptic technique. Blood kj2 collected. Flushed with 10 mL NS. 17:55 No provider procedures requiring assistance completed. kj2 17:56 IV discontinued, intact, bleeding controlled, No redness/swelling at site. Pressure kj2 dressing applied. Administered Medications: 16:33 Drug: NS 0.9% IV 1000 ml IV at 1 bolus Per protocol; to be given as a bolus over 60 kj2 minutes Route: IV; Rate: 1 bolus; Site: left antecubital; 17:33 Follow up: IV Status: Completed infusion kj2 17:55 Follow up: Response: No adverse reaction kj2 16:33 Drug: Ondansetron IVP 4 mg IVP once; over 2 minutes Route: IVP; Site: left antecubital; kj2 17:55 Follow up: Response: No adverse reaction kj2 Medication: 16:14 VIS not applicable for this client. kj2 Outcome: 17:48 Discharge ordered by MD. rt 17:56 Discharged to home ambulatory, kj2 17:56 Condition: stable 17:56 Discharge instructions given to patient, Instructed on discharge instructions, follow up and referral plans. medication usage, Demonstrated understanding of instructions, follow-up care, medications, Prescriptions given X 1, 18:18 Patient left the ED. kj2 Signatures: Maryann Razo, Reg Reg mr DoeZabrina, RN RN ko1 Matthew Neville MD MD rt Perla Onofre, RICH RN kj2
[2024-07-29 22:00] VITALS: BP 134/84; TEMP 98; O2SAT 100
== END 2024-07-29 18:18 | disposition home or self-care (01) ==
LOC: ER 15:30
DX: E86.0 Dehydration (principal); E06.3 Autoimmune thyroiditis; F17.210 Nicotine dependence, cigarettes, uncomplicated
CPT/HCPCS: 96361; 85025; 36415; 80053; 96374; 99284; J2405; J7030

== ENCOUNTER 2025-02-19 17:05 | Emergency (ER) | payer OTHER ==
[2025-02-19 18:03] LABS: Absolute Lymphocytes (CBC) 3.1 K/uL (0.7-4.9); Hematocrit 45.4 % (36.0-45.0); Hemoglobin 15.3 g/dL (12.0-15.0); MCH 32.1 pg (27.0-35.0); MCHC 33.6 g/dL (32.0-36.0); MCV 95.6 fL (80-100); MPV 8.1 fL (7.6-11.3); Nucleated RBC Absolute Count 0.0 (0-0); Nucleated Red Blood Cells % 0.0 % (0-0); RBC Red Blood Cell Count 4.75 M/uL (3.86-4.86); White Blood Count 12.10 thou/uL (4.3-10.9)
--- NOTE | 2025-02-19 18:20 | RAD REPORT ---
Procedure: Chest Single View HISTORY: Palpitations COMPARISON: 2023 FINDINGS: The lungs appear clear of acute infiltrate. No significant pleural effusion noted. The heart is normal size.. Pacer/AICD in place IMPRESSION: No acute abnormality is displayed.
[2025-02-19 18:30] LABS: ALT/SGPT 25 U/L (13-56); AST/SGOT 15 U/L (15-37); Albumin 3.5 g/dL (3.4-5.0); Albumin/Globulin Ratio 1.0 (1.1-1.8); Alkaline Phosphatase 153 U/L (45-117); Anion Gap 13.4 mEq/L (5.0-15.0); BUN Blood Urea Nitrogen 7 mg/dL (7-18); Globulin 3.6 g/dL (2.3-3.5); Glucose Level 244 mg/dL (74-106); Magnesium 1.8 mg/dL (1.6-2.4); NT PRO-BNP 21 pg/mL (<125); Potassium 3.4 mEq/L (3.5-5.1); Thyroid Stimulating Hormone 0.857 uIU/mL (0.358-3.740); Troponin High Sensitivity 3.1 pg/mL (<58.9)
[2025-02-19 18:31] LABS: Bilirubin Indirect, Calculated 0.1 mg/dL (0.2-0.8)
[2025-02-19] MEDS ORDERED: NA CHLORIDE 0.9% 500 ML ONE (19:37)
[2025-02-19] MEDS ORDERED: POTASSIUM CL SA 10 MEQ TAB PO ONE (20:26)
--- NOTE | 2025-02-19 20:35 | ER ---
Nurse's Notes [facility] Name: Kathe Del Rio Age: 49 yrs Sex: Female : 1975 Arrival Date: 02/19/2025 Time: 17:05 Bed 18 Private MD: Diagnosis: Palpitations Presentation: 02/19 17:15 Chief complaint: Patient states: c/o heart palpitations that started today, has been iw feeling shaky and lightheaded, has a pacemaker defibrilator but it has not gone off. Coronavirus screen: At this time, the client does not indicate any symptoms associated with coronavirus-19. Ebola Screen: Patient denies travel to an Ebola-affected area in the 21 days before illness onset. No symptoms or risks identified at this time. Initial Sepsis Screen: Does the patient meet any 2 criteria? HR > 90 bpm. 17:15 Method Of Arrival: Ambulatory iw 17:35 Initial Sepsis Screen: Does the patient have a suspected source of infection? No. iw Patient's initial sepsis screen is negative. Risk Assessment: Do you want to hurt yourself or someone else? Patient reports no desire to harm self or others. Onset of symptoms was February 19, 2025. 17:35 Acuity: KARISSA 2 iw Triage Assessment: 17:23 General: Appears in no apparent distress. Behavior is cooperative, appropriate for age, nh2 restless. Pain: Denies pain. Neuro: Level of Consciousness is awake, alert, obeys commands, Oriented to person, place, time, situation, Appropriate for age. Cardiovascular: Reports palpitations, since this morning Denies chest pain, Patient's skin is warm and dry. Respiratory: Airway is patent Trachea midline Respiratory effort is even, unlabored, Respiratory pattern is regular, symmetrical. Musculoskeletal: Range of motion: intact in all extremities. BLOCKERS SKIVER: 17:56 Not kj2 Historical: - Allergies: 17:23 adhesive tape; nh2 17:23 Allopurinol; nh2 17:23 Amitriptyline; nh2 17:23 Azithromycin; nh2 17:23 certolizumab pegol; nh2 17:23 Codeine; nh2 17:23 Duloxetine; nh2 17:23 duloxetine HCl (bulk); nh2 17:23 empagliflozin; nh2 17:23 Macrolide Antibiotics; nh2 17:23 meperidine HCl; nh2 17:23 Morphine; nh2 17:23 Oxycodone HCl; nh2 17:23 ozempic; nh2 17:23 pravastatin; nh2 17:23 pregabalin; nh2 17:23 Sulfa (Sulfonamide Antibiotics); nh2 17:23 venlafaxine HCl; nh2 - PMHx: 17:23 automimmune thyroiditis; Crohn's; Heart Murmur; LBB; psoriasis; Viral cardiomyopathy; nh2 - Immunization history:: Adult Immunizations up to date. - Infectious Disease History:: Denies. - Social history:: Smoking status: Patient reports the use of cigarette tobacco products, smokes one-half pack cigarettes per day. Screenin:45 [facility] ED Fall Risk Assessment (Adult) History of falling in the last 3 months, kj2 including since admission No falls in past 3 months (0 pts) Confusion or Disorientation No (0 pts) Intoxicated or Sedated No (0 pts) Impaired Gait No (0 pts) Mobility Assist Device Used No (0 pt) Altered Elimination No (0 pt) Score/Fall Risk Level 0 - 2 = Low Risk Maintained a safe environment, Hourly rounding (assess needs \T\ fall precautionary measures) done. Abuse screen: Denies threats or abuse. Denies injuries from another. Nutritional screening: No deficits noted. Tuberculosis screening: No symptoms or risk factors identified. Assessment: 17:45 General: Appears in no apparent distress. Behavior is calm, cooperative. Pain: Denies kj2 pain. Neuro: Level of Consciousness is awake, alert, obeys commands, Oriented to person, place, time, situation. Cardiovascular: Patient's skin is warm and dry. Respiratory: Airway is patent Respiratory effort is unlabored. GI: No signs and/or symptoms were reported involving the gastrointestinal system. : No signs and/or symptoms were reported regarding the genitourinary system. 18:51 Reassessment: Patient appears in no apparent distress at this time. Patient and/or kj2 family updated on plan of care and expected duration. Pain level reassessed. Patient is alert, oriented x 3, equal unlabored respirations, skin warm/dry/pink. Vital Signs: 17:15 BP 155 / 94; Pulse 107; Resp 19; Temp 96.9(TE); Pulse Ox 98% on R/A; Weight 90.72 kg; iw Height 5 ft. 7 in. ; 17:26 BP 155 / 94; Pulse 107; Resp 18; Temp 96.9(TE); Pulse Ox 96% ; Pain 0/10; nh2 18:51 BP 124 / 68; Pulse 102; Resp 20; Pulse Ox 100% on R/A; kj2 20:15 BP 124 / 78; Pulse 84; Resp 18; Temp 97.9(O); Pulse Ox 93% on R/A; kd3 21:25 BP 114 / 60; Pulse 85; Resp 18; Pulse Ox 99% on R/A; kd3 17:15 Body Mass Index 31.32 (90.72 kg, 170.18 cm) iw 17:26 Pain Scale: Adult nh2 ED Course: 17:11 Patient arrived in ED. iw 17:14 Kristyn Fitzgerald FNP-C is PHCP. kb 17:14 Masood Alberto DO is Attending Physician. kb 17:36 Triage completed. iw 17:40 Perla Onofre RN is Primary Nurse. kj2 17:45 Patient has correct armband on for positive identification. Bed in low position. Call kj2 light in reach. Adult w/ patient. Provided Education on: call light. 17:56 Inserted saline lock: 22 gauge in right hand, using aseptic technique. Blood collected. kj2 Flushed with 10 mL NS. 18:06 XRAY Chest (1 view) In Process Unspecified. EDMS 18:52 Arm band placed on Patient placed. kj2 19:02 Report given to RICH Carrasco. kj2 19:04 Primary Nurse role handed off by Perla Onofre RN kd3 19:04 Fatmata Mendez RN is Primary Nurse. kd3 21:24 No provider procedures requiring assistance completed. IV discontinued, intact, kd3 bleeding controlled, No redness/swelling at site. Pressure dressing applied. Administered Medications: 19:45 Drug: NS 0.9% IV 500 ml 500 ml IV at 1 bolus once; to be given as a bolus over 30 kd3 minutes Volume: 500 ml; Route: IV; Rate: 1 bolus; Site: right hand; 20:48 Drug: Potassium Chloride PO 20 mEq PO once Route: PO; kd3 Medication: 18:53 VIS not applicable for this client. kj2 Outcome: 20:34 Discharge ordered by . kb 21:24 Discharged to home ambulatory, kd3 21:24 Condition: stable 21:24 Discharge instructions given to patient, Instructed on discharge instructions, follow up and referral plans. Demonstrated understanding of instructions, follow-up care, 21:25 Patient left the ED. kd3 Signatures: Dispatcher [employer] EDKristyn Mendez, CELLOPHANE TESTER-C CELLOPHANE TESTER-Martina Cristobal, RN RN Fatmata Barnett RN RN kd3 Perla Onofre RN RN kj2 Al Lopez Jr RN RN nh2
--- NOTE | 2025-02-19 20:35 | EDPHYS ---
Physician Documentation [facility] Name: Kathe Del Rio Age: 49 yrs Sex: Female : 1975 Arrival Date: 02/19/2025 Time: 17:05 Bed 18 Private MD: ED Physician Masood Alberto HPI: 02/19 17:41 This 49 yrs old Female presents to ER via Ambulatory with complaints of Palpitations. kb 17:41 Pt is a 49 year old female who presents for intermittent palpitations that have been kb ongoing all day today. Denies chest pain, shortness of breath. States she has a history of SVT and has a pacemaker/defibrillator in place. . WHARF HELPER: 17:56 Not kj2 Historical: - Allergies: 17:23 adhesive tape; nh2 17:23 Allopurinol; nh2 17:23 Amitriptyline; nh2 17:23 Azithromycin; nh2 17:23 certolizumab pegol; nh2 17:23 Codeine; nh2 17:23 Duloxetine; nh2 17:23 duloxetine HCl (bulk); nh2 17:23 empagliflozin; nh2 17:23 Macrolide Antibiotics; nh2 17:23 meperidine HCl; nh2 17:23 Morphine; nh2 17:23 Oxycodone HCl; nh2 17:23 ozempic; nh2 17:23 pravastatin; nh2 17:23 pregabalin; nh2 17:23 Sulfa (Sulfonamide Antibiotics); nh2 17:23 venlafaxine HCl; nh2 - PMHx: 17:23 automimmune thyroiditis; Crohn's; Heart Murmur; LBB; psoriasis; Viral cardiomyopathy; nh2 - Immunization history:: Adult Immunizations up to date. - Infectious Disease History:: Denies. - Social history:: Smoking status: Patient reports the use of cigarette tobacco products, smokes one-half pack cigarettes per day. ROS: 17:41 Constitutional: As per HPI kb Exam: 17:41 Constitutional: This is a well developed, well nourished patient who is awake, alert, kb and in no acute distress. Head/Face: Normocephalic, atraumatic. ENT: Moist Mucous membranes Cardiovascular: Regular rate Respiratory: Respirations even and unlabored. No increased work of breathing. Talking in full sentences Abdomen/GI: Soft, non-tender. No distention Skin: Warm, dry with normal turgor. Normal color. MS/ Extremity: Pulses equal, no cyanosis. Neurovascular intact. Full, normal range of motion. Neuro: Awake and alert, GCS 15, oriented to person, place, time, and situation. 18:51 ECG was reviewed by the Attending Physician. kb Vital Signs: 17:15 BP 155 / 94; Pulse 107; Resp 19; Temp 96.9(TE); Pulse Ox 98% on R/A; Weight 90.72 kg; iw Height 5 ft. 7 in. ; 17:26 BP 155 / 94; Pulse 107; Resp 18; Temp 96.9(TE); Pulse Ox 96% ; Pain 0/10; nh2 18:51 BP 124 / 68; Pulse 102; Resp 20; Pulse Ox 100% on R/A; kj2 20:15 BP 124 / 78; Pulse 84; Resp 18; Temp 97.9(O); Pulse Ox 93% on R/A; kd3 21:25 BP 114 / 60; Pulse 85; Resp 18; Pulse Ox 99% on R/A; kd3 17:15 Body Mass Index 31.32 (90.72 kg, 170.18 cm) iw 17:26 Pain Scale: Adult nh2 MDM: 17:14 Medical Screening Exam initiated kb 18:46 Differential diagnosis: arrythmia, dehydration, stress disorder. Data reviewed: vital kb signs, nurses notes. 20:33 Consideration of Admission/Observation Escalation of care including kb admission/observation considered. admission considered for palpitations but discussed with Dr Simon and all in agreement with outpatient follow up. Pt has appt with Dr Schultz next week. Management of patient was discussed with the following: Electrical Line Mechanic: Dr Simon agrees with outpatient follow up. Historians other than the Patient: Parent: mother. Counseling: I had a detailed discussion with the patient and/or guardian regarding the historical points, exam findings, and any diagnostic results supporting the discharge/admit diagnosis, lab results, radiology results, the need for outpatient follow up, a family practitioner, to return to the emergency department if symptoms worsen or persist or if there are any questions or concerns that arise at home. 02/19 17:20 Order name: Basic Metabolic Panel; Complete Time: 18:43 kb 02/19 17:20 Order name: CBC with Diff; Complete Time: 18:06 kb 02/19 17:20 Order name: LFT's; Complete Time: 18:43 kb 02/19 17:20 Order name: Magnesium; Complete Time: 18:43 kb 02/19 17:20 Order name: NT PRO-BNP; Complete Time: 18:43 kb 02/19 17:20 Order name: Troponin HS; Complete Time: 18:43 kb 02/19 17:20 Order name: TSH; Complete Time: 18:43 kb 02/19 17:20 Order name: XRAY Chest (1 view); Complete Time: 18:21 kb 02/19 17:20 Order name: EKG; Complete Time: 17:21 kb 02/19 17:20 Order name: Cardiac monitoring; Complete Time: 18:26 kb 02/19 17:20 Order name: EKG - Nurse/Tech; Complete Time: 18:26 kb 02/19 17:20 Order name: IV Saline Lock; Complete Time: 17:57 kb 02/19 17:20 Order name: Labs collected and sent; Complete Time: 19:04 kb 02/19 17:20 Order name: O2 Per Protocol; Complete Time: 18:26 kb 02/19 17:20 Order name: O2 Sat Monitoring; Complete Time: 18:26 kb EC:51 Rate is 93 beats/min. Rhythm is regular. QRS [place] is Normal. GA interval is normal at kb 150 msec. QRS interval is normal at 130 msec. QT interval is prolonged at 522 msec. Administered Medications: 19:45 Drug: NS 0.9% IV 500 ml 500 ml IV at 1 bolus once; to be given as a bolus over 30 kd3 minutes Volume: 500 ml; Route: IV; Rate: 1 bolus; Site: right hand; 20:48 Drug: Potassium Chloride PO 20 mEq PO once Route: PO; kd3 Disposition: 20:01 I was immediately available on-site in the Emergency Department for consultation in the ms3 care of the patient. Disposition Summary: 02/19/25 20:34 Discharge Ordered Notes: Location: Home kb Condition: Stable kb Diagnosis - Palpitations kb Followup: kb - With: Emergency Department - When: As needed - Reason: Worsening of condition Followup: kb - With: Private Physician - When: 2 - 3 days - Reason: Recheck today's complaints, Continuance of care, Re-evaluation by your physician Discharge Instructions: - Discharge Summary Sheet kb - Palpitations, [id number] kb Forms: - Medication Reconciliation Form kb - Antibiotic Education kb - Prescription Opioid Use kb - Patient Portal Instructions kb - Leadership Thank You Letter kb Signatures: Dispatcher [employer] Kristyn Freeman FNP-C FNP-Ckb Sims, Marcus, DO ms3 Fatmata Mendez, RN RN kd3 Al Lopez Jr RN RN nh2
[2025-02-20 05:20] VITALS: TEMP 97.9
[2025-02-20 05:21] VITALS: BP 114/60; O2SAT 99
== END 2025-02-19 21:25 | disposition home or self-care (01) ==
LOC: ER 17:05
DX: R00.2 Palpitations (principal); Z95.810 Presence of automatic (implantable) cardiac defibrillator; F17.210 Nicotine dependence, cigarettes, uncomplicated
CPT/HCPCS: 93005; 85025; 80048; 36415; 83735; 80076; 84443; 84484; 83880; 71045; 99284; J7040